=== PATIENT | male | born 1940 | race Caucasian/White ===

== ENCOUNTER → 2017-11-22 07:56 | Outpatient (CLI) | payer MEDICARE, SELFPAY ==
[2017-11-22 10:04] LABS: AST(SGOT) 35 U/L (15-37); Alanine Aminotransfer ALT/SGPT 48 U/L (16-61); Albumin, Serum 3.8 g/dL (3.2-5.0); Alkaline Phosphatase 54 U/L (45-117); Bilirubin, Direct 0.17 mg/dL (0.00-0.30); Cholesterol 169 mg/dL (200); Globulin 3.4 g/dL (2.2-4.2); High Density Lipoprotein 26 mg/dL; PSA,Total - Annual Screen 7.23 ng/mL (0.00-4.00); Protein, Total 7.2 g/dL (6.4-8.2); T4 Free Direct 1.13 ng/dL (0.76-1.46); Thyroid Stim Hormone (TSH) 2.95 uIU/mL (0.358-3.74); Triglycerides 249 mg/dL; Very Low Density Lipoprotein 50 mg/dL (5-40)
== END ==
PROVIDERS: Visit Provider Internal Medicine Cardiovascular Disease
DX: Z00.00 Encounter for general adult medical examination without abnormal findings (principal); E78.1 Pure hyperglyceridemia; E78.5 Hyperlipidemia, unspecified; E03.9 Hypothyroidism, unspecified; Z12.5 Encounter for screening for malignant neoplasm of prostate
CPT/HCPCS: 36415; 80061; 80076; 84153; 84439; 84443; G0103

== ENCOUNTER → 2018-02-24 15:33 | Outpatient (CLI) | payer MEDICARE, SELFPAY ==
[2018-02-24 16:42] LABS: PSA,Total- Diagnostic 7.98 ng/mL (0.0-4.0)
== END ==
PROVIDERS: Referring Provider Nurse Practitioner Adult Health; Visit Provider Nurse Practitioner Adult Health
DX: R97.20 Elevated prostate specific antigen [PSA] (principal)
CPT/HCPCS: 36415; 84153

== ENCOUNTER → 2019-12-19 12:34 | Outpatient (CLI) | payer OTHER, SELFPAY ==
[2019-12-10 08:30] VITALS: BMI 29.9
--- NOTE | 2019-12-19 12:45 | CR.HP_ITS ---
CR - History & Physical - General Arrival date:: 12/19/19 Arrival time:: 12:46 Date of Referral:: 12/10/19 Date of CR Evaluation:: 12/19/19 Referring Physician: Dr. Dennis Keller Primary Diagnosis: Z95.1 CABG - History of Present Cardiac Event Onset Date: Enter Onset Date of cardiac illnesses in Comment field below Coronary Artery Bypass Graft:: Yes - 10/31/19 - Medications Home Medications: Ambulatory Orders Medication Instructions Recorded Aspirin [Aspirin, Baby] 81 mg PO DAILY@0800 09/20/16 Cholecalciferol (Vitamin D3) 2,000 unit PO DAILY 09/20/16 [Vitamin D3] Fenofibrate [Tricor] 145 mg PO DAILYCM #30 tab 09/24/16 Nitroglycerin (INPATIENT USE) 0.4 mg SUBLINGUAL Q5M PRN #1 bottle 09/24/16 [Nitrostat] amiodarone 200 mg tablet 200 mg PO DAILY 12/10/19 apixaban 5 mg tablet 5 mg PO BID 12/10/19 carvedilol 3.125 mg tablet 3.125 mg PO BID 12/10/19 ezetimibe 10 mg tablet 5 mg PO DAILY tab 12/10/19 levothyroxine 25 mcg tablet 50 mcg PO DAILY tab 12/10/19 losartan 25 mg tablet 12.5 mg PO DAILY tab 12/10/19 - Allergies Allergies/Adverse Reactions: Allergies Penicillins Allergy (Verified 12/10/19 08:30) Rash - Sleep Disorder Evaluation Hx of Sleep Apnea: Yes Do you snore loudly (louder than talking or can be heard through closed doors)?: No Do you often feel tired/ fatigued/ sleepy during daytime?: Yes Has anyone observed you stop breathing during sleep?: No History of Hypertension (for STOP score): Yes - pt declines STOP Results: Positive Advanced Directives - Advanced Directives Power of Health And Wellness Coordinator: Yes Living Will: Yes Advance Directives Information Provided: Yes Advance Directives on File: Yes DNR Order?:: No Past Medical History - Covid-19 Screening Has a serious heart condition:: Yes - Past Medical Illness Medical History: Past Medical History (Last Reviewed 09/28/18 @ 13:51 by Gabby Barroso) Ventricular ectopy (Acute) I49.3 Tachy-drew syndrome (Acute) I49.5 Presence of stent in coronary artery (Chronic) Onset Date: ~09/23/16 Z95.5 FFR/SABRA to mid LAD 09/23/16 Atherosclerotic heart disease of [place] coronary artery without angina pectoris (Chronic) I25.10 Essential hypertension (Chronic) I10 Near syncope (Acute) Bradycardia (Acute) R00.1 Hypothyroidism (Chronic) E03.9 Hypertriglyceridemia (Chronic) E78.1 Enlarged prostate (Chronic) N40.0 HERMAN (obstructive sleep apnea) (Chronic) G47.33 non-compliant Tachycardia (Chronic) R00.0 CAD (coronary artery disease) (Inactive) I25.10 cath in 2008...does not really know the results but, he got put on a beta becca; PTCA/SABRA to LAD in September 2016; - Past Surgical History Surgical History: Past Surgical History (Last Updated 12/10/19 @ 08:37 by Brenna Santillan) 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, 2019 IN [place] Presence of coronary angioplasty implant and graft Onset Date: ~09/23/16 Z95.5 FFR/SABRA to mid LAD 09/23/16 History of ankle surgery Z98.890 History of appendectomy Z90.49 History of rotator cuff surgery Z98.890 Hx of appendectomy (Inactive) Z90.49 Post PTCA (Inactive) Z98.61 left leg surgery (Inactive) Surgical History: appendectomy, - Social History - Smoking History Smoking Status: Former smoker Years Smokin Packs Smoked per Day: 3 Hx Tobacco Use: Yes - quit 1970 - Alcohol Use Alcohol Usage: No - Occupation Occupation (List type of work in comments):: Retired - Hobbies, Recreation, Social Activities Hobbies: Other - fishing and arshad Recreational Activities: I am able to engage in all my recreational activities Social Environment - Status Marital Status: - Current Living Arrangements Living Environment:: Spouse - Children How many children do you have?: 4 Do any of your children live nearby?: No - Safety Do you feel safe in your surroundings?: Yes - Assistance Do you need any assistance at home?: none Review of Systems - Review of Systems Hints: Right click = Denies ([place]). Left click = Reports ([place]) Review of Present Symptoms: Reports: Shortness of Breath with Exertion, Fatigue, Appetite - Normal, Appetite - Special Diet, Sleep - Normal. Denies: Shortness of Breath at Rest, PVD, Operative Discomfort, Angina, Wound Healing, Dizziness/Lightheadedness, Heart Arrhythmia/Irregularities, Sexual Changes - Pain Is Patient Pain Free?: Yes Risk Factor Assessment - Chief Complaint Chief Complaint: CABG - Vital Signs Pulse Ox: 97 Blood Pressure: 126/80 - Pulse Pulse Rate: 81 Pulse Rhythm: Regular - Obesity Height: 5 ft 9 in Weight:: 92.079 kg Weight in Pounds: 203.0 lbs Body Mass Index (BMI): 29.9 Nutritional Referral for Obesity: No - Physical Inactivity Physical Inactivity: Reg Exercise 30 min/day, None - Risk Stratification Risk Guidelines: Lowest Risk: Risk Factor for Smoking, Moderate Risk: Risk Factor for Dyslipidemia, Risk Factor for Diabetes, Risk Factor for Obesity, Risk Factor for Hypertension, Risk Factor for Sedentary Lifestyle, Risk Factor for Depression - For Smoking Smoking Risk Guidelines: Smoking Low Risk: None or quit greater than 6 months ago. Smoking Moderate Risk: Smoker or quit 6 months or less ago. Smoking High Risk: Smoker - For Dyslipidemia Dyslipidemia Risk Guidelines: Low Risk: Moderate Risk: High Risk: 15-25% fat 25.1-29% fat >/= 30% fat. <7% sat fat 7-9% sat fat >9% sat fat. <150 mg chol 150-299 mg chol >/= 300 mg chol. LDL <100 LDL 100-129 LDL >/= 130. Chol/HDL ratio <5.0 Chol/HDL ratio 5.0-6.0 Chol/HDL ratio >6.0. Triglycerides <100 Triglycerides 100- 149 Triglycerides >/= 150 - For Diabetes Mellitus Diabetes Risk Guidelines: Diabetes Low Risk: HgA1c <6.5% and/or FBG <120. Diabetes Moderate Risk: HgA1c 6.6-7.9% and/or FBG 120-180. Diabetes High Risk: HgA1c >/= 8% and/or FBG >180 - For Obesity/Overweight Obesity/Overweight Risk Guidelines: Obesity Low Risk: BMI <25.0. Obesity Moderate Risk: BMI 25-29.9. Obesity High Risk: BMI >/= 30.0 - For Hypertension Hypertension Risk Guidelines: Hypertension Low Risk: Systolic <120 and Diastolic <80. Hypertension Moderate Risk: Systolic 120-139 and Diastolic 80-89. Hypertension High Risk: Systolic >/= 140 and Diastolic >/= 90 - For Sedentary Lifestyle Sedentary Lifestyle Risk Guidelines: Sedentary Lifestyle Low Risk: >/= 1,500 kcal/week. Sedentary Lifestyle Moderate Risk: 700-1,499 kcal/week. Sedentary Lifestyle High Risk: < 700 kcal/week - For Depression Depression Risk Guidelines: Depression Low Risk: Not clinically depressed. Depression Moderate Risk: Mildly depressed. Depression High Risk: Clinically depressed Motivation - Motivation to Participate On a scale of 1 to 10, how prepared are you to commit to attending program?: 10 What do you see as barriers to successfully being able to complete the program?: none What do you see as the benefits of succesfully completing the program? In other words, what do you hope to get out of participating in the program?: improved health Are there issues you are dealing with that will interfere with completing the pr ogram?: none Do you have a spouse or signficant other, family or friends who will help support you to complete the program?: spouse
--- NOTE | 2019-12-19 12:46 | CR.ITP_ITS ---
Diagnosis - General Information Admitting Diagnosis: Z95.5 PCI with stent Personal Learning Style:: Audio/Visual Barriers to Learning: Vision Impairment Stage of change r/t lifestyle modifications:: Contemplation Gave educational material for:: Treating Heart Disease, Emotions & Heart Disease, Stress Management & Relaxation, Sleep Disorders & Heart Disease, How The Heart Works, What it means to have Heart Disease, How Coronary Artery Disease is Diagnosed, Heart Procedures, What Heart Medications Do, Risk Factors & Modifications, Living an Active Life, Nutrition - Education/Goals Cardiac Rehabilitation Goals: 1. Maintain the individual as the primary focus of care. 2. To improve the patient's quality of life. 3. Identification of cardiac risk factors and provide cardiac risk factor management. 4. Enhance the psychosocial status of the patient. 5. Reconditioning enough to allow the patient to resume customary activities. 6. Control symptoms of cardiac disease Personal Goals: Initial Assessment: Improve energy level, Participate in home exercise program, Get back to work, or to resume activities faster, Improve knowledge of cardiac disease, Improve muscle strength and endurance, Improve diet and eating habits (eat healthier), Control risk factors (learn risk factor modification) Scale for measuring improvement of personal goals: Enter appropriate number in Comments. 2 = Unchanged. 3 = Slightly Better. 4 = Moderate Improvement. 5 = Met my Goal - Diagnosis & Disease Process Outcomes/Goals: Pt IDs own risk factors & lifestyle modifications by Session 10, Verbalizes symptoms of angina & response by session 3., Pt independently manages, Other Additional Outcomes/Goals: Plan/Interventions: Assist Pt to ID & engage in lifestyle modification to reduce CVD risk, Instruct on individual risk factors, Review symptoms of angina & emergency actions, Review secondary diagnosis & identify educational needs., Other see comment 30 day Reassessments:: Not Met 30 day Reassessments:: Not Met 30 day Reassessments:: Not Met 30 day Reassessments:: Not Met Final Reassessments:: Not Met - Safety Referral to Physical Therapy: No Referral to [facility] Case Management: No Fall Risk Assessed:: Yes Assistive Devices:: None Exercise - Initial Assessment - Visit Date of Eval: 12/19/19 - initial eval Mets: Pre-: >5 METS for 30 minutes by discharge - Physician Prescribed Exercise Modalities: Treadmill, Biodyne, Rower, Airdyne, NuStep, SciFit Frequency: 3x/week for 12 weeks [36 sessions] Intensity: 60-80% of age predicted maximum heart rate reserve Current METSs:: 3.5 Target Heart Rate:: 93-125 EKG Type: NSR - Outcomes & Goals Goals:: Verbalizes understanding of THR, RPE & goal METS by session 6, Documents in home exercise log/reports 30 min aerobic 5 day/wk by DC, Demonstrates accurate pulse taking by DC, Other additional outcome/goals: see below - Intervention & Plan Exercise Program Goals: Instruct on personal THR & RPE, Instruct on MET level & personal MET goal, Show patient to take own pulse /validate performance until accurate, Instruct on home exercise, Other additional plan/int - Physical Activity Home Exercise Physical Activity - Home Exercise: Safe Exercise, Warm-up, Self-monitoring, Cool-Down, Home Exercise > 30 min Daily, Sitting Time <3 hours/daily - Outcomes & Goals Outcomes/Goals: Demonstrates correct Warm-up/exercise Cool-Down (S3) if = 2.5 METs, Verbalizes symptoms of exercise intolerance by Session 3 (S3), Demonstrate safe equipment use (S3) & follows exercise prescrition (6), Other: See below - Intervention & Plan Plan/Intervention: Instruct warm-up & cool-down if exercising at > 2 METs, Instruct on symptoms of exercise intolerance & actions to take, Instruct & monitor on saf, Assess intial functional capacity & safety risk, Other See below Nutrition - Initial Assessment - Program Goals Nutrition Program Goals: LDL <100 optimal. 100 - 129 Near optimal. 130 - 159 Borderline High. 160 - 189 High. Total Cholesterol <200 desirable. 200 - 239 Borderline High. >/= 240 High. HDL < 40 Low >/=60 High. Triglycerides <150 desirable. <199 optimal. VlDL 5 - 40. HgbA1C <7%. BMI <25 Patient has diagnosis of Hyperlipidemia (ICD E78)?: Yes - Visit Date of Assessment:: 12/19/19 - initial eval - Cholesterol/Lipids Determine presence & major risk factors that modify LDL goal: Hypertension or hypertensive medication, Low HDL cholesterol <40 mg/dL*, Family history of premature CHD in Male < 55 years: female <65 yearsFa, Age men > 45 years; women >/= 55 years Outcomes/Goals: Pt IDs own risk factors & lifestyle modifications by Session 10, Verbalizes symptoms of angina & response by session 3., Pt independently manages, Other Additional Outcomes/Goals: Intervention/Plan: Advocate for lipid panel cholesterol medication if applicable, Instruct on personal lipid levels & lipid goals/NCEP guidelines, Instruct on cholesterol, Other additional plan/int Referral to dietitian:: No - pt declines - Diabetes (Other Core Measures) Diabetes Type: Not Applicable Referral to Diabetic Clinic:: No - Weight Mgt (Other Care) Height: 5 ft 9 in Weight:: 92.079 kg BMI: 29.9 Diagnosis Overweight/Obesity BMI> 30% ICD-10 E66: No Diagnosis High BMI/Morbid Obesity BMI> 35% ICD-10 Z68: No - Healthy Eating Habits Will attend diet classes:: Yes Outcomes/Goals:: Consume diet rich in vegs,fruits,whole grain/high fiber,fish,lean meat, Limit sat/trans fats,cholesterol & added salts & sugars, Other additional outcome/goals: Intervention/Plan:: Assess current eating habits, Other Additional plan/interventions - Education Gave educational materials for:: Signs & symptoms of hypoglycemia, Signs & symptoms of hyperglycemia, Relate diabetes to coronary artery disease, Healthy eating Medical - Initial Assessment - Visit Date of Eval: 12/19/19 - initial eval - Medication Compliance Preventative Medication(s):: Aspirin, Statin/lipid, Beta becca H/O mental health issues: depression, anxiety, or addiction?: No Doesn?t believe in the benefits of treatment?: No Believes medications are unnecessary or harmful?: No Has a concern about medication side effects?: No Expresses concern over the cost of medications?: No Outcomes/Goals: Verbalizes medications,desired effect & common side effects @ DC, Pt self-reports following medication regimen, Keeps card in wallet w/medications listed by DC, Other additional outcome/goals: - Tobacco Use Tobacco Use: Non-smoker How long ago did you quit using tobacco products?: Greater than or equal to 6 months ago - 50 years ago - Hypertension Hypertension Diagnosis:: Hypertension ICD-10 I10 Resting Blood Pressure:: 126/80 [place] [employer] Hypertension Guidelines: [place] [employer] Hypertension Guidelines. Normal BP Less than 120/80. Elevated BP 120/80. Hypertension Stage 1: BP 130-139/80-89. Hypertesnion Stage 2: BP 140 or higher/90 or higher. Hypertension Crisis: BP higher than 180/120 Outcomes/Goals: Able to verbalize/achieve optimal blood pressure <130/80, Incorporates diet changes & exercise for blood pressure control by DC, Other additional outcomes/goals Interventions/plan: Instruct on optimal blood pressure, hypertension & medications, Instruct on effects of sodium, alcohol, stress, exercise &hypertension, Other additional plan/interventions - Tobacco Cessation Referral Smoking Cessation Referral:: No Individual Education/Counseling:: No Education Schedule Given:: Yes Psychosocial - Initial Assess - VIsit Date of Eval: 12/19/19 - initial eval History of previous Mental disease:: No - Target Goals Target Goals: Assess presence or absence of depression. Using a valid screening tool, maximizes coping skills. Positive support system - Psychosocial Test Tool Used:: Clean Mobile QOL Cardiac, PHQ-9 Questionnaire phq-9 Severity: Severity. 1-4 Minimal Depression. 5-9 Mild Depression. 10-14 Moderate Depression. 15-19 Moderately Sever Depression. 20-27 Severe Depression. Rule: Total Score:: 3 - Referral to Behavioral Health PS - Interventions: Yes Referral to Behavioral Health if PHQ-9 score >9:, Yes Referral to Physician if PHQ-9 if score is 5-9:, Yes Attend Stress Management Classes, No Referral to [facility] - Outcomes/Goals: See list Psychosocial Outcomes/Goals:: ID's personal stressors & 2 strategies to manage stress by discharge, Other Additional outcome/goals: - Intervention/Plan: See List Interventions/Plan:: Assess stressors,coping strategies & signs of derpression on admission, Instruct/assist pt to develop coping & personal stress Mgt strategies, Refer to Behavioral Health if appropriate, Refer to Physician if appropriate, Instruct patient to recognize signs & symptoms of depression, Instruct patient to recog, Other additional plan/intervention Patient Health Questionnaire Initial Assessment 1. Little interest or pleasure in doing things: Not at all 2. Feeling down, depressed, or hopeless: Not at all 3. Trouble falling or staying asleep, or sleeping too much: Not at all 4. Feeling tired or having little energy: Nearly every day 5. Poor appetite or overeating: Not at all 6. Feeling bad about yourself -- or that you are a failure or have let yourself or your family down: Not at all 7. Trouble concentrating on things, such as reading the newspaper or watching television: Not at all 8. Moving or speaking so slowly that other people could have noticed. Or the opposite - being so fidgety or restless that you have been moving around a lot more than usual: Not at all 9. Thoughts that you would be better off , or of hurting yourself in some way: Not at all How difficult have these problems made it for you to do your work, take care of things at home, or get along with other people?: Not difficult at all Total Score: 3 ILEANA-Q SV Test - Statements CAD is a disease of the arteries in the heart: False Examples of risk factors for heart disease: True Angina is chest pain or discomfort: True The benefits of resistance training include: True Eating more meat and dairy products: False Anti-platelet medications such as aspirin are important: True The only effective way to manage stress: False An exercise warm-up slowly increases heart rate: True Prepared, processed foods usually have high sodium: True Depression is common after a heart attack: True The statin medications lower cholesterol: True To control blood pressure, lower the amount of sodium: True If someone gets chest discomfort during walking: False Transfats are partially hydrogenated vegetable oils: True Sleep apnea that is not treated increases the risk: False To control cholesterol, one should become a vegetarian: False Someone knows if he/she is exercising at the right level: True Diabetes cannot be prevented with exercise & health eating: False Stress is a large risk for heart attack: True A diet that can help lower blood pressure is rich in: True - Total Score Total Correct Responses: 20 Self-Efficacy Initial Assessment We would like to know how confident you are in doing certain activities. Please select your confidence level for:: Select your confidence level for the following using the scale 1-10 where 1 is not at all confident and 10 is totally confident. Your score is the average of all 6 responses. Fatigue: How confident are you that you can keep the fatigue caused by your disease from interfering with the things you want to do? Select Number: 7 Physical Discomfort or Pain: How confident are you that you can keep the physical discomfort or pain of your disease from interfering with the things you want to do? Select Number: 7 Emotional Distress: How confident are you that you can keep the emotional distress caused by your disease from interfering with the things you want to do? Select Number: 10 Other Symptoms or Health Problems: How confident are you that you can keep other symptoms or health problems from interfering with the things you want to do? Select Number: 10 Different Tasks and Activities: How confident are you that you can do the different tasks and activities needed to manage your health condition so as to reduce your need to see a doctor? Select Number: 10 Medication: How confident are you that you can do things other than just taking medication to reduce how much your illness affects your everyday life? Select Number: 10 Total Score:: 9 Nutrition Survey - Nutrition Survey Instructions Scoring Instructions: Scoring is as follows: Yes = 1 points. No = 0 point. Patient score that is >/=12 is considered to be at potential nutritional risk and could benefit from a referral to a registered dietitian. - Nutrition Survey Initial Have you lost >10 lbs over the past 2 months without trying?: Yes Are you following a special diet at home for diabetes, low fat, or low salt?: Yes Are you interested in meeting with a dietitian for help understanding your diet?: No Do you eat less than 3 meals a day?: Yes Do you eat fatty meats (hsu, sausage, ribs, etc), fried foods, desserts, large amounts of salad dressings, margarine, butter, or cheese most days?: No Do you have food allergies? [Enter types in comment field]: Yes Do you eat in restaurants more than 3 times a week?: No Do you season food with salt, seasoning salt, or garlic salt?: No Do you used canned, boxed, frozen meals, or soups, seasoning packets?: No Total Score:: 4
[2019-12-19 13:59] VITALS: BP 126/80; PULSE 81; O2SAT 97; BMI 29.9
[2019-12-19 14:00] VITALS: BP 126/80; BMI 29.9
== END ==
PROVIDERS: Referring Provider Internal Medicine Cardiovascular Disease; Visit Provider Internal Medicine Cardiovascular Disease
DX: Z95.5 Presence of coronary angioplasty implant and graft (principal)

== ENCOUNTER 2019-12-21 11:20 | Outpatient (RCR) | payer OTHER, SELFPAY ==
[2019-12-19 13:21] VITALS: BMI 29.9
== END 2019-12-21 23:59 ==
LOC: CR 11:20
PROVIDERS: Referring Provider Internal Medicine Cardiovascular Disease; Visit Provider Internal Medicine Cardiovascular Disease
DX: I25.10 Atherosclerotic heart disease of native coronary artery without angina pectoris (principal); Z95.1 Presence of aortocoronary bypass graft; I48.92 Unspecified atrial flutter; I49.3 Ventricular premature depolarization; I49.5 Sick sinus syndrome; E78.1 Pure hyperglyceridemia; I10 Essential (primary) hypertension
CPT/HCPCS: 93798

== ENCOUNTER 2020-01-21 11:30 | Outpatient (RCR) | payer OTHER, MEDICARE, SELFPAY ==
[2019-12-19 13:59] VITALS: BMI 29.9
[2019-12-19 14:00] VITALS: BMI 29.9
--- NOTE | 2020-01-17 11:30 | PCM.CR.ITP ---
Exercise - 30-day Assessment - Visit Date of Eval: 01/17/20 Session #:: 10 - Physician Prescribed Exercise Modalities: Treadmill, Airdyne, NuStep Frequency: 3x/week for 12 weeks [36 sessions] Intensity: 60-80% of age predicted maximum heart rate reserve Current METSs:: 4.5 INCREASE FROM 3.5 Target Heart Rate:: 93-125 Current RPE:: 12-14 Maximum Excercise HR:: 127 Resting Blood Pressure: 128/70 Maximum Exercise Blood Pressure: 142/78 EKG Type: NSR TO SINUS TACH WITH 1ST DEGREE AVB, PVCS, COUPLETS TRIPLETS - Outcomes & Goals Goals:: Verbalizes understanding of THR, RPE & goal METS by session 6, Documents in home exercise log/reports 30 min aerobic 5 day/wk by DC, Demonstrates accurate pulse taking by DC - Intervention & Plan Exercise Program Goals: Instruct on personal THR & RPE, Instruct on MET level & personal MET goal, Show patient to take own pulse /validate performance until accurate, Instruct on home exercise - 30-day Reassessments 30 day Reassessments:: Progressing Reassessment Notes & Comments:: EKG CHANGES REPORTED TO DR. KY VASQUEZ. - Physical Activity Home Exercise Physical Activity - Home Exercise: Safe Exercise, Warm-up, Self-monitoring, Cool-Down, Home Exercise > 30 min Daily, Sitting Time <3 hours/daily - Outcomes & Goals Outcomes/Goals: Demonstrates correct Warm-up/exercise Cool-Down (S3) if = 2.5 METs, Verbalizes symptoms of exercise intolerance by Session 3 (S3), Demonstrate safe equipment use (S3) & follows exercise prescrition (6) - Intervention & Plan Plan/Intervention: Instruct warm-up & cool-down if exercising at > 2 METs, Instruct on symptoms of exercise intolerance & actions to take, Instruct & monitor on saf, Assess intial functional capacity & safety risk - 30-day Reassessments 30 day Reassessments:: Progressing Nutrition - 30-Day Assessment - Program Goals Nutrition Program Goals: LDL <100 optimal. 100 - 129 Near optimal. 130 - 159 Borderline High. 160 - 189 High. Total Cholesterol <200 desirable. 200 - 239 Borderline High. >/= 240 High. HDL < 40 Low >/=60 High. Triglycerides <150 desirable. <199 optimal. VlDL 5 - 40. HgbA1C <7%. BMI <25 Patient has diagnosis of Hyperlipidemia (ICD E78)?: Yes - Visit Date of Assessment:: 01/17/20 Session #:: 10 - Cholesterol/Lipids Triglycerides (mg/dL): 249 - 11/22/2017 Total Cholesterol (mg/dL): 169 LDL Cholesterol (mg/dL): 93 HDL Cholesterol (mg/dL): 26 Determine presence & major risk factors that modify LDL goal: Hypertension or hypertensive medication, Low HDL cholesterol <40 mg/dL*, Family history of premature CHD in Male < 55 years: female <65 yearsFa, Age men > 45 years; women >/= 55 years Outcomes/Goals: Pt IDs own risk factors & lifestyle modifications by Session 10, Verbalizes symptoms of angina & response by session 3., Pt independently manages Intervention/Plan: Instruct on personal lipid levels & lipid goals/NCEP guidelines, Instruct on cholesterol Referral to dietitian:: Yes 30-day Reassessments:: Progressing - Diabetes (Other Core Measures) Diabetes Type: Not Applicable - Weight Mgt (Other Care) Not Applicable: No Height: 5 ft 9 in Weight:: 207 lb 8 oz BMI: 30.6 Diagnosis Overweight/Obesity BMI> 30% ICD-10 E66: Yes Diagnosis High BMI/Morbid Obesity BMI> 35% ICD-10 Z68: No Outcomes/Goals: Pt sets, maintains & shows weight loss goal & trend during rehab Intervention/Plan: Instruct on ideal BMI & set weight loss goal w/patient, Assist pt to ID & incorporate diet changes for weight loss by S9, Refer to Structured Weight Loss program as appropriate, Encourage goal of using 250-300dcal per session for weight loss 30 day Reassessments:: Progressing - Healthy Eating Habits Will attend diet classes:: Yes Outcomes/Goals:: Consume diet rich in vegs,fruits,whole grain/high fiber,fish,lean meat, Limit sat/trans fats,cholesterol & added salts & sugars Intervention/Plan:: Assess current eating habits 30-day Reassessments:: Progressing - Education Gave educational materials for:: Healthy eating Medical- 30-Day Assessment - Visit Date of Eval: 01/17/20 Session #:: 10 - Medication Compliance Preventative Medication(s):: Aspirin, Statin/lipid, Beta becca H/O mental health issues: depression, anxiety, or addiction?: No Doesn?t believe in the benefits of treatment?: No Believes medications are unnecessary or harmful?: No Has a concern about medication side effects?: No Expresses concern over the cost of medications?: No Outcomes/Goals: Verbalizes medications,desired effect & common side effects @ DC, Pt self-reports following medication regimen, Keeps card in wallet w/medications listed by DC Interventions/plans: Instruct on medication effects & side effects, Review medication list w/patient every two weeks, Instruct importance of taking meds as ordered & assist problem solving 30-day Reassessments:: Progressing - Tobacco Use Tobacco Use: Non-smoker - Hypertension Hypertension Diagnosis:: Hypertension ICD-10 I10 Resting Blood Pressure:: 128/70 [place] [employer] Hypertension Guidelines: [place] [employer] Hypertension Guidelines. Normal BP Less than 120/80. Elevated BP 120/80. Hypertension Stage 1: BP 130-139/80-89. Hypertesnion Stage 2: BP 140 or higher/90 or higher. Hypertension Crisis: BP higher than 180/120 Peak Exercise Blood Pressure:: 142/78 Outcomes/Goals: Able to verbalize/achieve optimal blood pressure <130/80, Incorporates diet changes & exercise for blood pressure control by DC Interventions/plan: Instruct on optimal blood pressure, hypertension & medications, Instruct on effects of sodium, alcohol, stress, exercise &hypertension 30 day Reassessments:: Progressing - Tobacco Cessation Referral Smoking Cessation Referral:: No Individual Education/Counseling:: No Education Schedule Given:: Yes Psychosocial - 30-Day Assess - VIsit Date of Eval: 01/17/20 Session #:: 11 Not Applicable: Yes History of previous Mental disease:: No - Target Goals Target Goals: Assess presence or absence of depression. Using a valid screening tool, maximizes coping skills. Positive support system - Psychosocial Test Tool Used:: PHQ-9 Questionnaire phq-9 Severity: Severity. 1-4 Minimal Depression. 5-9 Mild Depression. 10-14 Moderate Depression. 15-19 Moderately Sever Depression. 20-27 Severe Depression. Rule: - Referral to Behavioral Health PS - Interventions: Yes Attend Stress Management Classes, No Referral to Behavioral Health if PHQ-9 score >9:, No Referral to [facility], No Referral to Physician if PHQ-9 if score is 5-9: - Outcomes/Goals: See list Psychosocial Outcomes/Goals:: ID's personal stressors & 2 strategies to manage stress by discharge - Intervention/Plan: See List Interventions/Plan:: Assess stressors,coping strategies & signs of derpression on admission, Instruct/assist pt to develop coping & personal stress Mgt strategies, Instruct patient to recognize signs & symptoms of depression, Instruct patient to recog - 30-day Reassessments: 30 day Reassessments:: Progressing Patient Health Questionnaire 30-Day Re-eval Assessment 1. Little interest or pleasure in doing things: Not at all 2. Feeling down, depressed, or hopeless: Not at all 3. Trouble falling or staying asleep, or sleeping too much: Not at all 4. Feeling tired or having little energy: Several days 5. Poor appetite or overeating: Not at all 6. Feeling bad about yourself -- or that you are a failure or have let yourself or your family down: Not at all 7. Trouble concentrating on things, such as reading the newspaper or watching television: Not at all 8. Moving or speaking so slowly that other people could have noticed. Or the opposite - being so fidgety or restless that you have been moving around a lot more than usual: Not at all 9. Thoughts that you would be better off , or of hurting yourself in some way: Not at all How difficult have these problems made it for you to do your work, take care of things at home, or get along with other people?: Not difficult at all Total Score: 1 Self-Efficacy 30-Day Re-eval Assessment We would like to know how confident you are in doing certain activities. Please select your confidence level for:: Select your confidence level for the following using the scale 1-10 where 1 is not at all confident and 10 is totally confident. Your score is the average of all 6 responses. Fatigue: How confident are you that you can keep the fatigue caused by your disease from interfering with the things you want to do? Select Number: 8 Physical Discomfort or Pain: How confident are you that you can keep the physical discomfort or pain of your disease from interfering with the things you want to do? Select Number: 9 Emotional Distress: How confident are you that you can keep the emotional distress caused by your disease from interfering with the things you want to do? Select Number: 10 Other Symptoms or Health Problems: How confident are you that you can keep other symptoms or health problems from interfering with the things you want to do? Select Number: 10 Different Tasks and Activities: How confident are you that you can do the different tasks and activities needed to manage your health condition so as to reduce your need to see a doctor? Select Number: 10 Medication: How confident are you that you can do things other than just taking medication to reduce how much your illness affects your everyday life? Select Number: 10 Total Score:: 9
[2020-01-17 11:39] VITALS: BP 128/70; BP 142/78; BMI 30.6
== END 2020-01-21 23:59 ==
LOC: CR 11:30
PROVIDERS: Referring Provider Internal Medicine Cardiovascular Disease; Visit Provider Internal Medicine Cardiovascular Disease
DX: I25.10 Atherosclerotic heart disease of native coronary artery without angina pectoris (principal); I48.92 Unspecified atrial flutter; I49.3 Ventricular premature depolarization; I49.5 Sick sinus syndrome; I10 Essential (primary) hypertension; E78.1 Pure hyperglyceridemia; Z95.1 Presence of aortocoronary bypass graft; Z95.5 Presence of coronary angioplasty implant and graft
CPT/HCPCS: 93798

== ENCOUNTER 2020-02-18 11:30 | Outpatient (RCR) | payer OTHER, SELFPAY ==
[2020-01-04 12:52] VITALS: BMI 29.9
[2020-01-17 11:39] VITALS: BMI 30.6
[2020-01-22 00:44] VITALS: BP 128/70; BP 142/78
--- NOTE | 2020-02-18 07:22 | CR.ITP_ITS ---
Exercise - 60-day Assessment - Visit Date of Eval: 02/18/20 Session #:: 21 - patient has missed 4 sessions - Physician Prescribed Exercise Modalities: Treadmill, Airdyne, NuStep Frequency: 3x/week for 12 weeks [36 sessions] Intensity: 60-80% of age predicted maximum heart rate reserve Current METSs:: 4.5 unchanged Target Heart Rate:: 93-125 Current RPE:: 12 Maximum Excercise HR:: 112 Resting Blood Pressure: 102/62 - controlled on medication Maximum Exercise Blood Pressure: 160/78 EKG Type: SR first degree block, occas. PVCs, rare PAC. - Outcomes & Goals Goals:: Verbalizes understanding of THR, RPE & goal METS by session 6, Documents in home exercise log/reports 30 min aerobic 5 day/wk by DC, Demonstrates accurate pulse taking by DC - Intervention & Plan Exercise Program Goals: Instruct on personal THR & RPE, Instruct on MET level & personal MET goal, Show patient to take own pulse /validate performance until accurate, Instruct on home exercise - 30-day Reassessments 30 day Reassessments:: Progressing - Physical Activity Home Exercise Physical Activity - Home Exercise: Safe Exercise, Warm-up, Self-monitoring, Cool-Down, Home Exercise > 30 min Daily, Sitting Time <3 hours/daily - Outcomes & Goals Outcomes/Goals: Demonstrates correct Warm-up/exercise Cool-Down (S3) if = 2.5 METs, Verbalizes symptoms of exercise intolerance by Session 3 (S3), Demonstrate safe equipment use (S3) & follows exercise prescrition (6) - Intervention & Plan Plan/Intervention: Instruct warm-up & cool-down if exercising at > 2 METs, Instruct on symptoms of exercise intolerance & actions to take, Instruct & monitor on saf, Assess intial functional capacity & safety risk - 30-day Reassessments 30 day Reassessments:: Progressing Nutrition - 60-Day Assessment - Program Goals Nutrition Program Goals: LDL <100 optimal. 100 - 129 Near optimal. 130 - 159 Borderline High. 160 - 189 High. Total Cholesterol <200 desirable. 200 - 239 Borderline High. >/= 240 High. HDL < 40 Low >/=60 High. Triglycerides <150 desirable. <199 optimal. VlDL 5 - 40. HgbA1C <7%. BMI <25 Patient has diagnosis of Hyperlipidemia (ICD E78)?: Yes - Visit Date of Assessment:: 02/18/20 Session #:: 21 - Cholesterol/Lipids Determine presence & major risk factors that modify LDL goal: Hypertension or hypertensive medication, Family history of premature CHD in Male < 55 years: female <65 yearsFa, Age men > 45 years; women >/= 55 years Outcomes/Goals: Pt IDs own risk factors & lifestyle modifications by Session 10, Verbalizes symptoms of angina & response by session 3., Pt independently manages Intervention/Plan: Instruct on personal lipid levels & lipid goals/NCEP guidelines, Instruct on cholesterol Referral to dietitian:: No 30-day Reassessments:: Progressing - Diabetes (Other Core Measures) Diabetes Type: Not Applicable - Weight Mgt (Other Care) Not Applicable: No Height: 5 ft 9 in Weight:: 210 lb BMI: 31.0 Diagnosis Overweight/Obesity BMI> 30% ICD-10 E66: Yes Diagnosis High BMI/Morbid Obesity BMI> 35% ICD-10 Z68: No Outcomes/Goals: Pt sets, maintains & shows weight loss goal & trend during rehab Intervention/Plan: Instruct on ideal BMI & set weight loss goal w/patient, Assist pt to ID & incorporate diet changes for weight loss by S9, Encourage goal of using 250-300dcal per session for weight loss 30 day Reassessments:: Progressing - Healthy Eating Habits Will attend diet classes:: Yes Outcomes/Goals:: Consume diet rich in vegs,fruits,whole grain/high fiber,fish,lean meat, Limit sat/trans fats,cholesterol & added salts & sugars Intervention/Plan:: Assess current eating habits 30-day Reassessments:: Progressing - Education Gave educational materials for:: Healthy eating Medical- 60-Day Assessment - Visit Date of Eval: 02/18/20 Session #:: 21 - Medication Compliance Preventative Medication(s):: Aspirin, Statin/lipid, Beta becca H/O mental health issues: depression, anxiety, or addiction?: No Doesn?t believe in the benefits of treatment?: No Believes medications are unnecessary or harmful?: No Has a concern about medication side effects?: No Expresses concern over the cost of medications?: No Outcomes/Goals: Verbalizes medications,desired effect & common side effects @ DC, Pt self-reports following medication regimen, Keeps card in wallet w/medications listed by DC Interventions/plans: Instruct on medication effects & side effects, Review medication list w/patient every two weeks, Instruct importance of taking meds as ordered & assist problem solving 30-day Reassessments:: Progressing - Tobacco Use Tobacco Use: Non-smoker - Hypertension Resting Blood Pressure:: 102/62 [place] [employer] Hypertension Guidelines: [place] [employer] Hypertension Guidelines. Normal BP Less than 120/80. Elevated BP 120/80. Hypertension Stage 1: BP 130-139/80-89. Hypertesnion Stage 2: BP 140 or higher/90 or higher. Hypertension Crisis: BP higher than 180/120 Peak Exercise Blood Pressure:: 160/78 Outcomes/Goals: Able to verbalize/achieve optimal blood pressure <130/80, Incorporates diet changes & exercise for blood pressure control by DC Interventions/plan: Instruct on optimal blood pressure, hypertension & medications, Instruct on effects of sodium, alcohol, stress, exercise &hypertension 30 day Reassessments:: Progressing - Tobacco Cessation Referral Smoking Cessation Referral:: No Individual Education/Counseling:: No Education Schedule Given:: Yes Psychosocial - 60-Day Assess - VIsit Date of Eval: 02/18/20 Session #:: 21 Not Applicable: Yes History of previous Mental disease:: No - Target Goals Target Goals: Assess presence or absence of depression. Using a valid screening tool, maximizes coping skills. Positive support system - Psychosocial Test Tool Used:: PHQ-9 Questionnaire phq-9 Severity: Severity. 1-4 Minimal Depression. 5-9 Mild Depression. 10-14 Moderate Depression. 15-19 Moderately Sever Depression. 20-27 Severe Depression. Rule: - Referral to Behavioral Health PS - Interventions: Yes Attend Stress Management Classes, No Referral to Behavioral Health if PHQ-9 score >9:, No Referral to [facility], No Referral to Physician if PHQ-9 if score is 5-9: - Outcomes/Goals: See list Psychosocial Outcomes/Goals:: ID's personal stressors & 2 strategies to manage stress by discharge - Intervention/Plan: See List Interventions/Plan:: Assess stressors,coping strategies & signs of derpression on admission, Instruct/assist pt to develop coping & personal stress Mgt strateg ies, Instruct patient to recognize signs & symptoms of depression, Instruct patient to recog - 30-day Reassessments: 30 day Reassessments:: Progressing Patient Health Questionnaire 60-Day Re-eval Assessment 1. Little interest or pleasure in doing things: Not at all 2. Feeling down, depressed, or hopeless: Not at all 3. Trouble falling or staying asleep, or sleeping too much: Not at all 4. Feeling tired or having little energy: Not at all 5. Poor appetite or overeating: Not at all 6. Feeling bad about yourself -- or that you are a failure or have let yourself or your family down: Not at all 7. Trouble concentrating on things, such as reading the newspaper or watching television: Not at all 8. Moving or speaking so slowly that other people could have noticed. Or the opposite - being so fidgety or restless that you have been moving around a lot more than usual: Not at all 9. Thoughts that you would be better off , or of hurting yourself in some way: Not at all Total Score: 0 Self-Efficacy 60-Day Re-eval Assessment We would like to know how confident you are in doing certain activities. Please select your confidence level for:: Select your confidence level for the following using the scale 1-10 where 1 is not at all confident and 10 is totally confident. Your score is the average of all 6 responses. Fatigue: How confident are you that you can keep the fatigue caused by your disease from interfering with the things you want to do? Select Number: 9 Physical Discomfort or Pain: How confident are you that you can keep the ph ysical discomfort or pain of your disease from interfering with the things you want to do? Select Number: 10 Emotional Distress: How confident are you that you can keep the emotional distress caused by your disease from interfering with the things you want to do? Select Number: 10 Other Symptoms or Health Problems: How confident are you that you can keep other symptoms or health problems from interfering with the things you want to do? Select Number: 10 Different Tasks and Activities: How confident are you that you can do the different tasks and activities needed to manage your health condition so as to reduce your need to see a doctor? Select Number: 10 Medication: How confident are you that you can do things other than just taking medication to reduce how much your illness affects your everyday life? Select Number: 10 Total Score:: 9
[2020-02-18 07:27] VITALS: BP 102/62; BP 160/78; BMI 31.0
== END 2020-02-20 23:59 ==
LOC: CR 11:30
PROVIDERS: Referring Provider Internal Medicine Cardiovascular Disease; Visit Provider Internal Medicine Cardiovascular Disease
DX: I25.10 Atherosclerotic heart disease of native coronary artery without angina pectoris (principal); Z95.1 Presence of aortocoronary bypass graft; Z95.5 Presence of coronary angioplasty implant and graft; I48.92 Unspecified atrial flutter; I49.3 Ventricular premature depolarization; I49.5 Sick sinus syndrome; I10 Essential (primary) hypertension; E78.1 Pure hyperglyceridemia
CPT/HCPCS: 93798

== ENCOUNTER 2020-12-04 11:26 | Inpatient (IN) | payer OTHER, MEDICARE, SELFPAY ==
[2020-10-07 09:52] VITALS: BMI 30.1
[2020-12-04] VITALS (13 sets, daily range): BP systolic 100–138; BP diastolic 67–106; PULSE 51–102; RESP 14–19; TEMP 35.7–37.1; O2SAT 93–99; BMI 28.8; BMI 28.6
--- NOTE | 2020-12-04 11:32 | RAD_ITS ---
STUDY: X-RAY CHEST REASON FOR EXAM: Male, 80 years old. SOB TECHNIQUE: PA and lateral views of the chest. COMPARISON: Comparison is made with prior study dated 09/20/2016. FINDINGS: There is evidence of vascular congestion and mild degree of CHF. There is no demonstrated pleural abnormality. Sternal cerclage wires are present from a prior sternotomy. Borderline cardiomegaly. The patient is status post midline sternotomy and mitral valve replacement. A metal clip is seen in the region of the left atrium. Normal mediastinum and preet. Normal visualized pulmonary arteries. There is atherosclerotic calcification of the aortic arch with tortuosity. There are diffuse degenerative changes of the visualized thoracic spine. Normal visualized ribs, clavicles, and shoulders. There is no demonstrated abnormality of the visualized soft tissue structures of the upper abdomen. RAD/Chest PA and Lateral IMPRESSION: Status post mitral valve replacement. Borderline cardiomegaly and mild CHF. Electronically Signed: Caleb Earl MD at 12:07 EDT , Service support ,
--- NOTE | 2020-12-04 11:33 | EKG12_ITS ---
Test Reason : PVC Blood Pressure : / mmHG Vent. Rate : 089 BPM Atrial Rate : 089 BPM P-R Int : 288 ms QRS Dur : 114 ms QT Int : 386 ms P-R-T Axes : 061 078 011 degrees QTc Int : 469 ms Sinus rhythm with 1st degree A-V block with frequent and consecutive Premature ventricular complexes Abnormal ECG Confirmed by DANTE OLIVO, PRITI ([id number]), book editor GAYATHRI LOPEZ ([id number]) on 12/08/2020 9:32:01 AM Referred By: Confirmed By:ABDIRAHMAN HOWELL MD
--- NOTE | 2020-12-04 11:33 | EKG12_ITS ---
Test Reason : SOB Blood Pressure : / mmHG Vent. Rate : 093 BPM Atrial Rate : 093 BPM P-R Int : 290 ms QRS Dur : 116 ms QT Int : 376 ms P-R-T Axes : 050 049 016 degrees QTc Int : 467 ms Sinus rhythm with 1st degree A-V block with frequent and consecutive Premature ventricular complexes Abnormal ECG Confirmed by DANTE OLIVO, PRITI ([id number]), visual effects editor GAYATHRI LOPEZ ([id number]) on 12/08/2020 9:41:18 AM Referred By: AMBER Confirmed By:ABDIRAHMAN HOWELL MD
[2020-12-04 12:10] LABS: Absolute Lymphocyte Count 1.31 X10^3/uL (0.83-4.51); Absolute Neutrophil Count 4.5 X10^3/uL (2.0-7.7); Basophil# 0.05 X10^3/uL; Basophil% 0.8 % (0-1); Eosinophil# 0.16 X10^3/uL; Eosinophils% 2.4 % (0-5); Hematocrit 46.3 % (40-54); Hemoglobin 15.6 g/dL (13.0-16.5); Lymphocyte # 1.31 X10^3/ul (0.83-4.51); Mean Corp Hgb Conc 33.7 g/dL (32-36); Mean Corpuscular Hgb 31.1 pg (27.0-32.0); Mean Corpuscular Volume 92.2 fL (80-94); Monocyte# 0.52 X10^3/uL; NRBC Flagged by Analyzer 0 % (0-5); Neutrophil # 4.48 X10^3/uL (2.7-7.7); Neutrophil % 68.5 % (47-70); Platelet Count 164 K/mm3 (150-450); RBC Distribution Width CV 13.7 % (11.6-14.6); RBC Distribution Width SD 46.4 fl (35.1-43.9); Red Blood Count 5.02 M/mm3 (4.6-6.2); White Blood Count 6.5 K/mm3 (4.4-11.0)
[2020-12-04 12:23] LABS: ALB/GLOB Ratio 1.2 RATIO (0.9-2.4); AST(SGOT) 13 U/L (15-37); Alanine Aminotransfer ALT/SGPT 24 U/L (16-61); Albumin, Serum 3.7 g/dL (3.2-5.0); Alkaline Phosphatase 79 U/L (45-117); Anion Gap 10 (5-15); BUN 19 mg/dL (7-18); BUN/Creat Ratio 18.8 RATIO (10-20); Calcium,Total 8.9 mg/dL (8.5-10.1); Chloride 105 mmol/L (98-107); Creatinine, Serum 1.01 mg/dL (0.70-1.30); EST Glomerular Filtration Rate 76 mL/min (>60); Est Glom Filt Rate - Afr Amer 92 mL/min (>60); Estimated Creatinine Clearance 59.31 ml/min; Globulin 3.1 g/dL (2.2-4.2); Glucose 138 mg/dL (74-106); Potassium 4.3 mmol/L (3.5-5.1); Protein, Total 6.8 g/dL (6.4-8.2); Sodium Level 141 mmol/L (136-145)
[2020-12-04 13:28] LABS: Troponin-I HS 21.4 pg/mL (3.0-78.5)
[2020-12-04 13:30] LABS: BNP,B-Type NATRIURETIC PEPTIDE 413.7 pg/mL (0-100)
[2020-12-04 13:41] LABS: D-Dimer Quantitative (DVT/PE) 0.28 FEU/ug/m (0.27-0.49)
[2020-12-04] MEDS: Ondansetron 4 MG/2 ML Vial IV (14:05)
[2020-12-04 15:09] LABS: Troponin-I HS 22.2 pg/mL (3.0-78.5)
--- NOTE | 2020-12-04 16:10 | ED.VIS.DYS ---
HPI History of Present Illness Chief Complaint: Shortness of Breath Informant: patient Onset/Context/Timing Onset: Today Context: sudden Timing: Continuous Quality: Positive for Wheezing Worsened by: Nothing Relieved by: Nothing Associated Symptoms Negative for cough, rhinorrhea, fever, sore throat or chills Chest Pain: Positive for None Narrative Narrative: Patient presents with shortness of breath that became worse today. Patient states his breathing was worse when he woke up this morning. Patient states he got better with activity. Patient states he felt like he was wheezing when he was laying down. Patient denies any chest pain. Patient denies any cough. Patient denies any sore throat or rhinorrhea. Patient denies any fevers or chills. states that Dr. Keller was considering placing a pacemaker. PE Risk Factors: Negative for Cancer, OCP + Smoking + > 35, Prior DVT or PE, Recent immobilization and Recent surgery [facility] Medical History Atherosclerotic heart disease of [place] coronary artery without angina pectoris Bradycardia CAD (coronary artery disease) Enlarged prostate Essential hypertension Hypertriglyceridemia Hypothyroidism Near syncope HERMAN (obstructive sleep apnea) Presence of stent in coronary artery (~09/23/16) Tachy-drew syndrome Tachycardia Ventricular ectopy Home Medications aspirin 81 mg PO DAILY@0800 09/20/16 [History Last Taken 12/03/20] cholecalciferol (vitamin D3) 4,000 unit PO DAILY 09/20/16 [History Last Taken 12/03/20] nitroglycerin 0.4 mg SUBLINGUAL Q5M PRN #1 bottle 09/24/16 [Rx Last Taken Unknown] apixaban 5 mg tablet 5 mg PO BID 12/10/19 [History Last Taken 12/04/20] carvedilol 3.125 mg tablet 3.125 mg PO BID 12/10/19 [History Last Taken 12/04/20] ezetimibe 10 mg tablet 5 mg PO DAILY tab 12/10/19 [History Last Taken 12/04/20] levothyroxine 25 mcg tablet 25 mcg PO DAILY tab 12/10/19 [History Last Taken 12/04/20] losartan 25 mg tablet 12.5 mg PO BID tab 12/10/19 [History Last Taken 12/04/20] Bacillus coagulans [Digestive Advantage Prob Gummy] 2 cell PO DAILY 12/04/20 [History Last Taken 12/03/20] ascorbic acid (vitamin C) [Vitamin C] 1 g PO DAILY 12/04/20 [History Last Taken 12/03/20] cranberry conc-ascorbic acid [Cranberry Plus Vitamin C] 2 cap PO DAILY 12/04/20 [History Last Taken 12/04/20] Allergy/AdvReac Type Severity Reaction Status Date / Time Penicillins Allergy Rash Verified 10/07/20 09:50 ALL NARCOTICS AdvReac Other Uncoded 12/04/20 14:08 Surgical History History of ankle surgery History of appendectomy History of rotator cuff surgery Hx of appendectomy left leg surgery Post PTCA Presence of coronary angioplasty implant and graft (~09/23/16) S/P CABG x 4 Social History Smoking Status: Former smoker alcohol intake: never substance use type: does not use caffeine: No what type of physical activity do you participate in: none and walking ROS ROS ED Constitutional Constitutional ED: Denies chills or fever(s) Eyes Eyes: Denies blurry vision or change in vision ENT ENT ED: Denies rhinorrhea or sore throat Cardiovascular Cardiovascular: Denies chest pain or palpitations Respiratory/Chest Respiratory/Chest: Reports dyspnea; Denies cough Gastrointestinal Gastrointestinal: Denies nausea or vomiting Genitourinary Genitourinary ED: Denies dysuria or hematuria Musculoskeletal Musculoskeletal: Denies back pain or neck pain Integumentary Denies abscess or rash Neurologic Neurologic: Denies headache(s) or weakness Allergic/Immunologic Allergic/Immunologic ED: Denies mouth swelling or urticaria EXAM Physical Exam Const Vital Signs: 12/04/20 11:27 12/04/20 12:19 12/04/20 12:20 Temperature 97.1 F L Temperature Source Temporal Pulse Rate 95 84 Respiratory Rate 18 14 Respiratory Effort Normal Non-Labored Respiratory Depth Normal Respiratory Pattern Normal Blood Pressure 123/67 H 129/87 H Blood Pressure Mean 85 101 Pulse Ox 95 96 Oxygen Delivery Method Room Air Room Air 12/04/20 14:01 12/04/20 14:10 12/04/20 14:39 Temperature Temperature Source Pulse Rate 86 89 71 Respiratory Rate 19 H 15 19 H Respiratory Effort Respiratory Depth Respiratory Pattern Blood Pressure 100/89 H 123/106 H 138/95 H Blood Pressure Mean 92 111 109 Pulse Ox 98 97 96 Oxygen Delivery Method Room Air Room Air Room Air Positive well nourished and well developed General Appearance ED: well developed HEENT Reports moist mucous membranes Neck supple and no JVD Resp normal respiratory effort and clear to auscultation bilaterally Cardio regular rate, regular rhythm and no murmurs GI normal to inspection, nondistended, normoactive bowel sounds and non-tender Palpation: soft Extremity normal to inspection General Extremety ED: Negative for edema or tenderness General Extremity: Negative for edema Neuro oriented x3, CN's II-XII intact bilaterally and no sensory deficits noted Sensorium / Orientation: alert Motor Exam: strength 5/5 throughout Psych mental status grossly normal Skin no rashes or lesions noted MDM MDM MDM Narrative Medical decision making narrative: EKG was obtained. On my interpretation, it showed a sinus rhythm with a first-degree AV block and frequent PVCs with a rate of 93. QRS interval, and QTc intervals were normal. [place]ument was normal. There are no acute ST or T wave changes. CBC and comprehensive metabolic profile were obtained and were essentially within normal limits. B type natruretic peptide was elevated at 413. D-dimer was normal. High-sensitivity troponin was 21.4 initially. Repeat high-sensitivity troponin was 22.2. Portable 1 view chest x-ray was obtained. On my interpretation, lung pang show mild congestive heart failure. There is borderline cardiomegaly. Bony thorax is normal. There is no acute process noted. Radiologist also interpreted the x-ray and agrees. Patient was given a dose of Lasix here. Case was discussed with Dr. Keller. He agrees with admitting the patient for observation for congestive heart failure. Case was discussed with the hospitalist. She will admit the patient to her service. Patient understood and was agreeable with the plan. All questions were answered. Lab Data Attestation: I reviewed the patient's lab results. Labs: Laboratory Results - last 24 hr 12/04/20 12/04/20 12/04/20 12:00 12:00 12:00 WBC 6.5 RBC 5.02 Hgb 15.6 Hct 46.3 MCV 92.2 MCH 31.1 MCHC 33.7 RDW Std Deviation 46.4 H RDW Coeff of Garett 13.7 Plt Count 164 MPV 10.0 Immature Gran % (Auto) 0.300 Neut % (Auto) 68.5 Lymph % (Auto) 20.0 Tucker % (Auto) 8.0 Eos % (Auto) 2.4 Baso % (Auto) 0.8 Absolute Neuts (auto) 4.5 Absolute Lymphs (auto) 1.31 Nucleated RBC % 0 D-Dimer Quant (PE/DVT) Sodium 141 Potassium 4.3 Chloride 105 Carbon Dioxide 26.0 Anion Gap 10 BUN 19 H Creatinine 1.01 Estim Creat Clear Calc 59.31 Est GFR (MDRD) Af Amer 92 Est GFR (MDRD) Non-Af 76 BUN/Creatinine Ratio 18.8 Glucose 138 H Calcium 8.9 Total Bilirubin 1.10 H AST 13 L ALT 24 Alkaline Phosphatase 79 Troponin I High Sens B-Natriuretic Peptide 413.7 H Total Protein 6.8 Albumin 3.7 Globulin 3.1 Albumin/Globulin Ratio 1.2 12/04/20 12/04/20 12/04/20 12:00 13:15 14:45 WBC RBC Hgb Hct MCV MCH MCHC RDW Std Deviation RDW Coeff of Garett Plt Count MPV Immature Gran % (Auto) Neut % (Auto) Lymph % (Auto) Tucker % (Auto) Eos % (Auto) Baso % (Auto) Absolute Neuts (auto) Absolute Lymphs (auto) Nucleated RBC % D-Dimer Quant (PE/DVT) 0.28 Sodium Potassium Chloride Carbon Dioxide Anion Gap BUN Creatinine Estim Creat Clear Calc Est GFR (MDRD) Af Amer Est GFR (MDRD) Non-Af BUN/Creatinine Ratio Glucose Calcium Total Bilirubin AST ALT Alkaline Phosphatase Troponin I High Sens 21.4 22.2 B-Natriuretic Peptide Total Protein Albumin Globulin Albumin/Globulin Ratio Radiography Diagnostic Testing: Radiology Impression Chest X-Ray 12/04/20 11:32 IMPRESSION: Status post mitral valve replacement. Borderline cardiomegaly and mild CHF. Electronically Signed: Caleb Earl MD at 12:07 EDT , Service support , EKG Initial EKG: Attestation: I personally reviewed and interpreted this EKG as follows: Interpretation: Sinus Rhythm (93) and No Acute Injury Pattern Comments: There is first-degree AV block and frequent PVCs. Prior EKG tracings: available for review Prior: Unchanged (09/05/2020) Follow-up EKG: Attestation: I personally reviewed and interpreted this EKG as follows: Interpretation: Sinus Rhythm (89) and No Acute Injury Pattern Comments: First-degree AV block and frequent PVCs Prior: Unchanged Treatment and Re-Evaluation Vital Sign Attestation:: Vital signs were reviewed prior to admission. They are stable. Discharge Plan Triage Chief Complaint: Shortness of Breath ED Provider: Esequiel Nixon Dx/Rx/DC Orders Prescriptions: No Action apixaban 5 mg tablet 5 mg PO BID RF: 0 ezetimibe [Zetia] 10 mg tablet 5 mg PO DAILY RF: 0 carvedilol 3.125 mg tablet 3.125 mg PO BID RF: 0 losartan 25 mg tablet 12.5 mg PO BID RF: 0 aspirin 81 MG tablet,chewable 81 mg PO DAILY@0800 RF: 0 cholecalciferol (vitamin D3) 2,000 UNIT capsule 4,000 unit PO DAILY RF: 0 nitroglycerin 0.4 MG tablet 0.4 mg SUBLINGUAL Q5M PRN (Reason: Cardiac/Chest Pain) Qty: 1 RF: 0 Cranberry Plus Vitamin C 140-100 mg Capsule 2 cap PO DAILY RF: 0 Vitamin C 1,000 mg Tablet,Chewable 1 g PO DAILY RF: 0 Digestive Advantage Prob Gummy 250 million cell Tablet,Chewable 2 cell PO DAILY RF: 0 levothyroxine 25 mcg tablet 25 mcg PO DAILY RF: 0 Primary Care Provider: Care Physician,No Primary
--- NOTE | 2020-12-04 16:19 | HP.PCM.HOS_ITS ---
HPI - General General Date of Admission: 12/04/20 Date of Service: 12/04/20 Chief Complaint: Dyspnea. HPI Narrative The patient is a 80 y/o M w/ PMHx: Cardiac dysrhythmia with bradycardia/tachycardia, ? PAF, HTN, HLD, HERMAN non-tolerant of CPAP, Hypothyroidism CAD: Patient s/p PTCA/SABRA to LAD 09/2016, CABG w/ DAILY to the LAD, SVG to OM1, SVG to OM 2, SVG to PDA, mitral valve repair with a 30 mm Physio-II annuloplasty ring along with an occlusion of the left atrial appendage with a 40 mm atriclip on 10/31/19 [facility] Medical History Atherosclerotic heart disease of [place] coronary artery without angina pectoris Bradycardia CAD (coronary artery disease) Enlarged prostate Essential hypertension Hypertriglyceridemia Hypothyroidism Near syncope HERMAN (obstructive sleep apnea) Presence of stent in coronary artery (~09/23/16) Tachy-drew syndrome Tachycardia Ventricular ectopy Home Medications aspirin 81 mg PO DAILY@0800 09/20/16 [History Last Taken Unknown] cholecalciferol (vitamin D3) 2,000 unit PO DAILY 09/20/16 [History Last Taken Unknown] nitroglycerin 0.4 mg SUBLINGUAL Q5M PRN #1 bottle 09/24/16 [Rx Last Taken Unknown] apixaban 5 mg tablet 5 mg PO BID 12/10/19 [History Last Taken Unknown] carvedilol 3.125 mg tablet 3.125 mg PO BID 12/10/19 [History Last Taken Unknown] ezetimibe 10 mg tablet 5 mg PO DAILY tab 12/10/19 [History Last Taken Unknown] levothyroxine 25 mcg tablet 50 mcg PO DAILY tab 12/10/19 [History Last Taken Unknown] losartan 25 mg tablet 12.5 mg PO DAILY tab 12/10/19 [History Last Taken Unknown] Bacillus coagulans [Digestive Advantage Prob Gummy] 2 cell PO DAILY 12/04/20 [History Last Taken 12/03/20] ascorbic acid (vitamin C) [Vitamin C] 1 g PO DAILY 12/04/20 [History Last Taken 12/03/20] cranberry conc-ascorbic acid [Cranberry Plus Vitamin C] 2 cap PO DAILY 12/04/20 [History Last Taken 12/04/20] Allergy/AdvReac Type Severity Reaction Status Date / Time Penicillins Allergy Rash Verified 10/07/20 09:50 ALL NARCOTICS AdvReac Other Uncoded 12/04/20 14:08 Surgical History History of ankle surgery History of appendectomy History of rotator cuff surgery Hx of appendectomy left leg surgery Post PTCA Presence of coronary angioplasty implant and graft (~09/23/16) S/P CABG x 4 Social History Smoking Status: Former smoker alcohol intake: never substance use type: does not use caffeine: No what type of physical activity do you participate in: none and walking Vital Signs Vital Signs Vital Signs: 12/04/20 11:27 12/04/20 12:19 12/04/20 12:20 Temperature 97.1 F L Temperature Source Temporal Pulse Rate 95 84 Respiratory Rate 18 14 Respiratory Effort Normal Non-Labored Respiratory Depth Normal Respiratory Pattern Normal Blood Pressure 123/67 H 129/87 H Blood Pressure Mean 85 101 Pulse Ox 95 96 Oxygen Delivery Method Room Air Room Air 12/04/20 14:01 12/04/20 14:10 12/04/20 14:39 Temperature Temperature Source Pulse Rate 86 89 71 Respiratory Rate 19 H 15 19 H Respiratory Effort Respiratory Depth Respiratory Pattern Blood Pressure 100/89 H 123/106 H 138/95 H Blood Pressure Mean 92 111 109 Pulse Ox 98 97 96 Oxygen Delivery Method Room Air Room Air Room Air 12/04/20 16:11 Temperature Temperature Source Pulse Rate Respiratory Rate Respiratory Effort Respiratory Depth Respiratory Pattern Blood Pressure 133/90 H Blood Pressure Mean 104 Pulse Ox Oxygen Delivery Method Weight Weight: 195 lb Body Mass Index (BMI) 28.8 Results Lab / Micro Data Result Diagrams: 12/04/20 12:00 12/04/20 12:00 Labs: Laboratory Results - last 24 hr 12/04/20 12:00: WBC 6.5, RBC 5.02, Hgb 15.6, Hct 46.3, MCV 92.2, MCH 31.1, MCHC 33.7, RDW Std Deviation 46.4 H, RDW Coeff of Garett 13.7, Plt Count 164, MPV 10.0, Immature Gran % (Auto) 0.300, Neut % (Auto) 68.5, Lymph % (Auto) 20.0, [place] % (Auto) 8.0, Eos % (Auto) 2.4, Baso % (Auto) 0.8, Absolute Neuts (auto) 4.5, Absolute Lymphs (auto) 1.31, Nucleated RBC % 0 12/04/20 12:00: Sodium 141, Potassium 4.3, Chloride 105, Carbon Dioxide 26.0, Anion Gap 10, BUN 19 H, Creatinine 1.01, Estim Creat Clear Calc 59.31, Est GFR (MDRD) Af Amer 92, Est GFR (MDRD) Non-Af 76, BUN/Creatinine Ratio 18.8, Glucose 138 H, Calcium 8.9, Total Bilirubin 1.10 H, AST 13 L, ALT 24, Alkaline Phosphatase 79, Total Protein 6.8, Albumin 3.7, Globulin 3.1, Albumin/Globulin Ratio 1.2 12/04/20 12:00: B-Natriuretic Peptide 413.7 H 12/04/20 12:00: Troponin I High Sens 21.4 12/04/20 13:15: D-Dimer Quant (PE/DVT) 0.28 12/04/20 14:45: Troponin I High Sens 22.2 Radiology Impression Chest X-Ray 12/04/20 11:32 IMPRESSION: Status post mitral valve replacement. Borderline cardiomegaly and mild CHF. Electronically Signed: Caleb Earl MD at 12:07 EDT , Service support ,
[2020-12-04] MEDS: Furosemide 40 MG/4 ML Vial IV ×2 (16:28→22:23)
--- NOTE | 2020-12-04 16:53 | PCM.HP.STD ---
Documented by User: LAWRENCE Richardson 12/04/20 17:21 HPI - General General Date of Admission: 12/04/20 Date of Service: 12/04/20 Chief Complaint: Shortness of breath HPI Narrative YOGI DIAZ, is a 80 M who presents with complaints of orthopnea and wheezing. Patient states that over the past 3 nights he has noticed that he has become increasingly short of breath when lying flat. Patient states that this improves once he is sitting up and because of such has been sleeping in his chair the past 2 nights. Patient currently does not feel short of breath. Patient reports that he has had a cough since returning from [place] in September however he does not feel like this is worsened. Patient denies fever, chills, chest pain, nausea, vomiting. [facility] Medical History Atherosclerotic heart disease of [place] coronary artery without angina pectoris Atrial fibrillation Bradycardia CAD (coronary artery disease) Enlarged prostate Essential hypertension FH: mitral valve repair Former smoker Hypertension Hypertriglyceridemia Hypothyroidism Irregular heart beat Near syncope HERMAN (obstructive sleep apnea) Presence of stent in coronary artery (~09/23/16) Sleep apnea Tachy-drew syndrome Tachycardia Ventricular ectopy Home Medications aspirin 81 mg PO DAILY@0800 09/20/16 [History Last Taken 12/03/20] cholecalciferol (vitamin D3) 4,000 unit PO DAILY 09/20/16 [History Last Taken 12/03/20] nitroglycerin 0.4 mg SUBLINGUAL Q5M PRN #1 bottle 09/24/16 [Rx Last Taken Unknown] apixaban 5 mg tablet 5 mg PO BID 12/10/19 [History Last Taken 12/04/20] carvedilol 3.125 mg tablet 3.125 mg PO BID 12/10/19 [History Last Taken 12/04/20] ezetimibe 10 mg tablet 5 mg PO DAILY tab 12/10/19 [History Last Taken 12/04/20] levothyroxine 25 mcg tablet 25 mcg PO DAILY tab 12/10/19 [History Last Taken 12/04/20] losartan 25 mg tablet 12.5 mg PO BID tab 12/10/19 [History Last Taken 12/04/20] Bacillus coagulans [Digestive Advantage Prob Gummy] 2 cell PO DAILY 12/04/20 [History Last Taken 12/03/20] ascorbic acid (vitamin C) [Vitamin C] 1 g PO DAILY 12/04/20 [History Last Taken 12/03/20] cranberry conc-ascorbic acid [Cranberry Plus Vitamin C] 2 cap PO DAILY 12/04/20 [History Last Taken 12/04/20] Allergy/AdvReac Type Severity Reaction Status Date / Time Penicillins Allergy Rash Verified 10/07/20 09:50 ALL NARCOTICS AdvReac Other Uncoded 12/04/20 14:08 Family History Mother Dyslipidemia Father No problems noted. Surgical History (Updated 12/04/20 @ 17:24 by Bisi Moore) History of ankle surgery History of appendectomy History of coronary artery stent placement History of rotator cuff surgery Hx of appendectomy left leg surgery Post PTCA Presence of coronary angioplasty implant and graft (~09/23/16) S/P CABG x 4 Social History Smoking Status: Former smoker alcohol intake: never substance use type: does not use caffeine: No what type of physical activity do you participate in: none and walking ROS Constitutional Constitutional: Denies body ache(s), change in weight, chills, fatigue or weakness Cardiovascular Cardiovascular: Reports orthopnea; Denies chest pain, dizziness, edema, palpitations, tachypnea or weight gain Respiratory/Chest Respiratory/Chest: Reports chest congestion, cough and wheezing; Denies change in mental status, chest tightness, portable oxygen @ home or tachypnea Gastrointestinal Gastrointestinal: Denies constipation, diarrhea, nausea or vomiting Genitourinary Genitourinary: Denies dysuria Musculoskeletal Musculoskeletal: Denies arthralgias, back pain, joint pain, joint stiffness or stiffness Integumentary Integumentary: Denies dry skin, rash or wounds Neurologic Neurologic: Denies abnormal gait, abnormal speech or confusion Psychiatric Psychiatric: Denies anxiety or depression Endocrine Endocrinology: Reports none Hematologic/Lymphatic Hematologic/Lymphatic: Reports none Allergic/Immunologic Allergic/Immunologic: Reports seasonal rhinorrhea and wheezing Vital Signs Vital Signs Vital Signs: 12/04/20 11:27 12/04/20 12:19 12/04/20 12:20 Temperature 97.1 F L Temperature Source Temporal Pulse Rate 95 84 Respiratory Rate 18 14 Respiratory Effort Normal Non-Labored Respiratory Depth Normal Respiratory Pattern Normal Blood Pressure 123/67 H 129/87 H Blood Pressure Mean 85 101 Pulse Ox 95 96 Oxygen Delivery Method Room Air Room Air 12/04/20 14:01 12/04/20 14:10 12/04/20 14:39 Temperature Temperature Source Pulse Rate 86 89 71 Respiratory Rate 19 H 15 19 H Respiratory Effort Respiratory Depth Respiratory Pattern Blood Pressure 100/89 H 123/106 H 138/95 H Blood Pressure Mean 92 111 109 Pulse Ox 98 97 96 Oxygen Delivery Method Room Air Room Air Room Air 12/04/20 16:11 Temperature Temperature Source Pulse Rate Respiratory Rate Respiratory Effort Respiratory Depth Respiratory Pattern Blood Pressure 133/90 H Blood Pressure Mean 104 Pulse Ox Oxygen Delivery Method Weight Weight: 195 lb Body Mass Index (BMI) 28.8 Physical Exam Const alert, oriented x3, no apparent distress and healthy appearing General Appearance: cooperative HEENT normocephalic and head/scalp atraumatic Eyes conjunctivae normal and no scleral icterus Neck full ROM and supple General: normal visual inspection and trachea midline Chest inspection of chest normal Resp normal respiratory effort, normal air movement and clear to auscultation bilaterally Auscultation: crackles bilateral lower and diffuse Cardio regular rate, regular rhythm, S1 normal heart sound, S2 normal heart sound and peripheral pulses 2+ throughout Rhythm: other Other Details: Frequent PVCs GI normal to inspection, nondistended, normoactive bowel sounds, soft to palpation and non-tender Extremity normal to inspection, full ROM, normal capillary refill and no clubbing, cyanosis or edema Peripheral Pulses: Yes pulses 2+ throughout Skin no rashes or lesions noted and skin turgor normal Neuro oriented x3, moves all extremities, no focal motor deficits, no sensory deficits noted and gait normal Psych mental status grossly normal, thought process normal, cooperative, affect normal and speech normal Results Lab / Micro Data Result Diagrams: 12/04/20 12:00 12/04/20 12:00 Labs: Laboratory Results - last 24 hr 12/04/20 12:00: WBC 6.5, RBC 5.02, Hgb 15.6, Hct 46.3, MCV 92.2, MCH 31.1, MCHC 33.7, RDW Std Deviation 46.4 H, RDW Coeff of [place] 13.7, Plt Count 164, MPV 10.0, Immature Gran % (Auto) 0.300, Neut % (Auto) 68.5, Lymph % (Auto) 20.0, [place] % (Auto) 8.0, Eos % (Auto) 2.4, Baso % (Auto) 0.8, Absolute Neuts (auto) 4.5, Absolute Lymphs (auto) 1.31, Nucleated RBC % 0 12/04/20 12:00: Sodium 141, Potassium 4.3, Chloride 105, Carbon Dioxide 26.0, Anion Gap 10, BUN 19 H, Creatinine 1.01, Estim Creat Clear Calc 59.31, Est GFR (MDRD) Af Amer 92, Est GFR (MDRD) Non-Af 76, BUN/Creatinine Ratio 18.8, Glucose 138 H, Calcium 8.9, Total Bilirubin 1.10 H, AST 13 L, ALT 24, Alkaline Phosphatase 79, Total Protein 6.8, Albumin 3.7, Globulin 3.1, Albumin/Globulin Ratio 1.2 12/04/20 12:00: B-Natriuretic Peptide 413.7 H 12/04/20 12:00: Troponin I High Sens 21.4 12/04/20 13:15: D-Dimer Quant (PE/DVT) 0.28 12/04/20 14:45: Troponin I High Sens 22.2 Radiology Impression Chest X-Ray 12/04/20 11:32 IMPRESSION: Status post mitral valve replacement. Borderline cardiomegaly and mild CHF. Electronically Signed: Caleb Earl MD at 12:07 EDT , Service support , Assessment & Plan Assessment/Plan (1) Acute exacerbation of CHF (congestive heart failure): QUALIFIERS: Heart failure type: unspecified Qualified Code(s): I50.9 - Heart failure, unspecified PLAN: 1. Acute exacerbation of CHF -Admit to PCU for cardiac monitoring -Recent ECHO complete on 09/15/2020 shows EF 30 to 35% -Patient reports that Dr. Keller and to his EP in [place] have both told him in the past that he would need a pacemaker at some point, case discussed with Dr. Keller by ER physician will consult -IV Lasix 40 mg every 8 hour ordered, first dose given in ER -Daily weights with strict intake and output -Will cycle cardiac enzymes -Oxygen per protocol -Cardiac diet ordered, will make patient n.p.o. at midnight pending evaluation by Dr. Keller for possible pacemaker placement -Elevate bilateral lower extremities while in bed or chair -CBC, BMP, lipid panel in a.m. -Magnesium, phosphorus, TSH ordered stat 2. Hypertension -Vital signs per protocol, trend BP -Currently well controlled, will continue carvedilol, losartan 3. Hypothyroidism -We will check TSH due to increased PVCs upon EKG -Continue levothyroxine 4. Hyperlipidemia -Continue Zetia -will obtain lipid panel in a.m. 5. History of CABG x4 -Completed 10/31/2019 -Continue Eliquis DVT prophylaxis-SCDs This patient was seen by LAWRENCE Richardson under the supervision of Dr. Simon. Documented by User: Dr. Yeny Simon MD 12/04/20 19:18 HPI - General General Date of Admission: 12/04/20 [facility] Medical History Atherosclerotic heart disease of [place] coronary artery without angina pectoris Atrial fibrillation Bradycardia CAD (coronary artery disease) Enlarged prostate Essential hypertension FH: mitral valve repair Former smoker Hypertension Hypertriglyceridemia Hypothyroidism Irregular heart beat Near syncope HERMAN (obstructive sleep apnea) Presence of stent in coronary artery (~09/23/16) Sleep apnea Tachy-drew syndrome Tachycardia Ventricular ectopy Home Medications aspirin 81 mg PO DAILY@0800 09/20/16 [History Last Taken 12/03/20] cholecalciferol (vitamin D3) 4,000 unit PO DAILY 09/20/16 [History Last Taken 12/03/20] nitroglycerin 0.4 mg SUBLINGUAL Q5M PRN #1 bottle 09/24/16 [Rx Last Taken Unknown] apixaban 5 mg tablet 5 mg PO BID 12/10/19 [History Last Taken 12/04/20] carvedilol 3.125 mg tablet 3.125 mg PO BID 12/10/19 [History Last Taken 12/04/20] ezetimibe 10 mg tablet 5 mg PO DAILY tab 12/10/19 [History Last Taken 12/04/20] levothyroxine 25 mcg tablet 25 mcg PO DAILY tab 12/10/19 [History Last Taken 12/04/20] losartan 25 mg tablet 12.5 mg PO BID tab 12/10/19 [History Last Taken 12/04/20] Bacillus coagulans [Digestive Advantage Prob Gummy] 2 cell PO DAILY 12/04/20 [History Last Taken 12/03/20] ascorbic acid (vitamin C) [Vitamin C] 1 g PO DAILY 12/04/20 [History Last Taken 12/03/20] cranberry conc-ascorbic acid [Cranberry Plus Vitamin C] 2 cap PO DAILY 12/04/20 [History Last Taken 12/04/20] Allergy/AdvReac Type Severity Reaction Status Date / Time Penicillins Allergy Rash Verified 10/07/20 09:50 ALL NARCOTICS AdvReac Other Uncoded 12/04/20 14:08 Family History Mother Dyslipidemia Father No problems noted. Surgical History (Updated 12/04/20 @ 17:24 by Bisi Moore) History of ankle surgery History of appendectomy History of coronary artery stent placement History of rotator cuff surgery Hx of appendectomy left leg surgery Post PTCA Presence of coronary angioplasty implant and graft (~09/23/16) S/P CABG x 4 Social History Smoking Status: Former smoker alcohol intake: never substance use type: does not use caffeine: No what type of physical activity do you participate in: none and walking Results Lab / Micro Data Result Diagrams: 12/04/20 12:00 12/04/20 12:00
[2020-12-04 17:45] LABS: Magnesium 1.8 mg/dL (1.6-2.6); Phosphorus 3.2 mg/dL (2.5-4.9); Thyroid Stim Hormone (TSH) 2.34 uIU/mL (0.358-3.74)
--- NOTE | 2020-12-04 18:16 | PCM.CONS.C ---
Assessment & Plan Assessment/Plan (1) Acute exacerbation of CHF (congestive heart failure): QUALIFIERS: Heart failure type: unspecified Qualified Code(s): I50.9 - Heart failure, unspecified PLAN: The patient appears to have a clinical course compatible with acute systolic mediated CHF based upon chronic systolic dysfunction. The patient has [facility] of having diminished LV systolic function/LVEF compatible with his ischemic mediated cardiomyopathy. At the present time the patient will continue to be monitored. He will continue medical therapy. This should include agents such as nitrates as needed, beta-blockers, diuretics, and afterload reducing agents. The patient will have a follow-up transthoracic echocardiogram to reassess his left ventricular wall motion and systolic function based upon his current clinical findings. (2) Atherosclerotic heart disease of [place] coronary artery without angina pectoris: QUALIFIERS: [place] vs. transplanted heart: [place] heart Qualified Code(s): I25.10 - Atherosclerotic heart disease of [place] coronary artery without angina pectoris PLAN: The patient has a history of underlying CAD. He has undergone revascularization as noted. At the moment he does not complain of symptoms of acute coronary syndrome. His cardiac enzymes are negative thus far. He should continue medical management with agents such as aspirin, nitrates as needed, beta-blockers, lipid-lowering agents, etc. Depending upon his clinical course he may or may not need repeat noninvasive or invasive evaluation of his cardiovascular status. (3) Presence of stent in coronary artery: PLAN: The patient does have a history of coronary artery revascularization with PCI. His previous studies are as noted. (4) Hx of CABG: PLAN: The patient has undergone open heart surgery CABG. His CABG report is as noted. (5) History of mitral valve repair: PLAN: The patient has also had mitral valve repair. This will be reassessed with an echocardiogram to monitor for any significant changes will be contributing to his current course. (6) Ischemic cardiomyopathy: PLAN: The patient is described as having findings compatible with an ischemic mediated cardiomyopathy with heart failure with reduced ejection fraction. At the present time he will continue to be monitored. He will continue medical management as noted above. He will be reassessed with a transthoracic echocardiogram. If the patient's LV systolic function remains low despite his medical management, etc., then he should be considered for ICD placement once he is stable from his acute CHF event. (7) Paroxysmal atrial flutter: PLAN: The patient also has a history of underlying atrial flutter. He has been on and off rate control therapy/antiarrhythmic therapy. He is currently on anticoagulant therapy. His rate and rhythm will be monitored and his medications adjusted accordingly. 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 He will continue his medical therapy which at the present time includes his beta-blockers. (9) Tachy-drew syndrome: PLAN: The patient has a history of bradycardia tacky syndrome. Thus far he has been treated with low-dose beta-blockers. There is been discussions in the past as to whether or not he will need permanent pacemaker placement versus, depending upon his left ventricular systolic function/LVEF, ICD placement. (10) Hypertriglyceridemia: PLAN: The patient will continue lipid-lowering therapy as tolerated. (11) Essential hypertension: PLAN: The patient's blood pressure will need to be monitored with adjustment of his medicines. Addt'l Comments The patient's case was discussed and reviewed with the patient, spouse, and the [facility] emergency department staff. This note was generated using a voice recognition system and there may be incorrect words, spelling or punctuation that were not noted when reviewing the office note prior to saving. HPI Consult Data Date of Consult: 12/04/20 HPI Narrative HPI Narrative: YOGI DIAZ, is a 80 year old white male who presents for consultation based upon concerns of shortness of breath/dyspnea/orthopnea (upon a history of underlying CAD status post LAD PTCA/SABRA (September 2016), CABG with DAILY to the LAD and SVG to OM1 and SVG to OM 2 and SVG to PDA, mitral valve repair with a 30 mm Physio II annuloplasty ring, occlusion of the left atrial appendage with a 40 mm atriaclip (October 2019), bradycardia tacky dysrhythmia, ventricular ectopy, near syncope, and hyperlipidemia. He has been followed locally as well as through the [facility] both in [place] and near his winter residence in [place], [place]. In the past he has been followed noninvasively. He had a Holter monitor performed in 2017. He had sinus rhythm/sinus bradycardia with first-degree block with nonsustained VT up to 4 beats. According to his physicians in [place] he was to avoid negative chronotropic medications and did not require permanent pacemaker support at that time. He also has a history of postoperative paroxysmal atrial fibrillation and/or flutter associated with an event of expressive aphasia. His spouse stated that time they were not convinced he had a CVA. There was concern that his symptoms were related to overmedication especially with narcotic use at that time. However he had been released home on medical therapy with antiarrhythmic therapy with amiodarone and anticoagulant therapy. His amiodarone therapy was eventually discontinued based upon concerns of a rash and not feeling well. He noted the [facility] elected to reattempted. He notes well still in [place] before returning to [place] he follows with the [place]. He had an echocardiogram performed. He noted his ejection fraction was low at approximately 30 to 35%. According to the medical records he had mild left atrial enlargement with mild to moderate aortic valve thickening/sclerosis with mild to moderate aortic valve regurgitation. There was mild MR/TR. He had a mildly dilated aortic root/mildly dilated ascending aorta. He states the physicians in [place] commented that he may eventually need a device placed such as a permanent pacemaker/ICD. After returning to [place] he underwent evaluation with a 30-day ambulatory event monitor. He has just completed that. He is waiting to hear the results from the [facility]. He notes there has been no, since his open heart surgery procedure, any repeat stress testing or diagnostic cardiac catheterization. He notes the main concern has been recently over the last 1 to 2 days/nights he has felt more short of breath/dyspneic and has been having audible wheezing. This is occurred mainly when he has been supine. He states his breathing is better once he is up and awake in the morning and in an upright position. He has had no obvious chest discomfort. He has had no obvious sensation of palpitations or rapid heart rates. There is been no near syncope or syncope. He was evaluated in the emergency department. He had negative troponin I level x2. His BNP level was elevated. His ECG demonstrated sinus rhythm with first-degree AV block with PVCs with poor R wave progression. His chest x-ray is as noted below. He was placed in the PCU for further evaluation and care. In the interim he was started on medical therapy with IV diuretics. [facility] Medical History Atherosclerotic heart disease of [place] coronary artery without angina pectoris Atrial fibrillation Bradycardia CAD (coronary artery disease) Enlarged prostate Essential hypertension FH: mitral valve repair Former smoker Hypertension Hypertriglyceridemia Hypothyroidism Irregular heart beat Near syncope HERMAN (obstructive sleep apnea) Presence of stent in coronary artery (~09/23/16) Sleep apnea Tachy-drew syndrome Tachycardia Ventricular ectopy Home Medications aspirin 81 mg PO DAILY@0800 09/20/16 [History Last Taken 12/03/20] cholecalciferol (vitamin D3) 4,000 unit PO DAILY 09/20/16 [History Last Taken 12/03/20] nitroglycerin 0.4 mg SUBLINGUAL Q5M PRN #1 bottle 09/24/16 [Rx Last Taken Unknown] apixaban 5 mg tablet 5 mg PO BID 12/10/19 [History Last Taken 12/04/20] carvedilol 3.125 mg tablet 3.125 mg PO BID 12/10/19 [History Last Taken 12/04/20] ezetimibe 10 mg tablet 5 mg PO DAILY tab 12/10/19 [History Last Taken 12/04/20] levothyroxine 25 mcg tablet 25 mcg PO DAILY tab 12/10/19 [History Last Taken 12/04/20] losartan 25 mg tablet 12.5 mg PO BID tab 12/10/19 [History Last Taken 12/04/20] Bacillus coagulans [Digestive Advantage Prob Gummy] 2 cell PO DAILY 12/04/20 [History Last Taken 12/03/20] ascorbic acid (vitamin C) [Vitamin C] 1 g PO DAILY 12/04/20 [History Last Taken 12/03/20] cranberry conc-ascorbic acid [Cranberry Plus Vitamin C] 2 cap PO DAILY 12/04/20 [History Last Taken 12/04/20] Allergy/AdvReac Type Severity Reaction Status Date / Time Penicillins Allergy Rash Verified 10/07/20 09:50 ALL NARCOTICS AdvReac Other Uncoded 12/04/20 14:08 Family History Mother Dyslipidemia Father No problems noted. Surgical History (Updated 12/04/20 @ 17:24 by Bisi Moore) History of ankle surgery History of appendectomy History of coronary artery stent placement History of rotator cuff surgery Hx of appendectomy left leg surgery Post PTCA Presence of coronary angioplasty implant and graft (~09/23/16) S/P CABG x 4 Social History Smoking Status: Former smoker alcohol intake: never substance use type: does not use caffeine: No what type of physical activity do you participate in: none and walking ROS Constitutional Constitutional: Reports as per HPI Eyes Eyes: Reports as per HPI ENT HEENT: Reports as per HPI Cardiovascular Cardiovascular: Reports dyspnea, dyspnea at rest and orthopnea Respiratory/Chest Respiratory/Chest: Reports dyspnea Gastrointestinal Gastrointestinal: Reports as per HPI Genitourinary Genitourinary: Reports as per HPI Musculoskeletal Musculoskeletal: Reports as per HPI Integumentary Integumentary: Reports as per HPI Neurologic Neurologic: Reports as per HPI Physical Exam Narrative The patient appears to be awake and alert and in no acute distress at this time. Const alert, oriented x3 and no apparent distress Orientation / Consciousness: awake HEENT normocephalic, head/scalp atraumatic and hearing grossly normal bilaterally Eyes PERRL and EOMs intact bilaterally Neck full ROM, supple and no JVD Chest Chest: midline sternotomy incision Resp Auscultation: diminished lung sounds bilateral lower Cardio regular rate, regular rhythm, S1 normal heart sound and S2 normal heart sound Cardio Narrative: Ectopic complexes GI normal to inspection, nondistended, normoactive bowel sounds Extremity no pedal edema Skin no rashes or lesions noted Neuro oriented x3, CN's II-XII intact bilaterally and moves all extremities Psych mental status grossly normal Procedure Criteria Type of Procedure Procedure Type: Elective Elective Risks - COVID COVID Risk Discussion: The surgeon/proceduralist and patient have discussed in detail the risk of exposure to and/or potential harm posed by the COVID-19 virus with having a surgery/procedure at this time versus the risk of delaying the surgery/procedure. It is not possible to know either the risk of delaying the surgery or procedure or chance of getting an infection with perfect accuracy, but a joint decision was made between the patient and the surgeon/proceduralist to proceed at this time with the scheduled surgery/procedure as indicated on the consent form. Objective Data Vital Signs: Vital Signs Temp Pulse Resp BP Pulse Ox 98.7 F 102 H 16 115/92 H 99 12/04/20 17:28 12/04/20 17:55 12/04/20 17:28 12/04/20 17:28 12/04/20 17:28 Oxygen Delivery Method Room Air Weight: 193 lb 14.4 oz Body Mass Index (BMI) 28.6 Lab / Micro Data Result Diagrams: 12/04/20 12:00 12/04/20 12:00 Labs: Laboratory Results - last 24 hr 12/04/20 12:00: WBC 6.5, RBC 5.02, Hgb 15.6, Hct 46.3, MCV 92.2, MCH 31.1, MCHC 33.7, RDW Std Deviation 46.4 H, RDW Coeff of Gare[place] 13.7, Plt Count 164, MPV 10.0, Immature Gran % (Auto) 0.300, Neut % (Auto) 68.5, Lymph % (Auto) 20.0, [place] % (Auto) 8.0, Eos % (Auto) 2.4, Baso % (Auto) 0.8, Absolute Neuts (auto) 4.5, Absolute Lymphs (auto) 1.31, Nucleated RBC % 0 12/04/20 12:00: Sodium 141, Potassium 4.3, Chloride 105, Carbon Dioxide 26.0, Anion Gap 10, BUN 19 H, Creatinine 1.01, Estim Creat Clear Calc 59.31, Est GFR (MDRD) Af Amer 92, Est GFR (MDRD) Non-Af 76, BUN/Creatinine Ratio 18.8, Glucose 138 H, Calcium 8.9, Total Bilirubin 1.10 H, AST 13 L, ALT 24, Alkaline Phosphatase 79, Total Protein 6.8, Albumin 3.7, Globulin 3.1, Albumin/Globulin Ratio 1.2 12/04/20 12:00: B-Natriuretic Peptide 413.7 H 12/04/20 12:00: Troponin I High Sens 21.4 12/04/20 13:15: D-Dimer Quant (PE/DVT) 0.28 12/04/20 14:45: Troponin I High Sens 22.2 12/04/20 14:45: Phosphorus 3.2, Magnesium 1.8, TSH 2.34 Cardiology Labs/Tests 12/04/20 12:00: WBC 6.5, RBC 5.02, Hgb 15.6, Hct 46.3, MCV 92.2, MCH 31.1, MCHC 33.7, Plt Count 164, MPV 10.0, Immature Gran % (Auto) 0.300, Neut % (Auto) 68.5, Lymph % (Auto) 20.0, [place] % (Auto) 8.0, Eos % (Auto) 2.4, Baso % (Auto) 0.8, Absolute Neuts (auto) 4.5, Nucleated RBC % 0 12/04/20 12:00: Sodium 141, Potassium 4.3, Chloride 105, Carbon Dioxide 26.0, Anion Gap 10, BUN 19 H, Creatinine 1.01, Est GFR (MDRD) Af Amer 92, Est GFR (MDRD) Non-Af 76, BUN/Creatinine Ratio 18.8, Glucose 138 H, Calcium 8.9, Total Bilirubin 1.10 H 12/04/20 12:00: B-Natriuretic Peptide 413.7 H 12/04/20 13:15: D-Dimer Quant (PE/DVT) 0.28 12/04/20 14:45: Phosphorus 3.2, Magnesium 1.8 Rhythm: EKG: Transthoracic echocardiogram: 09-22-16 Interpretation Summary The study was technically difficult. Contrast injection was performed. Mild segmental systolic dysfunction (see wall motion). The estimated ejection fraction is 50 %. Trivial mitral valve insufficiency. Trivial tricuspid valve insufficiency. Aortic sclerosis / mild aortic valve stenosis. Trivial aortic valve insufficiency. Right ventricular systolic pressure estimated to be 25 mmHg;. Echocardiogram from 06/21/2019 in [place], [place]: Conclusions 1. This was a technically difficult study with suboptimal views 2. The left ventricle is mildly dilated. 3. Overall left ventricular systolic function is mildly impaired with, and EF 45% ?5%. 4. Impaired relaxation, grade 1 diastolic dysfunction. 5. The inferolateral wall appears hypokinetic. 6. The right ventricle is normal in size and function. 7. The left atrium is normal size by volume. 8. There is mild aortic valve sclerosis without stenosis. 9. Mild mitral regurgitation is present 10. Mild cuspid regurgitation present. 11. Right ventricular systolic pressure is normal at less than 35 mmHg. 12. Normal inferior vena cava with normal inspiratory collapse. Echocardiogram from 09/15/2020 by at [facility] in [place], [place]: Conclusions The left ventricular ejection fraction is 30-35%. Left ventricular systolic function is moderately reduced. The transmitral spectral Doppler flow pattern is suggestive of impaired LV relaxation. The left atrium is mildly dilated. There is mild to moderate aortic valve thickening/sclerosis. Mild to moderate aortic regurgitation. An angioplasty ring is noted/suggested in the mitral position. There is mild mitral regurgitation. There is mild tricuspid regurgitation. Mild pulmonic valvular regurgitation. Mild aortic root dilation. Mildly dilated ascending aorta. Stress test: 09-22-16 A 76-year-old man with a history of coronary artery disease, presents with chest pain. MEDICATIONS: Aspirin, vitamin D, Lovenox. Resting EKG demonstrates normal sinus rhythm with a rate of 81 beats per minute. Normal intervals are noted. Resting blood pressure was 150/84. STRESS TEST: The patient exercised according to a regular Robert protocol for a total duration of 6 minutes and 40 seconds. The maximum heart rate attained was 171 beats per minute, which was 117% of maximum predicted heart rate. The maximum workload attained was 8 METS. The patient maintained sinus rhythm throughout the recording with a first-degree AV block. At rest, nonspecific ST-T-wave changes were noted. At peak exercise, there were nonspecific ST changes noted in lead 3 and aVF. The patient was noted to have occasional premature ventricular complexes noted and a long decline in heart rate response to below 100s. The resting blood pressure was 150/84 with a peak blood pressure 170/80. No obvious clinical angina was noted. MYOCARDIAL PERFUSION PROTOCOL: 14.2 mCi of sestamibi was injected at rest. The patient exercised according to a regular Robert protocol for 6 minutes and 40 seconds attaining 117% of maximum predicted heart rate. At peak exercise, 44.5 mCi of sestamibi was injected. Stress images were obtained. Stress and rest images were reconstructed and compared in the short axis, vertical long and horizontal long axes. Gated images obtained. PERFUSION SPECT ANALYSIS: Review of the images demonstrated a normal cardiac silhouette size. There is normal uptake noted in the septum, anterior wall, and lateral wall. In the mid inferior wall, there is a small area of reduced perfusion, which appears to improve minimally suggesting previous area of infarct with mild reversible ischemia noted. Left ventricular size was noted to be normal with a mild reduction in function. Gated SPECT was also obtained. GATED SPECT ANALYSIS: The gated ejection fraction was noted to be approximately 39%. CONCLUSION: 1. Mildly abnormal exercise stress test with a mild inferior ischemia in a previously infarcted zone. 2. Mild cardiomyopathy. 3. Mild exercise impairment noted. 4. Poor heart rate response noted. Cardiac catheterization: 09-23-16 DOMINANCE: Right Dominant LEFT HEART ASSESSMENT Left Ventricular Ejection Fraction: by LV Gram 50 % Anterior Hypokinesis - Mild. Apical Hypokinesis - Mild Depressed Left Ventricular systolic function Normal Left Ventricular End Diastolic Pressure LEFT MAIN: Angiographically normal LEFT ANTERIOR DECENDING ARTERY: Mild luminal irregularities MID LAD: eccentric hazy 85 % Stenosis DIAGONAL 1: Proximal - small caliber: 25 % Stenosis CIRCUMFLEX ARTERY: PROX CIRC: eccentric 25 % Stenosis RIGHT CORONARY ARTERY: PROX RCA: 100 % Stenosis COLLATERAL FLOW: Collateral flow from Left to Right VALVE FINDINGS: Normal Aortic Valve function Normal Mitral Valve function AORTIC ROOT: Angiographically normal FFR/PCI: 09-23-16 FFR of the mid LAD reported at 0.62 with successful SABRA to the mid LAD with a resolute integrity 3.0 x 18 mm stent Open heart surgery: 10-31-2019: [place], [place] DAILY to the LAD SVG to OM1 SVG to OM 2 SVG to PDA Mitral valve repair with a 30 mm Physio-II annuloplasty ring Occlusion of the left atrial appendage with a 40 mm atriclip Radiography Diagnostic Testing: Radiology Impression Chest X-Ray 12/04/20 11:32 IMPRESSION: Status post mitral valve replacement. Borderline cardiomegaly and mild CHF. Electronically Signed: Caleb Earl MD at 12:07 EDT , Service support ,
[2020-12-04 18:44] LABS: Troponin-I HS 24.5 pg/mL (3.0-78.5)
--- NOTE | 2020-12-04 18:46 | ECHOD_ITS ---
Reason For Study: CHF Procedure This was a 2D Doppler, Color Flow transthoracic echocardiogram. The study was technically difficult. Exam performed portable in patient room. Left Ventricle Severely dilated left ventricle. Moderate segmental systolic dysfunction (see wall motion). The estimated ejection fraction is 30 %. Anterio-Basal: Hypokinetic. Lateral-Basal: Hypokinetic. Mid- Anterior : Akinetic. Mid-Lateral : Akinetic. Mid-Posterior: Hypokinetic. Mid-Inferior: Hypokinetic. Mid-inferoseptal : Hypokinetic. Mid-anteroseptal : Hypokinetic. Anterior [place] : Not visualized. Inferior [place] : Not visualized. Lateral [place] : Hypokinetic. Septal [place] : Akinetic. Right Ventricle Normal RV size. Normal systolic function. Atria The left atrium is mildly enlarged. The right atrium is mildly enlarged. No doppler evidence for ASD. Mitral Valve Anterior leaflet diffuse mitral valve thickening. An annuloplasty ring is noted in the mitral position. Trivial transvalvular insufficiency of the mitral valve. Tricuspid Valve Normal tricuspid valve. Mild tricuspid valve insufficiency. Right ventricular systolic pressure estimated to be 30 mmHg. Aortic Valve Trisinus/trileaflet aortic valve. Moderate focal aortic valve calcification. Trivial aortic valve insufficiency. Pulmonic Valve The pulmonic valve is not well visualized. Mild (1+) pulmonic valve insufficiency. Great Vessels Normal sized aortic root. Pericardium/Pleural No pericardial effusion. MMode/2D Measurements & Calculations LVIDd: 6.6 cm IVSd: 1.1 cm Ao root diam: 3.4 cm LVIDs: 5.5 cm LVPWd: 1.1 cm RVDd: 4.3 cm FS: 16.1 % LAV(MOD-bp): 84.3 ml LA A4 area: 26.3 cm2 LA dimension(2D): 4.7 cm LAV(MOD-bp) Indexed: 41.4 ml/m2 LAV(MOD-sp2): 70.6 ml LAV(MOD-sp4): 92.1 ml RA A4 area: 21.2 cm2 Time Measurements MV dec time: 0.28 sec Doppler Measurements & Calculations MV E max thierno: 126.2 cm/sec Lat Peak E' Thierno: 8.5 cm/sec Med Peak E' Thierno: 4.8 cm/sec MV A max thierno: 101.6 cm/sec E/E' lat: 14.9 E/E' med: 26.2 MV E/A: 1.2 MV V2 max: 143.7 cm/sec Ao V2 max: 147.0 cm/sec AI max thierno: 381.1 cm/sec MV max P.3 mmHg Ao max P.7 mmHg AI max P.1 mmHg MV V2 mean: 84.1 cm/sec AI dec slope: 212.6 cm/sec2 MV mean P.2 mmHg AI P1/2t: 525.1 msec MV V2 VTI: 35.5 cm PA V2 max: 83.6 cm/sec PI dec slope: 113.2 cm/sec2 TR max thierno: 262.0 cm/sec TR max P.4 mmHg ECHO/Echo Complete Interpretation Summary The study was technically difficult. Severely dilated left ventricle. Moderate segmental systolic dysfunction (see wall motion). The estimated ejection fraction is 30 %. The left atrium is mildly enlarged. The right atrium is mildly enlarged. An annuloplasty ring is noted in the mitral position. Anterior leaflet diffuse mitral valve thickening. Trivial transvalvular insufficiency of the mitral valve. Mild tricuspid valve insufficiency. Moderate focal aortic valve calcification. Trivial aortic valve insufficiency. Mild (1+) pulmonic valve insufficiency. Right ventricular systolic pressure estimated to be 30 mmHg. Transmitral diastolic flow velocities suggest diastolic dysfunction (pseudonorm al pattern). Ordering Physician: Dennis Keller Referring Physician: NO PCP Performed By: Rosa Jensen, RDJERO, RVT
[2020-12-04] MEDS: Losartan Potassium 25 MG Tablet 12.5 MG PO (22:24)
[2020-12-04] MEDS: APIXABAN 5 MG TABLET PO (22:24)
[2020-12-04] MEDS: Isosorbide DN 10 MG Tablet 5 MG PO (22:24)
[2020-12-04] MEDS: Carvedilol 3.125 MG TABLET PO (22:25)
[2020-12-04 22:57] LABS: Troponin-I HS 24.1 pg/mL (3.0-78.5)
[2020-12-05] VITALS (12 sets, daily range): BP systolic 97–116; BP diastolic 62–76; PULSE 67–85; RESP 14–18; TEMP 36.4–36.7; O2SAT 96–99
--- NOTE | 2020-12-05 05:55 | EKG12_ITS ---
Test Reason : AM EKG Blood Pressure : / mmHG Vent. Rate : 066 BPM Atrial Rate : 066 BPM P-R Int : 280 ms QRS Dur : 118 ms QT Int : 432 ms P-R-T Axes : 058 074 066 degrees QTc Int : 452 ms Sinus rhythm with 1st degree A-V block with occasional Premature ventricular complexes Otherwise normal ECG When compared with ECG of 04-DEC-2020 14:04, MANUAL COMPARISON REQUIRED, DATA IS UNCONFIRMED Confirmed by DANTE OLIVO, PRITI ([id number]), legal editor GAYATHRI LOPEZ ([id number]) on 12/08/2020 9:58:21 AM Referred By: DR KIRAN Confirmed By:ABDIRAHMAN HOWELL MD
--- NOTE | 2020-12-05 06:25 | PCM.PN.HOSP ---
Subjective Subjective Patient overnight with no acute events per self and per nursing report. He notes that he was actually able to sleep well and laid completely flat without any issue. He denies any further significant dyspnea or any chest discomfort. Patient today with regimen alteration per cardiology including initiation of amiodarone with lengthy discussion with patient and his spouse as some concern for prior reaction including rash to the hands and possible low blood pressure but both are amenable to retrial. Patient also transition to low-dose Lasix 20 mg twice daily. Patient denies fevers, chills, nausea, emesis, abdominal pain, chest pain. Objective Data Objective Data Vital Signs: Vital Signs Temp Pulse Resp BP Pulse Ox 97.5 F L 71 18 101/62 99 12/05/20 04:35 12/05/20 04:35 12/05/20 04:35 12/05/20 04:35 12/05/20 04:35 Oxygen Delivery Method Room Air Weight: 190 lb 0.615 oz Body Mass Index (BMI) 28.6 Intake & Output: Intake and Output for Last 24 Hours 12/03/20 12/04/20 12/05/20 23:59 23:59 23:59 Output Total 500 / 500 Balance -500 / -500 Lab / Micro Data Result Diagrams: 12/05/20 05:10 12/05/20 05:10 Labs: Laboratory Results - last 24 hr 12/04/20 12:00: WBC 6.5, RBC 5.02, Hgb 15.6, Hct 46.3, MCV 92.2, MCH 31.1, MCHC 33.7, RDW Std Deviation 46.4 H, RDW Coeff of Garett 13.7, Plt Count 164, MPV 10.0, Immature Gran % (Auto) 0.300, Neut % (Auto) 68.5, Lymph % (Auto) 20.0, [place] % (Auto) 8.0, Eos % (Auto) 2.4, Baso % (Auto) 0.8, Absolute Neuts (auto) 4.5, Absolute Lymphs (auto) 1.31, Nucleated RBC % 0 12/04/20 12:00: Sodium 141, Potassium 4.3, Chloride 105, Carbon Dioxide 26.0, Anion Gap 10, BUN 19 H, Creatinine 1.01, Estim Creat Clear Calc 59.31, Est GFR (MDRD) Af Amer 92, Est GFR (MDRD) Non-Af 76, BUN/Creatinine Ratio 18.8, Glucose 138 H, Calcium 8.9, Total Bilirubin 1.10 H, AST 13 L, ALT 24, Alkaline Phosphatase 79, Total Protein 6.8, Albumin 3.7, Globulin 3.1, Albumin/Globulin Ratio 1.2 12/04/20 12:00: B-Natriuretic Peptide 413.7 H 12/04/20 12:00: Troponin I High Sens 21.4 12/04/20 13:15: D-Dimer Quant (PE/DVT) 0.28 12/04/20 14:45: Troponin I High Sens 22.2 12/04/20 14:45: Phosphorus 3.2, Magnesium 1.8, TSH 2.34 12/04/20 18:07: Troponin I High Sens 24.5 12/04/20 22:00: Troponin I High Sens 24.1 Radiography Diagnostic Testing: Radiology Impression Chest X-Ray 12/04/20 11:32 IMPRESSION: Status post mitral valve replacement. Borderline cardiomegaly and mild CHF. Electronically Signed: Caleb Earl MD at 12:07 EDT , Service support , Physical Exam Narrative Physical Examination: General: awake, alert, oriented x 3 and cooperative, laying in the PCU bed, improved appearance, notes dyspnea has completely resolved. Skin: normal color, normal turgor, no icterus, no cyanosis except mild venous stasis disease bilateral lower extremities. HEENT: AT/NC, EOMI, PERRLA, MMM. Lungs: Diminished breath sounds at bases, improved air movement, improved effort, no rales, rhonchi or wheezing. Heart: Remains irregular with ectopy, periods of regular rate and rhythm however sometimes tachycardic, no gallop, rub audible. Abdomen: soft, NTTP, ND, distant normal BS. Extremities: no cyanosis, clubbing, or edema. Neurological: patient awake, alert, oriented as noted; cognitive function intact; pupils equally reactive to light and accomodation; cranial nerves II-XII grossly normal, moving all 4 extremities, no focal deficits, strength improved, mildly globally decreased. Psychiatric: affect appears normal, no acute evidence of depressive or anxiety feelings. Assessment & Plan Assessment/Plan (1) Acute exacerbation of CHF (congestive heart failure): QUALIFIERS: Heart failure type: unspecified Qualified Code(s): I50.9 - Heart failure, unspecified PLAN: The patient is a 80 y/o M w/ PMHx: Valvular Heart Disease, Cardiac dysrhythmia with bradycardia/tachycardia, ? PAF, HTN, HLD, HERMAN non-tolerant of CPAP, Hypothyroidism who presents to the [facility] ED on 12/04/20 with history of shortness of breath ongoing for the last several days although more severe on day of ED presentation, worsened upon waking noting that he has had issues over the last several days attempting to lay flat and claims that he has been wheezing with no associated cough or any chest discomfort but does report some mild lightheadedness. 1. Acute Decompensated Systolic CHF, Ischemic Cardiomyopathy: Patient administered IV lasix in the ED, admitted to the PCU, maintained on cardiac telemetry, unremarkable cardiac enzyme series, IV lasix initially now transitioned per Cardiology to lasix 20 mg BID, will continue to monitor I/Os, continue medical therapy. TSH and magnesium normal. Most recent ECHO noted 09/15/2020 with noted LVEF 30 to 35%, moderately reduced LV systolic function, mildly dilated LA, mild to moderate aortic regurgitation, annuloplasty ring noted in the mitral position, mild MR, mild TR, mild pulmonic valvular regurgitation, mildly dilated aortic root, mildly dilated ascending aorta. Cardiology consulted, following with repeat echocardiogram obtained with noted severely dilated LV, moderate segmental systolic dysfunction, EF 30%, mildly enlarged LA, mild enlarged RA, annuloplasty ring in mitral position, transvalvular trivial insufficiency of the mitral valve, mild TVI, moderate focal AV calcification, trivial TERESA, mild PI, RVSP 30 mmHg, transmitral diastolic flow velocities suggestive of diastolic dysfunction. Given patient function, per discussion with cardiology if therapy tolerated then will plan discharge to home possibly in a.m. with follow-up with cardiology with ICD placement in December with Dr. Landry given significant cardiac dysrhythmia. 2. Cardiac dysrhythmia bradycardia/tachycardia: Patient with ongoing issues, following with cardiology, some difficulty secondary to [facility] with difficulties to have intervention however given noted above, repeat echo as noted per cardiology would plan ICD placement in December with Dr. Frantz given significant cardiac dysrhythmia. Patient is also been started on amiodarone however spouse and patient do believe that he potentially had reaction prior including rash to his hands and possible hypotension, will continue to closely monitor as patient and are amenable to trialing and cardiology was made aware. 3. Valvular heart disease: Patient status post MVR w/ Physio-II annuloplasty ring, recent ECHO as noted above. 4. CAD: Patient s/p PTCA/SABRA to LAD 09/2016, CABG w/ DAILY to the LAD, SVG to OM1, SVG to OM 2, SVG to PDA, mitral valve repair with a 30 mm Physio-II annuloplasty ring along with an occlusion of the left atrial appendage with a 40 mm atriclip on 10/31/19, continued on aspirin, Eliquis, losartan, Coreg. Not on statin with allergy noted, maintained on Zetia. 5. Hypertension: Continue home regimen including Coreg, isosorbide, losartan, Lasix w/ now oral transition as noted, PRN hydralazine. 6. Hyperlipidemia: We will continue Zetia, noted statin allergy. 7. Hypothyroidism: Continue home synthroid regimen, TSH normal. 8. Questionable PAF: Patient continued on Coreg, Eliquis, had from records been on amiodarone with questionable PAF following surgical intervention the year prior. As noted amiodarone ordered. 9. DVT prophylaxis: SCDs, continue Eliquis. Charges/Coding Visit Charges Inpatient E&M: 47520 Subs Hosp L2
[2020-12-05] MEDS: Levothyroxine 25 MCG TABLET PO (06:27)
[2020-12-05 06:44] LABS: Absolute Neutrophil Count 4.1 X10^3/uL (2.0-7.7); Basophil# 0.05 X10^3/uL; Basophil% 0.7 % (0-1); Eosinophil# 0.16 X10^3/uL; Eosinophils% 2.2 % (0-5); Hematocrit 45.4 % (40-54); Hemoglobin 15.3 g/dL (13.0-16.5); Mean Corp Hgb Conc 33.7 g/dL (32-36); Mean Corpuscular Hgb 31.1 pg (27.0-32.0); Mean Corpuscular Volume 92.3 fL (80-94); Mean Platelet Vol. 10.4 fl (6.2-12.0); Monocyte# 0.81 X10^3/uL; Monocyte% 11.1 % (0-10); NRBC Flagged by Analyzer 0 % (0-5); Neutrophil # 4.09 X10^3/uL (2.7-7.7); Neutrophil % 55.7 % (47-70); Platelet Count 171 K/mm3 (150-450); RBC Distribution Width CV 13.6 % (11.6-14.6); RBC Distribution Width SD 45.8 fl (35.1-43.9); Red Blood Count 4.92 M/mm3 (4.6-6.2); White Blood Count 7.3 K/mm3 (4.4-11.0)
[2020-12-05 07:18] LABS: Anion Gap 6 (5-15); BUN 22 mg/dL (7-18); BUN/Creat Ratio 17.6 RATIO (10-20); Calcium,Total 8.7 mg/dL (8.5-10.1); Chloride 102 mmol/L (98-107); Cholesterol 139 mg/dL (200); Creatinine, Serum 1.25 mg/dL (0.70-1.30); EST Glomerular Filtration Rate 59 mL/min (>60); Est Glom Filt Rate - Afr Amer 72 mL/min (>60); Estimated Creatinine Clearance 47.92 ml/min; Glucose 94 mg/dL (74-106); High Density Lipoprotein 28 mg/dL; Potassium 4.1 mmol/L (3.5-5.1); Sodium Level 138 mmol/L (136-145); Triglycerides 184 mg/dL; Very Low Density Lipoprotein 37 mg/dL (5-40)
--- NOTE | 2020-12-05 07:33 | NURSING ---
blood pressure was 97/66 isordil held per parameters, sent message to physician regarding the lasix awaiting response.
--- NOTE | 2020-12-05 08:28 | PN.CARD_ITS ---
Subjective Subjective The patient is awake and alert. He states he is breathing better. He did not complain of nocturnal orthopnea or wheezing last night. He has had no new chest discomfort. He denies any obvious sensation of palpitations. He denies any dizziness/lightheadedness or near syncopal type events. Objective Data Vital Signs: Vital Signs Temp Pulse Resp BP Pulse Ox 97.5 F L 73 18 97/66 97 12/05/20 04:35 12/05/20 06:59 12/05/20 04:35 12/05/20 06:36 12/05/20 07:39 Oxygen Delivery Method Room Air Weight: 190 lb 0.615 oz Body Mass Index (BMI) 28.6 Intake & Output: Intake and Output for Last 24 Hours 12/03/20 12/04/20 12/05/20 23:59 23:59 23:59 Intake Total 300 / 300 Output Total 1000 / 1000 Balance -700 / -700 Lab / Micro Data Result Diagrams: 12/05/20 05:10 12/05/20 05:10 Labs: Laboratory Results - last 24 hr 12/04/20 12:00: WBC 6.5, RBC 5.02, Hgb 15.6, Hct 46.3, MCV 92.2, MCH 31.1, MCHC 33.7, RDW Std Deviation 46.4 H, RDW Coeff of Garett 13.7, Plt Count 164, MPV 10.0, Immature Gran % (Auto) 0.300, Neut % (Auto) 68.5, Lymph % (Auto) 20.0, [place] % (Auto) 8.0, Eos % (Auto) 2.4, Baso % (Auto) 0.8, Absolute Neuts (auto) 4.5, Absolute Lymphs (auto) 1.31, Nucleated RBC % 0 12/04/20 12:00: Sodium 141, Potassium 4.3, Chloride 105, Carbon Dioxide 26.0, Anion Gap 10, BUN 19 H, Creatinine 1.01, Estim Creat Clear Calc 59.31, Est GFR (MDRD) Af Amer 92, Est GFR (MDRD) Non-Af 76, BUN/Creatinine Ratio 18.8, Glucose 138 H, Calcium 8.9, Total Bilirubin 1.10 H, AST 13 L, ALT 24, Alkaline Phosphatase 79, Total Protein 6.8, Albumin 3.7, Globulin 3.1, Albumin/Globulin Ratio 1.2 12/04/20 12:00: B-Natriuretic Peptide 413.7 H 12/04/20 12:00: Troponin I High Sens 21.4 12/04/20 13:15: D-Dimer Quant (PE/DVT) 0.28 12/04/20 14:45: Troponin I High Sens 22.2 12/04/20 14:45: Phosphorus 3.2, Magnesium 1.8, TSH 2.34 12/04/20 18:07: Troponin I High Sens 24.5 12/04/20 22:00: Troponin I High Sens 24.1 12/05/20 05:10: WBC 7.3, RBC 4.92, Hgb 15.3, Hct 45.4, MCV 92.3, MCH 31.1, MCHC 33.7, RDW Std Deviation 45.8 H, RDW Coeff of Garett 13.6, Plt Count 171, MPV 10.4, Immature Gran % (Auto) 0.300, Neut % (Auto) 55.7, Lymph % (Auto) 30.0, [place] % (Auto) 11.1 H, Eos % (Auto) 2.2, Baso % (Auto) 0.7, Absolute Neuts (auto) 4.1, Absolute Lymphs (auto) 2.20, Nucleated RBC % 0 12/05/20 05:10: Sodium 138, Potassium 4.1, Chloride 102, Carbon Dioxide 30.0, Anion Gap 6, BUN 22 H, Creatinine 1.25, Estim Creat Clear Calc 47.92, Est GFR (MDRD) Af Amer 72, Est GFR (MDRD) Non-Af 59 L, BUN/Creatinine Ratio 17.6, Glucose 94, Calcium 8.7, Triglycerides 184, Cholesterol 139, LDL Cholesterol 74, VLDL Cholesterol 37, HDL Cholesterol 28 L Cardiology Labs/Tests 12/04/20 12:00: WBC 6.5, RBC 5.02, Hgb 15.6, Hct 46.3, MCV 92.2, MCH 31.1, MCHC 33.7, Plt Count 164, MPV 10.0, Immature Gran % (Auto) 0.300, Neut % (Auto) 68.5, Lymph % (Auto) 20.0, [place] % (Auto) 8.0, Eos % (Auto) 2.4, Baso % (Auto) 0.8, Absolute Neuts (auto) 4.5, Nucleated RBC % 0 12/04/20 12:00: Sodium 141, Potassium 4.3, Chloride 105, Carbon Dioxide 26.0, Anion Gap 10, BUN 19 H, Creatinine 1.01, Est GFR (MDRD) Af Amer 92, Est GFR (MDRD) Non-Af 76, BUN/Creatinine Ratio 18.8, Glucose 138 H, Calcium 8.9, Total Bilirubin 1.10 H 12/04/20 12:00: B-Natriuretic Peptide 413.7 H 12/04/20 13:15: D-Dimer Quant (PE/DVT) 0.28 12/04/20 14:45: Phosphorus 3.2, Magnesium 1.8 12/05/20 05:10: WBC 7.3, RBC 4.92, Hgb 15.3, Hct 45.4, MCV 92.3, MCH 31.1, MCHC 33.7, Plt Count 171, MPV 10.4, Immature Gran % (Auto) 0.300, Neut % (Auto) 55.7, Lymph % (Auto) 30.0, [place] % (Auto) 11.1 H, Eos % (Auto) 2.2, Baso % (Auto) 0.7, Absolute Neuts (auto) 4.1, Nucleated RBC % 0 12/05/20 05:10: Sodium 138, Potassium 4.1, Chloride 102, Carbon Dioxide 30.0, Anion Gap 6, BUN 22 H, Creatinine 1.25, Est GFR (MDRD) Af Amer 72, Est GFR (MDRD) Non-Af 59 L, BUN/Creatinine Ratio 17.6, Glucose 94, Calcium 8.7, Triglycerides 184, Cholesterol 139, LDL Cholesterol 74, VLDL Cholesterol 37, HDL Cholesterol 28 L Rhythm: Sinus rhythm; PVCs; one episode of a brief nonsustained wide-complex tachycardia compatible with nonsustained VT EKG: Sinus rhythm; first-degree AV block; PVCs Radiography Diagnostic Testing: Radiology Impression Chest X-Ray 12/04/20 11:32 IMPRESSION: Status post mitral valve replacement. Borderline cardiomegaly and mild CHF. Electronically Signed: Caleb Earl MD at 12:07 EDT , Service support , Physical Exam Narrative The patient appears to be awake and alert and in no acute distress at this time. Const alert, oriented x3 and no apparent distress Orientation / Consciousness: awake HEENT normocephalic, head/scalp atraumatic and hearing grossly normal bilaterally Eyes PERRL and EOMs intact bilaterally Neck full ROM, supple and no JVD Chest Chest: midline sternotomy incision Resp clear to auscultation bilaterally Cardio regular rate, regular rhythm, S1 normal heart sound and S2 normal heart sound Cardio Narrative: Ectopic complexes GI normal to inspection, nondistended, normoactive bowel sounds Extremity no pedal edema Skin no rashes or lesions noted Neuro oriented x3, CN's II-XII intact bilaterally and moves all extremities Psych mental status grossly normal Assessment & Plan Assessment/Plan (1) Acute exacerbation of CHF (congestive heart failure): QUALIFIERS: Heart failure type: unspecified Qualified Code(s): I50.9 - Heart failure, unspecified PLAN: The patient appears to have a clinical course compatible with acute systolic mediated CHF based upon chronic systolic dysfunction. The patient has been diagnosed [facility] of having diminished LV systolic function/LVEF compatible with his ischemic mediated cardiomyopathy. At the present time the patient will continue to be monitored. He will continue medical therapy. This should include agents such as nitrates as needed/tolerated, beta-blockers, diuretics, and afterload reducing agents. The patient will have a follow-up transthoracic echocardiogram to reassess his left ventricular wall motion and systolic function based upon his current clinical findings. (2) Atherosclerotic heart disease of [place] coronary artery without angina pectoris: QUALIFIERS: [place] vs. transplanted heart: [place] heart Qualified Code(s): I25.10 - Atherosclerotic heart disease of [place] coronary artery without angina pectoris PLAN: The patient has a history of underlying CAD. He has undergone revascularization as noted. At the moment he does not complain of symptoms of acute coronary syndrome. His cardiac enzymes are negative thus far. He should continue medical management with agents such as aspirin, nitrates as needed/tolerated, beta-blockers, lipid-lowering agents, etc. Depending upon his clinical course he may or may not need repeat noninvasive or invasive evaluation of his cardiovascular status. (3) Presence of stent in coronary artery: PLAN: The patient does have a history of coronary artery revascularization with PCI. His previous studies are as noted. (4) Hx of CABG: PLAN: The patient has undergone open heart surgery CABG. His CABG report is as noted. (5) History of mitral valve repair: PLAN: The patient has also had mitral valve repair. This will be reassessed with an echocardiogram to monitor for any significant changes will be contributing to his current course. (6) Ischemic cardiomyopathy: PLAN: The patient is described as having findings compatible with an ischemic mediated cardiomyopathy with heart failure with reduced ejection fract ion. At the present time he will continue to be monitored. He will continue medical management as noted above. He will be reassessed with a transthoracic echocardiogram. If the patient's LV systolic function remains low despite his medical management, etc., then he should be considered for ICD placement once he is stable from his acute CHF event. (7) Paroxysmal atrial flutter: PLAN: The patient also has a history of underlying atrial flutter. He has been on and off rate control therapy/antiarrhythmic therapy. He is currently on anticoagulant therapy. His rate and rhythm will be monitored and his medications adjusted accordingly. (8) Ventricular ectopy: PLAN: The patient demonstrates his history of underlying ventricular ectopy and nonsustained VT. He will continue his medical therapy which at the present time includes his beta-blockers. He has been on antiarrhythmic therapy in the past with amiodarone. It may not be unreasonable to reinitiate this at a low dose monitoring his rate and rhythm response pending further evaluation and care. (9) Tachy-drew syndrome: PLAN: The patient has a history of bradycardia tacky syndrome. Thus far he has been treated with low-dose beta-blockers. There is been discussions in the past as to whether or not he will need permanent pacemaker placement versus, depending upon his left ventricular systolic function/LVEF, ICD placement. (10) Hypertriglyceridemia: PLAN: The patient will continue lipid-lowering therapy as tolerated. (11) Essential hypertension: PLAN: The patient's blood pressure will need to be monitored with adjustment of his medicines. Addt'l Comments The above was discussed with Dr. Simon. This note was generated using a voice recognition system and there may be incorrect words, spelling or punctuation that were not noted when reviewing the office note prior to saving.
[2020-12-05] MEDS: Cholecalciferol (VIT D3) 25 MCG TABLET (1,000 UNITS) 100 MCG PO (10:16)
[2020-12-05] MEDS: Ezetimibe 10 MG Tablet 5 MG PO (10:16)
[2020-12-05] MEDS: APIXABAN 5 MG TABLET PO ×2 (10:18→21:45)
[2020-12-05] MEDS: Ascorbic Acid 500 MG Tablet 1000 MG PO (10:18)
[2020-12-05] MEDS: Aspirin 81 MG TAB.CHEW PO (10:18)
[2020-12-05] MEDS: Furosemide 20 MG Tablet PO ×2 (10:30→17:20)
[2020-12-05] MEDS: Amiodarone 200 MG Tablet PO (10:31)
--- NOTE | 2020-12-05 11:27 | CASEMGMT ---
CAILIN CASANOVA assessment: Face to Face with patient for initial transition planning/care coordination assessment. CAILIN CASANOVA introduced self and role at [facility], pt voices understanding and consents to assessment. is at bedside during assessment. Pt is lying in bed in no distress on room air. Pt is A/Ox4 and answers all questions appropriately. Care providers, pharmacy, and demographics verified. Presentation: SOB started today, pt w/ hx of open heart one year ago Admitting dx: CHF PCP: Pt's PCP at [facility] Specialists: Pt sees specialists at the [facility] Preferred Pharmacy: [facility] Insurance: [facility] [place]cription Benefit: [place], [facility] Living Will/HPOA: Pt has LW/HPOA and they are on file at [facility]. Pt's , Denise Jasso, is HPOA. LNOK: Denise Jasso, /HPOA Living Arrangements: Pt lives with in a condo in [place] for 6 months of the year and then in a [place] here during the summer. Pt is independent with ADL's. Transportation: Pt drives self and states no transportation concerns. DME/HHC: Pt has a cpap but does not use and states no need for any further DME. Pt states has had HHC in the past but has not been to SNF. Pt states no concerns with going home at time of discharge. Pt is retired. Pt does not smoke cigarettes or drink ETOH. Pt states no further concerns/needs. CM to follow for any further discharge planning/needs. Advised pt to ask for CM if any further questions/concerns/needs arise, voices understanding. Pt Goal: Home Plan[place] CAILIN CASANOVA
[2020-12-05] MEDS: Carvedilol 3.125 MG TABLET PO ×2 (13:31→21:45)
[2020-12-05] MEDS: Losartan Potassium 25 MG Tablet 12.5 MG PO (13:31)
[2020-12-06 03:00] VITALS: PULSE 89
[2020-12-06 03:48] VITALS: BP 100/69; PULSE 78; RESP 16; TEMP 36.1; O2SAT 96
[2020-12-06] MEDS: Levothyroxine 25 MCG TABLET PO (06:14)
[2020-12-06 07:00] VITALS: PULSE 64
[2020-12-06 09:05] VITALS: BP 113/66; PULSE 73; RESP 18; TEMP 36.4; O2SAT 99
[2020-12-06] MEDS: Furosemide 20 MG Tablet PO (09:13)
[2020-12-06] MEDS: Amiodarone 200 MG Tablet PO (09:13)
[2020-12-06] MEDS: APIXABAN 5 MG TABLET PO (09:13)
[2020-12-06] MEDS: Cholecalciferol (VIT D3) 25 MCG TABLET (1,000 UNITS) 100 MCG PO (09:14)
[2020-12-06] MEDS: Ezetimibe 10 MG Tablet 5 MG PO (09:14)
[2020-12-06] MEDS: Ascorbic Acid 500 MG Tablet 1000 MG PO (09:14)
[2020-12-06] MEDS: Aspirin 81 MG TAB.CHEW PO (09:14)
--- NOTE | 2020-12-06 09:33 | DCINST_ITS ---
Discharge Instructions Diet Discharge Diet: Low fat / Low cholesterol Activity Discharge Activity: - (Hold on moderate or > activity until cleared per Cardiology.) May resume sexual activity in: No Restrictions Weight Bearing Status: Weight bearing as tolerated Dressing / Incision Call your doctor if you observe: Fever of 101 or Higher, Inability to urinate, Inability to have a bowel movement, Shortness of breath, Dizziness, Swelling in the ankles, Chest pain, Increased palpitations (irregular heartbeat) and - (Weight gain > 5 lbs contact your primary care or Cardiology.) Follow Up Care Test Results: Test results from this visit will be discussed in further detail at your follow-up appointment, if applicable. Discharge Plan Admission Admit Date/Time: 12/04/20 16:53 Primary Reason for Your Visit: Acute CHF Exacerbation, Cardiac Dysrhythmia Attending Provider: Yeny Simon Primary Care Provider: Care Physician,No Primary Consulting Providers: Dennis Keller Instructions Patient Instructions: Implantable Cardioverter ..., Heart Failure Meds, Heart Failure Signs of Flare-Up Additional Instructions / Restrictions: DISCHARGE PLAN ADDITIONAL: Current plan per discussion with Dr. Keller is follow-up for ICD placement on . Carfdiology office will contact you with details regarding your procedure and evaluation. NEW MEDICATIONS: You were recently initiated on oral amiodarone as well as Lasix low-dose 20 mg twice daily. Given your recent additions with prior history of medication reactions including low blood pressure, we recommend at this time to stagger your blood pressure medications and monitor your blood pressure. If you do have continued low blood pressure please contact cardiology and these medications may need to be readjusted or timing may need to be altered. Discharge Orders/Prescriptions Prescriptions: New amiodarone 200 mg Tablet 200 mg PO DAILYCM 30 Days Qty: 30 RF: 0 furosemide 20 mg Tablet 20 mg PO BIDLX 30 Days Qty: 60 RF: 0 Continued apixaban 5 mg tablet 5 mg PO BID RF: 0 ezetimibe [Zetia] 10 mg tablet 5 mg PO DAILY RF: 0 carvedilol 3.125 mg tablet 3.125 mg PO BID RF: 0 losartan 25 mg tablet 12.5 mg PO DAILY RF: 0 aspirin 81 MG tablet,chewable 81 mg PO DAILY@0800 RF: 0 cholecalciferol (vitamin D3) 2,000 UNIT capsule 4,000 unit PO DAILY RF: 0 nitroglycerin 0.4 MG tablet 0.4 mg SUBLINGUAL Q5M PRN (Reason: Cardiac/Chest Pain) Qty: 1 RF: 0 Cranberry Plus Vitamin C 140-100 mg Capsule 2 cap PO DAILY RF: 0 ascorbic acid (vitamin C) 1,000 mg Tablet,Chewable 1 g PO DAILY RF: 0 Digestive Advantage Prob Gummy 250 million cell Tablet,Chewable 2 cell PO DAILY RF: 0 levothyroxine 25 mcg tablet 25 mcg PO DAILY RF: 0 [facility]Other[facility] (Please follow[facility] with your [facility] as previously arranged or within 2-4 weeks especially given planned upcoming ICD.) Dennis Keller MD [STAFF PHYSICIAN] - (Cardiology will contact you regarding upcoming ICD placement. Please follow-up also with Dr. Keller per his discretion.) Disposition Disposition (needs filled in before D/C Order can be placed): Home, Self Care
--- NOTE | 2020-12-06 09:35 | PCM.DC.SUM ---
Providers Date of Admission: 12/04/20 Primary Care Physician: No Primary Care Phys Consultations 12/04/20 17:31 Consult: Cardiology Routine Consulting Provider: Dennis Keller Reason for Consult: CHF exacerbation EMERGENT Consult: No MD Notified: Yes Date Notified: 12/04/20 Time Notified: 16:30 Method of Notification: Provider Initiated Comments:: Case discussed with Dr. Keller by ER physician Reason For Visit: CONGESTIVE HEART FAILURE Diagnosis Discharge Diagnosis (1) Acute exacerbation of CHF (congestive heart failure): Status: Chronic Code(s): I50.9 - Heart failure, unspecified Qualifiers: Heart failure type: unspecified Qualified Code(s): I50.9 - Heart failure, unspecified Medications at Discharge Home Medications aspirin 81 mg PO DAILY@0800 09/20/16 cholecalciferol (vitamin D3) 4,000 unit PO DAILY 09/20/16 nitroglycerin 0.4 mg SUBLINGUAL Q5M PRN #1 bottle 09/24/16 apixaban 5 mg tablet 5 mg PO BID 12/10/19 carvedilol 3.125 mg tablet 3.125 mg PO BID 12/10/19 ezetimibe 10 mg tablet 5 mg PO DAILY tab 12/10/19 levothyroxine 25 mcg tablet 25 mcg PO DAILY tab 12/10/19 losartan 25 mg tablet 12.5 mg PO DAILY tab 12/10/19 Cranberry Plus Vitamin C 2 cap PO DAILY 12/04/20 Digestive Advantage Prob Gummy 2 cell PO DAILY 12/04/20 ascorbic acid (vitamin C) 1 g PO DAILY 12/04/20 amiodarone 200 mg PO DAILYCM 30 Days #30 tab 12/06/20 furosemide 20 mg PO BIDLX 30 Days #60 tab 12/06/20 Hospital Course Operations None Procedures 2-D Echocardiogram and EKG Summary of Care Provided Minutes Spent on Discharge: 35 Hospital Course: Discharge Diagnoses: 1. Acute Decompensated Systolic CHF, Ischemic Cardiomyopathy: 2. Cardiac dysrhythmia bradycardia/tachycardia w/ pending planned ICD placement 3. Valvular heart disease 4. CAD s/p PTCA/SABRA to LAD 09/2016, CABG w/ DAILY to the LAD, SVG to OM1, SVG to OM 2, SVG to PDA 5. Valvular heart disease s/p mitral valve repair with a 30 mm Physio-II annuloplasty ring. 6. Hypertension 7. Hyperlipidemia 8. Hypothyroidism 9. Questionable PAF history Discharge Summary: The patient is a 80 y/o M w/ PMHx: Valvular Heart Disease, Cardiac dysrhythmia with bradycardia/tachycardia, ? PAF, HTN, HLD, HERMAN non-tolerant of CPAP, Hypothyroidism who presented to the [facility] ED on 12/04/20 with history of shortness of breath ongoing for the last several days although more severe on day of ED presentation, worsened upon waking noting that he has had issues over the last several days attempting to lay flat and claims that he has been wheezing with no associated cough or any chest discomfort but does report some mild lightheadedness. Patient administered IV lasix in the ED, admitted to the PCU, maintained on cardiac telemetry, unremarkable cardiac enzyme series, IV lasix initially transitioned per Cardiology to lasix 20 mg BID. TSH and magnesium normal. Most recent ECHO noted 09/15/2020 with noted LVEF 30 to 35%, moderately reduced LV systolic function, mildly dilated LA, mild to moderate aortic regurgitation, annuloplasty ring noted in the mitral position, mild MR, mild TR, mild pulmonic valvular regurgitation, mildly dilated aortic root, mildly dilated ascending aorta. Cardiology consulted, following with repeat echocardiogram obtained with noted severely dilated LV, moderate segmental systolic dysfunction, EF 30%, mildly enlarged LA, mild enlarged RA, annuloplasty ring in mitral position, transvalvular trivial insufficiency of the mitral valve, mild TVI, moderate focal AV calcification, trivial TERESA, mild PI, RVSP 30 mmHg, transmitral diastolic flow velocities suggestive of diastolic dysfunction. Patient with ongoing cardiac dysrhythmia bradycardia/tachycardia issues for which she has been following with cardiology and noted difficulties with intervention secondary to [facility] system. Patient placed and tolerated oral low dose daily amiodarone as had been concerned about prior possible reactions including hypotension and BL dorsal hand rashes. As noted repeat echocardiogram obtained and upon discharge planned ICD placement per Dr. Landry 12/11/20 to be arranged per Cardiology with anticoagulation hold/directions per their discretion. Given clinical improvement patient discharged to home in stable improved condition with new regimen of Lasix as well as amiodarone with recommended follow-up with PCP as well as cardiology per their discretion with arrangement for upcoming ICD placement later in the week. Discharge Time: > 35 Minutes DAY OF DISCHARGE PROGRESS NOTE: Subjective: Patient without acute event overnight per self and nursing report. Patient denied any recurrent dyspnea or lightheadedness. Patient denies fever, chills, nausea, emesis, abdominal pain, chest pain. Patient agreeable to discharge to home given clinical improvement, tolerating medications without issues or reactions thus far. Patient will be discharged with follow-up with primary care physician within 3-5 days in addition to follow-up with cardiology with planned upcoming ICD placement. Objective: T 97.3, heart rate 73, BP 129/63, respiratory rate 18, 98% on room air. Physical Examination: General: awake, alert, oriented x 3 and cooperative, laying in the PCU bed, NAD, notes he selpt well, breathing well. Skin: normal color, normal turgor, no icterus, no cyanosis except mild venous stasis disease bilateral lower extremities. HEENT: AT/NC, EOMI, PERRLA, MMM. Lungs: Diminished breath sounds at bases, improved air movement, improved effort, no rales, rhonchi or wheezing. Heart: Improved, regular rate and rhythm, no gallop, rub audible. Abdomen: soft, NTTP, ND, distant normal BS. Extremities: no cyanosis, clubbing, or edema. Neurological: patient awake, alert, oriented as noted; cognitive function intact; pupils equally reactive to light and accomodation; cranial nerves II-XII grossly normal, moving all 4 extremities, no focal deficits, strength improved, preserved. Psychiatric: affect appears normal, no acute evidence of depressive or anxiety feelings. Assessment and Plan: Please see hospital summary above. Weight / BMI Weight Weight: 189 lb 13.088 oz Body Mass Index (BMI) 28.6 ABG / Lab / Microbiology Data Result Diagrams: 12/05/20 05:10 12/05/20 05:10 Radiography Diagnostic Testing: Radiology Impression Echocardiogram 12/04/20 18:46 Interpretation Summary The study was technically difficult. Severely dilated left ventricle. Moderate segmental systolic dysfunction (see wall motion). The estimated ejection fraction is 30 %. The left atrium is mildly enlarged. The right atrium is mildly enlarged. An annuloplasty ring is noted in the mitral position. Anterior leaflet diffuse mitral valve thickening. Trivial transvalvular insufficiency of the mitral valve. Mild tricuspid valve insufficiency. Moderate focal aortic valve calcification. Trivial aortic valve insufficiency. Mild (1+) pulmonic valve insufficiency. Right ventricular systolic pressure estimated to be 30 mmHg. Transmitral diastolic flow velocities suggest diastolic dysfunction (pseudonormal pattern). Ordering Physician: Dennis Keller Referring Physician: NO PCP Performed By: Rosa Jensen, MARCO ANTONIO, RVT D/C Instructions Discharge Diet: Low fat / Low cholesterol May resume sexual activity in: No Restrictions Weight Bearing Status: Weight bearing as tolerated Call your doctor if you observe: Fever of 101 or Higher, Inability to urinate, Inability to have a bowel movement, Shortness of breath, Dizziness, Swelling in the ankles, Chest pain, Increased palpitations (irregular heartbeat) and - (Weight gain > 5 lbs contact your primary care or Cardiology.) Meaningful Use Info Meaningful Use Diagnoses (Choose all that apply): CHF CHF AISHA/ARB ordered at discharge?: Yes Documented LVEF (%): 30 Discharge Plan Admission Admit Date/Time: 12/04/20 16:53 Primary Reason for Your Visit: Acute CHF Exacerbation, Cardiac Dysrhythmia Attending Provider: Yeny Simon Primary Care Provider: Care Physician,No Primary Consulting Providers: Dennis Keller Instructions Patient Instructions: Implantable Cardioverter ..., Heart Failure Meds, Heart Failure Signs of Flare-Up Additional Instructions / Restrictions: DISCHARGE PLAN ADDITIONAL: Current plan per discussion with Dr. Keller is follow-up for ICD placement on . Carfdiology office will contact you with details regarding your procedure and evaluation. NEW MEDICATIONS: You were recently initiated on oral amiodarone as well as Lasix low-dose 20 mg twice daily. Given your recent additions with prior history of medication reactions including low blood pressure, we recommend at this time to stagger your blood pressure medications and monitor your blood pressure. If you do have continued low blood pressure please contact cardiology and these medications may need to be readjusted or timing may need to be altered. Discharge Orders/Prescriptions Prescriptions: New amiodarone 200 mg Tablet 200 mg PO DAILYCM 30 Days Qty: 30 RF: 0 furosemide 20 mg Tablet 20 mg PO BIDLX 30 Days Qty: 60 RF: 0 Continued apixaban 5 mg tablet 5 mg PO BID RF: 0 ezetimibe [Zetia] 10 mg tablet 5 mg PO DAILY RF: 0 carvedilol 3.125 mg tablet 3.125 mg PO BID RF: 0 losartan 25 mg tablet 12.5 mg PO DAILY RF: 0 aspirin 81 MG tablet,chewable 81 mg PO DAILY@0800 RF: 0 cholecalciferol (vitamin D3) 2,000 UNIT capsule 4,000 unit PO DAILY RF: 0 nitroglycerin 0.4 MG tablet 0.4 mg SUBLINGUAL Q5M PRN (Reason: Cardiac/Chest Pain) Qty: 1 RF: 0 Cranberry Plus Vitamin C 140-100 mg Capsule 2 cap PO DAILY RF: 0 ascorbic acid (vitamin C) 1,000 mg Tablet,Chewable 1 g PO DAILY RF: 0 Digestive Advantage Prob Gummy 250 million cell Tablet,Chewable 2 cell PO DAILY RF: 0 levothyroxine 25 mcg tablet 25 mcg PO DAILY RF: 0 [facility] (Please [facility] with [facility] as previously arranged or within 2-4 weeks especially given planned upcoming ICD.) Dennis Keller MD [STAFF PHYSICIAN] - (Cardiology will contact you regarding upcoming ICD placement. Please follow-up also with Dr. Keller per his discretion.) Disposition Disposition (needs filled in before D/C Order can be placed): Home, Self Care Charges/Coding Visit Charges Inpatient E&M: 96228 Disch Hosp
[2020-12-06 10:04] VITALS: BP 113/66; PULSE 73; RESP 18; TEMP 36.4; O2SAT 99
[2020-12-06 10:10] VITALS: BP 129/63; PULSE 73; RESP 18; TEMP 36.3; O2SAT 98
[2020-12-06] MEDS: Carvedilol 3.125 MG TABLET PO (10:14)
[2020-12-06] MEDS: Losartan Potassium 25 MG Tablet 12.5 MG PO (10:14)
--- NOTE | 2020-12-06 13:00 | NURSING ---
called Patient Per Dr. Simon to hold anticoagulants starting on tuesday am for procedure
--- NOTE | 2020-12-08 13:48 | CASEMGMT ---
CAILIN CASANOVA Discharge Follow-up Phone Call: KIMMIE: Obinna Strata: 3 Call Date: 12/08/20 Discharge Date: 12/06/20 Time of Call: 1345 Duration: 3 min Admitting Diagnosis: CHF RN JOCELYNE completed follow-up phone call after recent hospitalization. Patient states he is doing well. Patient had no questions or concerns regarding discharge instructions. Patient was able to fill prescriptions without any issues. Patient has follow-up appts scheduled. Patient had no further questions or concerns at this time.
== END 2020-12-06 10:45 | disposition home or self-care (01) | DRG 292 ==
LOC: ED 12:45 → PCU 17:02
PROVIDERS: Nurse Practitioner Family; Admitting Provider Family Medicine; Emergency Provider Emergency Medicine; Visit Provider Family Medicine
DX: I11.0 Hypertensive heart disease with heart failure (principal); I48.92 Unspecified atrial flutter; I50.23 Acute on chronic systolic (congestive) heart failure; I25.10 Atherosclerotic heart disease of native coronary artery without angina pectoris; E78.5 Hyperlipidemia, unspecified; E03.9 Hypothyroidism, unspecified; I49.5 Sick sinus syndrome; I48.0 Paroxysmal atrial fibrillation; G47.33 Obstructive sleep apnea (adult) (pediatric); I44.0 Atrioventricular block, first degree; N40.0 Benign prostatic hyperplasia without lower urinary tract symptoms; Z79.899 Other long term (current) drug therapy; Z95.1 Presence of aortocoronary bypass graft; Z95.5 Presence of coronary angioplasty implant and graft; Z79.82 Long term (current) use of aspirin; Z79.01 Long term (current) use of anticoagulants; Z87.891 Personal history of nicotine dependence; Z95.2 Presence of prosthetic heart valve; I25.5 Ischemic cardiomyopathy; I08.3 Combined rheumatic disorders of mitral, aortic and tricuspid valves
CPT/HCPCS: 36415; 71046; 80048; 80053; 80061; 83735; 83880; 84100; 84443; 84484; 85025; 85379; 93005; 93306; 99251; 99284; A4216; G0463; J1940; J2405

== ENCOUNTER 2021-01-08 08:34 | Day surgery (SDC) | payer MEDICARE, OTHER, SELFPAY ==
[2020-12-04 17:19] VITALS: BMI 28.6
[2021-01-05 07:14] LABS: Mucous, Urine 0 SEEN /hpf (<or=2+); Red Blood Cells-Urine 0 SEEN /hpf (0-5); White Blood Cells 0 SEEN /hpf (0-5)
[2021-01-05 07:45] LABS: Hematocrit 48.6 % (40-54); Hemoglobin 16.4 g/dL (13.0-16.5); Mean Corp Hgb Conc 33.7 g/dL (32-36); Mean Corpuscular Hgb 31.1 pg (27.0-32.0); Mean Corpuscular Volume 92.2 fL (80-94); Mean Platelet Vol. 9.3 fl (6.2-12.0); Platelet Count 191 K/mm3 (150-450); RBC Distribution Width SD 43.8 fl (35.1-43.9); Red Blood Count 5.27 M/mm3 (4.6-6.2); White Blood Count 6.4 K/mm3 (4.4-11.0)
[2021-01-05 07:53] LABS: Color, Urine Yellow (Yellow); Glucose, Dipstick Normal (Normal); Ketone-Dipstick Negative (Negative); Leukocyte Esterase-Dipstick Negative /ul (Negative); Nitrite-Dipstick Negative (Negative); Occult Blood-Urine Negative /ul (Negative); Protein-Dipstick Negative (Negative); Specific Gravity, Urine 1.015 (1.002-1.030); Urine Bilirubin Dipstick Negative (Negative); Urine Clarity Clear (Clear); Urine Urobilinogen Normal (Normal)
[2021-01-05 07:56] LABS: International Normalized Ratio 1.2; Prothrombin Time (Protime)PT. 14.6 SECONDS (11.7-14.9)
[2021-01-05 08:00] LABS: Bacteria 1+ /hpf (None Seen); Squamous Epithelial Cells - UA 0-5 SEEN /hpf (0-5)
[2021-01-05 08:21] LABS: Anion Gap 4 (5-15); BUN 28 mg/dL (7-18); BUN/Creat Ratio 22.6 RATIO (10-20); Calcium,Total 9.3 mg/dL (8.5-10.1); Chloride 103 mmol/L (98-107); Creatinine, Serum 1.24 mg/dL (0.70-1.30); EST Glomerular Filtration Rate 60 mL/min (>60); Est Glom Filt Rate - Afr Amer 72 mL/min (>60); Glucose 116 mg/dL (74-106); Potassium 4.5 mmol/L (3.5-5.1); Sodium Level 137 mmol/L (136-145)
[2021-01-07 08:23] VITALS: BMI 28.0
[2021-01-08] VITALS (8 sets, daily range): BP systolic 101–126; BP diastolic 61–81; PULSE 60–64; RESP 12–18; TEMP 36.4–36.8; O2SAT 97–100
--- NOTE | 2021-01-08 08:31 | PCM.HP.BLA ---
History and Physical YOGI DIAZ, is a 80 year old white male who presents here today for a hospital follow-up and to discuss prophylactic ICD placement. He has a history of coronary artery disease status post PTCA/SABRA to LAD in September 2016, CABG with a DAILY to the LAD, and SVG to OM1, and SVG to OM 2, and an SVG to the PDA, as well as, a mitral valve repair with a 30 mm Physio-II annuloplasty ring along with an occlusion of the left atrial appendage with a 40 mm atriclip on 10-31-2019 while residing in [place], cardiac dysrhythmia with bradycardia/tachycardia dysrhythmia as well as ventricular ectopy, near syncope, and hyperlipidemia. In March 2018 he underwent follow-up evaluation with a 24-hour Holter monitor. Based upon the report he had normal sinus rhythm with sinus bradycardia with first-degree AV block with nonsustained VT up to 4 beats. According to his [place], [place] outpatient cardiovascular note it was recommended to avoid negative chronotropic medications without permanent pacemaker support and to have a future outpatient cardiovascular follow-up with them with a future outpatient Holter monitor. While in [place] there was concerns over paroxysmal atrial fibrillation/flutter and possible CVA. He was discharged home on amiodarone as well as Eliquis for concerns of his atrial dysrhythmias. His amiodarone was discontinued for concerns over a rash on his hands and generalized not feeling very well. Patient was admitted to [facility] on December 04, 2020 for acute on chronic congestive heart failure. He was treated with IV Lasix. Cardiology was consulted. We did repeat an echocardiogram which noted a severely dilated left ventricle, moderate segmental systolic dysfunction with a known ejection fraction of 30%, mildly enlarged left atrium, mildly enlarged right atrium, annuloplasty ring in the mitral position, trivial mitral insufficiency, moderate focal aortic valve calcification, RVSP 30 mmHg. Diastolic dysfunction noted. With his underlying nonsustained ventricular tachycardia he was placed on amiodarone and felt that he should be referred for an ICD. Pt has had some dizziness but no syncope. He does not have any chest discomfort/heaviness/tightness. His exercise tolerance is stable for his age. He does not have any worsening symptoms of shortness of breath. He denies any PND. He does not have any orthopnea. He does not have any symptoms of congestive heart failure. He does not have any palpitations that he is aware of. He does not have any lower extremity edema. He does not have any symptoms of claudication. Allergies Penicillins Allergy (Verified 12/09/20 09:47) Rash ALL NARCOTICS Adverse Reaction (Uncoded 12/04/20 14:08) Other Medications aspirin 81 mg PO DAILY@0800 09/20/16 [History Confirmed 12/09/20] cholecalciferol (vitamin D3) 4,000 unit PO DAILY 09/20/16 [History Confirmed 12/09/20] nitroglycerin 0.4 mg SUBLINGUAL Q5M PRN #1 bottle 09/24/16 [Rx Confirmed 12/09/20] apixaban 5 mg tablet 5 mg PO BID 12/10/19 [History Confirmed 12/09/20] carvedilol 3.125 mg tablet 3.125 mg PO BID 12/10/19 [History Confirmed 12/09/20] ezetimibe 10 mg tablet 5 mg PO DAILY tab 12/10/19 [History Confirmed 12/09/20] levothyroxine 25 mcg tablet 25 mcg PO DAILY tab 12/10/19 [History Confirmed 12/09/20] losartan 25 mg tablet 12.5 mg PO DAILY tab 12/10/19 [History Confirmed 12/09/20] Cranberry Plus Vitamin C 2 cap PO DAILY 12/04/20 [History Confirmed 12/09/20] Digestive Advantage Prob Gummy 2 cell PO DAILY 12/04/20 [History Confirmed 12/09/20] ascorbic acid (vitamin C) 1 g PO DAILY 12/04/20 [History Confirmed 12/09/20] amiodarone 200 mg PO DAILYCM 30 Days #30 tab 12/06/20 [Rx Confirmed 12/09/20] furosemide 20 mg PO BIDLX 30 Days #60 tab 12/06/20 [Rx Confirmed 12/09/20] [facility] Medical History Atherosclerotic heart disease of campo coronary artery without angina pectoris Atrial fibrillation Bradycardia CAD (coronary artery disease) Enlarged prostate Essential hypertension FH: mitral valve repair Former smoker Hypertension Hypertriglyceridemia Hypothyroidism Irregular heart beat Near syncope HERMAN (obstructive sleep apnea) Presence of stent in coronary artery (~09/23/16) Sleep apnea Tachy-drew syndrome Tachycardia Ventricular ectopy Surgical History (Updated 12/04/20 @ 17:24 by Bisi Moore) History of ankle surgery History of appendectomy History of coronary artery stent placement History of rotator cuff surgery Hx of appendectomy left leg surgery Post PTCA Presence of coronary angioplasty implant and graft (~09/23/16) S/P CABG x 4 Family History Mother Dyslipidemia Father No problems noted. Social History Smoking Status: Former smoker alcohol intake: never substance use type: does not use caffeine: No what type of physical activity do you participate in: none and walking Physical Exam Narrative The patient appears to be awake and alert and in no acute distress at this time. Const alert, oriented x3 and no apparent distress Orientation / Consciousness: awake HEENT normocephalic, head/scalp atraumatic and hearing grossly normal bilaterally Eyes PERRL and EOMs intact bilaterally Neck full ROM, supple and no JVD Chest Chest: midline sternotomy incision Resp Auscultation: diminished lung sounds bilateral lower Cardio regular rate, regular rhythm, S1 normal heart sound and S2 normal heart sound Cardio Narrative: Ectopic complexes GI normal to inspection, nondistended, normoactive bowel sounds Extremity no pedal edema Skin no rashes or lesions noted Neuro oriented x3, CN's II-XII intact bilaterally and moves all extremities Psych mental status grossly normal Assessment & Plan Assessment/Plan (1) Ischemic cardiomyopathy: PLAN: Patient will undergo ICD is functioning appropriately. We will continue to monitor with routine scheduled ICD interrogations. Patient has not had any discharges from their device. Placement today for prophylactic purposes. He does not have any symptoms of congestive heart failure. He will continue to be followed in the office. (2) Atherosclerotic heart disease of campo coronary artery without angina pectoris: QUALIFIERS: Campo vs. transplanted heart: campo heart Qualified Code(s): I25.10 - Atherosclerotic heart disease of campo coronary artery without angina pectoris PLAN: Patient currently does not have any symptoms of angina. He will continue to be followed in the office. (3) Essential hypertension: (4) Atrial fibrillation: PLAN: Patient will continue with current medical management. Patient will continue with his low-dose beta-becca. He is also anticoagulated with a factor Xa inhibitor.
--- NOTE | 2021-01-08 11:22 | RAD_ITS ---
STUDY: X-RAY CHEST REASON FOR EXAM: Male, 80 years old. Do within 2-4 hours of procedure; rule out pneumo TECHNIQUE: Single AP portable view of the chest. COMPARISON: Comparison is made with prior study dated 12/04/2020. FINDINGS: Hyperinflation. The lungs are clear. There is no demonstrated pleural abnormality. Sternal cerclage wires are present from a prior sternotomy. Prior mitral valve replacement. Left-sided ICD device is seen. The left atrial clip is Normal mediastinum and preet. Normal visualized pulmonary arteries. Normal visualized aortic arch and descending thoracic aorta. Normal visualized thoracic spine. There is degenerative osteoarthritis of the bilateral shoulders. Prior left rotator cuff surgery. There is no demonstrated abnormality of the visualized soft tissue structures of the upper abdomen. RAD/Chest 1 View (Portable) IMPRESSION: Status post left ICD placement. There is no evidence of pneumothorax. Electronically Signed: Caleb Earl MD at 14:39 EDT , Service support ,
--- NOTE | 2021-01-08 11:25 | OP.PCM_ITS ---
Operative Report Date of Procedure: 01/08/21 Diagnosis: ISchemic Cardiomyopathy with NYHA Class iii; Left ventricular ejection fraction 30 despite optimal medical therapy. ICD for primary prevention Preoperative diagnosis implantation of dual chamber ICD Postoperative diagnosis same as above After informed consent and IV antibiotics the patient was brought to the [place] catheterization laboratory. The left side of the chest was prepped and draped in the usual sterile manner. The patient was sedated with intermittent boluses of IV Versed as well as subcutaneous 1% lidocaine. An incision was made inferior to the clavicle to accommodate the size of the hardware device. The pocket was created using blunt and Bovie dissection. Hemostasis was obtained. Using the Seldinger technique the axillary vein was cannulated twice and a guidewire was advanced under fluoroscopic guidance. Over each guidewire a sheath was advanced. Through this sheath, the electrode was positioned under fluoroscopic guidance into the right ventricle and was actively fixated. Through the second sheath., the RA lead was positioned in marjorie RA appendage and actively fixated. Once actively fixated, the lead was tested to check for proper sensing, capture threshold, impedance and to exclude diaphragmatic stimulation. Once the leads were implanted and all electrical parameters were confirmed to be functioning normally with appropriate values, the leads were then sutured to the pectoralis muscle with 2-0 silk on the Silastic collar ?2. The sponge and needle count were correct. Hemostasis was obtained. Antibiotic solution was used to flush the pocket. The new device was brought to the field. The leads were placed in the appropriate position of the header of the device and were secured by the setscrews and confirmed by the tug test. The device and the leads were then placed in the pocket. Pocket was closed with a deep layer of running 2-0 Vicryl, superficial layer of running 4-0 Vicryl and skin with Steri- Strips that were covered with a rolled 4 x 4's and Tegaderm. The patient left the lab with the device programmed to chronic parameters. There were no complications. Implanted system is a dual chamber [employer] ICD Lead and device serial and model numbers are available in the chart documents provided by the device company telecommunications sales representative procedure summary.
[2021-01-08] MEDS: Acetaminophen 325 MG Tablet PO ×2 (16:21→22:23)
[2021-01-08] MEDS: Furosemide 20 MG Tablet PO (17:53)
[2021-01-08] MEDS: Carvedilol 3.125 MG TABLET PO (22:07)
[2021-01-09 03:00] VITALS: PULSE 60
[2021-01-09 04:05] VITALS: BP 116/76; PULSE 60; RESP 16; TEMP 36.3; O2SAT 96
[2021-01-09] MEDS: Levothyroxine 25 MCG TABLET PO (05:31)
--- NOTE | 2021-01-09 05:40 | RAD_ITS ---
We are attempting to reach an attending provider to discuss findings. An addendum with communication details will be sent when the communication is complete. STUDY: X-RAY CHEST REASON FOR EXAM: Male, 80 years old. EXPIRATION VIEW TECHNIQUE: Portable, upright, AP chest radiograph in expiration COMPARISON: None. FINDINGS: Left chest dual-lead cardiac device remains. The lungs are clear and expanded. There is no demonstrated pleural abnormality. Normal size heart. Normal mediastinum and preet. Normal visualized pulmonary arteries. Normal visualized aortic arch and descending thoracic aorta. Normal visualized thoracic spine. Normal visualized ribs, clavicles, and shoulders. There is no demonstrated abnormality of the visualized soft tissue structures of the upper abdomen. RAD/Chest 1 View IMPRESSION: No finding of pneumothorax. No acute abnormal cardiopulmonary. Electronically Signed: Dennis Ash MD at 6:57 EDT Tel , Service support ,
--- NOTE | 2021-01-09 05:40 | RAD_ITS ---
STUDY: X-RAY CHEST REASON FOR EXAM: Male, 80 years old. Post permanent ICD/Pacemaker -- inspiration/expiration. Arms Down. Wet read to MD TECHNIQUE: Portable, upright, inspiratory AP and lateral chest radiographs COMPARISON: 01/08/2021 FINDINGS: Dual lead cardiac device redemonstrated. The lungs are clear and expanded. There is no demonstrated pleural abnormality. Normal size heart. Normal mediastinum and preet. Normal visualized pulmonary arteries. Normal visualized aortic arch and descending thoracic aorta. Normal visualized thoracic spine. Normal visualized ribs, clavicles, and shoulders. There is no demonstrated abnormality of the visualized soft tissue structures of the upper abdomen. RAD/Chest PA and Lateral IMPRESSION: No finding of pneumothorax. No acute abnormal finding. Electronically Signed: Dennis Ash MD at 6:51 EDT Tel , Service support ,
[2021-01-09 06:07] LABS: Anion Gap 7 (5-15); BUN 22 mg/dL (7-18); BUN/Creat Ratio 16.5 RATIO (10-20); Calcium,Total 8.8 mg/dL (8.5-10.1); Chloride 104 mmol/L (98-107); Creatinine, Serum 1.33 mg/dL (0.70-1.30); EST Glomerular Filtration Rate 55 mL/min (>60); Est Glom Filt Rate - Afr Amer 67 mL/min (>60); Estimated Creatinine Clearance 45.04 ml/min; Glucose 104 mg/dL (74-106); Potassium 4.2 mmol/L (3.5-5.1); Sodium Level 137 mmol/L (136-145)
[2021-01-09 07:00] VITALS: PULSE 60
--- NOTE | 2021-01-09 08:08 | PCM.PN.CARD ---
Subjective Subjective Patient seen and eval noted. Appears to be doing well. Objective Data Vital Signs: Vital Signs Temp Pulse Resp BP Pulse Ox 97.3 F L 60 16 116/76 96 01/09/21 04:05 01/09/21 07:00 01/09/21 04:05 01/09/21 04:05 01/09/21 04:05 Oxygen Flow Rate (L/min) 2 Oxygen Delivery Method Room Air Weight: 190 lb Body Mass Index (BMI) 28.0 Intake & Output: Intake and Output for Last 24 Hours 01/07/21 01/08/21 01/09/21 23:59 23:59 23:59 Intake Total 540 / 540 Output Total 875 / 875 Balance -335 / -335 Lab / Micro Data Result Diagrams: 01/05/21 07:12 01/09/21 05:00 Labs: Laboratory Results - last 24 hr 01/09/21 05:00: Sodium 137, Potassium 4.2, Chloride 104, Carbon Dioxide 26.0, Anion Gap 7, BUN 22 H, Creatinine 1.33 H, Estim Creat Clear Calc 45.04, Est GFR (MDRD) Af Amer 67, Est GFR (MDRD) Non-Af 55 L, BUN/Creatinine Ratio 16.5, Glucose 104, Calcium 8.8 Cardiology Labs/Tests 01/09/21 05:00: Sodium 137, Potassium 4.2, Chloride 104, Carbon Dioxide 26.0, Anion Gap 7, BUN 22 H, Creatinine 1.33 H, Est GFR (MDRD) Af Amer 67, Est GFR (MDRD) Non-Af 55 L, BUN/Creatinine Ratio 16.5, Glucose 104, Calcium 8.8 Rhythm: EKG: ECHO: Stress Test: Cardiac Cath: PCI: CT Surgery: Holter monitor: EPS: PPM: CXR: Chest CT Scan: Radiography Diagnostic Testing: Radiology Impression Chest X-Ray 01/08/21 11:22 IMPRESSION: Status post left ICD placement. There is no evidence of pneumothorax. Electronically Signed: Caleb Earl MD at 14:39 EDT , Service support , Chest X-Ray 01/09/21 05:40 IMPRESSION: No finding of pneumothorax. No acute abnormal finding. Electronically Signed: Dennis Ash MD at 6:51 EDT Tel , Service support , Chest X-Ray 01/09/21 05:40 IMPRESSION: No finding of pneumothorax. No acute abnormal cardiopulmonary. Electronically Signed: Dennis Ash MD at 6:57 EDT Tel , Service support , ADDENDUM: 01/09/21 0713 IMPRESSION: No finding of pneumothorax. No acute abnormal cardiopulmonary. N.B. : The above Results were Read Back by Dennis Ash MD to Yoon Durham RN, and understanding confirmed on 01/09/2021 07:06:51 (ET). Electronically Signed: Dennis Ash MD at 6:57 EDT Tel , Service support , Assessment & Plan Assessment/Plan (1) ICD (implantable cardioverter-defibrillator) in place: PLAN: Status post ICD implantation. Chest x-ray without any abnormalities and defibrillator check without any abnormalities. Patient will be discharged for outpatient follow-up.
--- NOTE | 2021-01-09 08:11 | PCM.DC ---
Discharge Instructions Diet Discharge Diet: No restrictions (as you feel able. No excessive stretching. No lifting your arm over your head (keep elbow below shoulder level) until seen for your pacemaker check. Do not lift your elbow away from your side until you are seen for your first visit. Keep the arm sling on if it helps remind you not to lift your arm.) Activity Additional Activity Instructions:: May shower or bathe on [Day 3]. Do not scrub the incision or soak in the tub. Just wash with soap and let the water run over the incision. Gently pat dry with towel. Medications: Take your pain medication as directed. Refer to your discharge instruction sheet for a list of medications you are to take. Dressing / Incision Call your doctor if your incision/area has: Continuous Slow Oozing, Sudden Increased Bleeding, Increased Pain/ Swelling, Increased Redness, Foul Smelling Discharge and Swelling at the incision site Call your doctor if you observe: Fever of 101 or Higher, Shortness of breath, Dizziness, Fainting spells, Swelling in the ankles, Chest pain, Prolonged hiccupping and Increased palpitations (irregular heartbeat) Additional Dressing/Incision Instructions:: When dressing is removed, wash and dry incision. Keep covered with a light bandage if it is rubbing against your clothing. Do not cover the incision with an airtight bandage. Change the bandage daily. Do not remove steri strips. The strips will fall off on their own. Follow Up Care Please Follow Up With: Monroe Eid MD When: Appointments with [facility] on January 15 at 9 AM. Test Results: Test results from this visit will be discussed in further detail at your follow-up appointment, if applicable. Discharge Plan Admission Attending Provider: Clint Landry Primary Care Provider: Care Physician,No Primary Consulting Providers: Dennis Keller Discharge Orders/Prescriptions Prescriptions: Continued ezetimibe [Zetia] 10 mg tablet 5 mg PO DAILY RF: 0 carvedilol 3.125 mg tablet 3.125 mg PO BID RF: 0 losartan 25 mg tablet 12.5 mg PO DAILY RF: 0 aspirin 81 MG tablet,chewable 81 mg PO DAILY@0800 RF: 0 cholecalciferol (vitamin D3) 2,000 UNIT capsule 4,000 unit PO DAILY RF: 0 nitroglycerin 0.4 MG tablet 0.4 mg SUBLINGUAL Q5M PRN (Reason: Cardiac/Chest Pain) Qty: 1 RF: 0 Cranberry Plus Vitamin C 140-100 mg Capsule 2 cap PO DAILY RF: 0 ascorbic acid (vitamin C) 1,000 mg Tablet,Chewable 1 g PO DAILY RF: 0 Digestive Advantage Prob Gummy 250 million cell Tablet,Chewable 2 cell PO DAILY RF: 0 furosemide 20 mg Tablet 20 mg PO BIDLX 30 Days Qty: 60 RF: 0 levothyroxine 25 mcg tablet 25 mcg PO DAILY RF: 0 amiodarone 200 mg tablet 200 mg PO DAILY Qty: 30 RF: 10 ondansetron HCl [Zofran] 4 mg tablet 4 mg PO Q8H PRN (Reason: nausea and vomiting) Qty: 21 RF: 0 sulfamethoxazole-trimethoprim [Bactrim DS] 800-160 mg tablet 1 tab PO BID Qty: 6 RF: 0 Held apixaban 5 mg tablet 5 mg PO BID RF: 0 Hold Instructions: Hold till after office appt Referrals / Follow Up: Care Physician,No Primary [Primary Care Provider] - Disposition Disposition (needs filled in before D/C Order can be placed): Home, Self Care
[2021-01-09 08:27] VITALS: BP 116/76; PULSE 60; RESP 16; TEMP 36.3; O2SAT 96
== END 2021-01-09 09:25 | disposition home or self-care (01) ==
LOC: CLSP 08:35 → PCU 01-09 08:12
PROVIDERS: Internal Medicine Cardiovascular Disease; Referring Provider Internal Medicine Cardiovascular Disease; Visit Provider Internal Medicine Cardiovascular Disease
DX: Z95.810 Presence of automatic (implantable) cardiac defibrillator (principal); I25.5 Ischemic cardiomyopathy; I25.10 Atherosclerotic heart disease of native coronary artery without angina pectoris; I10 Essential (primary) hypertension; I48.91 Unspecified atrial fibrillation; E03.9 Hypothyroidism, unspecified; G47.33 Obstructive sleep apnea (adult) (pediatric); Z79.899 Other long term (current) drug therapy; Z79.82 Long term (current) use of aspirin; Z79.01 Long term (current) use of anticoagulants; Z87.891 Personal history of nicotine dependence
CPT/HCPCS: 33249; 36415; 71045; 71046; 80048; 81001; 85027; 85610; 93005; 93641; 99152; 99153; J7040; J7050; C1894; J2405

== ENCOUNTER → 2022-01-11 | Outpatient (CLI) | payer MEDICARE, SELFPAY ==
--- NOTE | 2022-01-11 07:51 | ECHOCS_ITS ---
Reason For Study: ARRYTHMIA Procedure This was a 2D Doppler, Color Flow transthoracic echocardiogram. The study was technically difficult. Contrast injection was performed. Exam performed in department. Left Ventricle Mildly dilated left ventricle. Severe global left ventricular systolic dysfunction. The estimated ejection fraction is 20 %. Right Ventricle Normal RV size. ICD or pacer leads identified within the right ventricle. Normal systolic function. Atria The left atrium is mildly enlarged. Normal right atrium. ICD or pacer leads identified within the right atrium. No doppler evidence for ASD. Mitral Valve Stable appearing bioprosthetic mitral valve apparatus. MIld (1+) transvalvular insufficiency of the mitral valve. Tricuspid Valve Normal tricuspid valve. Mild tricuspid valve insufficiency. Right ventricular systolic pressure estimated to be 31 mmHg. Aortic Valve Trisinus/trileaflet aortic valve. Mild diffuse aortic valve thickening. Moderate focal aortic valve calcification. Mild (1+) aortic valve insufficiency. Pulmonic Valve The pulmonic valve is not well visualized. Trivial pulmonic valve insufficiency. Great Vessels Normal sized aortic root. Pericardium/Pleural No pericardial effusion. Medication 22 gauge I.V. with prn adaptor inserted into right arm. Diluted definity 2ml given slow IV push to enhance endocardial definition. MMode/2D Measurements & Calculations LVIDd: 5.8 cm IVSd: 0.84 cm Ao root diam: 3.4 cm LVIDs: 5.4 cm LVPWd: 1.0 cm RVDd: 4.5 cm FS: 6.2 % LAV(MOD-bp): 61.2 ml LVAd ap4: 50.9 cm2 SV(MOD-sp4): 29.0 ml LAV(MOD-bp) Indexed: 29.6 ml/m2 LVLd ap4: 9.7 cm LAV(MOD-sp2): 74.3 ml EDV(MOD-sp4): 219.7 ml LAV(MOD-sp4): 48.0 ml EDV(sp4-el): 227.4 ml LVAs ap4: 46.0 cm2 LVLs ap4: 9.3 cm ESV(MOD-sp4): 190.7 ml ESV(sp4-el): 193.5 ml EF(MOD-sp4): 13.2 % EF(sp4-el): 14.9 % SV(sp4-el): 33.9 ml LA A4 area: 17.5 cm2 LA dimension(2D): 4.7 cm RA A4 area: 17.8 cm2 Time Measurements MV dec time: 0.19 sec Doppler Measurements & Calculations MV E max thierno: 105.5 cm/sec Med Peak E' Thierno: 8.5 cm/sec MV V2 max: 101.3 cm/sec MV A max thierno: 86.6 cm/sec E/E' med: 12.5 MV max P.1 mmHg MV E/A: 1.2 MV V2 mean: 64.3 cm/sec MV mean P.0 mmHg MV V2 VTI: 28.3 cm MV dec slope: 552.5 cm/sec2 Ao V2 max: 132.3 cm/sec MR max thierno: 438.7 cm/sec Ao max P.0 mmHg MR max P.0 mmHg Ao V2 mean: 95.3 cm/sec Ao mean P.1 mmHg Ao V2 VTI: 25.9 cm PA V2 max: 103.3 cm/sec TR max thierno: 263.9 cm/sec PA V2 mean: 64.3 cm/sec TR max P.9 mmHg ECHO/Echo Complete W/ Contrast Interpretation Summary The study was technically difficult. Contrast injection was performed. Mildly dilated left ventricle. Severe global left ventricular systolic dysfunction. The estimated ejection fraction is 20 %. The left atrium is mildly enlarged. Stable appearing bioprosthetic mitral valve apparatus. MIld (1+) transvalvular insufficiency of the mitral valve. Mild tricuspid valve insufficiency. Mild diffuse aortic valve thickening. Moderate focal aortic valve calcification. Mild (1+) aortic valve insufficiency. Trivial pulmonic valve insufficiency. Right ventricular systolic pressure estimated to be 31 mmHg. Transmitral diastolic flow velocities suggest diastolic dysfunction (pseudonorm al pattern). Ordering Physician: Dennis Keller Referring Physician: Dennis Keller Performed By: Polina France RCS
== END | disposition home or self-care (01) ==
PROVIDERS: Referring Provider Internal Medicine Cardiovascular Disease; Visit Provider Internal Medicine Cardiovascular Disease
DX: I25.5 Ischemic cardiomyopathy (principal)
CPT/HCPCS: 93306; Q9957; A4216; C8929

== ENCOUNTER → 2022-02-15 | Outpatient (CLI) | payer MEDICARE, SELFPAY ==
--- NOTE | 2022-02-15 07:47 | ECHOLC_ITS ---
Reason For Study: CHF Procedure This was a limited 2D transthoracic echocardiogram. The study was technically difficult. Contrast injection was performed. Limited views were obtained. Exam performed in department. Left Ventricle Mildly dilated left ventricle. Severe global left ventricular systolic dysfunction. The estimated ejection fraction is 20 %. Unable to assess diastolic dysfunction. Right Ventricle Normal RV size. ICD or pacer leads identified within the right ventricle. Normal systolic function. Atria The left atrium is mildly enlarged. Normal right atrium. ICD or pacer leads identified within the right atrium. Mitral Valve Stable appearing bioprosthetic mitral valve apparatus. Tricuspid Valve Normal tricuspid valve. Aortic Valve The aortic valve is not well visualized. Pulmonic Valve The pulmonic valve is not well visualized. Great Vessels Normal sized aortic root. Pericardium/Pleural No pericardial effusion. Medication 22 gauge I.V. with prn adaptor inserted into right arm. Diluted definity 1ml given slow IV push to enhance endocardial definition. MMode/2D Measurements & Calculations LVIDd: 5.8 cm IVSd: 1.2 cm Ao root diam: 3.5 cm LVIDs: 4.6 cm LVPWd: 1.5 cm FS: 21.8 % LAV(MOD-bp): 67.3 ml LVAd ap4: 51.1 cm2 SV(MOD-sp4): 50.9 ml LAV(MOD-bp) Indexed: 32.6 ml/m2 LVLd ap4: 9.7 cm LAV(MOD-sp2): 54.7 ml EDV(MOD-sp4): 222.8 ml LAV(MOD-sp4): 73.4 ml EDV(sp4-el): 229.7 ml LVAs ap4: 43.2 cm2 LVLs ap4: 8.8 cm ESV(MOD-sp4): 171.9 ml ESV(sp4-el): 180.7 ml EF(MOD-sp4): 22.9 % EF(sp4-el): 21.3 % SV(sp4-el): 49.0 ml LA A4 area: 21.7 cm2 LA dimension(2D): 4.4 cm RA A4 area: 15.3 cm2 ECHO/Echo Limited w/Contrast Interpretation Summary The study was technically difficult. Contrast injection was performed. Limited views were obtained. Mildly dilated left ventricle. Severe global left ventricular systolic dysfunction. The estimated ejection fraction is 20 %. The left atrium is mildly enlarged. Stable appearing bioprosthetic mitral valve apparatus. Unable to assess diastolic dysfunction. Ordering Physician: Dennis Keller Referring Physician: Dennis Keller Performed By: Polina France RCS
== END | disposition home or self-care (01) ==
PROVIDERS: Referring Provider Internal Medicine Cardiovascular Disease; Visit Provider Internal Medicine Cardiovascular Disease
DX: I25.5 Ischemic cardiomyopathy (principal); I50.9 Heart failure, unspecified
CPT/HCPCS: 93308; Q9957; A4216; C8924

== ENCOUNTER → 2022-02-24 | Outpatient (CLI) | payer MEDICARE, SELFPAY ==
[2022-02-24 17:47] LABS: Anion Gap 7 (5-15); BUN 26 mg/dL (7-18); BUN/Creat Ratio 21.5 RATIO (10-20); Calcium,Total 9.1 mg/dL (8.5-10.1); Chloride 105 mmol/L (98-107); Creatinine, Serum 1.21 mg/dL (0.70-1.30); EST Glomerular Filtration Rate 61 mL/min (>60); Est Glom Filt Rate - Afr Amer 74 mL/min (>60); Glucose 94 mg/dL (74-106); Potassium 4.5 mmol/L (3.5-5.1); Sodium Level 141 mmol/L (136-145)
== END | disposition home or self-care (01) ==
LOC: LAB 16:26
PROVIDERS: Referring Provider Nurse Practitioner Family; Visit Provider Nurse Practitioner Family
DX: I25.5 Ischemic cardiomyopathy (principal); I25.10 Atherosclerotic heart disease of native coronary artery without angina pectoris
CPT/HCPCS: 36415; 80048

== ENCOUNTER 2022-04-07 08:56 | Emergency (ER) | payer OTHER, SELFPAY ==
[2022-04-07 08:59] VITALS: BP 122/64; PULSE 72; RESP 14; TEMP 36.7; O2SAT 99
--- NOTE | 2022-04-07 10:09 | CT_ITS ---
STUDY: CT BRAIN WITHOUT CONTRAST REASON FOR EXAM: Male, 82 years old. Headache RADIATION DOSAGE (If Supplied By Facility): CTDIvol = ( 44.99 ) mGy, DLP = ( 796.11 ) mGycm TECHNIQUE: Transaxial CT imaging of the brain was performed without administration of intravenous contrast material. Individualized dose optimization techniques were used for this CT. COMPARISON: No relevant priors. FINDINGS: Normal soft tissue structures. There is hyperostosis frontalis internus. There is mild cerebral atrophy with widening of the extra-axial spaces and ventricular dilatation. Normal white matter tracts of the cerebral hemispheres. Normal basal ganglia and thalami. Normal brainstem. There is mild cerebellar atrophy. There is no intracranial hemorrhage. There are no findings of an acute ischemic infarction. Atherosclerotic calcification of the vertebral arteries and cavernous portions of the internal carotid arteries bilaterally. Normal visualized paranasal sinuses. CT/Brain/Head without Contrast IMPRESSION: Chronic involutional changes of the brain. Electronically Signed: Caleb Earl MD at 11:26 EST ,
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
[2022-04-07 10:43] LABS: Absolute Lymphocyte Count 2.07 X10^3/uL (0.83-4.51); Absolute Neutrophil Count 3.4 X10^3/uL (2.0-7.7); Basophil# 0.06 X10^3/uL; Eosinophil# 0.16 X10^3/uL; Eosinophils% 2.5 % (0-5); Hematocrit 49.4 % (40-54); Hemoglobin 17.1 g/dL (13.0-16.5); Lymphocyte # 2.07 X10^3/ul (0.83-4.51); Lymphocyte % 32.8 % (19-41); Mean Corp Hgb Conc 34.6 g/dL (32-36); Mean Corpuscular Hgb 31.1 pg (27.0-32.0); Mean Corpuscular Volume 89.8 fL (80-94); Mean Platelet Vol. 9.4 fl (6.2-12.0); Monocyte% 9.5 % (0-10); NRBC Flagged by Analyzer 0 % (0-5); Neutrophil # 3.39 X10^3/uL (2.7-7.7); Neutrophil % 53.7 % (47-70); Platelet Count 181 K/mm3 (150-450); RBC Distribution Width CV 13.3 % (11.6-14.6); RBC Distribution Width SD 44.3 fl (35.1-43.9); White Blood Count 6.3 K/mm3 (4.4-11.0)
[2022-04-07 10:49] LABS: Anion Gap 8 (5-15); BUN 25 mg/dL (7-18); BUN/Creat Ratio 24.8 RATIO (10-20); Calcium,Total 9.5 mg/dL (8.5-10.1); Chloride 107 mmol/L (98-107); Creatinine, Serum 1.01 mg/dL (0.70-1.30); EST Glomerular Filtration Rate 75 mL/min (>60); Est Glom Filt Rate - Afr Amer 91 mL/min (>60); Estimated Creatinine Clearance 57.36 ml/min; Glucose 122 mg/dL (74-106); Potassium 4.5 mmol/L (3.5-5.1); Sodium Level 141 mmol/L (136-145)
[2022-04-07 11:00] LABS: Bacteria 0 SEEN /hpf (None Seen); Mucous, Urine 0 SEEN /hpf (<or=2+); Red Blood Cells-Urine 0 SEEN /hpf (0-5); White Blood Cells 0 SEEN /hpf (0-5)
[2022-04-07 11:10] LABS: Color, Urine Yellow (Yellow); Glucose, Dipstick Normal (Normal); Ketone-Dipstick Negative (Negative); Leukocyte Esterase-Dipstick Negative /ul (Negative); Nitrite-Dipstick Negative (Negative); Occult Blood-Urine Negative /ul (Negative); Protein-Dipstick Negative (Negative); Urine Bilirubin Dipstick Negative (Negative); Urine Clarity Clear (Clear); Urine Urobilinogen Normal (Normal)
[2022-04-07 11:21] LABS: Squamous Epithelial Cells - UA 0-5 SEEN /hpf (0-5)
== END 2022-04-07 13:07 | disposition home or self-care (01) ==
PROVIDERS: Emergency Provider Student in an Organized Health Care Education/Training Program; Visit Provider Student in an Organized Health Care Education/Training Program
DX: R51.9 Headache, unspecified (principal); R11.0 Nausea; M54.2 Cervicalgia; I25.10 Atherosclerotic heart disease of native coronary artery without angina pectoris; G47.33 Obstructive sleep apnea (adult) (pediatric); Z95.5 Presence of coronary angioplasty implant and graft; Z95.1 Presence of aortocoronary bypass graft; Z87.891 Personal history of nicotine dependence
CPT/HCPCS: 70450; 80048; 81001; 85025; 99283; A4216

== ENCOUNTER 2022-04-17 21:07 | Emergency (ER) | payer OTHER, SELFPAY ==
[2022-04-17 21:08] VITALS: BP 131/99; PULSE 94; RESP 18; TEMP 35.7; O2SAT 98; BMI 30.4
--- NOTE | 2022-04-17 21:24 | EKG12_ITS ---
Test Reason : CP Blood Pressure : / mmHG Vent. Rate : 093 BPM Atrial Rate : 093 BPM P-R Int : 292 ms QRS Dur : 120 ms QT Int : 358 ms P-R-T Axes : 057 034 026 degrees QTc Int : 445 ms Sinus rhythm with 1st degree A-V block with frequent and consecutive Premature ventricular complexes Possible Inferior infarct , age undetermined Abnormal ECG Confirmed by SHARONA GARCIA MD ([id number]), editor index GAYATHRI LOPEZ ([id number]) on 04/19/2022 12:00:57 PM Referred By: SHANAE Confirmed By:SHARONA GARCIA MD
--- NOTE | 2022-04-17 21:40 | RAD_ITS ---
STUDY: X-RAY CHEST REASON FOR EXAM: Male, 82 years old. chest pain TECHNIQUE: Single frontal view of the chest. COMPARISON: January 09, 2021 FINDINGS: Bipolar pacer on the left unchanged. Sternotomy wires noted. Atrial appendage clip. Prosthetic heart valve. The lungs are clear and expanded. There is no demonstrated pleural abnormality. Normal size heart. Normal mediastinum and preet. Normal visualized pulmonary arteries. Normal visualized aortic arch and descending thoracic aorta. Normal visualized thoracic spine. Normal visualized ribs, clavicles, and shoulders. There is no demonstrated abnormality of the visualized soft tissue structures of the upper abdomen. RAD/Chest 1 View (Portable) IMPRESSION: No acute disease Electronically Signed: Zeke Boyd MD at 22:33 EST ,
[2022-04-17 21:45] VITALS: BP 119/74; PULSE 77; RESP 16; O2SAT 96
[2022-04-17 22:06] LABS: Absolute Lymphocyte Count 2.76 X10^3/uL (0.83-4.51); Absolute Neutrophil Count 4.5 X10^3/uL (2.0-7.7); Basophil# 0.05 X10^3/uL; Basophil% 0.6 % (0-1); Eosinophil# 0.21 X10^3/uL; Eosinophils% 2.5 % (0-5); Hematocrit 48.4 % (40-54); Hemoglobin 16.7 g/dL (13.0-16.5); Lymphocyte # 2.76 X10^3/ul (0.83-4.51); Lymphocyte % 32.9 % (19-41); Mean Corp Hgb Conc 34.5 g/dL (32-36); Mean Corpuscular Hgb 31.6 pg (27.0-32.0); Mean Corpuscular Volume 91.7 fL (80-94); Mean Platelet Vol. 9.6 fl (6.2-12.0); Monocyte# 0.81 X10^3/uL; Monocyte% 9.7 % (0-10); NRBC Flagged by Analyzer 0 % (0-5); Neutrophil # 4.53 X10^3/uL (2.7-7.7); Neutrophil % 53.9 % (47-70); Platelet Count 185 K/mm3 (150-450); RBC Distribution Width CV 13.2 % (11.6-14.6); Red Blood Count 5.28 M/mm3 (4.6-6.2); White Blood Count 8.4 K/mm3 (4.4-11.0)
[2022-04-17 22:21] LABS: Anion Gap 6 (5-15); BUN 24 mg/dL (7-18); BUN/Creat Ratio 16.3 RATIO (10-20); Calcium,Total 8.9 mg/dL (8.5-10.1); Chloride 103 mmol/L (98-107); Creatinine, Serum 1.47 mg/dL (0.70-1.30); EST Glomerular Filtration Rate 49 mL/min (>60); Est Glom Filt Rate - Afr Amer 59 mL/min (>60); Estimated Creatinine Clearance 39.41 ml/min; Glucose 113 mg/dL (74-106); Potassium 4.1 mmol/L (3.5-5.1); Sodium Level 139 mmol/L (136-145); Troponin-I HS 15 pg/mL (3.0-78.0)
--- NOTE | 2022-04-17 22:45 | EDS_ITS ---
HPI History of Present Illness Chief Complaint: Chest Pain Informant: patient Onset/Context/Timing Onset: Today and Hours Activity at onset: gradual Timing: Continuous Quality: Positive for Aching Location: Left Chest Current Severity: Gone Maximum Severity: Mild Worsened By: Nothing Relieved By: Nothing Associated Symptoms: Positive for Nausea and Dyspnea; Negative for Vomiting, Diaphoresis, Cough, Fever, Acid Reflux or Palpitations Narrative Narrative: 82-year-old male history of pacemaker defibrillator, CAD with a stent, four-way bypass, cardiomyopathy, mitral valve repair on aspirin only. States that he and his are at a concert tonight and he had chest discomfort left-sided. No radiation was pain. Lasted 1 to 1/2 hours and is now resolved. He does get anxious in crowds. He has had no recent exertional chest pain. Prior Similar Symptoms: Yes Recent Illness/Hospitalization: No CVD Risk Factors: Positive for Hypertension; Negative for Diabetes or Smoking PE Risk Factors: Negative for Recent Travel/Surgery, Recent Immobilization, Prior DVT or PE, Cancer or OCP + Smoking + >/=35 TAD Risk Factors: Negative for Marfan's Syndrome [facility] Medical History Atherosclerotic heart disease of [place] coronary artery without angina pectoris Atrial fibrillation Bradycardia CAD (coronary artery disease) Enlarged prostate Essential hypertension FH: mitral valve repair Former smoker Hypertriglyceridemia Hypothyroidism Irregular heart beat Ischemic cardiomyopathy Near syncope HERMAN (obstructive sleep apnea) Paroxysmal atrial flutter Presence of stent in coronary artery (~09/23/16) Sleep apnea Systolic congestive heart failure Tachy-drew syndrome Tachycardia Ventricular ectopy Home Medications aspirin 81 mg chewable tablet 81 mg PO DAILY@0800 heart health 09/20/16 [History Last Taken 12/03/20] cholecalciferol (vitamin D3) 50 mcg (2,000 unit) capsule 4,000 unit PO DAILY sup plement 09/20/16 [History Last Taken 12/03/20] nitroglycerin 0.4 mg sublingual tablet 0.4 mg sublingual Q5M PRN Cardiac/Chest Pain #1 BOTTLE 09/24/16 [Rx Last Taken Unknown] ezetimibe 10 mg tablet (Zetia) 5 mg PO DAILY cholesterol 12/10/19 [History Last Taken 12/04/20] furosemide 20 mg tablet 40 mg PO BIDLX 30 days #120 tabs 07/15/21 [Rx Last Taken Unknown] omega-3 acid ethyl esters 1 gram capsule 2 cap PO BID 12/23/21 [History Last Taken Unknown] carvedilol 3.125 mg tablet 3.125 mg PO BID 02/17/22 [History Last Taken Unknown] sacubitril 24 mg-valsartan 26 mg tablet (Entresto) 1 tab PO BID #60 tabs 02/17/22 [Rx Last Taken Unknown] Bacillus coagulans 250 million cell chewable tablet (Digestive Advantage Probiotic Gummy) 2 cell PO DAILY immune health 02/24/22 [History Last Taken Unknown] ascorbic acid (vitamin C) 1,000 mg chewable tablet 1 g PO DAILY supplement 02/24/22 [History Last Taken Unknown] levothyroxine 50 mcg capsule 50 mcg PO DAILY 02/24/22 [History Last Taken Unknown] Allergy/AdvReac Type Severity Reaction Status Date / Time amiodarone Allergy Severe Other Verified 04/07/22 08:59 Penicillins Allergy Rash Verified 04/07/22 08:59 [id number]-[id number]-FnU Reductase AdvReac Intermediate Pain in Verified 04/07/22 08:59 Inhibitor joints ALL NARCOTICS AdvReac Other Uncoded 04/07/22 08:59 Family History Mother Dyslipidemia Father No problems noted. Surgical History History of ankle surgery History of appendectomy History of coronary artery stent placement History of mitral valve repair History of rotator cuff surgery Hx of appendectomy Hx of CABG left leg surgery Post PTCA Presence of coronary angioplasty implant and graft (~09/23/16) S/P CABG x 4 Social History Smoking Status: Former smoker alcohol intake: never substance use type: does not use caffeine: No what type of physical activity do you participate in: none and walking ROS ROS ED ROS Narrative Denies recent illness. Review of Systems ROS Unobtainable: Denies due to encephalopathy Constitutional Constitutional ED: Denies chills or fever(s) Eyes Eyes: Reports none ENT ENT ED: Denies ear pain Cardiovascular Cardiovascular: Reports as per HPI and chest pain; Denies palpitations or racing heartbeat Respiratory/Chest Respiratory/Chest: Denies cough Gastrointestinal Gastrointestinal: Denies abdominal pain Genitourinary Genitourinary ED: Denies dysuria Musculoskeletal Musculoskeletal: Denies arthralgias Integumentary Denies abscess Neurologic Neurologic: Denies headache(s) Psychiatric Psychiatric: Denies anxiety Endocrine Endocrinology: Denies cold intolerance Hematologic/Lymphatic Hematologic/Lymphatic: Denies easy bleeding Allergic/Immunologic Allergic/Immunologic ED: Denies mouth swelling or tongue swelling EXAM Physical Exam Narrative Exam Narrative: 82-year-old male no acute distress. Vital signs stable afebrile. Blood pressure 131/99. Pulse ox 90% on room air no signs hypoxia. Currently is pain- free symptom-free. H EENT exam unremarkable. Lungs clear to auscultation. Heart regular rhythm rate about 90 no murmur. Chest wall nontender. Abdomen soft nontender. Moving all 4 extremities. Calves are nontender without edema or cords. Equal symmetrical radial pulses. Neurologically is awake alert with no focal motor deficits. present in room. Const Vital Signs: 04/17/22 21:08 04/17/22 21:08 04/17/22 21:41 Temperature 96.3 F L 96.3 F L Temperature Source Temporal Temporal Pulse Rate 94 94 Respiratory Rate 18 18 Respiratory Effort Blood Pressure 131/99 H 131/99 H Blood Pressure Mean 109 109 Pulse Ox 98 98 Oxygen Delivery Method Room Air Room Air Room Air 04/17/22 21:43 04/17/22 21:45 04/17/22 23:35 Temperature Temperature Source Pulse Rate 77 77 Respiratory Rate 16 14 Respiratory Effort Short of Breath Blood Pressure 119/74 112/68 Blood Pressure Mean 89 82 Pulse Ox 96 98 Oxygen Delivery Method Room Air Room Air 04/18/22 00:16 Temperature Temperature Source Pulse Rate 70 Respiratory Rate 16 Respiratory Effort Blood Pressure 116/78 Blood Pressure Mean 90 Pulse Ox 98 Oxygen Delivery Method Room Air Positive well nourished and well developed; Negative for obese, cachectic, contractures or unkempt General Appearance ED: well developed; Negative for unkempt, cachectic, contractures or pallor Nutritional Appearance: Negative for cachectic or obese HEENT Reports moist mucous membranes normocephalic and atraumatic; Negative for trauma or tenderness Eyes PERRL and EOMs intact bilaterally General Eye ED: Negative for pale conjunctiva or scleral icterus Neck no lymphadenopathy, supple and no JVD General: Negative for tenderness Chest Wall inspection of chest normal and palpation of chest normal Chest: Negative for tenderness Resp normal respiratory effort and clear to auscultation bilaterally Effort and Inspection: Negative for respiratory distress Auscultation: Negative for rales, rhonchi, wheezes or diminished lung sounds Cardio regular rate, regular rhythm, S1 normal heart sound, S2 normal heart sound and no murmurs Rate: Negative for bradycardia or tachycardic Rhythm: Negative for abnormal rhythm Peripheral Pulses: pulses 2+ throughout GI normal to inspection, nondistended, normoactive bowel sounds, soft to palpation, non-tender, non-distended and no masses Auscultation: Negative for hyperactive bowel sounds Back/Spine no CVA tenderness and no thoracic nor lumbar tenderness General Back: Negative for CVA tenderness Cervical Spine: Negative for cervical spine tenderness Extremity normal to inspection General Extremety ED: Negative for edema, pulses abnormal or tenderness General Extremity: Negative for edema or pulses abnormal Neuro oriented x3 and CN's II-XII intact bilaterally Sensorium / Orientation: awake, alert, oriented to person, oriented to place and oriented to time; Negative for confused, lethargic or stuporous Motor Exam: strength 5/5 throughout Psych mental status grossly normal Appearance: Negative for unkempt Attitude: No agitated Mood & Affect: Negative for depressed, anxious or tearful Skin no rashes or lesions noted and no wounds General Skin Exam: Negative for jaundice or pallor Rashes: No rashes noted Trauma: Negative for abrasion or laceration Heart Score History: Slightly/Non-Suspicious ECG: Normal Age: >/= 65 years Risk Factors: >/= 3 Risk Factors or History of CAD Troponin: </= Normal Limit Score: 4 MDM MDM MDM Narrative Medical decision making narrative: 82-year-old male with nonexertional chest pain that has since resolved. Extensive history of cardiac disease with prior four-way CABG with a pacer defibrillator. Undergo cardiac work-up with 2 troponins. Currently symptom- free pain-free. His exam is benign. Repeat exam unchanged at 12:37 AM. 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 Lab Data Attestation: I reviewed the patient's lab results. Lab results narrative: CBC White count 8.4. H&H is 16.7 and 48. Electrolytes unremarkable gap is 6. BUN 24 creatinine 1.47. Troponin is 15. Chest x-ray is negative. Second troponin 2 hours after the first was unchanged at 15. Labs: Laboratory Results - last 24 hr 04/17/22 04/17/22 04/17/22 21:20 21:20 23:50 WBC 8.4 RBC 5.28 Hgb 16.7 H Hct 48.4 MCV 91.7 MCH 31.6 MCHC 34.5 RDW Std Deviation 45.0 H RDW Coeff of Garett 13.2 Plt Count 185 MPV 9.6 Immature Gran % (Auto) 0.400 Neut % (Auto) 53.9 Lymph % (Auto) 32.9 [place] % (Auto) 9.7 Eos % (Auto) 2.5 Baso % (Auto) 0.6 Absolute Neuts (auto) 4.5 Absolute Lymphs (auto) 2.76 Nucleated RBC % 0 Sodium 139 Potassium 4.1 Chloride 103 Carbon Dioxide 30.0 Anion Gap 6 BUN 24 H Creatinine 1.47 H Estim Creat Clear Calc 39.41 Est GFR (MDRD) Af Amer 59 L Est GFR (MDRD) Non-Af 49 L BUN/Creatinine Ratio 16.3 Glucose 113 H Calcium 8.9 Troponin I High Sens 15 15 Radiography Chest X-Ray - ED: 1 View, Read by ED Physician, Heart, Lungs, Mediastinum, Bony Structures, No Acute Disease and Chronic Changes Diagnostic Testing: Clinical Impression(s) from Imaging Studies Chest X-Ray 04/17/22 21:40 IMPRESSION: No acute disease Electronically Signed: Zeke Boyd MD at 22:33 EST Reading Location ID and State: [address] [place] [address] , Service support , Dust x-ray, portable, single view interpreted by myself and radiologist shows no acute abnormality. Normal cardiac silhouette. Prior CABG. Sternotomy. Left- sided pacer defibrillator. Rhythm Strip Rhythm Strip: Sinus Rhythm Rate: 93 Ectopy: PVC(s) EKG Initial EKG: Attestation: I personally reviewed and interpreted this EKG as follows: Interpretation: Sinus Rhythm and No Acute Injury Pattern Comments: Normal sinus rhythm rate of 93 no acute signs of [place] or ischemia. PVCs. Discharge Plan Triage Chief Complaint: Chest Pain ED Provider: Ralph Frances Dx/Rx/DC Orders Clinical Impression: Chest pain, Hx of CABG, History of cardiomyopathy Instructions: ED Chest Pain, Uncertain Cause Prescriptions: No Action ezetimibe [Zetia] 10 mg tablet 5 mg PO DAILY omega-3 acid ethyl esters 1 gram capsule 2 cap PO BID levothyroxine 50 mcg capsule 50 mcg PO DAILY aspirin 81 MG tablet,chewable 81 mg PO DAILY@0800 cholecalciferol (vitamin D3) 2,000 UNIT capsule 4,000 unit PO DAILY nitroglycerin 0.4 MG tablet 0.4 mg SUBLINGUAL Q5M PRN (Reason: Cardiac/Chest Pain) Qty: 1 0RF ascorbic acid (vitamin C) 1,000 mg tablet,chewable 1 g PO DAILY Digestive Advantage Prob Gummy 250 million cell tablet,chewable 2 cell PO DAILY furosemide 20 mg tablet 40 mg PO BIDLX 30 Days Qty: 120 3RF carvedilol 3.125 mg tablet 3.125 mg PO BID Rx Instructions: must administer with a meal/food Entresto 24-26 mg tablet 1 tab PO BID Qty: 60 12RF Primary Care Provider: Care Physician,No Primary Referrals: Dennis Keller MD [Med Staff - Active Staff] - As soon as possible Care Physician,No Primary [Primary Care Provider] - Activity Restrictions/Additional Instructions: Follow-up with your grinder set up operator [employer]. Return if feeling worse or recurrent or worsening chest pain. No significant exertion until you follow-up with your grinder set up operator [employer]. Disposition Disposition: Home, Self Care
[2022-04-17 23:35] VITALS: BP 112/68; PULSE 77; RESP 14; O2SAT 98
[2022-04-18 00:16] VITALS: BP 116/78; PULSE 70; RESP 16; O2SAT 98
[2022-04-18 00:24] LABS: Troponin-I HS 15 pg/mL (3.0-78.0)
[2022-04-18 01:01] VITALS: BP 117/76; PULSE 62; RESP 16; O2SAT 98
== END 2022-04-18 01:06 | disposition home or self-care (01) ==
PROVIDERS: Emergency Provider Emergency Medicine; Visit Provider Emergency Medicine
DX: R07.9 Chest pain, unspecified (principal); I25.10 Atherosclerotic heart disease of native coronary artery without angina pectoris; G47.33 Obstructive sleep apnea (adult) (pediatric); Z95.5 Presence of coronary angioplasty implant and graft; Z95.0 Presence of cardiac pacemaker; Z79.82 Long term (current) use of aspirin; Z87.891 Personal history of nicotine dependence
CPT/HCPCS: 71045; 80048; 84484; 85025; 93005; 99284; A4216

== ENCOUNTER 2022-04-20 22:01 | Observation (INO) | payer OTHER, SELFPAY ==
[2022-04-20 22:03] VITALS: TEMP 36.1; BMI 31.1
[2022-04-20 22:06] VITALS: BP 158/101; PULSE 84; RESP 12; O2SAT 98
[2022-04-20 22:33] VITALS: O2SAT 97
--- NOTE | 2022-04-20 22:34 | ED.VIS.CHEST ---
HPI History of Present Illness Chief Complaint: Chest Pain Informant: patient Onset/Context/Timing Onset: Hours (2-3) Activity at onset: gradual, onset and rest (sitting watching TV) Timing: Continuous Quality: Positive for Pressure Location: Substernal (w/ radiation into jaw) Current Severity: Mild Maximum Severity: Moderate Worsened By: Nothing; Not Worsened By Breathing Relieved By: - (tylenol) Associated Symptoms: Positive for Lightheadedness (no near-syncope); Negative for Nausea, Vomiting, Diaphoresis, Dyspnea, Cough, Fever or Palpitations Narrative Narrative: Patient presenting with chest discomfort started at rest tonight radiating to the jaw. He has had 2 recent ED visits for discomfort in his upper back, and has resolved he had a chemical stress test today that was abnormal and he is scheduled for a heart catheterization within the next 2 weeks. He has history of 1 stent and a four-way CABG. He has a history of congestive heart failure, he has a pacemaker defibrillator device. Denies any palpitations tonight or other symptoms. No recent illness. No recent leg swelling. Because of the recent ED visits and other discomfort, he was advised to discontinue his Entresto, today was the first day that he did not take it. He has been compliant with his other medications. At home his blood pressure was 175/90 approximately tonight, while he was having symptoms. [facility] Medical History Atherosclerotic heart disease of [place] coronary artery without angina pectoris Atrial fibrillation Bradycardia CAD (coronary artery disease) Enlarged prostate Essential hypertension FH: mitral valve repair Former smoker Hypertriglyceridemia Hypothyroidism Irregular heart beat Ischemic cardiomyopathy Near syncope HERMAN (obstructive sleep apnea) Paroxysmal atrial flutter Presence of stent in coronary artery (~09/23/16) Sleep apnea Systolic congestive heart failure Tachy-drew syndrome Tachycardia Ventricular ectopy Home Medications cholecalciferol (vitamin D3) 50 mcg (2,000 unit) capsule 4,000 unit PO DAILY supplement 09/20/16 [History Last Taken 12/03/20] nitroglycerin 0.4 mg sublingual tablet 0.4 mg sublingual Q5M PRN Cardiac/Chest Pain #1 BOTTLE 09/24/16 [Rx Last Taken Unknown] ezetimibe 10 mg tablet (Zetia) 5 mg PO DAILY cholesterol 12/10/19 [History Last Taken 12/04/20] omega-3 acid ethyl esters 1 gram capsule 2 cap PO BID 12/23/21 [History Last Taken Unknown] carvedilol 3.125 mg tablet 3.125 mg PO BID 02/17/22 [History Last Taken Unknown] Bacillus coagulans 250 million cell chewable tablet (Digestive Advantage Probiotic Gummy) 2 cell PO DAILY immune health 02/24/22 [History Last Taken Unknown] ascorbic acid (vitamin C) 1,000 mg chewable tablet 1 g PO DAILY supplement 02/24/22 [History Last Taken Unknown] levothyroxine 50 mcg capsule 50 mcg PO DAILY 02/24/22 [History Last Taken Unknown] aspirin 81 mg chewable tablet 81 mg PO BID heart health 04/20/22 [History Last Taken Unknown] furosemide 20 mg tablet 20 mg PO BID 04/20/22 [History Last Taken Unknown] Allergy/AdvReac Type Severity Reaction Status Date / Time amiodarone Allergy Severe Other Verified 04/20/22 13:14 Penicillins Allergy Rash Verified 04/20/22 13:14 [id number] Reductase AdvReac Intermediate Pain in Verified 04/20/22 13:14 Inhibitor joints ALL NARCOTICS AdvReac Other Uncoded 04/20/22 13:14 Family History Mother Dyslipidemia Father No problems noted. Surgical History History of ankle surgery History of appendectomy History of coronary artery stent placement History of mitral valve repair History of rotator cuff surgery Hx of appendectomy Hx of CABG left leg surgery Post PTCA Presence of coronary angioplasty implant and graft (~09/23/16) S/P CABG x 4 Social History Smoking Status: Former smoker alcohol intake: never substance use type: does not use caffeine: No what type of physical activity do you participate in: none and walking ROS ROS ED Constitutional Constitutional ED: Denies chills or fever(s) Eyes Eyes: Denies change in vision or diplopia ENT ENT ED: Denies rhinorrhea or sore throat Cardiovascular Cardiovascular: Reports chest pain; Denies lightheadedness or palpitations Respiratory/Chest Respiratory/Chest: Denies cough or dyspnea Gastrointestinal Gastrointestinal: Denies abdominal pain, diarrhea, nausea or vomiting Genitourinary Genitourinary ED: Denies dysuria or hematuria Musculoskeletal Musculoskeletal: Denies back pain or neck pain Integumentary Denies abscess or rash Neurologic Neurologic: Denies headache(s), paresthesias or weakness Psychiatric Psychiatric: Denies anxiety or suicidal thoughts EXAM Physical Exam Const Vital Signs: 04/20/22 22:03 04/20/22 22:06 04/20/22 22:48 Temperature 96.9 F L Temperature Source Temporal Pulse Rate 84 71 Respiratory Rate 12 Blood Pressure 158/101 H 129/72 H Blood Pressure Mean 120 Pulse Ox 98 Oxygen Delivery Method 04/20/22 22:33 04/20/22 23:00 04/21/22 00:28 Temperature Temperature Source Pulse Rate 89 74 Respiratory Rate 15 Blood Pressure 107/81 H 101/61 Blood Pressure Mean 89 Pulse Ox 97 95 Oxygen Delivery Method Room Air Room Air 04/21/22 00:00 Temperature Temperature Source Pulse Rate 69 Respiratory Rate 15 Blood Pressure 106/64 Blood Pressure Mean 78 Pulse Ox 96 Oxygen Delivery Method Room Air Positive well nourished and well developed General Appearance ED: well developed and NAD HEENT Reports moist mucous membranes normocephalic and atraumatic Eyes PERRL and EOMs intact bilaterally Neck full ROM, supple and no JVD Resp normal respiratory effort and clear to auscultation bilaterally Cardio regular rate, regular rhythm and no murmurs GI non-tender and non-distended Auscultation: normoactive bowel sounds Palpation: soft Back/Spine no CVA tenderness General Back: other FROM Extremity normal to inspection General Extremety ED: Negative for edema, pulses abnormal or tenderness General Extremity: Negative for edema or pulses abnormal Neuro oriented x3, CN's II-XII intact bilaterally and no sensory deficits noted Sensorium / Orientation: awake and alert Motor Exam: strength 5/5 throughout Psych mental status grossly normal Skin no rashes or lesions noted and no wounds Heart Score History: Moderately Suspicious ECG: Normal Age: >/= 65 years Risk Factors: >/= 3 Risk Factors or History of CAD Troponin: </= Normal Limit Score: 5 MDM MDM MDM Narrative Medical decision making narrative: After 1 nitroglycerin patient has had resolution of his chest pressure and jaw discomfort. At this time his work-up is negative, we have a second troponin ordered. Discussed with Dr. Keller who agrees with admitting the patient for further evaluation and possible catheterization. Clinically and hemodynamically stable at this time with a blood pressure in the high 90s systolic after the nitroglycerin. We will add nitroglycerin paste to his chest to keep him out of discomfort and will keep an eye on his blood pressure. Patient was on Eliquis for his history of atrial fibrillation. His note from cardiology mentions him being on it, however the patient states he has been off of it since the summer because of side effects that were not related to bleeding. Since he is not anticoagulated and currently on baby aspirin daily, we are giving him additional aspirin in addition to a dose of Lovenox per cardiology. Lab Data Attestation: I reviewed the patient's lab results. Labs: Laboratory Results - last 24 hr 04/20/22 04/20/22 22:10 22:10 WBC 7.5 RBC 5.12 Hgb 16.6 H Hct 46.5 MCV 90.8 MCH 32.4 H MCHC 35.7 RDW Std Deviation 44.4 H RDW Coeff of Garett 13.2 Plt Count 205 MPV 9.8 Immature Gran % (Auto) 0.400 Neut % (Auto) 43.0 L Lymph % (Auto) 41.2 H [place] % (Auto) 11.2 H Eos % (Auto) 3.3 Baso % (Auto) 0.9 Absolute Neuts (auto) 3.2 Absolute Lymphs (auto) 3.08 Nucleated RBC % 0 Sodium 137 Potassium 4.4 Chloride 102 Carbon Dioxide 25.0 Anion Gap 10 BUN 29 H Creatinine 1.21 Estim Creat Clear Calc 47.88 Est GFR (MDRD) Af Amer 74 Est GFR (MDRD) Non-Af 61 BUN/Creatinine Ratio 24.0 H Glucose 135 H Calcium 8.7 Troponin I High Sens 16 Radiography Chest X-Ray - ED: 1 View, Read by ED Physician and No Acute Disease Diagnostic Testing: Clinical Impression(s) from Imaging Studies Chest X-Ray 04/20/22 22:45 IMPRESSION: 1. No radiographic evidence of acute cardiopulmonary disease. Electronically Signed: Salas Rivera DO at 23:20 EST , Rhythm Strip Rhythm Strip: Sinus Rhythm Rate: 85 Ectopy: PVC(s) EKG Initial EKG: Attestation: I personally reviewed and interpreted this EKG as follows: Interpretation: Sinus Rhythm, No Acute Injury Pattern and AV Block (1st deg) Prior EKG tracings: available for review Prior: Unchanged Discharge Plan Dx/Rx/DC Orders Clinical Impression: Unstable angina, Hx of coronary artery disease Disposition Disposition: Acute Care Hospital [facility]
[2022-04-20 22:45] LABS: Absolute Lymphocyte Count 3.08 X10^3/uL (0.83-4.51); Absolute Neutrophil Count 3.2 X10^3/uL (2.0-7.7); Basophil# 0.07 X10^3/uL; Basophil% 0.9 % (0-1); Eosinophil# 0.25 X10^3/uL; Eosinophils% 3.3 % (0-5); Hematocrit 46.5 % (40-54); Hemoglobin 16.6 g/dL (13.0-16.5); Lymphocyte # 3.08 X10^3/ul (0.83-4.51); Lymphocyte % 41.2 % (19-41); Mean Corp Hgb Conc 35.7 g/dL (32-36); Mean Corpuscular Hgb 32.4 pg (27.0-32.0); Mean Corpuscular Volume 90.8 fL (80-94); Mean Platelet Vol. 9.8 fl (6.2-12.0); Monocyte# 0.84 X10^3/uL; Monocyte% 11.2 % (0-10); NRBC Flagged by Analyzer 0 % (0-5); Neutrophil # 3.21 X10^3/uL (2.7-7.7); Platelet Count 205 K/mm3 (150-450); RBC Distribution Width CV 13.2 % (11.6-14.6); RBC Distribution Width SD 44.4 fl (35.1-43.9); Red Blood Count 5.12 M/mm3 (4.6-6.2); White Blood Count 7.5 K/mm3 (4.4-11.0)
--- NOTE | 2022-04-20 22:45 | RAD_ITS ---
INDICATION: chest pain EXAMINATION/TECHNIQUE: X-RAY - XR Chest 1 View COMPARISON: 04/17/2022 chest x-ray FINDINGS: LINES/DEVICES: Sternotomy wires from prior thoracotomy. Left chest dual-lead AICD with wires over the right ventricle and right atrium. There is a left atrial appendage closure device. Valvular prosthesis is present. LUNGS: Symmetric normal lung volumes. No airspace opacity or abnormal interstitial pattern. No nodule or mass. No pleural effusion or pneumothorax. MEDIASTINUM AND CARDIOVASCULAR STRUCTURES: Normal size and contour of the cardiomediastinal silhouette. No evidence of pulmonary vascular congestion. BONES AND SOFT TISSUES: No fracture or focal osseous lesion. RAD/Chest 1 View (Portable) IMPRESSION: 1. No radiographic evidence of acute cardiopulmonary disease. Electronically Signed: Salas Rivera DO at 23:20 EST ,
[2022-04-20 22:48] VITALS: BP 129/72; PULSE 71
[2022-04-20] MEDS: Nitroglycerin SL (ED/IMG/CATH) 0.4 MG TABLET SL (22:48)
[2022-04-20 23:00] VITALS: BP 107/81; PULSE 89; RESP 15; O2SAT 95
[2022-04-20 23:30] LABS: Anion Gap 10 (5-15); BUN 29 mg/dL (7-18); Calcium,Total 8.7 mg/dL (8.5-10.1); Chloride 102 mmol/L (98-107); Creatinine, Serum 1.21 mg/dL (0.70-1.30); EST Glomerular Filtration Rate 61 mL/min (>60); Est Glom Filt Rate - Afr Amer 74 mL/min (>60); Estimated Creatinine Clearance 47.88 ml/min; Glucose 135 mg/dL (74-106); Potassium 4.4 mmol/L (3.5-5.1); Sodium Level 137 mmol/L (136-145); Troponin-I HS (w/2H Reflex) 16 pg/mL (3.0-78.0)
[2022-04-21] VITALS (20 sets, daily range): BP systolic 93–134; BP diastolic 61–83; PULSE 59–79; RESP 12–18; TEMP 36.1–37.2; O2SAT 94–99; BMI 30.2
[2022-04-21] MEDS: Aspirin 81 MG TAB.CHEW 162 MG PO (00:28)
[2022-04-21] MEDS: Nitroglycerin Oint 1 INCH PACKET 0.5 INCH TD ×2 (00:28→06:33)
[2022-04-21] MEDS: Enoxaparin 100 MG/ML Syringe 95 MG SC (00:28)
--- NOTE | 2022-04-21 00:39 | HP.PCM.HOS_ITS ---
HPI - General General Date of Admission: 04/21/22 Date of Service: 04/21/22 Chief Complaint: chest pain HPI Narrative YOGI DIAZ, is a 82 M with a significant history of CAD status post stent and four-vessel CABG as well as my mitral valve repair; atrial fibrillation; heart failure with reduced ejection fraction; permanent pacemaker and defibrillator who presents to the emergency department with epigastric pain that radiated to the left side of his jaw and the left side of his neck. He described epigastric pain as pressure. The pain started about 2 to 3 hours before presentation. The pain started while he was sitting and watching TV. Of note because patient has been having back pain he had stress test on the same day of presentation. The stress test was abnormal and the plan was for him to have cardiac catheterization in about 2 weeks time. With dyspnea onset of chest pain imaging department doctor discussed the case w [facility] cardiology who recommended subcutaneous Lovenox as patient has not been taking his previously prescribed Eliquis. Per discussion between emergency department doctor and cardiology cardiac catheterization will be considered while inpatient. Of note patient has intolerance to many medications. He has had intolerance to amiodarone so he is no longer on beta-becca. Also reportedly he had side effects to statins so is not on any statin. He is on Zetia. Also his Entresto was stopped on the same day of presentation because of side effects of dizziness and nausea. [facility] Medical History Atherosclerotic heart disease of [place] coronary artery without angina pectoris Atrial fibrillation Bradycardia CAD (coronary artery disease) Enlarged prostate Essential hypertension FH: mitral valve repair Former smoker Hypertriglyceridemia Hypothyroidism Irregular heart beat Ischemic cardiomyopathy Near syncope HERMAN (obstructive sleep apnea) Paroxysmal atrial flutter Presence of stent in coronary artery (~09/23/16) Sleep apnea Systolic congestive heart failure Tachy-drew syndrome Tachycardia Ventricular ectopy Home Medications cholecalciferol (vitamin D3) 50 mcg (2,000 unit) capsule 4,000 unit PO DAILY supplement 09/20/16 [History Last Taken 12/03/20] nitroglycerin 0.4 mg sublingual tablet 0.4 mg sublingual Q5M PRN Cardiac/Chest P ain #1 BOTTLE 09/24/16 [Rx Last Taken Unknown] ezetimibe 10 mg tablet (Zetia) 5 mg PO DAILY cholesterol 12/10/19 [History Last Taken 12/04/20] omega-3 acid ethyl esters 1 gram capsule 2 cap PO BID 12/23/21 [History Last Taken Unknown] carvedilol 3.125 mg tablet 3.125 mg PO BID 02/17/22 [History Last Taken Unknown] Bacillus coagulans 250 million cell chewable tablet (Digestive Advantage Probiotic Gummy) 2 cell PO DAILY immune health 02/24/22 [History Last Taken Unknown] ascorbic acid (vitamin C) 1,000 mg chewable tablet 1 g PO DAILY supplement 02/24/22 [History Last Taken Unknown] levothyroxine 50 mcg capsule 50 mcg PO DAILY 02/24/22 [History Last Taken Unknown] aspirin 81 mg chewable tablet 81 mg PO BID heart health 04/20/22 [History Last Taken Unknown] furosemide 20 mg tablet 20 mg PO BID 04/20/22 [History Last Taken Unknown] Allergy/AdvReac Type Severity Reaction Status Date / Time amiodarone Allergy Severe Other Verified 04/20/22 13:14 Penicillins Allergy Rash Verified 04/20/22 13:14 [id number] Reductase AdvReac Intermediate Pain in Verified 04/20/22 13:14 Inhibitor joints ALL NARCOTICS AdvReac Other Uncoded 04/20/22 13:14 Family History Mother Dyslipidemia Father No problems noted. Surgical History History of ankle surgery History of appendectomy History of coronary artery stent placement History of mitral valve repair History of rotator cuff surgery Hx of appendectomy Hx of CABG left leg surgery Post PTCA Presence of coronary angioplasty implant and graft (~09/23/16) S/P CABG x 4 Social History Smoking Status: Former smoker alcohol intake: never substance use type: does not use caffeine: No what type of physical activity do you participate in: none and walking ROS ROS Narrative Pertinent positives and pertinent negatives as noted in HPI. All other systems were reviewed and are negative Vital Signs Vital Signs Vital Signs: 04/20/22 22:03 04/20/22 22:06 04/20/22 22:48 Temperature 96.9 F L Temperature Source Temporal Pulse Rate 84 71 Respiratory Rate 12 Blood Pressure 158/101 H 129/72 H Blood Pressure Mean 120 Pulse Ox 98 Oxygen Delivery Method 04/20/22 22:33 04/20/22 23:00 04/21/22 00:28 Temperature Temperature Source Pulse Rate 89 74 Respiratory Rate 15 Blood Pressure 107/81 H 101/61 Blood Pressure Mean 89 Pulse Ox 97 95 Oxygen Delivery Method Room Air Room Air 04/21/22 00:00 Temperature Temperature Source Pulse Rate 69 Respiratory Rate 15 Blood Pressure 106/64 Blood Pressure Mean 78 Pulse Ox 96 Oxygen Delivery Method Room Air Weight Weight: 95.7 kg Body Mass Index (BMI) 31.1 Physical Exam Narrative Physical exam: General: Well-nourished, well-developed. Head: Normocephalic, atraumatic, no tenderness Eyes: Vision is grossly intact. EOMI ENT, no trauma, moist mucous membranes, no rhinorrhea Neck: Nontender, full range of motion, no spinal tenderness, deformities, step- off CVS: Regular rate and rhythm. S1-S2 present. No murmur, gallop or rub. Respiratory : clear to auscultation bilaterally, chest wall nontender, no wheezing Abdomen: Soft, nontender, nondistended, normal bowel sounds, no masses : Deferred Back: Nontender, no CVA tenderness, no midline spinal tenderness, deformities, step-offs Extremities: Nontender full range of motion, no trauma Skin: Normal color, no trauma, abrasions Neuro: Alert, oriented, cranial nerves II through XII grossly intact. Psychiatry: Normal mood. Normal affect. Not depressed. Not anxious. Results Lab / Micro Data Result Diagrams: 04/20/22 22:10 04/20/22 22:10 Labs: Laboratory Results - last 24 hr 04/20/22 22:10: WBC 7.5, RBC 5.12, Hgb 16.6 H, Hct 46.5, MCV 90.8, MCH 32.4 H, MCHC 35.7, RDW Std Deviation 44.4 H, RDW Coeff of Garett 13.2, Plt Count 205, MPV 9.8, Immature Gran % (Auto) 0.400, Neut % (Auto) 43.0 L, Lymph % (Auto) 41.2 H, [place] % (Auto) 11.2 H, Eos % (Auto) 3.3, Baso % (Auto) 0.9, Absolute Neuts (auto) 3.2, Absolute Lymphs (auto) 3.08, Nucleated RBC % 0 04/20/22 22:10: Sodium 137, Potassium 4.4, Chloride 102, Carbon Dioxide 25.0, Anion Gap 10, BUN 29 H, Creatinine 1.21, Estim Creat Clear Calc 47.88, Est GFR (MDRD) Af Amer 74, Est GFR (MDRD) Non-Af 61, BUN/Creatinine Ratio 24.0 H, Glucose 135 H, Calcium 8.7, Troponin I High Sens 16 Rhythm Strip Rhythm Strip: Sinus Rhythm Rate: 85 Ectopy: PVC(s) Radiology Impression Chest X-Ray 04/20/22 22:45 IMPRESSION: 1. No radiographic evidence of acute cardiopulmonary disease. Electronically Signed: Salas Rivera, at 23:20 EST , Assessment & Plan Assessment/Plan (1) Chest pain: PLAN: Plan Unstable angina Place on a monitored bed at PCU Actual CXR image was independently visualized and interpreted. No acute cardiopulmonary process was noted. I agree with radiologist interpretation Actual EKG tracing was independently visualized. EKG tracing did not show STEMI Home aspirin continued. With one nitroglycerin sublingual tablets in the emergency department patient felt better so patient was placed on nitroglycerin paste. Nitroglycerin paste continued. Will check lipid panel. Statin: Reports allergic to statin and Zetia. Zetia continued. Anticoagulation: Received therapeutic dose of Lovenox at the emergency department. Initial high sensitive troponin was negative. Trend. Serial cardiac enzymes ordered Stat EKG as needed for chest pain As stress test on 04/20/2022 showed area of stress-induced myocardial ischemia in portions of distal inferior segments. It also showed some previous area of myocardial injury/infarction. Ejection fraction was estimated at 26%. Cardiology consult Heart failure with reduced ejection fraction Echocardiogram on 02/15/2022 showed EF of 20%. Also echocardiogram on 01/11/22 showed an ejection fraction of 20%. Ejection fraction by stress test on 04/20/2022 showed EF of 26%. Not worsening per recent stress test. Coreg continued Adverse effect to Entresto. DVT Prophylaxis: Received therapeutic dose of Lovenox at the ED Charges/Coding Visit Charges OBSV E&M: 36234 Initial observation care L3
[2022-04-21 00:54] LABS: Reflex Troponin-HS? (from REC) Y
--- NOTE | 2022-04-21 01:00 | NURSING ---
[facility] SAID TO ADMIT HERE FAXING CLINICALS AND VITALS
[2022-04-21 01:32] LABS: Troponin-I HS 21 pg/mL (3.0-78.0)
--- NOTE | 2022-04-21 01:42 | EKG12_ITS ---
Test Reason : admission EKG Blood Pressure : / mmHG Vent. Rate : 074 BPM Atrial Rate : 074 BPM P-R Int : 326 ms QRS Dur : 118 ms QT Int : 412 ms P-R-T Axes : 061 031 067 degrees QTc Int : 457 ms Sinus rhythm with 1st degree A-V block Possible Inferior infarct , age undetermined Abnormal ECG Confirmed by CHRISTINA OLIVO, [place] ([id number]), sports editor GAYATHRI LOPEZ ([id number]) on 04/22/2022 10:07:10 AM Referred By: Confirmed By:KY VASQUEZ MD
[2022-04-21 06:19] LABS: Absolute Neutrophil Count 2.4 X10^3/uL (2.0-7.7); Basophil# 0.06 X10^3/uL; Basophil% 1.1 % (0-1); Eosinophil# 0.19 X10^3/uL; Eosinophils% 3.5 % (0-5); Hematocrit 43.3 % (40-54); Mean Corp Hgb Conc 34.6 g/dL (32-36); Mean Corpuscular Hgb 31.4 pg (27.0-32.0); Mean Corpuscular Volume 90.8 fL (80-94); Mean Platelet Vol. 9.4 fl (6.2-12.0); Monocyte# 0.56 X10^3/uL; Monocyte% 10.2 % (0-10); NRBC Flagged by Analyzer 0 % (0-5); Neutrophil # 2.35 X10^3/uL (2.7-7.7); Neutrophil % 42.8 % (47-70); Platelet Count 170 K/mm3 (150-450); RBC Distribution Width CV 13.2 % (11.6-14.6); RBC Distribution Width SD 43.3 fl (35.1-43.9); Red Blood Count 4.77 M/mm3 (4.6-6.2); White Blood Count 5.5 K/mm3 (4.4-11.0)
[2022-04-21] MEDS: Carvedilol 3.125 MG TABLET PO (06:32)
[2022-04-21] MEDS: Aspirin 81 MG TAB.CHEW PO (06:32)
[2022-04-21] MEDS: Levothyroxine 50 MCG Tablet PO (06:32)
[2022-04-21] MEDS: Ondansetron 4 MG/2 ML Vial IV (06:40)
[2022-04-21 06:46] LABS: Cholesterol 120 mg/dL (200); High Density Lipoprotein 24 mg/dL; Triglycerides 322 mg/dL; Troponin-I HS 23 pg/mL (3.0-78.0); Very Low Density Lipoprotein 64 mg/dL (5-40)
[2022-04-21 07:22] LABS: Anion Gap 8 (5-15); BUN 27 mg/dL (7-18); Calcium,Total 8.9 mg/dL (8.5-10.1); Chloride 108 mmol/L (98-107); EST Glomerular Filtration Rate 76 mL/min (>60); Est Glom Filt Rate - Afr Amer 92 mL/min (>60); Estimated Creatinine Clearance 57.93 ml/min; Glucose 116 mg/dL (74-106); Potassium 4.2 mmol/L (3.5-5.1); Sodium Level 138 mmol/L (136-145)
--- NOTE | 2022-04-21 08:21 | CON.PCM.CA_ITS ---
Assessment & Plan Assessment/Plan (1) Unstable angina: PLAN: The patient presents with symptoms concerning for unstable angina pectoris. He does have a history of underlying atherosclerotic coronary disease as described above. He is undergone a recent pharmacologic stress nuclear imaging study which was considered abnormal. At the moment his cardiac enzymes remain negative and his ECG demonstrates no acute changes. He will continue medical therapy as deemed appropriate. He has been recommended for further evaluation with diagnostic cardiac catheterization. The procedure and risk were discussed with him. He was agreeable to this approach. (2) CAD (coronary artery disease): PLAN: The patient has a history of CAD. He is undergone both percutaneous and surgical based revascularization in the past. He will continue medical therapy. He will continue his evaluation as noted above. (3) S/P PTCA (percutaneous transluminal coronary angioplasty): PLAN: The patient's previous PCI history was reviewed. His most recent cardiac catheterization at [facility] [place] was reviewed. At the moment based upon his history and objective findings he will proceed with medical management and further evaluation with repeat diagnostic cardiac catheterization. (4) Hx of CABG: PLAN: The patient has not had to undergo repeat cardiac catheterization since his CABG. Its unclear at the moment whether he has had progression of graft vessel disease which would lead to his symptoms and his nuclear imaging changes. Thus he will continue medical management and undergo further evaluation as noted. (5) H/O mitral valve repair: PLAN: The patient has had a history of mitral valve repair. His most recent transthoracic echocardiogram is noted. He will continue AHA antibiotic prophylaxis. He will continue to be followed. (6) S/P left atrial appendage ligation: PLAN: The patient has had a history of a left atrial appendage occlusion at the time of his open heart surgery procedure. Hopefully this does diminish his risks of potential thromboembolic disease if he returns to an atrial dysrhythmia. (7) Ischemic cardiomyopathy: PLAN: The patient does have an ischemic mediated cardiomyopathy with diminished LVEF. He has been on medical management. He does have an ICD in place. (8) Systolic congestive heart failure: PLAN: The patient has had symptoms of chronic systolic CHF. He does not appear to have any acute on chronic systolic CHF at this time. He will need to continue medical management with adjustment as deemed appropriate. (9) Atrial fibrillation and flutter: PLAN: The patient has had a history of paroxysmal atrial dysrhythmias in the past. At the present time he is remained in sinus rhythm and/or an underlying paced rhythm. He has been on antiplatelet therapy. He has had his left atrial appendage occlusion performed. He is not on chronic oral systemic anticoagulant therapy at this time. (10) ICD (implantable cardioverter-defibrillator) in place: PLAN: The patient does have an ICD in place. It was interrogated earlier this month on 04-05-2022. His battery longevity is approximately 13 years. (11) HLD (hyperlipidemia): PLAN: The patient will continue risk factor evaluation care as deemed appropriate. (12) HTN (hypertension): PLAN: The patient's blood pressure will need to be monitored. If there is concern that the patient may be experiencing post medication dosage hypotension that could lead to his symptoms then consideration have to be given to adjustment of the timing of his medications, dose of his medications, etc., to assist with these concerns. Addt'l Comments The above was discussed and reviewed with the patient, his spouse, and previously with Dr. Etienne of the [facility] emergency department staff. This note was generated using a voice recognition system and there may be incorrect words, spelling or punctuation that were not noted when reviewing the office note prior to saving. HPI Consult Data Date of Consult: 04/21/22 HPI Narrative HPI Narrative: YOGI DIAZ, is a 82 year old white male who presents concerning for unstable angina pectoris superimposed upon a recent abnormal pharmacologic stress nuclear imaging study superimposed upon a history of underlying CAD, PCI, CABG, status post mitral valve repair, status post occlusion of the left atrial appendage with a 40 mm atriaclip, ischemic mediated cardiomyopathy, chronic systolic CHF, cardiac dysrhythmia with a history of paroxysmal atrial flutter, ventricular ectopy status post ICD placement, hyperlipidemia, and hypertension. The patient has a history of underlying CAD status post LAD PTCA/SABRA in September 2016. He subsequently underwent CABG with a DAILY to the LAD, and SVG to OM1, and SVG to OM 2, and SVG to the PDA as well as a mitral valve repair with a 30 mm Physio II annuloplasty ring and occlusion of the left atrial appendage with a 40 mm atriaclip in October 2019. He has continued outpatient cardiovascular care. He states he receives this locally while in [place], in [place], and through the [facility] system. He notes that he has had episodes, which he did again yesterday evening, of discomfort in his left jaw, left neck, as well as feeling nauseated. He also notes that he gets short of breath and dyspneic with exertion such as walking across the parking lot. He has denied orthopnea or PND or peripheral pitting edema. He states that following his morning medications, in the afternoon, he feels dizzy and somewhat nauseated. Morning he has denied any near-syncope or syncope. He states his ICD has not discharged. Yesterday based upon his history and his symptoms he underwent a pharmacologic stress nuclear imaging study. The results are noted below. He was asked to have future outpatient evaluation with a diagnostic cardiac catheterization. In the interim, he had recurrent discomfort last night as described above. Thus he presented to the [facility] emergency department for further evaluation and care. His cardiac enzymes have been negative. His ECG demonstrated findings of underlying sinus rhythm with a first-degree AV block with findings, depending upon which ECG is evaluated, either a septal SD of indeterminate age cannot be excluded and/or an inferior SD of indeterminate age cannot be excluded. On cardiac telemetry he has had sinus rhythm with PVCs and intermittent electronic atrial paced beats. He was placed in the PCU for further evaluation and care. He has been recommended for further evaluation with diagnostic cardiac catheterization. [facility] Medical History Atherosclerotic heart disease of [place] coronary artery without angina pectoris Atrial fibrillation Bradycardia CAD (coronary artery disease) Enlarged prostate Essential hypertension FH: mitral valve repair Former smoker Hypertriglyceridemia Hypothyroidism Irregular heart beat Ischemic cardiomyopathy Near syncope HERMAN (obstructive sleep apnea) Paroxysmal atrial flutter Presence of stent in coronary artery (~09/23/16) Sleep apnea Systolic congestive heart failure Tachy-drew syndrome Tachycardia Ventricular ectopy Home Medications cholecalciferol (vitamin D3) 50 mcg (2,000 unit) capsule 4,000 unit PO DAILY supplement 09/20/16 [History Last Taken 12/03/20] nitroglycerin 0.4 mg sublingual tablet 0.4 mg sublingual Q5M PRN Cardiac/Chest Pain #1 BOTTLE 09/24/16 [Rx Last Taken Unknown] ezetimibe 10 mg tablet (Zetia) 5 mg PO DAILY cholesterol 12/10/19 [History Last Taken 12/04/20] omega-3 acid ethyl esters 1 gram capsule 2 cap PO BID 12/23/21 [History Last Taken Unknown] carvedilol 3.125 mg tablet 3.125 mg PO BID 02/17/22 [History Last Taken Unknown] Bacillus coagulans 250 million cell chewable tablet (Digestive Advantage Probiotic Gummy) 2 cell PO DAILY immune health 02/24/22 [History Last Taken Unknown] ascorbic acid (vitamin C) 1,000 mg chewable tablet 1 g PO DAILY supplement 02/24/22 [History Last Taken Unknown] levothyroxine 50 mcg capsule 50 mcg PO DAILY 02/24/22 [History Last Taken Unknown] aspirin 81 mg chewable tablet 81 mg PO BID heart health 04/20/22 [History Last Taken Unknown] furosemide 20 mg tablet 20 mg PO BID 04/20/22 [History Last Taken Unknown] Allergy/AdvReac Type Severity Reaction Status Date / Time amiodarone Allergy Severe Other Verified 04/20/22 13:14 Penicillins Allergy Rash Verified 04/20/22 13:14 Bauuflu-[id number]-UdQ Reductase AdvReac Intermediate Pain in Verified 04/20/22 13:14 Inhibitor joints ALL NARCOTICS AdvReac Other Uncoded 04/20/22 13:14 Family History Mother Dyslipidemia Father No problems noted. Surgical History History of ankle surgery History of appendectomy History of coronary artery stent placement History of mitral valve repair History of rotator cuff surgery Hx of appendectomy Hx of CABG left leg surgery Post PTCA Presence of coronary angioplasty implant and graft (~09/23/16) S/P CABG x 4 Social History Smoking Status: Former smoker alcohol intake: never substance use type: does not use caffeine: No what type of physical activity do you participate in: none and walking ROS Constitutional Constitutional: Reports as per HPI Eyes Eyes: Reports as per HPI ENT HEENT: Reports as per HPI Cardiovascular Cardiovascular: Reports chest pain, dyspnea and nausea Respiratory/Chest Respiratory/Chest: Reports dyspnea Gastrointestinal Gastrointestinal: Reports nausea Genitourinary Genitourinary: Reports as per HPI Musculoskeletal Musculoskeletal: Reports as per HPI Integumentary Integumentary: Reports as per HPI Neurologic Neurologic: Reports dizziness Psychiatric Psychiatric: Reports as per HPI Physical Exam Const alert, oriented x3 and no apparent distress Orientation / Consciousness: awake HEENT normocephalic, head/scalp atraumatic and hearing grossly normal bilaterally Eyes PERRL, EOMs intact bilaterally, conjunctivae normal and no scleral icterus Neck full ROM, supple and no JVD Carotids: normal carotid upstroke Chest Chest: midline sternotomy incision and left pectoral incision Resp normal respiratory effort and clear to auscultation bilaterally Cardio regular rate, regular rhythm, S1 normal heart sound and S2 normal heart sound GI normal to inspection, nondistended, normoactive bowel sounds Extremity no pedal edema Skin no rashes or lesions noted Psych mental status grossly normal Risk Stratification Risk Stratification Applicable: Yes Age >/= 65: Yes >/= 3 CAD Risk Factors (HTN, HLD, DM, family hx of CAD, or current smoker): Yes Aspirin Use in the Past 7 Days: Yes Severe Angina (>/= episodes in 24 hours): Yes EKG ST Changes >/= 0.5mm: No Positive Cardiac Marker: No AMAURY Risk Stratification Score: 4 AMAURY % Risk: 20% Risk Procedure Criteria Type of Procedure Procedure Type: Elective Elective Risks - COVID COVID Risk Discussion: The surgeon/proceduralist and patient have discussed in detail the risk of exposure to and/or potential harm posed by the COVID-19 virus with having a surgery/procedure at this time versus the risk of delaying the surgery/procedure. It is not possible to know either the risk of delaying the surgery or procedure or chance of getting an infection with perfect accuracy, but a joint decision was made between the patient and the surgeon/proceduralist to proceed at this time with the scheduled surgery/procedure as indicated on the consent form. Objective Data Vital Signs: Vital Signs Temp Pulse Resp BP Pulse Ox O2 Del Method 98.0 F 72 12 99/69 97 Room Air 04/21/22 07:43 04/21/22 07:43 04/21/22 07:43 04/21/22 07:43 04/21/22 07:43 04/21/22 07:45 Oxygen Delivery Method Room Air Weight: 205 lb 0.478 oz Body Mass Index (BMI) 30.2 Lab / Micro Data Result Diagrams: 04/21/22 06:00 04/21/22 06:00 Labs: Laboratory Results - last 24 hr 04/20/22 22:10: WBC 7.5, RBC 5.12, Hgb 16.6 H, Hct 46.5, MCV 90.8, MCH 32.4 H, MCHC 35.7, RDW Std Deviation 44.4 H, RDW Coeff of Garett 13.2, Plt Count 205, MPV 9.8, Immature Gran % (Auto) 0.400, Neut % (Auto) 43.0 L, Lymph % (Auto) 41.2 H, Beaver % (Auto) 11.2 H, Eos % (Auto) 3.3, Baso % (Auto) 0.9, Absolute Neuts (auto) 3.2, Absolute Lymphs (auto) 3.08, Nucleated RBC % 0 04/20/22 22:10: Sodium 137, Potassium 4.4, Chloride 102, Carbon Dioxide 25.0, Anion Gap 10, BUN 29 H, Creatinine 1.21, Estim Creat Clear Calc 47.88, Est GFR (MDRD) Af Amer 74, Est GFR (MDRD) Non-Af 61, BUN/Creatinine Ratio 24.0 H, Glucose 135 H, Calcium 8.7, Troponin I High Sens 16 04/21/22 01:05: Troponin I High Sens 21 04/21/22 06:00: Troponin I High Sens 23, Triglycerides 322 H, Cholesterol 120, LDL Cholesterol 32, VLDL Cholesterol 64 H, HDL Cholesterol 24 L 04/21/22 06:00: WBC 5.5, RBC 4.77, Hgb 15.0, Hct 43.3, MCV 90.8, MCH 31.4, MCHC 34.6, RDW Std Deviation 43.3, RDW Coeff of Garett 13.2, Plt Count 170, MPV 9.4, Immature Gran % (Auto) 0.400, Neut % (Auto) 42.8 L, Lymph % (Auto) 42.0 H, Beaver % (Auto) 10.2 H, Eos % (Auto) 3.5, Baso % (Auto) 1.1 H, Absolute Neuts (auto) 2.4, Absolute Lymphs (auto) 2.30, Nucleated RBC % 0 04/21/22 06:00: Sodium 138, Potassium 4.2, Chloride 108 H, Carbon Dioxide 22.0, Anion Gap 8, BUN 27 H, Creatinine 1.00, Estim Creat Clear Calc 57.93, Est GFR (MDRD) Af Amer 92, Est GFR (MDRD) Non-Af 76, BUN/Creatinine Ratio 27.0 H, Glu cose 116 H, Calcium 8.9 Rhythm Strip Rhythm Strip: Sinus Rhythm Rate: 85 Ectopy: PVC(s) Cardiology Labs/Tests 04/20/22 22:10: WBC 7.5, RBC 5.12, Hgb 16.6 H, Hct 46.5, MCV 90.8, MCH 32.4 H, MCHC 35.7, Plt Count 205, MPV 9.8, Immature Gran % (Auto) 0.400, Neut % (Auto) 43.0 L, Lymph % (Auto) 41.2 H, Beaver % (Auto) 11.2 H, Eos % (Auto) 3.3, Baso % (Auto) 0.9, Absolute Neuts (auto) 3.2, Nucleated RBC % 0 04/20/22 22:10: Sodium 137, Potassium 4.4, Chloride 102, Carbon Dioxide 25.0, Anion Gap 10, BUN 29 H, Creatinine 1.21, Est GFR (MDRD) Af Amer 74, Est GFR (MDRD) Non-Af 61, BUN/Creatinine Ratio 24.0 H, Glucose 135 H, Calcium 8.7 04/21/22 06:00: Triglycerides 322 H, Cholesterol 120, LDL Cholesterol 32, VLDL Cholesterol 64 H, HDL Cholesterol 24 L 04/21/22 06:00: WBC 5.5, RBC 4.77, Hgb 15.0, Hct 43.3, MCV 90.8, MCH 31.4, MCHC 34.6, Plt Count 170, MPV 9.4, Immature Gran % (Auto) 0.400, Neut % (Auto) 42.8 L , Lymph % (Auto) 42.0 H, Beaver % (Auto) 10.2 H, Eos % (Auto) 3.5, Baso % (Auto) 1.1 H, Absolute Neuts (auto) 2.4, Nucleated RBC % 0 04/21/22 06:00: Sodium 138, Potassium 4.2, Chloride 108 H, Carbon Dioxide 22.0, Anion Gap 8, BUN 27 H, Creatinine 1.00, Est GFR (MDRD) Af Amer 92, Est GFR (MDRD) Non-Af 76, BUN/Creatinine Ratio 27.0 H, Glucose 116 H, Calcium 8.9 Rhythm: As noted above EKG: As noted above ECHO: Transthoracic echocardiogram: 09-22-16 Interpretation Summary The study was technically difficult. Contrast injection was performed. Mild segmental systolic dysfunction (see wall motion). The estimated ejection fraction is 50 %. Trivial mitral valve insufficiency. Trivial tricuspid valve insufficiency. Aortic sclerosis / mild aortic valve stenosis. Trivial aortic valve insufficiency. Right ventricular systolic pressure estimated to be 25 mmHg Echocardiogram from 06/21/2019 in [place], [place]: Conclusions 1.? This was a technically difficult study with suboptimal views 2.? The left ventricle is mildly dilated. 3.? Overall left ventricular systolic function is mildly impaired with, and EF 45% ?5%. 4.? Impaired relaxation, grade 1 diastolic dysfunction. 5.? The inferolateral wall appears hypokinetic. 6.? The right ventricle is normal in size and function. 7.? The left atrium is normal size by volume. 8.? There is mild aortic valve sclerosis without stenosis. 9.? Mild mitral regurgitation is present 10.? Mild cuspid regurgitation present. 11.? Right ventricular systolic pressure is normal at less than 35 mmHg. 12.? Normal inferior vena cava with normal inspiratory collapse. Echocardiogram from 09/15/2020 by at [facility] in [place], [place]: Conclusions The left ventricular ejection fraction is 30-35%. Left ventricular systolic function is moderately reduced. The transmitral spectral Doppler flow pattern is suggestive of impaired LV relax ation. The left atrium is mildly dilated. There is mild to moderate aortic valve thickening/sclerosis. Mild to moderate aortic regurgitation. An angioplasty ring is noted/suggested in the mitral position. There is mild mitral regurgitation. There is mild tricuspid regurgitation. Mild pulmonic valvular regurgitation. Mild aortic root dilation. Mildly dilated ascending aorta. Echocardiogram: 12-04-2020 Interpretation Summary The study was technically difficult. ? Severely dilated left ventricle. Moderate segmental systolic dysfunction (see wall motion). The estimated ejection fraction is 30 %. The left atrium is mildly enlarged. The right atrium is mildly enlarged. An annuloplasty ring is noted in the mitral position. Anterior leaflet diffuse mitral valve thickening. Trivial transvalvular insufficiency of the mitral valve. Mild tricuspid valve insufficiency. Moderate focal aortic valve calcification. Trivial aortic valve insufficiency. Mild (1+) pulmonic valve insufficiency. Right ventricular systolic pressure estimated to be 30 mmHg. Transmitral diastolic flow velocities suggest diastolic dysfunction (pseudonormal pattern). Echocardiogram: 02-15-2022 Interpretation Summary The study was technically difficult. Contrast injection was performed. Limited views were obtained. ? Mildly dilated left ventricle. Severe global left ventricular systolic dysfunction. The estimated ejection fraction is 20 %. The left atrium is mildly enlarged. Stable appearing bioprosthetic mitral valve apparatus. Unable to assess diastolic dysfunction. Stress test: 09-22-16 A 76-year-old man with a history of coronary artery disease, presents with chest pain. MEDICATIONS: Aspirin, vitamin D, Lovenox. Resting EKG demonstrates normal sinus rhythm with a rate of 81 beats per minute.? Normal intervals are noted.? Resting blood pressure was 150/84. STRESS TEST: The patient exercised according to a regular Robert protocol for a total duration of 6 minutes and 40 seconds.? The maximum heart rate attained was 171 beats per minute, which was 117% of maximum predicted heart rate.? The maximum workload attained was 8 METS.? The patient maintained sinus rhythm throughout the recording with a first-degree AV block.? At rest, nonspecific ST-T-wave changes were noted.? At peak exercise, there were nonspecific ST changes noted in lead 3 and aVF.? The patient was noted to have occasional premature ventricular complexes noted and a long decline in heart rate response to below 100s.? The resting blood pressure was 150/84 with a peak blood pressure 170/80.? No obvious clinical angina was noted. MYOCARDIAL PERFUSION PROTOCOL: 14.2 mCi of sestamibi was injected at rest.? The patient exercised according to a regular Robert protocol for 6 minutes and 40 seconds attaining 117% of maximum predicted heart rate.? At peak exercise, 44.5 mCi of sestamibi was injected.? Stress images were obtained. ?Stress and rest images were reconstructed and compared in the short axis, vertical long and horizontal long axes.? Gated images? obtained. PERFUSION SPECT ANALYSIS: Review of the images demonstrated a normal cardiac silhouette size.? There is normal uptake noted in the septum, anterior wall, and lateral wall.? In the mid inferior wall, there is a small area of reduced perfusion, which appears to improve minimally suggesting previous area of infarct with mild reversible ischemia noted.? Left ventricular size was noted to be normal with a mild reduction in function.? Gated SPECT was also obtained. GATED SPECT ANALYSIS: The gated ejection fraction was noted to be approximately 39%. CONCLUSION: 1.? Mildly abnormal exercise stress test with a mild inferior ischemia in a previously infarcted zone. 2.? Mild cardiomyopathy. 3.? Mild exercise impairment noted. 4.? Poor heart rate response noted. ADDENDUM by Dr. Dennis Keller MD on 04/20/22 at 0915 Addendum: Myocardial perfusion imaging study: Technique: Should read as follows: Technique: The patient was injected with 11.3 millicuries of technetium 99m Cardiolite and subsequently rest SPECT Cardiolite nuclear imaging was obtained in the horizontal long, vertical long, and short axis views. The patient underwent pharmacologic (Regadenoson) evaluation with a peak heart rate of 98 beats per minute (70% percent predicted maximal heart rate) and a resting blood pressure of 118/78 mmHg and a peak blood pressure of 118/78 mmHg. The patient was injected with 33.7 millicuries of technetium 99m Cardiolite and subsequently stress SPECT Cardiolite nuclear imaging was obtained in the horizontal long, ve rtical long, and short axis views.? A gated Cardiolite study at peak stress was obtained. This note was generated using a voice recognition system and there may be incorrect words, spelling or punctuation that were not noted when reviewing the office note prior to saving. Date Dennis Keller MD cc: ? LAWRENCE Bautista; No Primary? Care Physician ~* Signed Stress Test Report Date: 04-20-2022 Procedure: Pharmacologic stress nuclear imaging study? Indications: CAD; PCI; CABG; status post mitral valve repair; status post left atrial appendage occlusion; cardiac dysrhythmia; status post ICD Consent: Per the patient Procedure: The patient underwent pharmacologic (Regadenoson 0.4mg ) evaluation with a peak heart rate of 98 beats per minute (70%predicted maximal heart rate) and a resting blood pressure of 118/78 mmHg and a peak blood pressure of 118/78 mmHg. The baseline ECG demonstrated sinus rhythm; first-degree AV block; poor R wave progression; anterior SD of indeterminate age cannot be excluded.? The peak pharmacologic ECG demonstrated no obvious ECG changes. There were occasional PVCs during infusion and recovery, isolated ventricular couplet during recovery, electronic ventricular paced beat during recovery. There was no complaint of chest discomfort during pharmacologic infusion or recovery. The examination was discontinued secondary to completion of protocol. Impression: 1.? Pharmacologic (Regadenoson) evaluation 2.? Peak pharmacologic ECG with no obvious ECG changes. 3.? There were occasional PVCs during infusion recovery, isolated ventricular couplet during recovery, electronic ventricular paced beat during recovery. 4.? Nuclear images pending Myocardial perfusion imaging study: Technique: The patient was injected with millicuries of technetium 99m Cardiolite and subsequently rest SPECT Cardiolite nuclear imaging was obtained in the horizontal long, vertical long, and short axis views. The patient underwent pharmacologic (Regadenoson) evaluation with a peak heart rate of 98 beats per minute (70% percent predicted maximal heart rate) and a resting blood pressure of 118/78 mmHg and a peak blood pressure of 118/78 mmHg. The patient was injected with millicuries of technetium 99m Cardiolite and subsequently stress SPECT Cardiolite nuclear imaging was obtained in the horizontal long, vertical long, and short axis views.? A gated Cardiolite study at peak stress was obtained. Interpretation: Rest and stress SPECT Cardiolite nuclear imaging status post realignment, normalization, and attenuation correction demonstrate diminished myocardial perfusion/tracer uptake in portions of the distal anterior/anteroapical segments without significant change between rest and status post stress there is notation of diminished myocardial perfusion/tracer uptake in portions of the distal inferior segments.? There is diminished end-systolic thickening and brightening.? The gated Cardiolite study demonstrates diminished myocardial thickening and inward wall motion.? The reported LVEF is 26%. Impression: 1.? Rest and stress SPECT current nuclear imaging demonstrate myocardial perfusion changes appearing compatible with an area of previous myocardial injury/infarction involving portions of the distal anterior/anteroapical segments as well as post stress myocardial perfusion changes concerning for an area of stress-induced myocardial ischemia in portions of the distal inferior segments. 2.? The gated Cardiolite study reports an LVEF of 26%. Cardiac catheterization: 09-23-16 DOMINANCE: Right Dominant LEFT HEART ASSESSMENT Left Ventricular Ejection Fraction: by LV Gram 50 % Anterior Hypokinesis - Mild. Apical Hypokinesis - Mild Depressed Left Ventricular systolic function Normal Left Ventricular End Diastolic Pressure LEFT MAIN: Angiographically normal LEFT ANTERIOR DECENDING ARTERY: Mild luminal irregularities MID LAD: eccentric hazy 85 % Stenosis DIAGONAL 1: Proximal - small caliber: 25 % Stenosis CIRCUMFLEX ARTERY: PROX CIRC: eccentric 25 % Stenosis RIGHT CORONARY ARTERY: PROX RCA: 100 % Stenosis COLLATERAL FLOW: Collateral flow from Left to Right VALVE FINDINGS: Normal Aortic Valve function Normal Mitral Valve function AORTIC ROOT: Angiographically normal FFR/PCI: 09-23-16 FFR of the mid LAD reported at 0.62 with successful SABRA to the mid LAD with a resolute integrity 3.0 x 18 mm stent Open heart surgery: 10-31-2019: [place], [place] DAILY to the LAD SVG to OM1 SVG to OM 2 SVG to PDA Mitral valve repair with a 30 mm Physio-II annuloplasty ring Occlusion of the left atrial appendage with a 40 mm atriclip Radiography Diagnostic Testing: Radiology Impression Chest X-Ray 04/20/22 22:45 IMPRESSION: 1. No radiographic evidence of acute cardiopulmonary disease. Electronically Signed: Salas Rivera DO at 23:20 EST ,
--- NOTE | 2022-04-21 08:32 | NURSING ---
This RN called and gave report to CAILIN Finn at entry level lab technician.
--- NOTE | 2022-04-21 08:56 | CASEMGMT ---
Addendum entered by Sarah Carl 04/21/22 09:11: Pt also has [employer] benefits. Nayana SIMEON CM Original Note: According to the [facility] website, the following are in-network tertiary facilities: [facility], [place], [facility], [place], [facility], [facility], [place], [facility], and . Nayana SIMEON CM
[2022-04-21] MEDS: 0.9% Normal Saline 1,000 ML 50 ML IV (10:36)
[2022-04-21] MEDS: Ezetimibe 10 MG Tablet 5 MG PO (11:33)
[2022-04-21] MEDS: Furosemide 20 MG Tablet PO (11:33)
[2022-04-21] MEDS: Omega-3 Acid Ethyl Esters 1 GM Capsule 2 GM PO (11:33)
[2022-04-21] MEDS: Cholecalciferol (VIT D3) 25 MCG TABLET (1,000 UNITS) 100 MCG PO (11:34)
[2022-04-21] MEDS: Ascorbic Acid 500 MG Tablet 1000 MG PO (11:34)
--- NOTE | 2022-04-21 14:21 | NURSING ---
Pt up and ambulating in room. No signs of complications to cath site/bleeding/or hematoma.
--- NOTE | 2022-04-21 15:07 | DCINST_ITS ---
Discharge Instructions Diet Discharge Diet: Low fat / Low cholesterol Activity Discharge Activity: Return to Normal Activity Weight Bearing Status: Weight bearing as tolerated Dressing / Incision Call your doctor if you observe: Fever of 101 or Higher, Shortness of breath, Dizziness, Swelling in the ankles, Chest pain and Increased palpitations (irregular heartbeat) Follow Up Care Test Results: Test results from this visit will be discussed in further detail at your follow- up appointment, if applicable. Discharge Plan Admission Admit Date/Time: 04/21/22 00:41 Primary Reason for Your Visit: atypical angina Attending Provider: Laverne Ayoub Primary Care Provider: Care Physician,No Primary Consulting Providers: Dennis Keller ; Jeff Servin Instructions Patient Instructions: ED Heart Disease Risk Factors Discharge Orders/Prescriptions Prescriptions: New clopidogrel 75 mg Tablet 75 mg PO DAILY Qty: 30 2RF Continued ezetimibe [Zetia] 10 mg tablet 5 mg PO DAILY omega-3 acid ethyl esters 1 gram capsule 2 cap PO BID levothyroxine 50 mcg capsule 50 mcg PO DAILY furosemide 20 mg tablet 20 mg PO BID cholecalciferol (vitamin D3) 2,000 UNIT capsule 4,000 unit PO DAILY nitroglycerin 0.4 MG tablet 0.4 mg SUBLINGUAL Q5M PRN (Reason: Cardiac/Chest Pain) Qty: 1 0RF aspirin 81 mg tablet,chewable 81 mg PO BID ascorbic acid (vitamin C) 1,000 mg tablet,chewable 1 g PO DAILY Digestive Advantage Prob Gummy 250 million cell tablet,chewable 2 cell PO DAILY carvedilol 3.125 mg tablet 3.125 mg PO BID Rx Instructions: must administer with a meal/food Referrals / Follow Up: Dennis Keller MD [Med Staff - Active Staff] - Within 2 Weeks Care Physician,No Primary [Primary Care Provider] - Disposition Disposition (needs filled in before D/C Order can be placed): Home, Self Care
--- NOTE | 2022-04-21 15:12 | DS.PCM_ITS ---
Providers Date of Admission: 04/21/22 Date of Discharge: 04/21/22 Primary Care Physician: No Primary Care Phys Consultations 04/21/22 01:42 Consult: Cardiology Routine Consulting Provider: Dennis Keller Reason for Consult: Chest Pain EMERGENT Consult: No MD Notified: Yes Date Notified: 04/21/22 Time Notified: 00:50 Method of Notification: ED Physician Initiated Reason For Visit: UNSTABLE ANGINA Diagnosis Discharge Diagnosis (1) Unstable angina: Status: Acute Code(s): I20.0 - Unstable angina (2) CAD (coronary artery disease): Status: Acute Code(s): I25.10 - Atherosclerotic heart disease of [place] coronary artery without angina pectoris (3) S/P PTCA (percutaneous transluminal coronary angioplasty): Status: Acute Code(s): Z98.61 - Coronary angioplasty status (4) Hx of CABG: Status: Acute Code(s): Z95.1 - Presence of aortocoronary bypass graft (5) H/O mitral valve repair: Status: Acute Code(s): Z98.890 - Other specified postprocedural states (6) S/P left atrial appendage ligation: Status: Acute Code(s): Z98.890 - Other specified postprocedural states (7) Ischemic cardiomyopathy: Status: Acute Code(s): I25.5 - Ischemic cardiomyopathy (8) Systolic congestive heart failure: Status: Acute Code(s): I50.20 - Unspecified systolic (congestive) heart failure (9) Atrial fibrillation and flutter: Status: Acute Code(s): I48.91 - Unspecified atrial fibrillation; I48.92 - Unspecified atrial flutter (10) ICD (implantable cardioverter-defibrillator) in place: Status: Acute Code(s): Z95.810 - Presence of automatic (implantable) cardiac defibrillator (11) HLD (hyperlipidemia): Status: Chronic Code(s): E78.5 - Hyperlipidemia, unspecified (12) HTN (hypertension): Status: Chronic Code(s): I10 - Essential (primary) hypertension Medications at Discharge Home Medications cholecalciferol (vitamin D3) 50 mcg (2,000 unit) capsule 4,000 unit PO DAILY supplement 09/20/16 nitroglycerin 0.4 mg sublingual tablet 0.4 mg sublingual Q5M PRN Cardiac/Chest Pain #1 BOTTLE 09/24/16 ezetimibe 10 mg tablet (Zetia) 5 mg PO DAILY cholesterol 12/10/19 omega-3 acid ethyl esters 1 gram capsule 2 cap PO BID 12/23/21 carvedilol 3.125 mg tablet 3.125 mg PO BID 02/17/22 Bacillus coagulans 250 million cell chewable tablet (Digestive Advantage Probiotic Gummy) 2 cell PO DAILY immune health 02/24/22 ascorbic acid (vitamin C) 1,000 mg chewable tablet 1 g PO DAILY supplement 02/24/22 levothyroxine 50 mcg capsule 50 mcg PO DAILY 02/24/22 aspirin 81 mg chewable tablet 81 mg PO BID heart health 04/20/22 furosemide 20 mg tablet 20 mg PO BID 04/20/22 clopidogrel 75 mg tablet 75 mg PO DAILY #30 tabs 04/21/22 Hospital Course Summary of Care Provided Minutes Spent on Discharge: 45 Hospital Course: Patient is an 82-year-old male with a past medical history as outlined was admitted through the ED on 04/21/2022 with complaint of epigastric pain which radiated to the left side of his jaw as well as left side of neck. Pain started about 2 to 3 hours prior to admission and started while she was watching TV. He had recently had a stress test on the day of admission on account of back pain and the stress test was abnormal and he was planned to have cardiac cath in about 2 weeks after the stress test. He came into the ED on account of persistent chest pain and he was admitted for unstable angina to have cardiac cath. Troponins were not elevated. EKG showed no acute ST changes. He had car diac cath on 04/21/2022 which showed no need for PCI. PEr cardiology, Plavix was added on. Patient remained stable after cardiac cath and was discharged on 04/21/2022. He is to follow-up with his primary care doctor and cardiology within 2 weeks. Patient seen and examined prior to discharge. He had no active complaints and denied any chest pain, palpitations, dizziness, nausea or vomiting. Review of systems otherwise negative. Labs and vitals reviewed. Home medication reviewed and reconciled. Physical Exam Const alert, oriented x3 and no apparent distress General Appearance: cooperative Orientation / Consciousness: awake, oriented to person, oriented to place and oriented to time Exam Limitations: no limitations HEENT normocephalic, head/scalp atraumatic, hearing grossly normal bilaterally and moist oral mucous membranes Mouth: oral and palatal mucosa normal Eyes PERRL, EOMs intact bilaterally and conjunctivae normal Neck no lymphadenopathy and supple Resp normal respiratory effort, no retractions and no use of accessory muscles Cardio regular rate, regular rhythm, S1 normal heart sound, S2 normal heart sound and no murmurs GI normal to inspection, nondistended, normoactive bowel sounds, soft to palpation, non-tender and non-distended Extremity normal to inspection, full ROM and no clubbing, cyanosis or edema Skin no rashes or lesions noted, no wounds and skin turgor normal Skin Narrative: right groin at site of cath showed no evidence of swelling or bleeding Neuro oriented x3, CN's II-XII intact bilaterally, moves all extremities and no focal motor deficits Sensorium / Orientation: awake and alert Motor Exam: strength 5/5 throughout Psych affect normal Weight / BMI Weight Weight: 205 lb 0.478 oz Body Mass Index (BMI) 30.2 ABG / Lab / Microbiology Data Result Diagrams: 04/21/22 06:00 04/21/22 06:00 Laboratory: Laboratory Results - last 24 hr 04/20/22 22:10: WBC 7.5, RBC 5.12, Hgb 16.6 H, Hct 46.5, MCV 90.8, MCH 32.4 H, MCHC 35.7, RDW Std Deviation 44.4 H, RDW Coeff of Garett 13.2, Plt Count 205, MPV 9.8, Immature Gran % (Auto) 0.400, Neut % (Auto) 43.0 L, Lymph % (Auto) 41.2 H, Monona % (Auto) 11.2 H, Eos % (Auto) 3.3, Baso % (Auto) 0.9, Absolute Neuts (auto) 3.2, Absolute Lymphs (auto) 3.08, Nucleated RBC % 0 04/20/22 22:10: Sodium 137, Potassium 4.4, Chloride 102, Carbon Dioxide 25.0, Anion Gap 10, BUN 29 H, Creatinine 1.21, Estim Creat Clear Calc 47.88, Est GFR (MDRD) Af Amer 74, Est GFR (MDRD) Non-Af 61, BUN/Creatinine Ratio 24.0 H, Glucose 135 H, Calcium 8.7, Troponin I High Sens 16 04/21/22 01:05: Troponin I High Sens 21 04/21/22 06:00: Troponin I High Sens 23, Triglycerides 322 H, Cholesterol 120, LDL Cholesterol 32, VLDL Cholesterol 64 H, HDL Cholesterol 24 L 04/21/22 06:00: WBC 5.5, RBC 4.77, Hgb 15.0, Hct 43.3, MCV 90.8, MCH 31.4, MCHC 34.6, RDW Std Deviation 43.3, RDW Coeff of Garett 13.2, Plt Count 170, MPV 9.4, Immature Gran % (Auto) 0.400, Neut % (Auto) 42.8 L, Lymph % (Auto) 42.0 H, [place] % (Auto) 10.2 H, Eos % (Auto) 3.5, Baso % (Auto) 1.1 H, Absolute Neuts (auto) 2.4, Absolute Lymphs (auto) 2.30, Nucleated RBC % 0 04/21/22 06:00: Sodium 138, Potassium 4.2, Chloride 108 H, Carbon Dioxide 22.0, Anion Gap 8, BUN 27 H, Creatinine 1.00, Estim Creat Clear Calc 57.93, Est GFR (MDRD) Af Amer 92, Est GFR (MDRD) Non-Af 76, BUN/Creatinine Ratio 27.0 H, Glucose 116 H, Calcium 8.9 Radiography Diagnostic Testing: Radiology Impression Chest X-Ray 04/20/22 22:45 IMPRESSION: 1. No radiographic evidence of acute cardiopulmonary disease. Electronically Signed: Salas Rivera DO at 23:20 EST , D/C Instructions Discharge Diet: Low fat / Low cholesterol Weight Bearing Status: Weight bearing as tolerated Call your doctor if you observe: Fever of 101 or Higher, Shortness of breath, Dizziness, Swelling in the ankles, Chest pain and Increased palpitations (irregular heartbeat) Meaningful Use Info Meaningful Use Diagnoses (Choose all that apply): AMI AMI/Post PCI/Angioplasty Aspirin given w/in 24hrs of arrival?: Yes ASA at discharge?: Yes Antiplatelet Therapy at Discharge:: Yes Statins at discharge?: Yes Izaiah/ARB at discharge?: No Reason Izaiah/ARB not ordered:: Not indicated Beta Pearl at discharge?: Yes Done w/ Acute SC measure.: Yes Documented LVEF (%): 20 Discharge Plan Admission Admit Date/Time: 04/21/22 00:41 Primary Reason for Your Visit: atypical angina Attending Provider: Laverne Ayoub Primary Care Provider: Care Physician,No Primary Consulting Providers: Dennis Keller ; Jeff Servin Discharge Orders/Prescriptions Prescriptions: New clopidogrel 75 mg Tablet 75 mg PO DAILY Qty: 30 2RF Continued ezetimibe [Zetia] 10 mg tablet 5 mg PO DAILY omega-3 acid ethyl esters 1 gram capsule 2 cap PO BID levothyroxine 50 mcg capsule 50 mcg PO DAILY furosemide 20 mg tablet 20 mg PO BID cholecalciferol (vitamin D3) 2,000 UNIT capsule 4,000 unit PO DAILY nitroglycerin 0.4 MG tablet 0.4 mg SUBLINGUAL Q5M PRN (Reason: Cardiac/Chest Pain) Qty: 1 0RF aspirin 81 mg tablet,chewable 81 mg PO BID ascorbic acid (vitamin C) 1,000 mg tablet,chewable 1 g PO DAILY Digestive Advantage Prob Gummy 250 million cell tablet,chewable 2 cell PO DAILY carvedilol 3.125 mg tablet 3.125 mg PO BID Rx Instructions: must administer with a meal/food Referrals / Follow Up: Dennis Keller MD [Med Staff - Active Staff] - Within 2 Weeks Care Physician,No Primary [Primary Care Provider] - Disposition Disposition (needs filled in before D/C Order can be placed): Home, Self Care Charges/Coding Visit Charges OBSV E&M: 89809 Observ/hosp same date L2
--- NOTE | 2022-04-21 17:37 | CL.D_ITS ---
Patient Name: YOGI DIAZ Study Date: 04/21/2022 Performing: Dennis Keller MD Ht: 69 inches 175.26 cm : 1940 Wt: 205.3 lbs 93 kg Age: 82 Gender: male BSA: 2.09 PROCEDURE(S) PERFORMED [id number])LHC/COR/CABG CLINICAL PROFILE AND INDICATIONS Indications: Worsening Angina, Suspected CAD, LV Dysfunction Heart Failure: NYHA Class: 3, Newly Diagnosed: No, Heart Failure Type: Systolic Stress/Imaging Date: 04/20/2022tress Test with SPECT MPI: Positive Intermediate Risk Angina Classification Anginal Classification w/in 2 Weeks: CCS III CAD Presentations: Other: worsening angina CONCLUSIONS [place] Multivessel CAD DIALY to LAD: patent SVG sequential graft to OM1, OM2, and RPDA: patent Left to Right collateral flow MV annuloplasy ring: present Left Atrial Occlusion Device: present Dual chamber ICD: present RECOMMENDATIONS Risk factor modification Medical therapy DESCRIPTION OF PROCEDURE The patient arrived to the procedure lab. The risks and benefits of the procedure as well as a full description of our services here and current unavailability of surgical backup were fully explained to the patient and/or their significant other prior to the catheterization. The Timeout was completed, verifying the correct patient and procedure. The patient's procedural site was prepped and draped in the usual fashion. Local anesthetic was given subcutaneously to right groin region with Lidocaine 2%. Using a modified Seldinger technique, arterial access was obtained via the right femoral artery, a 4Fr sheath was inserted Left Coronary Artery selective angiography was performed in multiple views using a 4 Fr. JL5 catheter. Right Coronary Artery selective angiography was then performed in multiple views using a 4 Fr. JR4 catheter. Sequential graft- Saphenous Vein graft to the OM 1 and OM 2 and PDA selective angiography was performed in multiple views using a 4 Fr. JR4 catheter. Left internal mammary artery graft to the LAD selective angiography was performed in multiple views using a 4 Fr. IM catheter.The arterial sheath was pulled and manual compression applied until hemostasis is achieved. CORONARY ANGIOGRAPHY DOMINANCE: Right Dominant LEFT HEART ASSESSMENT Left Ventricular Ejection Fraction: Not assessed Left Atrial Occlusion Device: present Dual chamber ICD: present LEFT MAIN: Angiographically normal LEFT ANTERIOR DESCENDING ARTERY: PROX LAD: Mild luminal irregularities MID LAD: pre stent: 85 % Stenosis, Previously placed stent is patent, mid to distal LAD: fills by antegrade flow but predominantly by DAILY graft flow with no angiographically significant appearing disease distal to the graft attachment DISTAL LAD: fills by antegrade flow but predominantly by DAILY graft flow with no angiographically significant appearing disease distal to the graft attachment DIAGONAL 1: Proximal - bifurcating vessel: diffuse mild luminal irregularities and smaller caliber medial branch with diffuse 25 % Stenosis SEPTAL: 2nd SP: ostial: 95 % Stenosis CIRCUMFLEX ARTERY: PROX CIRC: eccentric: 25 % Stenosis OM 1: Proximal - fills from the SVG graft OM 2: Proximal - fills in sequential fashion from the SVG graft to OM1 RIGHT CORONARY ARTERY: PROX RCA: is occluded RT PDA: Proximal - fills sequentially from the SVG graft to OM1 and OM2 with no angiographically significant appearing disease distal to the graft attachment RIGHT AV SEGMENT: Mild luminal irregularities less than 30% GRAFTS: 2nd Obtuse Marginal: Proximal - fills in sequential fashion from the SVG graft to OM1 Right Posterior Descending Artery: Proximal - fills sequentially from the SVG graft to OM1 and OM2 with no angiographically significant appearing disease distal to the graft attachment DAILY graft to the Mid LAD is patent Saphenous Vein graft to the 1st OM is patent with sequential portion to 2nd OM being patent and sequential portion to the RPDA being patent COLLATERAL FLOW: Collateral flow from Left to Right VALVE FINDINGS: MV annuloplasty ring: present COMPLICATIONS No Complications PROCEDURE MEDICATIONS Versed 1 mg IV Oxygen: 2 L/min via nasal cannula Brilinta 180 mg PO @ 04/21/2022 08:50:27 SUMMARY OF HEMODYNAMIC DATA Time AIR REST ECG 08:42:42 AO 100/48 (67) SA 09:11:55 Signed By Dennis Keller MD On 04/21/2022 17:36:17 Dennis Keller MD
== END 2022-04-21 15:07 | disposition home or self-care (01) ==
LOC: ED 23:54 → PCU 04-21 00:56
PROVIDERS: Admitting Provider Hospitalist; Emergency Provider Emergency Medicine; Visit Provider Student in an Organized Health Care Education/Training Program
DX: I25.110 Atherosclerotic heart disease of native coronary artery with unstable angina pectoris (principal); I11.0 Hypertensive heart disease with heart failure; I50.22 Chronic systolic (congestive) heart failure; I48.0 Paroxysmal atrial fibrillation; I48.92 Unspecified atrial flutter; Z95.810 Presence of automatic (implantable) cardiac defibrillator; I49.3 Ventricular premature depolarization; Z87.891 Personal history of nicotine dependence; E78.5 Hyperlipidemia, unspecified; R94.39 Abnormal result of other cardiovascular function study; I44.0 Atrioventricular block, first degree; I25.5 Ischemic cardiomyopathy; Z95.1 Presence of aortocoronary bypass graft; G47.33 Obstructive sleep apnea (adult) (pediatric); Z79.899 Other long term (current) drug therapy; Z79.82 Long term (current) use of aspirin
CPT/HCPCS: 36415; 71045; 80048; 80061; 84484; 85025; 93005; 93454; 93455; 96372; 96374; 99152; 99153; 99218; 99285; 99406; J7030; A4216; C1769; C1894; G0378; J2405; Q9967

== ENCOUNTER → 2022-04-20 | Outpatient (CLI) | payer MEDICARE, OTHER, SELFPAY ==
--- NOTE | 2022-04-20 08:09 | STRESSREP ---
Stress Test Report Date: 04-20-2022 Procedure: Pharmacologic stress nuclear imaging study Indications: CAD; PCI; CABG; status post mitral valve repair; status post left atrial appendage occlusion; cardiac dysrhythmia; status post ICD Consent: Per the patient Procedure: The patient underwent pharmacologic (Regadenoson 0.4mg ) evaluation with a peak heart rate of 98 beats per minute (70%predicted maximal heart rate) and a resting blood pressure of 118/78 mmHg and a peak blood pressure of 118/78 mmHg. The baseline ECG demonstrated sinus rhythm; first-degree AV block; poor R wave progression; anterior MT of indeterminate age cannot be excluded. The peak pharmacologic ECG demonstrated no obvious ECG changes. There were occasional PVCs during infusion and recovery, isolated ventricular couplet during recovery, electronic ventricular paced beat during recovery. There was no complaint of chest discomfort during pharmacologic infusion or recovery. The examination was discontinued secondary to completion of protocol. Impression: 1. Pharmacologic (Regadenoson) evaluation 2. Peak pharmacologic ECG with no obvious ECG changes. 3. There were occasional PVCs during infusion recovery, isolated ventricular couplet during recovery, electronic ventricular paced beat during recovery. 4. Nuclear images pending Myocardial perfusion imaging study: Technique: The patient was injected with millicuries of technetium 99m Cardiolite and subsequently rest SPECT Cardiolite nuclear imaging was obtained in the horizontal long, vertical long, and short axis views. The patient underwent pharmacologic (Regadenoson) evaluation with a peak heart rate of 98 beats per minute (70% percent predicted maximal heart rate) and a resting blood pressure of 118/78 mmHg and a peak blood pressure of 118/78 mmHg. The patient was injected with millicuries of technetium 99m Cardiolite and subsequently stress SPECT Cardiolite nuclear imaging was obtained in the horizontal long, vertical long, and short axis views. A gated Cardiolite study at peak stress was obtained. Interpretation: Rest and stress SPECT Cardiolite nuclear imaging status post realignment, normalization, and attenuation correction demonstrate diminished myocardial perfusion/tracer uptake in portions of the distal anterior/anteroapical segments without significant change between rest and status post stress there is notation of diminished myocardial perfusion/tracer uptake in portions of the distal inferior segments. There is diminished end-systolic thickening and brightening. The gated Cardiolite study demonstrates diminished myocardial thickening and inward wall motion. The reported LVEF is 26%. Impression: 1. Rest and stress SPECT current nuclear imaging demonstrate myocardial perfusion changes appearing compatible with an area of previous myocardial injury/infarction involving portions of the distal anterior/anteroapical segments as well as post stress myocardial perfusion changes concerning for an area of stress-induced myocardial ischemia in portions of the distal inferior segments. 2. The gated Cardiolite study reports an LVEF of 26%. This note was generated with [employer] software. It may contain incorrect words, spelling, and punctuation that were not noted in checking the note before signing.
== END | disposition home or self-care (01) ==
PROVIDERS: Referring Provider Nurse Practitioner Family; Visit Provider Nurse Practitioner Family
DX: I47.20 Ventricular tachycardia, unspecified (principal); I50.20 Unspecified systolic (congestive) heart failure; I25.10 Atherosclerotic heart disease of native coronary artery without angina pectoris; I25.5 Ischemic cardiomyopathy; Z95.810 Presence of automatic (implantable) cardiac defibrillator
CPT/HCPCS: 78452; 93017; A9500; A4216; J2785

== ENCOUNTER 2022-12-17 11:32 | Observation (INO) | payer OTHER, SELFPAY ==
[2022-12-16 08:49] VITALS: BMI 31.0
[2022-12-17 11:32] VITALS: BP 154/103; PULSE 85; RESP 16; TEMP 35.8; O2SAT 97
--- NOTE | 2022-12-17 11:37 | EDS_ITS ---
HPI History of Present Illness Chief Complaint: Chest Pain [facility] Medical History Arthritis Atherosclerotic heart disease of [place] coronary artery without angina pectoris Atrial fibrillation Atrial fibrillation and flutter Bradycardia CAD (coronary artery disease) CAD (coronary artery disease) Enlarged prostate Essential hypertension Essential hypertension FH: mitral valve repair Former smoker Hearing problem Heart disease Heart failure High triglycerides History of left heart catheterization (LHC) (~04/21/22) HLD (hyperlipidemia) HTN (hypertension) Hx of coronary artery disease Hypertriglyceridemia Hypothyroidism ICD (implantable cardioverter-defibrillator) in place Irregular heart beat Ischemic cardiomyopathy
--- NOTE | 2022-12-17 11:37 | ED.VIS.CHEST ---
HPI History of Present Illness Chief Complaint: Chest Pain [facility] Medical History Arthritis Atherosclerotic heart disease of [place] coronary artery without angina pectoris Atrial fibrillation Atrial fibrillation and flutter Bradycardia CAD (coronary artery disease) CAD (coronary artery disease) Enlarged prostate Essential hypertension Essential hypertension FH: mitral valve repair Former smoker Hearing problem Heart disease Heart failure High triglycerides History of left heart catheterization (LHC) (~04/21/22) HLD (hyperlipidemia) HTN (hypertension) Hx of coronary artery disease Hypertriglyceridemia Hypothyroidism ICD (implantable cardioverter-defibrillator) in place Irregular heart beat Ischemic cardiomyopathy Migraines Near syncope HERMAN (obstructive sleep apnea) Paroxysmal atrial flutter Presence of stent in coronary artery (~09/23/16) Sleep apnea Systolic congestive heart failure Tachy-drew syndrome Tachycardia Thyroid disease Unstable angina UTI (urinary tract infection) Ventricular ectopy Home Medications cholecalciferol (vitamin D3) 50 mcg (2,000 unit) capsule 4,000 unit PO DAILY supplement 09/20/16 [History Last Taken 12/03/20] nitroglycerin 0.4 mg sublingual tablet 0.4 mg sublingual Q5M PRN Cardiac/Chest Pain #1 BOTTLE 09/24/16 [Rx Last Taken Unknown] omega-3 acid ethyl esters 1 gram capsule 2 cap PO BID 12/23/21 [History Last Taken Unknown] Bacillus coagulans 250 million cell chewable tablet (Digestive Advantage Probiotic Gummy) 2 cell PO DAILY immune health 02/24/22 [History Last Taken Unknown] ascorbic acid (vitamin C) 1,000 mg chewable tablet 1 g PO DAILY supplement 02/24/22 [History Last Taken Unknown] levothyroxine 50 mcg capsule 50 mcg PO DAILY 02/24/22 [History Last Taken Unknown] clopidogrel 75 mg tablet 75 mg PO DAILY #90 tabs 05/31/22 [Rx Last Taken Unknown] sacubitril 49 mg-valsartan 51 mg tablet (Entresto) 0.5 tab PO BID 10/21/22 [History Last Taken Unknown] aspirin 81 mg chewable tablet 81 mg PO DAILY heart health 11/17/22 [History Last Taken Unknown] citalopram 10 mg tablet 10 mg PO DAILY 12/17/22 [History Last Taken Unknown] vitamin B complex (B Complex-Vitamin B12 tablet) 2 tab PO Q24H 12/17/22 [History Last Taken Unknown] Allergy/AdvReac Type Severity Reaction Status Date / Time amiodarone Allergy Severe Other Verified 12/17/22 11:37 Opioids - Morphine Analogues Allergy Other Verified 12/17/22 11:37 Penicillins Allergy Rash Verified 12/17/22 11:37 Ndobhqq-JIC-PfS Reductase AdvReac Intermediate Pain in Verified 12/17/22 11:37 Inhibitor joints empagliflozin AdvReac Unknown UTI Verified 12/17/22 11:37 [From Jardiance] carvedilol AdvReac Foggy Verified 12/17/22 11:37 Head, Dizziness Family History Mother Dyslipidemia Father No problems noted. Surgical History H/O mitral valve repair History of ankle surgery History of appendectomy History of coronary artery stent placement History of mitral valve repair History of rotator cuff surgery Hx of appendectomy Hx of CABG Hx of CABG left leg surgery Pacemaker Post PTCA Presence of coronary angioplasty implant and graft (~09/23/16) S/P CABG x 4 S/P left atrial appendage ligation S/P PTCA (percutaneous transluminal coronary angioplasty) Social History Smoking Status: Former smoker alcohol intake: never substance use type: does not use caffeine: No what type of physical activity do you participate in: none and walking EXAM Physical Exam Const Vital Signs: 12/17/22 11:32 12/17/22 11:34 12/17/22 14:09 Temperature 96.5 F L Temperature Source Temporal Pulse Rate 85 Respiratory Rate 16 Respiratory Effort Normal Non-Labored Blood Pressure 154/103 H Blood Pressure Mean 120 Pulse Ox 97 98 Oxygen Delivery Method Room Air Room Air 12/17/22 14:09 Temperature Temperature Source Pulse Rate 73 Respiratory Rate 16 Respiratory Effort Blood Pressure 113/75 Blood Pressure Mean 87 Pulse Ox 97 Oxygen Delivery Method Room Air Heart Score History: Moderately Suspicious ECG: Normal Age: >/= 65 years Risk Factors: >/= 3 Risk Factors or History of CAD Troponin: </= Normal Limit Score: 5 MDM MDM MDM Narrative Medical decision making narrative: HISTORY OF PRESENT ILLNESS: 82-year-old male here with concern for chest pain. Notes pain began 1-1/2 hours ago. Is not exertional it is pressure-like. Is not pleuritic. He denies any recent fever, sore throat runny nose. Denies any sick contacts. Denies any lower extremity edema. The patient denies recent surgery in the last 4 weeks or immobilization in the last 3 days, denies previous diagnosis of DVT or PE, hemoptysis, unilateral leg swelling or malignancy with treatment the last 6 months. No estrogen use noted. Patient denies sudden onset of pain, no tearing sensation, no migratory symptoms, no new numbness, weakness or loss of sensation. Patient denies family history or personal history of Marfan syndrome or Kriss-Danlos he denies any bleeding diathesis. Denies any vomiting or diarrhea. Does note some mild nausea REVIEW OF SYSTEMS: Pertinent positives: Chest pain Pertinent negatives: Syncope, focal weakness PHYSICAL EXAM: Nursing triage notes reviewed, Vital signs reviewed Constitutional: please see mdm HENT: MMM Eyes: Pupils equal round and reactive to light, Extraocular muscles intact Neck: No stridor, no JVD, full neck ROM Lungs: Clear to auscultation, No wheezing or rales. No increased work of breathing, no conversational dyspnea, no accessory muscle use, no nasal flaring. No respiratory distress noted Heart: Regular rate and rhythm, No murmurs, No rubs and No gallops, 2+ distal pulses (radial, femoral, posterior tibial) in all extremities Abdomen: Soft, there is no tenderness, rigidity, rebound or guarding, no obvious peritoneal signs, no palpable pulsatile abdominal masses, no auscultated abdominal bruit : No CVAT Extremities: No edema Neuro: No focal neurological deficits, cranial nerves II through XII intact, 5/5 strength in all extremities. Intact sensation to light touch in all extremities, 2+ reflexes bilateral patella tendons. Normal gait. No ataxia. Skin: No rash or lesions noted MEDICAL DECISION MAKING: Chief Complaint: Chest pain after coughing External records reviewed: Cardiac catheterization 2021 shows [place] multivessel CAD, but patent vessels, recommendations and risk factor modification medical therapy Factors affecting care: CAD, ischemic cardiomyopathy, status post left heart cath, hypertension, status post ICD, A-fib, hypothyroidism Social determinants of health: Former smoker History obtained from others: none Consults: Internal medicine ALL IMAGES (IF OBTAINED) HAVE BEEN PERSONALLY REVIEWED AND INTERPRETED BY MYSELF. EKG with normal sinus rhythm, normal axis, no intervals, no STEMI MDM Narrative: The patient was hemodynamically stable, afebrile, nontoxic-appearing. Exam I considered the following differential diagnosis: ACS, anemia, pneumonia, CHF, electrolyte abnormality, PE, dissection I obtained a broad lab and imaging work-up to further elucidate the etiology of the patient's complaints. Initial EKG, troponins and blood work were unremarkable however the patient heart score is elevated at 5. He has a high risk patient. He was offered admission. He agreed to stay in the hospital for serial biomarkers and confirmatory testing. The patient and/or family, caregivers express understanding. The patient and/or family, caregivers agrees with the plan. Shared decision making: I will have a discussion with the patient and or visitors regarding risk/benefits of further testing or admission. They will be made aware of of the risk/benefits inherent in this decision they will be given the opportunity to voice understanding. Total critical care time today provided was at least 0 [] minutes. This excludes separately billable procedures. Critical care time (if documented) is secondary to the patient having high probability of clinically significant/life threatening deterioration in the patient's condition which required my urgent intervention. Lab Data Attestation: I reviewed the patient's lab results. Lab results narrative: CBC without leukocytosis, severe anemia, no thrombocytopenia. BMP without evidence of significant electrolyte abnormalities, no anion gap, no acute kidney injury. Troponin is negative, no evidence of myocardial ischemia x2 BNP without evidence of increased myocardial stretch Labs: Laboratory Results - last 24 hr 12/17/22 12/17/22 11:35 13:50 WBC 8.4 RBC 5.53 Hgb 17.4 H Hct 51.2 MCV 92.6 MCH 31.5 MCHC 34.0 RDW Std Deviation 46.5 H RDW Coeff of Garett 13.6 Plt Count 199 MPV 9.4 Immature Gran % (Auto) 0.700 Neut % (Auto) 55.8 Lymph % (Auto) 31.7 [place] % (Auto) 9.4 Eos % (Auto) 1.4 Baso % (Auto) 1.0 Absolute Neuts (auto) 4.7 Absolute Lymphs (auto) 2.65 Nucleated RBC % 0 Sodium 134 L Potassium 4.6 Chloride 104 Carbon Dioxide 22.0 Anion Gap 8 BUN 24 H Creatinine 1.09 Est GFR (MDRD) Af Amer 83 Est GFR (MDRD) Non-Af 69 BUN/Creatinine Ratio 22.0 H Glucose 98 Calcium 9.2 Troponin I High Sens 25 25 B-Natriuretic Peptide 98.6 Radiography Chest X-Ray - ED: Read by ED Physician Diagnostic Testing: Clinical Impression(s) from Imaging Studies Chest X-Ray 12/17/22 12:48 IMPRESSION: Stable examination. No acute abnormality is seen. Electronically Signed: Caleb Earl MD at 13:16 EDT , I have personally reviewed the patient's chest x-ray. Chest x-ray is unremarkable for pulmonary edema, pneumothorax, pneumonia or focal cardiopulmonary abnormality. Discharge Plan Triage Chief Complaint: Chest Pain ED Provider: Giancarlo Harp Dx/Rx/DC Orders Primary Care Provider: Crystal Wise
--- NOTE | 2022-12-17 12:09 | EKG12_ITS ---
Test Reason : cp Blood Pressure : / mmHG Vent. Rate : 087 BPM Atrial Rate : 087 BPM P-R Int : 290 ms QRS Dur : 118 ms QT Int : 362 ms P-R-T Axes : 045 036 002 degrees QTc Int : 435 ms Sinus rhythm with 1st degree A-V block Non-specific intra-ventricular conduction delay Borderline ECG Confirmed by JOSE OLIVO, SHARONA ([id number]), assistant editor GAYATHRI LOPEZ ([id number]) on 12/18/2022 10:03:01 AM Referred By: Fermin Confirmed By:SHARONA GARCIA MD
[2022-12-17] MEDS: Aspirin 81 MG TAB.CHEW 324 MG PO (12:21)
[2022-12-17 12:22] LABS: Absolute Lymphocyte Count 2.65 X10^3/uL (0.83-4.51); Absolute Neutrophil Count 4.7 X10^3/uL (2.0-7.7); Basophil# 0.08 X10^3/uL; Eosinophil# 0.12 X10^3/uL; Eosinophils% 1.4 % (0-5); Hematocrit 51.2 % (40-54); Hemoglobin 17.4 g/dL (13.0-16.5); Lymphocyte # 2.65 X10^3/ul (0.83-4.51); Lymphocyte % 31.7 % (19-41); Mean Corpuscular Hgb 31.5 pg (27.0-32.0); Mean Corpuscular Volume 92.6 fL (80-94); Mean Platelet Vol. 9.4 fl (6.2-12.0); Monocyte# 0.79 X10^3/uL; Monocyte% 9.4 % (0-10); NRBC Flagged by Analyzer 0 % (0-5); Neutrophil # 4.66 X10^3/uL (2.7-7.7); Neutrophil % 55.8 % (47-70); Platelet Count 199 K/mm3 (150-450); RBC Distribution Width CV 13.6 % (11.6-14.6); RBC Distribution Width SD 46.5 fl (35.1-43.9); Red Blood Count 5.53 M/mm3 (4.6-6.2); White Blood Count 8.4 K/mm3 (4.4-11.0)
[2022-12-17 12:40] LABS: Anion Gap 8 (5-15); BUN 24 mg/dL (7-18); Calcium,Total 9.2 mg/dL (8.5-10.1); Chloride 104 mmol/L (98-107); Creatinine, Serum 1.09 mg/dL (0.70-1.30); EST Glomerular Filtration Rate 69 mL/min (>60); Est Glom Filt Rate - Afr Amer 83 mL/min (>60); Glucose 98 mg/dL (74-106); Potassium 4.6 mmol/L (3.5-5.1); Sodium Level 134 mmol/L (136-145); Troponin-I HS (w/2H Reflex) 25 pg/mL (3.0-78.0)
--- NOTE | 2022-12-17 12:48 | RAD_ITS ---
STUDY: X-RAY CHEST REASON FOR EXAM: Male, 82 years old. Chest pain TECHNIQUE: Single AP portable view of the chest. COMPARISON: Comparison is made with prior study May 17, 2022. FINDINGS: EKG electrodes are seen. Hyperinflation. There is no demonstrated pleural abnormality. Sternal cerclage wires are present from a prior sternotomy. The patient is status post mitral valve replacement and clipping of the left atrial appendage. A left-sided dual-chamber pacemaker is seen. Normal mediastinum and preet. Normal visualized pulmonary arteries. There is atherosclerotic calcification of the aortic arch with tortuosity. There are diffuse degenerative changes of the visualized thoracic spine. Prior rotator cuff repair of the left shoulder with degenerative changes bilaterally. There is no demonstrated abnormality of the visualized soft tissue structures of the upper abdomen. RAD/Chest 1 View (Portable) IMPRESSION: Stable examination. No acute abnormality is seen. Electronically Signed: Caleb Earl MD at 13:16 EDT ,
[2022-12-17 12:54] LABS: BNP,B-Type NATRIURETIC PEPTIDE 98.6 pg/mL (0-100)
[2022-12-17 14:09] VITALS: BP 113/75; PULSE 73; RESP 16; O2SAT 97; O2SAT 98
[2022-12-17 14:17] LABS: Reflex Troponin-HS? (from REC) Y
[2022-12-17 14:38] LABS: Troponin-I HS 25 pg/mL (3.0-78.0)
--- NOTE | 2022-12-17 15:17 | HP.PCM_ITS ---
HPI - General General Date of Admission: 12/17/22 Date of Service: 12/17/22 HPI Narrative YOIG DIAZ, is a 82 M with a PMH as outlined who presents via the ED On 12/17/2022 with a complaint of chest pain which started about a half hour prior to presentation. Pain was pressure like, nonpleuritic and not worsened by exacerbation. He denied any shortness of breath, palpitations, dizziness, nausea, vomiting or diarrhea. Review of systems was otherwise negative. He hasnt had any recent long distance travel or any recent surgeries, or any history of DVT or PE. Review of systems was otherwise negative. Vitals in the ED were BP of 113/75, DE of 73, R of 16 and oxygen sats of 97% on room air. CBC was unremarkable and BMP was also largely unremarkable. CXR showed no acute cardiopulmonary process. Initial troponin was negative. EKG showed no acute ST changes. He is being admitted to be managed for chest pain to rule out ACS. [facility] Medical History (Updated 12/17/22 @ 17:16 by Savanna Cedeno) Arthritis Atherosclerotic heart disease of [place] coronary artery without angina pectoris Atrial fibrillation Atrial fibrillation and flutter Bradycardia CAD (coronary artery disease) CAD (coronary artery disease) Enlarged prostate Essential hypertension Essential hypertension FH: mitral valve repair Former smoker Hearing problem Heart disease Heart failure High triglycerides History of left heart catheterization (LHC) (~04/21/22) HLD (hyperlipidemia) HTN (hypertension) Hx of coronary artery disease Hypertriglyceridemia Hypothyroidism ICD (implantable cardioverter-defibrillator) in place Irregular heart beat Ischemic cardiomyopathy Migraines Near syncope HERMAN (obstructive sleep apnea) Osteomyelitis Paroxysmal atrial flutter Presence of stent in coronary artery (~09/23/16) Sleep apnea Systolic congestive heart failure Tachy-drew syndrome Tachycardia Thyroid disease Unstable angina UTI (urinary tract infection) Ventricular ectopy Home Medications cholecalciferol (vitamin D3) 50 mcg (2,000 unit) capsule 4,000 unit PO DAILY supplement 09/20/16 [History Last Taken 12/03/20] nitroglycerin 0.4 mg sublingual tablet 0.4 mg sublingual Q5M PRN Cardiac/Chest Pain #1 BOTTLE 09/24/16 [Rx Last Taken Unknown] omega-3 acid ethyl esters 1 gram capsule 2 cap PO BID 12/23/21 [History Last Taken Unknown] Bacillus coagulans 250 million cell chewable tablet (Digestive Advantage Probiotic Gummy) 2 cell PO DAILY immune health 02/24/22 [History Last Taken Unknown] ascorbic acid (vitamin C) 1,000 mg chewable tablet 1 g PO DAILY supplement 02/24/22 [History Last Taken Unknown] levothyroxine 50 mcg capsule 50 mcg PO DAILY 02/24/22 [History Last Taken Unknown] clopidogrel 75 mg tablet 75 mg PO DAILY #90 tabs 05/31/22 [Rx Last Taken Unknown] sacubitril 49 mg-valsartan 51 mg tablet (Entresto) 0.5 tab PO BID 10/21/22 [History Last Taken Unknown] aspirin 81 mg chewable tablet 81 mg PO DAILY heart health 11/17/22 [History Last Taken Unknown] citalopram 10 mg tablet 10 mg PO DAILY 12/17/22 [History Last Taken Unknown] vitamin B complex (B Complex-Vitamin B12 tablet) 2 tab PO Q24H 12/17/22 [History Last Taken Unknown] Allergy/AdvReac Type Severity Reaction Status Date / Time amiodarone Allergy Severe Other Verified 12/17/22 11:37 Opioids - Morphine Analogues Allergy Other Verified 12/17/22 11:37 Penicillins Allergy Rash Verified 12/17/22 11:37 Tyxjlep-HTO-XeR Reductase AdvReac Intermediate Pain in Verified 12/17/22 11:37 Inhibitor joints empagliflozin AdvReac Unknown UTI Verified 12/17/22 11:37 [From Jardiance] carvedilol AdvReac Foggy Verified 12/17/22 11:37 Head, Dizziness Family History (Updated 12/17/22 @ 17:17 by Savanna Cedeno) Mother Dyslipidemia Hypertension Father Myelofibrosis Surgical History H/O mitral valve repair History of ankle surgery History of appendectomy History of coronary artery stent placement History of mitral valve repair History of rotator cuff surgery Hx of appendectomy Hx of CABG Hx of CABG left leg surgery Pacemaker Post PTCA Presence of coronary angioplasty implant and graft (~09/23/16) S/P CABG x 4 S/P left atrial appendage ligation S/P PTCA (percutaneous transluminal coronary angioplasty) Social History Smoking Status: Former smoker alcohol intake: never substance use type: does not use caffeine: No what type of physical activity do you participate in: none and walking ROS Constitutional Constitutional: Denies fatigue, fever(s), malaise or weakness Eyes Eyes: Denies change in vision ENT HEENT: Denies dysphagia or headache(s) Cardiovascular Cardiovascular: Reports chest pain; Denies edema, orthopnea, palpitations, paroxysmal nocturnal dyspnea or syncope Respiratory/Chest Respiratory/Chest: Denies cough, shortness of breath at rest or shortness of breath with exertion Gastrointestinal Gastrointestinal: Denies abdominal pain, nausea or vomiting Genitourinary Genitourinary: Denies dysuria Musculoskeletal Musculoskeletal: Denies back pain Neurologic Neurologic: Denies confusion, dizziness or headache(s) Psychiatric Psychiatric: Denies anxiety or depression Endocrine Endocrinology: Denies change in body appearance Vital Signs Vital Signs Vital Signs: 12/17/22 11:32 12/17/22 11:34 12/17/22 14:09 Temperature 96.5 F L Temperature Source Temporal Pulse Rate 85 Respiratory Rate 16 Respiratory Effort Normal Non-Labored Blood Pressure 154/103 H Blood Pressure Mean 120 Pulse Ox 97 98 Oxygen Delivery Method Room Air Room Air 12/17/22 14:09 Temperature Temperature Source Pulse Rate 73 Respiratory Rate 16 Respiratory Effort Blood Pressure 113/75 Blood Pressure Mean 87 Pulse Ox 97 Oxygen Delivery Method Room Air Physical Exam Const alert, oriented x3 and no apparent distress General Appearance: cooperative HEENT normocephalic, moist oral mucous membranes and oropharynx normal Eyes PERRL and EOMs intact bilaterally Neck no lymphadenopathy and supple Lymph Lymphatic: no lymphadenopathy noted and no lymphedema noted Resp normal respiratory effort, normal air movement and clear to auscultation bila terally Cardio regular rate, regular rhythm, S1 normal heart sound, S2 normal heart sound and no murmurs GI normal to inspection, nondistended, normoactive bowel sounds, soft to palpation, non-tender and non-distended Extremity normal capillary refill, no clubbing, cyanosis or edema and no calf tenderness Skin General Skin Exam: no breakdown Neuro CN's II-XII intact bilaterally, no focal motor deficits, no sensory deficits noted and deep tendon reflexes 2+ bilaterally Motor Exam: strength 5/5 throughout Psych thought process normal, cooperative and affect normal Appearance: appropriate Results Lab / Micro Data 12/17/22 11:35 12/17/22 11:35 Labs: Laboratory Results - last 24 hr 12/17/22 11:35: WBC 8.4, RBC 5.53, Hgb 17.4 H, Hct 51.2, MCV 92.6, MCH 31.5, MCHC 34.0, RDW Std Deviation 46.5 H, RDW Coeff of [place]are[place] 13.6, Plt Count 199, MPV 9.4, Immature Gran % (Auto) 0.700, Neut % (Auto) 55.8, Lymph % (Auto) 31.7, [place] % (Auto) 9.4, Eos % (Auto) 1.4, Baso % (Auto) 1.0, Absolute Neuts (auto) 4.7, Absolute Lymphs (auto) 2.65, Nucleated RBC % 0, Sodium 134 L, Potassium 4.6, Chloride 104, Carbon Dioxide 22.0, Anion Gap 8, BUN 24 H, Creatinine 1.09, Est GFR (MDRD) Af Amer 83, Est GFR (MDRD) Non-Af 69, BUN/Creatinine Ratio 22.0 H, Glucose 98, Calcium 9.2, Troponin I High Sens 25, B-Natriuretic Peptide 98.6 12/17/22 13:50: Troponin I High Sens 25 Radiology Impression Chest X-Ray 12/17/22 12:48 IMPRESSION: Stable examination. No acute abnormality is seen. Electronically Signed: Caleb Earl MD at 13:16 EDT Reading Location ID and State: [address] [place] [address] , Service support , Assessment & Plan Assessment/Plan (1) Chest pain: PLAN: Plan #CHest pain to r/ ACS * admit to PCU * initial troponin is negative * will cycle troponin * PO aspirin and SL nitroglycerin * for stress test tomorrow if troponins remain negative. * #CAD with ischemic cardiomyopathy * has known EF of 20% * had heart cath in March [address]22. Has [address] in [address] * on asirin, plavix and high intensity statin * * #HFrEF * has known EF of 20%. On entresto. * has ICD in place * #Atrial fibrillation:not on beta becca or anticoagulation, per med rec. DVT prophylaxis: lovenox Code status: full code * Patient and counseled extensively about different types of CODE STATUS including full code, DNR CCA and DNR CCA. Patient elects to be full code. * Total [id number]-[id number] time 17 minutes. Charges/Coding Visit Charges Inpatient E&M: 46848 Init Hosp L2 Procedures Hospitalists Procedures: 28264 Advncd Care Plan 30 Min
[2022-12-17 15:52] VITALS: BP 101/82; PULSE 80; RESP 14; TEMP 36.4; O2SAT 98
[2022-12-17 17:05] VITALS: BMI 26.8
[2022-12-17 17:06] VITALS: BP 126/90; PULSE 75; RESP 16; TEMP 36.4; O2SAT 100
[2022-12-17 17:32] VITALS: O2SAT 96
[2022-12-17 18:43] LABS: Troponin-I HS 27 pg/mL (3.0-78.0)
[2022-12-17] MEDS: Ondansetron 4 MG/2 ML Vial IV (19:36)
[2022-12-17] MEDS: 0.9% Saline Lock 10 ML Syringe IV (19:36)
[2022-12-17 20:49] VITALS: BP 115/83; PULSE 92; RESP 16; TEMP 37.1; O2SAT 95
[2022-12-17] MEDS: SACUBITRIL/VALSARTAN 49-51 MG TABLET 0.5 EACH PO (20:54)
[2022-12-17] MEDS: Omega-3 Acid Ethyl Esters 1 GM Capsule 2 GM PO (20:54)
[2022-12-18 03:10] VITALS: BP 113/84; PULSE 77; RESP 16; TEMP 36.4; O2SAT 98
--- NOTE | 2022-12-18 05:55 | EKG12_ITS ---
Test Reason : AM EKG Blood Pressure : / mmHG Vent. Rate : 064 BPM Atrial Rate : 064 BPM P-R Int : 296 ms QRS Dur : 118 ms QT Int : 426 ms P-R-T Axes : 058 051 062 degrees QTc Int : 439 ms Sinus rhythm with 1st degree A-V block Non-specific intra-ventricular conduction delay Borderline ECG When compared with ECG of 17-DEC-2022 11:29, MANUAL COMPARISON REQUIRED, DATA IS UNCONFIRMED Confirmed by JOSE OLIVO, SHARONA ([id number]), assignment desk editor GAYATHRI LOPEZ ([id number]) on 12/18/2022 10:10:46 AM Referred By: LUIGI Confirmed By:SHARONA GARCIA MD
[2022-12-18 06:30] VITALS: BP 113/79; PULSE 67; RESP 16; TEMP 36.4; O2SAT 96
[2022-12-18] MEDS: Levothyroxine 50 MCG Tablet PO (06:31)
[2022-12-18] MEDS: Clopidogrel Bisulfate 75 MG Tablet PO (06:31)
[2022-12-18] MEDS: Aspirin 81 MG TAB.CHEW PO (06:31)
[2022-12-18] MEDS: SACUBITRIL/VALSARTAN 49-51 MG TABLET 0.5 EACH PO (06:31)
[2022-12-18 07:54] LABS: Absolute Lymphocyte Count 2.14 X10^3/uL (0.83-4.51); Absolute Neutrophil Count 4.4 X10^3/uL (2.0-7.7); Basophil# 0.06 X10^3/uL; Basophil% 0.8 % (0-1); Eosinophil# 0.13 X10^3/uL; Eosinophils% 1.8 % (0-5); Hematocrit 48.1 % (40-54); Hemoglobin 16.7 g/dL (13.0-16.5); Lymphocyte # 2.14 X10^3/ul (0.83-4.51); Lymphocyte % 28.9 % (19-41); Mean Corp Hgb Conc 34.7 g/dL (32-36); Mean Corpuscular Hgb 32.1 pg (27.0-32.0); Mean Corpuscular Volume 92.5 fL (80-94); Mean Platelet Vol. 9.2 fl (6.2-12.0); Monocyte# 0.64 X10^3/uL; Monocyte% 8.6 % (0-10); NRBC Flagged by Analyzer 0 % (0-5); Neutrophil # 4.41 X10^3/uL (2.7-7.7); Neutrophil % 59.5 % (47-70); Platelet Count 174 K/mm3 (150-450); RBC Distribution Width CV 13.9 % (11.6-14.6); RBC Distribution Width SD 46.9 fl (35.1-43.9); White Blood Count 7.4 K/mm3 (4.4-11.0)
[2022-12-18 08:31] LABS: Anion Gap 3 (5-15); BUN 26 mg/dL (7-18); Chloride 104 mmol/L (98-107); Creatinine, Serum 1.24 mg/dL (0.70-1.30); EST Glomerular Filtration Rate 59 mL/min (>60); Est Glom Filt Rate - Afr Amer 72 mL/min (>60); Estimated Creatinine Clearance 48.24 ml/min; Glucose 113 mg/dL (74-106); Potassium 4.9 mmol/L (3.5-5.1); Sodium Level 135 mmol/L (136-145)
--- NOTE | 2022-12-18 09:39 | ECHOCS_ITS ---
Reason For Study: CHEST PAIN Procedure This was a 2D Doppler, Color Flow transthoracic echocardiogram. The study was technically difficult. Exam performed portable in patient room. Left Ventricle Mildly dilated left ventricle. The estimated ejection fraction is 20 %. Stage 1 diastolic dysfunction. There is severe global hypokinesis of the left ventricle. Right Ventricle Normal RV size. ICD or pacer leads identified within the right ventricle. Normal systolic function. Mitral Valve Normal mitral valve. Tricuspid Valve Normal tricuspid valve. Mild (1+) tricuspid valve insufficiency. Pulmonary artery systolic pressure is 30 mmHg. Aortic Valve Trisinus/trileaflet aortic valve. Mild focal aortic valve calcification. Mild (1+) aortic valve insufficiency. Pulmonic Valve The pulmonic valve is not well visualized. Great Vessels Normal aortic root. The pulmonary artery is normal size. Pericardium/Pleural No pericardial effusion. Medication Diluted definity 4.0ml given slow IV push to enhance endocardial definition. MMode/2D Measurements & Calculations LVIDd: 5.8 cm IVSd: 1.1 cm Ao root diam: 3.9 cm LVIDs: 4.8 cm LVPWd: 1.2 cm RVDd: 3.7 cm FS: 18.1 % LAV(MOD-bp): 52.4 ml LVAd ap4: 44.5 cm2 SV(MOD-sp4): 42.2 ml LAV(MOD-bp) Indexed: 25.8 ml/m2 LVLd ap4: 9.4 cm LAV(MOD-sp2): 56.8 ml EDV(MOD-sp4): 174.3 ml LAV(MOD-sp4): 46.2 ml EDV(sp4-el): 177.8 ml LVAs ap4: 37.3 cm2 LVLs ap4: 8.8 cm ESV(MOD-sp4): 132.1 ml ESV(sp4-el): 133.8 ml EF(MOD-sp4): 24.2 % EF(sp4-el): 24.7 % SV(sp4-el): 44.0 ml LA A4 area: 16.9 cm2 LA dimension(2D): 4.3 cm RA A4 area: 15.9 cm2 Time Measurements MV dec time: 0.30 sec Doppler Measurements & Calculations MV E max beto: 55.9 cm/sec MV dec slope: 189.0 cm/sec2 Ao V2 max: 120.1 cm/sec MV A max beto: 65.3 cm/sec Ao max P.8 mmHg MV E/A: 0.86 Ao V2 mean: 86.6 cm/sec Ao mean P.4 mmHg Ao V2 VTI: 21.7 cm AV (velocity ratio): 0.65 AI max beto: 395.9 cm/sec LV V1 max: 61.0 cm/sec TR max beto: 264.1 cm/sec AI max P.8 mmHg LV V1 max P.5 mmHg TR max P.9 mmHg LV V1 mean P.75 mmHg AI dec slope: 156.4 cm/sec2 LV V1 mean: 39.3 cm/sec AI P1/2t: 741.5 msec LV V1 VTI: 14.0 cm ECHO/Echo Complete W/ Contrast Interpretation Summary Mildly dilated left ventricle. The estimated ejection fraction is 20 %. Stage 1 diastolic dysfunction. Contrast injection was performed. Compared to previous study, the left ventricu lar systolic function is the same.. Ordering Physician: Laverne Ayoub Referring Physician: Crystal Wise Performed By: Rosa Jensen, MARCO ANTONIO, RVT
[2022-12-18] MEDS: Ascorbic Acid 500 MG Tablet 1000 MG PO (09:40)
[2022-12-18] MEDS: Cholecalciferol (VIT D3) 25 MCG TABLET (1,000 UNITS) 100 MCG PO (09:40)
[2022-12-18] MEDS: Citalopram 10 MG Tablet PO (09:41)
[2022-12-18] MEDS: Enoxaparin 40 MG/0.4 ML Syringe SC (09:41)
[2022-12-18] MEDS: Vitamin B Comp W-C Capsule 2 CAP PO (09:41)
[2022-12-18] MEDS: Omega-3 Acid Ethyl Esters 1 GM Capsule 2 GM PO (09:41)
[2022-12-18 10:20] VITALS: BP 117/66; PULSE 63; RESP 20; TEMP 36.6; O2SAT 98
--- NOTE | 2022-12-18 11:20 | STRESSREP_ITS ---
Stress Test Report Pharmacologic myocardial perfusion stress test. 82-year-old man with a history of chest pain Resting EKG demonstrates sinus bradycardia with a rate of 60 bpm with a first- degree AV block and occasional paced rhythm. Resting blood pressure is 118/80 mmHg. 0.4 mg of regadenoson was infused per usual protocol followed by rapid intravenous saline flush injection. Continuous EKG monitoring was performed. The maximum heart rate was 90 bpm which was 64% of max impacted heart rate the maximum workload was 1 metabolic equivalent. At rest there were no ST or T wave changes noted to suggest ischemia and at peak infusion nonspecific ST changes were noted which did not meet the criteria for ischemia. No clinical angina is noted. The final blood pressure was 116/70 mmHg. Myocardial perfusion protocol. 11.7 mCi of technetium 99m sestamibi was injected at rest. 0.4 mg of regadenoson was infused per usual protocol. At peak infusion 36.0 mCi of technetium 99m sestamibi was injected stress images were obtained stress and rest images were reconstructed and compared in the short axis vertical long and horizontal long axis. Gated images were also obtained. Perfusion SPECT analysis: Review of the stress images demonstrate normal uptake of tracer noted in all areas of the myocardium. The resting images similar demonstrated normal uptake of tracer noted in all areas of the myocardium. No areas of reversibility are noted to suggest ischemia and no previous infarct is noted. Gated SPECT analysis: The gated ejection fraction is 22%. Dilated cardiac silhouette size Conclusion: Normal pharmacologic myocardial perfusion stress test. Reduced ejection fraction.
--- NOTE | 2022-12-18 12:11 | PCM.DC.SUM ---
Providers Date of Admission: 12/17/22 Date of Discharge: 12/18/22 Primary Care Physician: Dr. Crystal Wise MD Reason For Visit: CHEST PAIN Diagnosis Discharge Diagnosis (1) Chest pain: Status: Inactive Code(s): R07.9 - Chest pain, unspecified Plan #CHest pain to r/ ACS admit to PCU initial troponin is negative will cycle troponin PO aspirin and SL nitroglycerin for stress test tomorrow if troponins remain negative. #CAD with ischemic cardiomyopathy has known EF of 20% had heart cath in March 2022. Has stents in place on asirin, plavix and high intensity statin #HFrEF has known EF of 20%. On entresto. has ICD in place #Atrial fibrillation:not on beta becca or anticoagulation, per med rec. DVT prophylaxis: lovenox Code status: full code Patient and counseled extensively about different types of CODE STATUS including full code, DNR CCA and DNR CCA. Patient elects to be full code. Total [id number]-[id number] time 17 minutes. Medications at Discharge Home Medications cholecalciferol (vitamin D3) 50 mcg (2,000 unit) capsule 4,000 unit PO DAILY supplement 09/20/16 nitroglycerin 0.4 mg sublingual tablet 0.4 mg sublingual Q5M PRN Cardiac/Chest Pain #1 BOTTLE 09/24/16 omega-3 acid ethyl esters 1 gram capsule 2 cap PO BID 12/23/21 Bacillus coagulans 250 million cell chewable tablet (Digestive Advantage Probiotic Gummy) 2 cell PO DAILY immune health 02/24/22 ascorbic acid (vitamin C) 1,000 mg chewable tablet 1 g PO DAILY supplement 02/24/22 levothyroxine 50 mcg capsule 50 mcg PO DAILY 02/24/22 clopidogrel 75 mg tablet 75 mg PO DAILY #90 tabs 05/31/22 sacubitril 49 mg-valsartan 51 mg tablet (Entresto) 0.5 tab PO BID 10/21/22 aspirin 81 mg chewable tablet 81 mg PO DAILY heart health 11/17/22 citalopram 10 mg tablet 10 mg PO DAILY 12/17/22 vitamin B complex (B Complex-Vitamin B12 tablet) 2 tab PO Q24H 12/17/22 Hospital Course Operations None Procedures 2-D Echocardiogram and Stress test Summary of Care Provided Minutes Spent on Discharge: 45 Hospital Course: YOGI DIAZ, is a 82 M with a PMH as outlined who presents via the ED On 12/17/2022 with a complaint of chest pain which started about a half hour prior to presentation. Pain was pressure like, nonpleuritic and not worsened by exacerbation. He denied any shortness of breath, palpitations, dizziness, nausea, vomiting or diarrhea. Review of systems was otherwise negative. He hasn't had any recent long distance travel or any recent surgeries, or any history of DVT or PE. Review of systems was otherwise negative. Vitals in the ED were BP of 113/75, MO of 73, R of 16 and oxygen sats of 97% on room air. CBC was unremarkable and BMP was also largely unremarkable. CXR showed no acute cardiopulmonary process. Initial troponin was negative. EKG showed no acute ST changes. He was admitted to be managed for chest pain to rule out ACS. Troponins x 3 were not elevated. He had a stress test which showed no evidence of ischemia. requested a 2D echo to evaluate his EF since he had been started on entresto in September 2022 and she wanted to see how much his EF had improved. 2D echo showed EF of 20% which was similar to previous echoes. He remained stable and was discharged home on 12/18/2022. He is to follow up with his PCP and his director music within 1-2 weeks. Patient seen and examined prior to discharge. He had no complaints and felt well. He had an uneventful night. was by his bedside. Review of systems otherwise negative. Labs and vitals reviewed. Home medication reviewed and reconciled. Physical Exam Const alert, oriented x3 and no apparent distress General Appearance: cooperative and comfortable HEENT normocephalic, head/scalp atraumatic, hearing grossly normal bilaterally, moist oral mucous membranes and oropharynx normal Mouth: oral and palatal mucosa normal Eyes PERRL and EOMs intact bilaterally Neck no lymphadenopathy and supple Lymph Lymphatic: no lymphadenopathy noted and no lymphedema noted Resp normal respiratory effort, normal air movement and clear to auscultation bilaterally Cardio regular rate, regular rhythm, S1 normal heart sound, S2 normal heart sound and no murmurs GI normal to inspection, nondistended, normoactive bowel sounds, soft to palpation, non-tender and non-distended Extremity normal to inspection, full ROM, normal capillary refill, no clubbing, cyanosis or edema and no calf tenderness Skin no rashes or lesions noted General Skin Exam: no breakdown Neuro oriented x3, CN's II-XII intact bilaterally, moves all extremities, no focal motor deficits, no sensory deficits noted and deep tendon reflexes 2+ bilaterally Sensorium / Orientation: awake and alert Motor Exam: strength 5/5 throughout Psych thought process normal, cooperative and affect normal Appearance: appropriate Weight / BMI Weight Weight: 187 lb 2.759 oz Body Mass Index (BMI) 26.8 ABG / Lab / Microbiology Data 12/18/22 07:26 12/18/22 07:26 Laboratory: Laboratory Results - last 24 hr 12/17/22 11:35: WBC 8.4, RBC 5.53, Hgb 17.4 H, Hct 51.2, MCV 92.6, MCH 31.5, MCHC 34.0, RDW Std Deviation 46.5 H, RDW Coeff of Garett 13.6, Plt Count 199, MPV 9.4, Immature Gran % (Auto) 0.700, Neut % (Auto) 55.8, Lymph % (Auto) 31.7, [place] % (Auto) 9.4, Eos % (Auto) 1.4, Baso % (Auto) 1.0, Absolute Neuts (auto) 4.7, Absolute Lymphs (auto) 2.65, Nucleated RBC % 0, Sodium 134 L, Potassium 4.6, Chloride 104, Carbon Dioxide 22.0, Anion Gap 8, BUN 24 H, Creatinine 1.09, Est GFR (MDRD) Af Amer 83, Est GFR (MDRD) Non-Af 69, BUN/Creatinine Ratio 22.0 H, Glucose 98, Calcium 9.2, Troponin I High Sens 25, B-Natriuretic Peptide 98.6 12/17/22 13:50: Troponin I High Sens 25 12/17/22 17:57: Troponin I High Sens 27 12/18/22 07:26: WBC 7.4, RBC 5.20, Hgb 16.7 H, Hct 48.1, MCV 92.5, MCH 32.1 H, MCHC 34.7, RDW Std Deviation 46.9 H, RDW Coeff of Garett 13.9, Plt Count 174, MPV 9.2, Immature Gran % (Auto) 0.400, Neut % (Auto) 59.5, Lymph % (Auto) 28.9, [place] % (Auto) 8.6, Eos % (Auto) 1.8, Baso % (Auto) 0.8, Absolute Neuts (auto) 4.4, Absolute Lymphs (auto) 2.14, Nucleated RBC % 0, Sodium 135 L, Potassium 4.9, Chloride 104, Carbon Dioxide 28.0, Anion Gap 3 L, BUN 26 H, Creatinine 1.24, Estim Creat Clear Calc 48.24, Est GFR (MDRD) Af Amer 72, Est GFR (MDRD) Non-Af 59 L, BUN/Creatinine Ratio 21.0 H, Glucose 113 H, Calcium 9.0 Radiography Diagnostic Testing: Radiology Impression Chest X-Ray 12/17/22 12:48 IMPRESSION: Stable examination. No acute abnormality is seen. Electronically Signed: Caleb Earl MD at 13:16 EDT Reading Location ID and State: [address] [place] [address] , Service support , D/C Instructions Discharge Diet: Low fat / Low cholesterol Discharge Activity: Return to Normal Activity Weight Bearing Status: Weight bearing as tolerated Call your doctor if you observe: Fever of 101 or Higher, Shortness of breath, Dizziness, Swelling in the ankles and Chest pain Meaningful Use Info Meaningful Use Diagnoses (Choose all that apply): None applicable Discharge Plan Admission Admit Date/Time: 12/17/22 15:33 Primary Reason for Your Visit: chest pain Attending Provider: Laverne Ayoub Primary Care Provider: Crystal Wise Instructions Patient Instructions: ED Chest Pain, Noncardiac Discharge Orders/Prescriptions Prescriptions: Continued omega-3 acid ethyl esters 1 gram capsule 2 cap PO BID levothyroxine 50 mcg capsule 50 mcg PO DAILY Entresto 49-51 mg tablet 0.5 tab PO BID cholecalciferol (vitamin D3) 2,000 UNIT capsule 4,000 unit PO DAILY nitroglycerin 0.4 MG tablet 0.4 mg SUBLINGUAL Q5M PRN (Reason: Cardiac/Chest Pain) Qty: 1 0RF aspirin 81 mg tablet,chewable 81 mg PO DAILY ascorbic acid (vitamin C) 1,000 mg tablet,chewable 1 g PO DAILY Digestive Advantage Prob Gummy 250 million cell tablet,chewable 2 cell PO DAILY vitamin B complex [B Complex-Vitamin B12] Tablet 2 tab PO Q24H citalopram 10 mg tablet 10 mg PO DAILY clopidogrel 75 mg tablet 75 mg PO DAILY Qty: 90 3RF Referrals / Follow Up: Crystal Wise MD [Primary Care Provider] - Within 2 Weeks Disposition Disposition (needs filled in before D/C Order can be placed): Home, Self Care Charges/Coding Visit Charges Inpatient E&M: 60931 Disch Hosp >30min
--- NOTE | 2022-12-18 13:14 | NURSING ---
Report given to Emily SIMEON, will assume care at this time
== END 2022-12-18 12:10 | disposition home or self-care (01) ==
LOC: ED 12:39 → PCU 16:05
PROVIDERS: Admitting Provider Student in an Organized Health Care Education/Training Program; Emergency Provider Emergency Medicine; PCP Internal Medicine; Visit Provider Student in an Organized Health Care Education/Training Program
DX: R07.89 Other chest pain (principal); I50.20 Unspecified systolic (congestive) heart failure; I48.0 Paroxysmal atrial fibrillation; Z79.82 Long term (current) use of aspirin; E03.9 Hypothyroidism, unspecified; I25.5 Ischemic cardiomyopathy; Z87.891 Personal history of nicotine dependence; R11.0 Nausea; I25.10 Atherosclerotic heart disease of native coronary artery without angina pectoris; Z79.899 Other long term (current) drug therapy; Z79.890 Hormone replacement therapy; G47.33 Obstructive sleep apnea (adult) (pediatric); Z95.1 Presence of aortocoronary bypass graft; Z95.810 Presence of automatic (implantable) cardiac defibrillator
CPT/HCPCS: 36415; 71045; 78452; 80048; 83880; 84484; 85025; 93005; 93017; 93306; 96372; 96374; 99221; 99285; 99406; A9500; Q9957; A4216; C8929; G0378; J2405; J2785

== ENCOUNTER → 2023-10-24 | Outpatient (CLI) | payer OTHER, SELFPAY ==
[2022-12-16 08:49] VITALS: BMI 31.0
== END | disposition home or self-care (01) ==
LOC: SL 19:30
PROVIDERS: PCP Internal Medicine
DX: G47.33 Obstructive sleep apnea (adult) (pediatric) (principal)
CPT/HCPCS: 95810

== ENCOUNTER → 2023-11-08 | Outpatient (CLI) | payer MEDICARE, SELFPAY ==
[2022-12-16 08:49] VITALS: BMI 31.0
[2023-11-08 12:36] LABS: Absolute Lymphocyte Count 1.99 X10^3/uL (0.83-4.51); Absolute Neutrophil Count 3.6 X10^3/uL (2.0-7.7); Basophil# 0.07 X10^3/uL; Basophil% 1.1 % (0-1); Eosinophil# 0.23 X10^3/uL; Eosinophils% 3.6 % (0-5); Hematocrit 43.9 % (40-54); Hemoglobin 14.8 g/dL (13.0-16.5); Lymphocyte # 1.99 X10^3/ul (0.83-4.51); Lymphocyte % 31.5 % (19-41); Mean Corp Hgb Conc 33.7 g/dL (32-36); Mean Corpuscular Hgb 31.2 pg (27.0-32.0); Mean Corpuscular Volume 92.6 fL (80-94); Mean Platelet Vol. 9.8 fl (6.2-12.0); Monocyte# 0.44 X10^3/uL; NRBC Flagged by Analyzer 0 % (0-5); Neutrophil # 3.55 X10^3/uL (2.7-7.7); Neutrophil % 56.2 % (47-70); Platelet Count 196 K/mm3 (150-450); RBC Distribution Width CV 13.1 % (11.6-14.6); Red Blood Count 4.74 M/mm3 (4.6-6.2); White Blood Count 6.3 K/mm3 (4.4-11.0)
[2023-11-08 13:09] LABS: BNP,B-Type NATRIURETIC PEPTIDE 239.9 pg/mL (0-100)
[2023-11-08 13:17] LABS: Anion Gap 7 (5-15); BUN 26 mg/dL (7-18); Calcium,Total 9.5 mg/dL (8.5-10.1); Chloride 107 mmol/L (98-107); Creatinine, Serum 1.18 mg/dL (0.70-1.30); EST Glomerular Filtration Rate 63 mL/min (>60); Est Glom Filt Rate - Afr Amer 76 mL/min (>60); Glucose 139 mg/dL (74-106); Magnesium 1.9 mg/dL (1.6-2.6); Potassium 4.7 mmol/L (3.5-5.1); Sodium Level 138 mmol/L (136-145); T4 Total, Thyroxin 8.5 ug/dL (4.5-12.1); Thyroid Stim Hormone (TSH) 2.95 uIU/mL (0.358-3.74)
== END | disposition home or self-care (01) ==
LOC: LAB 11:46
PROVIDERS: PCP Internal Medicine; Referring Provider Internal Medicine Cardiovascular Disease; Visit Provider Internal Medicine Cardiovascular Disease
DX: R53.83 Other fatigue (principal); I50.22 Chronic systolic (congestive) heart failure; I48.91 Unspecified atrial fibrillation; I48.92 Unspecified atrial flutter; I49.3 Ventricular premature depolarization; I25.5 Ischemic cardiomyopathy; R06.02 Shortness of breath
CPT/HCPCS: 36415; 80048; 83735; 83880; 84436; 84443; 85025

== ENCOUNTER 2023-11-14 06:05 | Emergency (ER) | payer OTHER, SELFPAY ==
[2022-12-16 08:49] VITALS: BMI 31.0
[2023-11-14 06:06] VITALS: BP 134/81; PULSE 94; RESP 16; TEMP 36.1; O2SAT 94; BMI 30.3
--- NOTE | 2023-11-14 06:24 | CT_ITS ---
EXAM: CT Abdomen And Pelvis W/O Contrast Injection HISTORY: right flank pain TECHNIQUE: Routine protocol CT abdomen and pelvis. IV Contrast: None.. Oral contrast: None. RADIATION DOSAGE (If Supplied By Facility): CTDIvol = ( 12.46 ) mGy, DLP = ( 663.05 ) mGycm Individualized dose optimization techniques were used for this CT. COMPARISON: None. LIMITATIONS: None. FINDINGS: LOWER CHEST: Ill-defined clustered nodular opacities in the left lower lobe. 4 mm nodule in the right lower lobe Pacemaker leads. Metallic prosthesis. Sternal wires. LIVER: Grossly unremarkable. GALLBLADDER AND BILIARY TREE: Grossly unremarkable. PANCREAS: Grossly unremarkable. SPLEEN: Grossly unremarkable. ADRENAL GLANDS: Grossly unremarkable. KIDNEYS AND URETERS: No calculi demonstrated. No hydronephrosis. Small cyst in the right kidney. PERITONEUM: No free air. No free fluid. BOWEL: Diverticula throughout the colon. Small left inguinal hernia contains a very short segment of the sigmoid colon. No bowel obstruction. APPENDIX: Not identified. VESSELS: Infrarenal aorta 2.9 cm maximal transverse diameter. Right common iliac artery, 2.7 cm transverse. Atherosclerotic calcifications. No retroperitoneal hematoma. REPRODUCTIVE ORGANS: Prostate mildly enlarged with radiation seeds. URINARY BLADDER: Mildly distended. ABDOMINAL WALL: Unremarkable. BONES: No acute abnormalities. Degenerative changes in lumbar spine CT/Abdomen/Pelvis without Cont IMPRESSION: Infrarenal aortic aneurysm 2.9 cm. 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 No retroperitoneal hematoma. Colonic diverticulosis without evidence of acute diverticulitis. Small left inguinal hernia contains a very short segment of the sigmoid colon without evidence of complication. Ill-defined nodular opacities in the left lower lobe may be acute inflammatory pneumonitis, or chronic. More well-defined 4 mm nodule in the right lower lobe. CT chest imaging follow-up recommended in 3-6 months to assess for resolution. Electronically Signed: Valerie Guerrero MD at 7:50 EDT ,
[2023-11-14 06:40] LABS: Absolute Neutrophil Count 2.8 X10^3/uL (2.0-7.7); Basophil# 0.07 X10^3/uL; Eosinophil# 0.24 X10^3/uL; Eosinophils% 3.5 % (0-5); Hemoglobin 15.7 g/dL (13.0-16.5); Lymphocyte % 44.9 % (19-41); Mean Corp Hgb Conc 34.1 g/dL (32-36); Mean Corpuscular Hgb 31.2 pg (27.0-32.0); Mean Corpuscular Volume 91.5 fL (80-94); Mean Platelet Vol. 9.8 fl (6.2-12.0); Monocyte# 0.64 X10^3/uL; Monocyte% 9.3 % (0-10); NRBC Flagged by Analyzer 0 % (0-5); Neutrophil # 2.82 X10^3/uL (2.7-7.7); Neutrophil % 40.9 % (47-70); Platelet Count 201 K/mm3 (150-450); RBC Distribution Width CV 13.2 % (11.6-14.6); RBC Distribution Width SD 43.5 fl (35.1-43.9); Red Blood Count 5.03 M/mm3 (4.6-6.2); White Blood Count 6.9 K/mm3 (4.4-11.0)
[2023-11-14 06:57] LABS: AST(SGOT) 19 U/L (15-37); Alanine Aminotransfer ALT/SGPT 21 U/L (16-61); Alkaline Phosphatase 71 U/L (45-117); Anion Gap 6 (5-15); BUN 32 mg/dL (7-18); BUN/Creat Ratio 24.1 RATIO (10-20); Bilirubin, Direct 0.16 mg/dL (0.00-0.30); Calcium,Total 9.5 mg/dL (8.5-10.1); Chloride 105 mmol/L (98-107); Creatinine, Serum 1.33 mg/dL (0.70-1.30); EST Glomerular Filtration Rate 55 mL/min (>60); Est Glom Filt Rate - Afr Amer 66 mL/min (>60); Estimated Creatinine Clearance 48.61 ml/min; Globulin 3.3 g/dL (2.2-4.2); Glucose 132 mg/dL (74-106); Lipase 36 U/L (13-75); Potassium 4.2 mmol/L (3.5-5.1); Protein, Total 7.3 g/dL (6.4-8.2); Sodium Level 137 mmol/L (136-145)
[2023-11-14 07:13] LABS: Bacteria 0 SEEN /hpf (None Seen); Mucous, Urine 0 SEEN /hpf (<or=2+); Red Blood Cells-Urine 0 SEEN /hpf (0-5); White Blood Cells 0 SEEN /hpf (0-5)
--- NOTE | 2023-11-14 07:13 | EDS_ITS ---
HPI History of Present Illness Chief Complaint: Abd Pain Informant: patient and spouse/S.O. Narrative Narrative: Patient is an 83-year-old male with past medical history of hypertension hyperlipidemia and persistent A-fib/a flutter with ICD in place. He states that he saw his behavioral health counselor recently and was started on Lasix secondary to fluid on the lungs. He states after being on the medication for a few days he noticed intermittent pain in his right flank region. He states it was more sharp in nature and would cause nausea without vomiting. He reports that there was no trauma or excessive activity prior to the pain beginning. He states that he typically cannot find a comfortable position when the pain was present. He denies any dysuria or hematuria and states he is not on a blood thinner other than Plavix and aspirin. He states that he has no pain at this time but the pain recurred last night into this morning and would not resolve with time or biqi-mzh-jonfioj medications and therefore he presents for evaluation [facility] Medical History Ischemic cardiomyopathy ICD (implantable cardioverter-defibrillator) in place Atrial fibrillation and flutter Osteomyelitis Hx of recurrent urinary tract infection Bilateral primary osteoarthritis of knee Chronic neck pain Encounter to establish care Thyroid disease High triglycerides Heart failure Heart disease Hearing problem Migraines UTI (urinary tract infection) Arthritis History of left heart catheterization (LHC) (~04/21/22) Essential hypertension HTN (hypertension) Hx of coronary artery disease Unstable angina Abnormal stress test Chest pain Ventricular tachycardia Atrial fibrillation/flutter HLD (hyperlipidemia) CAD (coronary artery disease) Systolic congestive heart failure ICD (implantable cardioverter-defibrillator) in place (~01/08/21) Sleep apnea Former smoker Irregular heart beat Atrial fibrillation FH: mitral valve repair Paroxysmal atrial flutter Ischemic cardiomyopathy Ventricular ectopy Tachy-drew syndrome Presence of stent in coronary artery (~09/23/16) Atherosclerotic heart disease of [place] coronary artery without angina pectoris Essential hypertension Tachycardia HERMAN (obstructive sleep apnea) Enlarged prostate Hypertriglyceridemia Hypothyroidism CAD (coronary artery disease) Bradycardia Near syncope Home Medications ?Medication ?Instructions ?Recorded ?Last Taken ?Type cholecalciferol (vitamin D3) 50 4,000 unit PO DAILY supplement 09/20/16 12/03/20 History mcg (2,000 unit) capsule omega-3 acid ethyl esters 1 gram 2 cap PO BID 12/23/21 Unknown History capsule Bacillus coagulans 250 million 2 cell PO DAILY immune health 02/24/22 Unknown History cell chewable tablet (Digestive Advantage Probiotic Gummy) ascorbic acid (vitamin C) 1,000 mg 1 g PO DAILY supplement 02/24/22 Unknown History chewable tablet levothyroxine 50 mcg capsule 50 mcg PO DAILY 02/24/22 Unknown History clopidogrel 75 mg tablet 75 mg PO DAILY #90 tabs 05/31/22 Unknown Rx sacubitril 49 mg-valsartan 51 mg 0.5 tab PO BID 10/21/22 Unknown History tablet (Entresto) aspirin 81 mg chewable tablet 81 mg PO DAILY heart health 11/17/22 Unknown History vitamin B complex (B 2 tab PO Q24H 12/17/22 Unknown History Complex-Vitamin B12 tablet) nitroglycerin 0.4 mg sublingual 0.4 mg sublingual Q5M PRN 01/06/23 Unknown Rx tablet Cardiac/Chest Pain #1 BOTTLE guaifenesin 600 mg tablet, 600 mg PO BID PRN cough #30 tabs 10/05/23 Unknown Rx extended release 12 hr (Mucinex) citalopram 10 mg tablet 10 mg PO DAILY 10/27/23 Unknown History furosemide 40 mg tablet 40 mg PO DAILY #30 tabs 11/09/23 Unknown Rx Allergy/AdvReac Type Severity Reaction Status Date / Time amiodarone Allergy Severe Other Verified 11/14/23 06:12 Opioids - Morphine Analogues Allergy Other Verified 11/14/23 06:12 Penicillins Allergy Rash Verified 11/14/23 06:12 Bjrwrby-PCZ-YgB Reductase AdvReac Intermediate Pain in Verified 11/14/23 06:12 Inhibitor joints empagliflozin (From AdvReac Unknown UTI Verified 11/14/23 06:12 Jardiance) carvedilol AdvReac Foggy Verified 11/14/23 06:12 Head, Dizziness Family History Mother Dyslipidemia Hypertension Father Myelofibrosis Surgical History Pacemaker H/O mitral valve repair S/P PTCA (percutaneous transluminal coronary angioplasty) Hx of CABG S/P left atrial appendage ligation History of coronary artery stent placement History of mitral valve repair Hx of CABG S/P CABG x 4 Presence of coronary angioplasty implant and graft (~09/23/16) History of rotator cuff surgery History of ankle surgery History of appendectomy left leg surgery Hx of appendectomy Post PTCA Social History Smoking Status: Former smoker alcohol intake: never substance use type: does not use caffeine: No what type of physical activity do you participate in: none and walking ROS ROS ED Constitutional Constitutional ED: Denies chills or fever(s) Eyes Eyes: Denies change in vision ENT ENT ED: Denies sore throat Cardiovascular Cardiovascular: Denies chest pain Respiratory/Chest Respiratory/Chest: Denies cough or dyspnea Gastrointestinal Gastrointestinal: Reports abdominal pain and nausea; Denies diarrhea or vomiting Genitourinary Genitourinary ED: Denies dysuria, hematuria or urinary frequency Musculoskeletal Musculoskeletal: Reports back pain; Denies myalgias Integumentary Denies rash Neurologic Neurologic: Denies headache(s) Hematologic/Lymphatic Hematologic/Lymphatic: Reports easy bleeding and easy bruising EXAM Physical Exam Const Vital Signs: 11/14/23 06:06 Temperature 97.0 F L Temperature Source Temporal Pulse Rate 94 Respiratory Rate 16 Blood Pressure 134/81 H Blood Pressure Mean 98 Pulse Ox 94 Oxygen Delivery Method Room Air Positive well nourished and well developed General Appearance ED: well developed HEENT Reports dry mucous membranes HEENT Narrative: No tongue or lip swelling no oral lesions no airway edema or compromise No secondary findings in the posterior pharynx to suggest infection Mouth ED: Yes dry mucous membranes Mouth: dry mucous membranes Eyes PERRL and EOMs intact bilaterally General Eye ED: Negative for scleral icterus Neck supple Resp normal respiratory effort Resp Narrative: Breath sounds are diminished throughout with faint crackles noted in the bilateral lower lobes No nasal flaring retractions tachypnea or accessory muscle use Cardio regular rate and regular rhythm Rate: other Other Details: Heart is regular rate and rhythm with frequent ectopy noted GI normal to inspection, nondistended, normoactive bowel sounds, non-tender, non- distended and no masses GI Narrative: Abdomen is soft nontender and nondistended with normal active bowel sounds No pain with palpation over McBurney's point and negative Lora sign No voluntary guarding or rigidity or pulsatile mass No fluid wave noted Auscultation: normoactive bowel sounds Palpation: soft Back/Spine Back/Spine Narrative: Mild right CVA pain present Extremity normal to inspection Neuro oriented x3, CN's II-XII intact bilaterally and no sensory deficits noted Sensorium / Orientation: alert Motor Exam: strength 5/5 throughout Psych mental status grossly normal Skin no rashes or lesions noted and No no wounds Skin Narrative: Skin turgor is increased Capillary refills less than 3 seconds No overlying soft tissue changes to suggest trauma or infection General Skin Exam: Negative for jaundice MDM MDM MDM Narrative Medical decision making narrative: Patient arrived to the ER with stable vitals and reported spontaneous resolution of his pain once region in the ER. He stated the pain had been intermittent and more sharp and located along the left lateral abdomen/flank. Differential diagnosis is biliary colic versus acute cholecystitis versus atypical pancreatitis versus kidney stone versus UTI versus pyelonephritis versus cellulitis abscess or shingles. His skin does not have any erythema or warmth or masses going against a soft tissue infection. Urine sample showed no blood or bacteria going against potential kidney stone UTI or pyelonephritis. Lipase was normal going against pancreatitis and his liver enzymes are also normal going against potential biliary colic or acute cholecystitis. The patient has remained pain and nausea free since arrival in the ER. I do not feel his nausea is secondary to his new Lasix medication as it only occurs with his pain. At this time official read of CT scan is still pending and therefore patient will be signed out to the day physician Dr. Nixon for further evaluation History & Record Review Discussion w/independent historian: Patient and Significant other Lab Data Attestation: I reviewed the patient's lab results. Labs: Laboratory Results - last 24 hr 11/14/23 11/14/23 06:10 07:09 WBC 6.9 RBC 5.03 Hgb 15.7 Hct 46.0 MCV 91.5 MCH 31.2 MCHC 34.1 RDW Std Deviation 43.5 RDW Coeff of Garett 13.2 Plt Count 201 MPV 9.8 Immature Gran % (Auto) 0.400 Neut % (Auto) 40.9 L Lymph % (Auto) 44.9 H [place] % (Auto) 9.3 Eos % (Auto) 3.5 Baso % (Auto) 1.0 Absolute Neuts (auto) 2.8 Absolute Lymphs (auto) 3.10 Nucleated RBC % 0 Sodium 137 Potassium 4.2 Chloride 105 Carbon Dioxide 26.0 Anion Gap 6 BUN 32 H Creatinine 1.33 H Estim Creat Clear Calc 48.61 Est GFR (MDRD) Af Amer 66 Est GFR (MDRD) Non-Af 55 L BUN/Creatinine Ratio 24.1 H Glucose 132 H Calcium 9.5 Total Bilirubin 0.60 Direct Bilirubin 0.16 AST 19 ALT 21 Alkaline Phosphatase 71 Total Protein 7.3 Albumin 4.0 Globulin 3.3 Lipase 36 Urine Color Yellow Urine Clarity Clear Urine pH 6.0 Ur Specific [place] 1.015 Urine Protein Negative Urine Glucose (UA) Normal Urine Ketones Negative Urine Occult Blood Negative Urine Nitrite Negative Urine Bilirubin Negative Urine Urobilinogen Normal Ur Leukocyte Esterase Negative Urine RBC 0 SEEN Urine WBC 0 SEEN Ur Squamous Epith Cells 0-5 SEEN Urine Bacteria 0 SEEN Urine Mucus 0 SEEN Discharge Plan Triage Chief Complaint: Abd Pain ED Provider: Curt Au Dx/Rx/DC Orders Prescriptions: No Action omega-3 acid ethyl esters 1 gram capsule 2 cap PO BID levothyroxine 50 mcg capsule 50 mcg PO DAILY Entresto 49-51 mg tablet 0.5 tab PO BID guaifenesin [Mucinex] 600 mg tablet extended release 12hr 600 mg PO BID PRN (Reason: cough) Qty: 30 0RF citalopram 10 mg tablet 10 mg PO DAILY cholecalciferol (vitamin D3) 2,000 UNIT capsule 4,000 unit PO DAILY aspirin 81 mg tablet,chewable 81 mg PO DAILY ascorbic acid (vitamin C) 1,000 mg tablet,chewable 1 g PO DAILY Digestive Advantage Prob Gummy 250 million cell tablet,chewable 2 cell PO DAILY vitamin B complex [B Complex-Vitamin B12] Tablet 2 tab PO Q24H clopidogrel 75 mg tablet 75 mg PO DAILY Qty: 90 3RF nitroglycerin 0.4 mg tablet, sublingual 0.4 mg SUBLINGUAL Q5M PRN (Reason: Cardiac/Chest Pain) Qty: 1 0RF furosemide 40 mg tablet 40 mg PO DAILY Qty: 30 11RF Primary Care Provider: Crystal Wise Referrals: Crystal Wise MD [Primary Care Provider] - Print Language: Welsh
[2023-11-14 07:16] LABS: Color, Urine Yellow (Yellow); Glucose, Dipstick Normal (Normal); Ketone-Dipstick Negative (Negative); Leukocyte Esterase-Dipstick Negative /ul (Negative); Nitrite-Dipstick Negative (Negative); Occult Blood-Urine Negative /ul (Negative); Protein-Dipstick Negative (Negative); Specific Gravity, Urine 1.015 (1.002-1.030); Urine Bilirubin Dipstick Negative (Negative); Urine Clarity Clear (Clear); Urine Urobilinogen Normal (Normal)
[2023-11-14 07:23] LABS: Squamous Epithelial Cells - UA 0-5 SEEN /hpf (0-5)
[2023-11-14 08:05] VITALS: BP 130/68; PULSE 82; RESP 18; O2SAT 98
[2023-11-14 08:24] VITALS: BP 130/68; PULSE 81; RESP 18; TEMP 36.6; O2SAT 98
== END 2023-11-14 08:28 | disposition home or self-care (01) ==
PROVIDERS: Emergency Provider Emergency Medicine; PCP Internal Medicine; Visit Provider Emergency Medicine
DX: R10.9 Unspecified abdominal pain (principal); I25.10 Atherosclerotic heart disease of native coronary artery without angina pectoris; G47.33 Obstructive sleep apnea (adult) (pediatric); Z87.891 Personal history of nicotine dependence; Z95.810 Presence of automatic (implantable) cardiac defibrillator; Z95.5 Presence of coronary angioplasty implant and graft; Z95.1 Presence of aortocoronary bypass graft
CPT/HCPCS: 74176; 80048; 80076; 81001; 83690; 85025; 99283; A4216

== ENCOUNTER → 2023-11-15 | Outpatient (CLI) | payer MEDICARE, SELFPAY ==
[2022-12-16 08:49] VITALS: BMI 31.0
== END | disposition home or self-care (01) ==
LOC: PSN 10:07
PROVIDERS: PCP Internal Medicine; Referring Provider Nurse Practitioner Family; Visit Provider Nurse Practitioner Family
DX: I48.0 Paroxysmal atrial fibrillation (principal); I48.92 Unspecified atrial flutter; I49.3 Ventricular premature depolarization
CPT/HCPCS: 93225; 93226

== ENCOUNTER → 2023-11-21 | Outpatient (CLI) | payer MEDICARE, SELFPAY ==
[2022-12-16 08:49] VITALS: BMI 31.0
[2023-11-21 16:02] LABS: Anion Gap 7 (5-15); BUN 33 mg/dL (7-18); BUN/Creat Ratio 20.4 RATIO (10-20); Calcium,Total 9.1 mg/dL (8.5-10.1); Chloride 106 mmol/L (98-107); Creatinine, Serum 1.62 mg/dL (0.70-1.30); EST Glomerular Filtration Rate 44 mL/min (>60); Est Glom Filt Rate - Afr Amer 53 mL/min (>60); Glucose 129 mg/dL (74-106); Potassium 4.5 mmol/L (3.5-5.1); Sodium Level 139 mmol/L (136-145)
== END | disposition home or self-care (01) ==
LOC: LAB 14:10
PROVIDERS: PCP Internal Medicine; Referring Provider Internal Medicine Cardiovascular Disease; Visit Provider Internal Medicine Cardiovascular Disease
DX: I49.3 Ventricular premature depolarization (principal); R06.02 Shortness of breath
CPT/HCPCS: 36415; 80048

== ENCOUNTER 2023-12-01 03:47 | Emergency (ER) | payer OTHER, SELFPAY ==
[2022-12-16 08:49] VITALS: BMI 31.0
[2023-12-01 03:49] VITALS: BP 156/103; PULSE 76; RESP 18; TEMP 36.2; O2SAT 98; BMI 30.8
--- NOTE | 2023-12-01 04:53 | EKG12_ITS ---
Test Reason : GEN ILLNESS Blood Pressure : / mmHG Vent. Rate : 077 BPM Atrial Rate : 042 BPM P-R Int : 332 ms QRS Dur : 124 ms QT Int : 408 ms P-R-T Axes : 049 031 030 degrees QTc Int : 461 ms AV dual-paced rhythm with prolonged AV conduction with occasional ventricular-paced complexes and wit h frequent Premature ventricular complexes Abnormal ECG Confirmed by DANTE OLIVO, PRITI ([id number]), film and video editor GAYATHRI LOPEZ ([id number]) on 12/07/2023 10:36:25 A M Referred By: JULIOCESAR Confirmed By:ABDIRAHMAN HOWELL MD
--- NOTE | 2023-12-01 04:53 | RAD_ITS ---
STUDY: X-RAY CHEST REASON FOR EXAM: Male, 83 years old patient with weakness. TECHNIQUE: PA and lateral views of the chest. COMPARISON: December 17, 2022. FINDINGS: Patient has a left-sided intracardiac pacemaker and defibrillator. Patient has had sternotomy. There is a cardiac valvular prosthesis. Atrial clip is present. Cardiac monitoring leads are present. Lungs are expanded with prominence of the bronchovascular markings. There is no demonstrated pleural abnormality. There is borderline cardiomegaly. Normal mediastinum and preet. Normal visualized pulmonary arteries. There is atherosclerotic calcification of the aortic arch with tortuosity. There are diffuse degenerative changes of the visualized thoracic spine. There are degenerative changes of the left shoulder. There is no demonstrated abnormality of the visualized soft tissue structures of the upper abdomen. RAD/Chest PA and Lateral IMPRESSION: Borderline cardiomegaly and pulmonary vascular congestion. Electronically Signed: Jessica Saenz MD at 6:03 EDT ,
[2023-12-01 05:07] LABS: Bacteria 0 SEEN /hpf (None Seen); Mucous, Urine 0 SEEN /hpf (<or=2+); Red Blood Cells-Urine 0 SEEN /hpf (0-5); Squamous Epithelial Cells - UA 0 SEEN /hpf (0-5); White Blood Cells 0 SEEN /hpf (0-5)
[2023-12-01 05:11] LABS: Absolute Lymphocyte Count 2.15 X10^3/uL (0.83-4.51); Basophil# 0.06 X10^3/uL; Eosinophil# 0.27 X10^3/uL; Eosinophils% 4.4 % (0-5); Hematocrit 44.3 % (40-54); Hemoglobin 15.3 g/dL (13.0-16.5); Lymphocyte # 2.15 X10^3/ul (0.83-4.51); Mean Corp Hgb Conc 34.5 g/dL (32-36); Mean Corpuscular Hgb 31.5 pg (27.0-32.0); Mean Corpuscular Volume 91.2 fL (80-94); Mean Platelet Vol. 9.3 fl (6.2-12.0); Monocyte# 0.66 X10^3/uL; Monocyte% 10.7 % (0-10); NRBC Flagged by Analyzer 0 % (0-5); Neutrophil # 2.99 X10^3/uL (2.7-7.7); Neutrophil % 48.6 % (47-70); Platelet Count 167 K/mm3 (150-450); RBC Distribution Width CV 12.8 % (11.6-14.6); RBC Distribution Width SD 42.9 fl (35.1-43.9); Red Blood Count 4.86 M/mm3 (4.6-6.2); White Blood Count 6.2 K/mm3 (4.4-11.0)
[2023-12-01 05:11] LABS: Color, Urine Yellow (Yellow); Glucose, Dipstick Normal (Normal); Ketone-Dipstick Negative (Negative); Leukocyte Esterase-Dipstick Negative /ul (Negative); Nitrite-Dipstick Negative (Negative); Occult Blood-Urine Negative /ul (Negative); Protein-Dipstick Negative (Negative); Specific Gravity, Urine 1.015 (1.002-1.030); Urine Bilirubin Dipstick Negative (Negative); Urine Clarity Clear (Clear); Urine Urobilinogen Normal (Normal)
--- NOTE | 2023-12-01 05:12 | EDS_ITS ---
HPI History of Present Illness Chief Complaint: General Illness Informant: patient and spouse/S.O. Narrative Narrative: Patient is an 83-year-old male with extensive cardiac history including atrial fibrillation, ICD placement, ischemic cardiomyopathy, multifocal and frequent PVCs, coronary artery disease status post CABG as well as sepsis presenting for persistent confusion. Patient had increased confusion since he was on a fishing trip 2 days ago. Did put a scopolamine patch on which she has been using for years. notes that tonight he has been hallucinating and seeing people in the room that are not there, thinking he is in [place] and grabbing at things in the air he is complain of dizziness which she describes more as a lightheadedness that is worse when he stands up. He had a similar episode about a month ago after a fishing trip as well and they attributed to dehydration. After about his week his symptoms had resolved. No report of any chest pain, shortness of breath, fever or chills. Was recently put on Lasix by cardiology, Dr. Sesay and this week his Celexa was increased from 10 to 20 mg. Has chronic frequency of urination which he attributes to the Lasix but denies any dysuria or incomplete emptying. is particularly concerned because he also has a history of delirium associate with sepsis and she is afraid that he might be septic again. [facility] Medical History Ischemic cardiomyopathy ICD (implantable cardioverter-defibrillator) in place Atrial fibrillation and flutter Osteomyelitis Hx of recurrent urinary tract infection Bilateral primary osteoarthritis of knee Chronic neck pain Encounter to establish care Thyroid disease High triglycerides Heart failure Heart disease Hearing problem Migraines UTI (urinary tract infection) Arthritis History of left heart catheterization (LHC) (~04/21/22) Essential hypertension HTN (hypertension) Hx of coronary artery disease Unstable angina Abnormal stress test Chest pain Ventricular tachycardia Atrial fibrillation/flutter HLD (hyperlipidemia) CAD (coronary artery disease) Systolic congestive heart failure ICD (implantable cardioverter-defibrillator) in place (~01/08/21) Sleep apnea Former smoker Irregular heart beat Atrial fibrillation FH: mitral valve repair Paroxysmal atrial flutter Ischemic cardiomyopathy Ventricular ectopy Tachy-drew syndrome Presence of stent in coronary artery (~09/23/16) Atherosclerotic heart disease of rampart coronary artery without angina pectoris Essential hypertension Tachycardia HERMAN (obstructive sleep apnea) Enlarged prostate Hypertriglyceridemia Hypothyroidism CAD (coronary artery disease) Bradycardia Near syncope Home Medications ?Medication ?Instructions ?Recorded ?Last Taken ?Type cholecalciferol (vitamin D3) 50 4,000 unit PO DAILY supplement 09/20/16 12/03/20 History mcg (2,000 unit) capsule omega-3 acid ethyl esters 1 gram 2 cap PO BID 12/23/21 Unknown History capsule Bacillus coagulans 250 million 2 cell PO DAILY immune health 02/24/22 Unknown History cell chewable tablet (Digestive Advantage Probiotic Gummy) ascorbic acid (vitamin C) 1,000 mg 1 g PO DAILY supplement 02/24/22 Unknown History chewable tablet levothyroxine 50 mcg capsule 50 mcg PO DAILY 02/24/22 Unknown History clopidogrel 75 mg tablet 75 mg PO DAILY #90 tabs 05/31/22 Unknown Rx sacubitril 49 mg-valsartan 51 mg 0.5 tab PO BID 10/21/22 Unknown History tablet (Entresto) aspirin 81 mg chewable tablet 81 mg PO DAILY heart health 11/17/22 Unknown History nitroglycerin 0.4 mg sublingual 0.4 mg sublingual Q5M PRN 01/06/23 Unknown Rx tablet Cardiac/Chest Pain #1 BOTTLE guaifenesin 600 mg tablet, 600 mg PO BID PRN cough #30 tabs 10/05/23 Unknown Rx extended release 12 hr (Mucinex) citalopram 10 mg tablet 20 mg PO DAILY 10/27/23 Unknown History furosemide 40 mg tablet 40 mg PO DAILY #30 tabs 11/09/23 Unknown Rx trazodone 50 mg tablet See Rx Instructions PO QHS PRN 11/28/23 Unknown Rx sleep #20 tabs Allergy/AdvReac Type Severity Reaction Status Date / Time amiodarone Allergy Severe Other Verified 12/01/23 03:51 Opioids - Morphine Analogues Allergy Other Verified 12/01/23 03:51 Penicillins Allergy Rash Verified 12/01/23 03:51 [id number]-VuV Reductase AdvReac Intermediate Pain in Verified 12/01/23 03:51 Inhibitor joints empagliflozin (From AdvReac Unknown UTI Verified 12/01/23 03:51 Jardiance) carvedilol AdvReac Foggy Verified 12/01/23 03:51 Head, Dizziness Family History Mother Dyslipidemia Hypertension Father Myelofibrosis Other Atherosclerotic heart disease of rampart coronary artery without angina pectoris Atrial fibrillation and flutter Ischemic cardiomyopathy Surgical History Pacemaker H/O mitral valve repair S/P PTCA (percutaneous transluminal coronary angioplasty) Hx of CABG S/P left atrial appendage ligation History of coronary artery stent placement History of mitral valve repair Hx of CABG S/P CABG x 4 Presence of coronary angioplasty implant and graft (~09/23/16) History of rotator cuff surgery History of ankle surgery History of appendectomy left leg surgery Hx of appendectomy Post PTCA Social History Smoking Status: Former smoker alcohol intake: never substance use type: does not use caffeine: No what type of physical activity do you participate in: none and walking ROS ROS ED Constitutional Constitutional ED: Reports other Details: Confusion, intermittent delirium ; Denies chills or fever(s) Eyes Eyes: Denies change in vision Cardiovascular Cardiovascular: Denies chest pain Respiratory/Chest Respiratory/Chest: Denies cough or dyspnea Gastrointestinal Gastrointestinal: Denies abdominal pain, nausea or vomiting Genitourinary Genitourinary ED: Reports urinary frequency; Denies dysuria or hematuria Musculoskeletal Musculoskeletal: Denies arthralgias or myalgias Integumentary Denies rash Neurologic Neurologic: Denies headache(s), paresthesias or weakness Psychiatric Psychiatric: Denies anxiety or depression Hematologic/Lymphatic Hematologic/Lymphatic: Denies easy bleeding or easy bruising EXAM Physical Exam Const Vital Signs: 12/01/23 03:49 12/01/23 03:49 12/01/23 06:00 Temperature 97.1 F L Temperature Source Temporal Pulse Rate 76 91 Pulse Rate [Lying] Pulse Rate [Sitting (for 1 minute prior to obtaining)] Pulse Rate [Standing (for 1 minute prior to obtaining)] Respiratory Rate 18 19 H Respiratory Effort Normal Non-Labored Respiratory Pattern Normal Blood Pressure 156/103 H 140/82 H Blood Pressure [Lying] Blood Pressure [Sitting (for 1 minute prior to obtaining)] Blood Pressure [Standing (for 1 minute prior to obtaining)] Blood Pressure Mean 120 101 Blood Pressure Mean [Lying] Blood Pressure Mean [Sitting (for 1 minute prior to obtaining)] Blood Pressure Mean [Standing (for 1 minute prior to obtaining)] Pulse Ox 98 99 Oxygen Delivery Method Room Air Room Air 12/01/23 06:50 Temperature Temperature Source Pulse Rate Pulse Rate [Lying] 80 Pulse Rate [Sitting (for 1 minute prior to obtaining)] 87 Pulse Rate [Standing (for 1 minute prior to obtaining)] 93 Respiratory Rate Respiratory Effort Respiratory Pattern Blood Pressure Blood Pressure [Lying] 134/100 H Blood Pressure [Sitting (for 1 minute prior to obtaining)] 130/74 H Blood Pressure [Standing (for 1 minute prior to obtaining)] 137/70 H Blood Pressure Mean Blood Pressure Mean [Lying] 111 Blood Pressure Mean [Sitting (for 1 minute prior to obtaining)] 92 Blood Pressure Mean [Standing (for 1 minute prior to obtaining)] 92 Pulse Ox Oxygen Delivery Method Positive well nourished and well developed General Appearance ED: well developed and NAD HEENT Reports moist mucous membranes Eyes PERRL and EOMs intact bilaterally Neck supple and no JVD Chest Wall inspection of chest normal and palpation of chest normal Resp normal respiratory effort and clear to auscultation bilaterally Cardio regular rate and regular rhythm GI normal to inspection, nondistended, normoactive bowel sounds and non-tender Extremity normal to inspection General Extremety ED: Negative for edema General Extremity: Negative for edema Neuro oriented x3, CN's II-XII intact bilaterally and no sensory deficits noted Neuro Narrative: Normal coordination Sensorium / Orientation: alert; Negative for orientation impaired Motor Exam: strength 5/5 throughout; Negative for general weakness Psych mental status grossly normal Skin no rashes or lesions noted MDM MDM MDM Narrative Medical decision making narrative: Patient is evaluated for what sound like intermittent episodes of delirium. Is given IV fluids in the emergency room as the last time this happened they thought it was either associate with scopolamine patch or dehydration. Patient has frequent PVCs on the monitor however his states that is normal and chronic for him. Overall well-appearing with no infectious symptoms at this time on physical exam or HPI. Workup largely unremarkable. No signs of acute infection or electrolyte abnormality that could contribute to encephalopathy/delirium. Patient is appropriate while in the room. Patient does have multiple PVCs which is shown on telemetry and his EKG however he has extensive history of this. He does not have any focal neurologic deficits. CT of the brain is obtained which does not show any acute process. Given that his workup is negative and he does not have any observed delirium I feel that he would be stable for outpatient follow-up. His is very uncomfortable with this and states that he had another episode of delirium and odd movement of his extremities well in the emergency room but no staff was in there. Patient is evaluated by Dr. Ahumada, hospitalist, who talks to the patient and his as well. Sound like some of this might be from sleep deprivation. Patient actually has a sleep study scheduled for next week. He assures the that this does not seem like any type of seizure activity and that he should be safe for going home. Did offer admission for further workup including potential CTA of the neck and EEG. They are comfortable with outpatient follow-up. I think this is appropriate. Patient discharged home in stable condition. Encouraged return the emergency room if he has recurrent or worsening symptoms. Lab Data Attestation: I reviewed the patient's lab results. Labs: Laboratory Results - last 24 hr 12/01/23 12/01/23 04:54 05:04 WBC 6.2 RBC 4.86 Hgb 15.3 Hct 44.3 MCV 91.2 MCH 31.5 MCHC 34.5 RDW Std Deviation 42.9 RDW Coeff of Garett 12.8 Plt Count 167 MPV 9.3 Immature Gran % (Auto) 0.300 Neut % (Auto) 48.6 Lymph % (Auto) 35.0 Freestone % (Auto) 10.7 H Eos % (Auto) 4.4 Baso % (Auto) 1.0 Absolute Neuts (auto) 3.0 Absolute Lymphs (auto) 2.15 Nucleated RBC % 0 Sodium 138 Potassium 4.3 Chloride 107 Carbon Dioxide 25.0 Anion Gap 6 BUN 24 H Creatinine 1.11 Estim Creat Clear Calc 58.28 Est GFR (MDRD) Af Amer 81 Est GFR (MDRD) Non-Af 67 BUN/Creatinine Ratio 21.6 H Glucose 133 H Lactic Acid 0.7 Calcium 9.2 Total Bilirubin 0.50 AST 23 ALT 18 Alkaline Phosphatase 79 Troponin I High Sens 32 Total Protein 6.9 Albumin 3.7 Globulin 3.2 Albumin/Globulin Ratio 1.2 Urine Color Yellow Urine Clarity Clear Urine pH 6.0 Ur Specific Star 1.015 Urine Protein Negative Urine Glucose (UA) Normal Urine Ketones Negative Urine Occult Blood Negative Urine Nitrite Negative Urine Bilirubin Negative Urine Urobilinogen Normal Ur Leukocyte Esterase Negative Urine RBC 0 SEEN Urine WBC 0 SEEN Ur Squamous Epith Cells 0 SEEN Urine Bacteria 0 SEEN Urine Mucus 0 SEEN Radiography Chest X-Ray - ED: 2 View, Read by ED Physician, Read by Radiologist and No Acute Disease Diagnostic Testing: Clinical Impression(s) from Imaging Studies Chest X-Ray 12/01/23 04:53 IMPRESSION: Borderline cardiomegaly and pulmonary vascular congestion. Electronically Signed: Jessica Saenz MD at 6:03 EDT , Brain CT 12/01/23 05:13 IMPRESSION: 1. Chronic involutional changes of the brain. 2. No CT evidence of acute intracranial hemorrhage. Electronically Signed: Jessica Saenz MD at 5:59 EDT , Rhythm Strip Rhythm Strip: Paced Rate: 76 Ectopy: PVC(s) EKG Initial EKG: Attestation: I personally reviewed and interpreted this EKG as follows: Interpretation: Paced Comments: AV paced rhythm with frequent PVCs at a rate of [address] segments Management Discussion w/another healthcare provider: Hospitalist Discharge Plan Triage Chief Complaint: General Illness ED Provider: Jennifer Vargas Dx/Rx/DC Orders Clinical Impression: Episode of transient neurologic symptoms, Frequent PVCs Instructions: ED ALOC Prescriptions: No Action omega-3 acid ethyl esters 1 gram capsule 2 cap PO BID levothyroxine 50 mcg capsule 50 mcg PO DAILY Entresto 49-51 mg tablet 0.5 tab PO BID guaifenesin [Mucinex] 600 mg tablet extended release 12hr 600 mg PO BID PRN (Reason: cough) Qty: 30 0RF citalopram 10 mg tablet 20 mg PO DAILY cholecalciferol (vitamin D3) 2,000 UNIT capsule 4,000 unit PO DAILY aspirin 81 mg tablet,chewable 81 mg PO DAILY ascorbic acid (vitamin C) 1,000 mg tablet,chewable 1 g PO DAILY Digestive Advantage Prob Gummy 250 million cell tablet,chewable 2 cell PO DAILY clopidogrel 75 mg tablet 75 mg PO DAILY Qty: 90 3RF nitroglycerin 0.4 mg tablet, sublingual 0.4 mg SUBLINGUAL Q5M PRN (Reason: Cardiac/Chest Pain) Qty: 1 0RF furosemide 40 mg tablet 40 mg PO DAILY Qty: 30 11RF trazodone 50 mg tablet See Rx Instructions PO QHS PRN (Reason: sleep) Qty: 20 0RF Rx Instructions: Take 1/2-1 tab 30 minutes before bed as needed orally at bedtime PRN; Primary Care Provider: Crystal Wise Referrals: Crystal Wise MD [Primary Care Provider] - Activity Restrictions/Additional Instructions: Your workup today including CT of the brain, EKG and lab work is all largely normal. The cause your symptoms is not clear but please make sure you are drinking plenty of fluids and try to get adequate sleep. Follow-up with your sleep study. This does not seem like any type of seizure activity. Please return to the emergency room if there is progression worsening of the symptoms. At this time there are no signs consistent with sepsis or infection. Print Language: Uzbek Disposition Disposition: Home, Self Care
--- NOTE | 2023-12-01 05:13 | CT_ITS ---
STUDY: CT BRAIN WITHOUT CONTRAST REASON FOR EXAM: Male, 83 years old patient with altered mental status ( AMS). RADIATION DOSAGE (If Supplied By Facility): CTDIvol = ( 44.99 ) mGy, DLP = ( 796.11 ) mGycm TECHNIQUE: Transaxial CT imaging of the brain was performed without administration of intravenous contrast material. Multiplanar reformations are submitted for interpretation. Individualized dose optimization techniques were used for this CT. COMPARISON: No relevant priors. FINDINGS: There is a small posterior left parietal scalp contusion and hematoma. Normal calvarium. There is mild cerebral atrophy with widening of the extra-axial spaces and ventricular dilatation. Normal white matter tracts of the cerebral hemispheres. Normal basal ganglia and thalami. Normal brainstem. Normal cerebellum. There is no intracranial hemorrhage. There is moderate atherosclerotic calcification of the intracranial arteries. There is a small left maxillary sinus mucous retention cyst. There is moderate deviation nasal septum towards the right with left-sided conchal bullosa. CT/Brain/Head without Contrast IMPRESSION: 1. Chronic involutional changes of the brain. 2. No CT evidence of acute intracranial hemorrhage. Electronically Signed: Jessica Saenz MD at 5:59 EDT ,
[2023-12-01] MEDS: 0.9% Normal Saline (500mL Bag) 500 ML 1000 ML IV (05:14)
[2023-12-01 05:38] LABS: ALB/GLOB Ratio 1.2 RATIO (0.9-2.4); AST(SGOT) 23 U/L (15-37); Alanine Aminotransfer ALT/SGPT 18 U/L (16-61); Albumin, Serum 3.7 g/dL (3.2-5.0); Alkaline Phosphatase 79 U/L (45-117); Anion Gap 6 (5-15); BUN 24 mg/dL (7-18); BUN/Creat Ratio 21.6 RATIO (10-20); Calcium,Total 9.2 mg/dL (8.5-10.1); Chloride 107 mmol/L (98-107); Creatinine, Serum 1.11 mg/dL (0.70-1.30); EST Glomerular Filtration Rate 67 mL/min (>60); Est Glom Filt Rate - Afr Amer 81 mL/min (>60); Estimated Creatinine Clearance 58.28 ml/min; Globulin 3.2 g/dL (2.2-4.2); Glucose 133 mg/dL (74-106); Potassium 4.3 mmol/L (3.5-5.1); Protein, Total 6.9 g/dL (6.4-8.2); Sodium Level 138 mmol/L (136-145); Troponin-I HS 32 pg/mL (3.0-78.0)
[2023-12-01 05:43] LABS: Lactic Acid 0.7 mmol/L (0.4-1.9)
[2023-12-01 06:00] VITALS: BP 140/82; PULSE 91; RESP 19; O2SAT 99
[2023-12-01 06:50] VITALS: BP 130/74; BP 134/100; BP 137/70; PULSE 80; PULSE 87; PULSE 93
[2023-12-01 08:03] VITALS: BP 145/77; PULSE 82; RESP 16; TEMP 36.6; O2SAT 95
--- NOTE | 2023-12-01 08:28 | CON.PCM.HO_ITS ---
Assessment & Plan Assessment/Plan (1) Confusion: PLAN: Plan Confusion and abnormal movements when he sleeps * Transient. I suspect is related with poor sleep hygiene. Patient has not been sleeping well but also has underlying untreated central sleep apnea. The movements he has when he sleeps go away when he is awake. He does not have bowel or bladder incontinence. * I do not feel this is seizure nor stroke. I did offer the patient and his to be brought into the hospital to be evaluated with a CTA of his head and neck, EEG. Though I feel that the likelihood of the AEDs being a stroke or seizure are extremely unlikely. Explained to them that I feel it is likely due to his poor sleep hygiene with not sleeping well. Patient has taken off the scopolamine patch which I am not sure if that was contributing to his symptoms or not but I did discourage use of diphenhydramine. Patient has noted having taken Tylenol PM in the past. Patient has been recently prescribed some trazodone to help him sleep particular for his upcoming sleep study. I did encourage them to try that. The is going to try half tablet tonight and then full tablet beginning tomorrow depending and see if he can tolerate that as he does have some noted sensitivities to medications. * They did not feel the need to be admitted and which I think is very agreeable as my suspicion for this being something very severe is extremely low. * Notified Dr. Vargas who will discharge patient from the emergency room. HPI Consult Data Date of Consult: 12/01/23 HPI Narrative Reason for Consultation: Because requested by Dr. Vargas for abnormal sleep movements and confusion. HPI Narrative: YOGI DIAZ, is a 83 M who presents with a 2-day history of abnormal sleep movements and confusion. Prior to this, patient had done a fishing trip on [facility] where he had a scopolamine patch. And he took the patch off on Tuesday but at night he has been having very drastic movements with his arms and legs. visualize this and she is present denies convulsions denies incontinence. When patient wakes up he comes to rather quickly but he can be confused sometimes for period of time but does eventually snap out of that. Overall feels that his sleep has not been doing very well. Patient had an episode prior that patient has similar event where he went fishing, had a scopolamine patch and did not take it off and was having some confusion and abnormal movements while he was sleeping. This does not happen while he is awake and is never had seizures before. 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 Patient is a process of being evaluated for central sleep apnea and is to have a CPAP titration this coming Tuesday. [facility] Medical History Ischemic cardiomyopathy ICD (implantable cardioverter-defibrillator) in place Atrial fibrillation and flutter Osteomyelitis Hx of recurrent urinary tract infection Bilateral primary osteoarthritis of knee Chronic neck pain Encounter to establish care Thyroid disease High triglycerides Heart failure Heart disease Hearing problem Migraines UTI (urinary tract infection) Arthritis History of left heart catheterization (LHC) (~04/21/22) Essential hypertension HTN (hypertension) Hx of coronary artery disease Unstable angina Abnormal stress test Chest pain Ventricular tachycardia Atrial fibrillation/flutter HLD (hyperlipidemia) CAD (coronary artery disease) Systolic congestive heart failure ICD (implantable cardioverter-defibrillator) in place (~01/08/21) Sleep apnea Former smoker Irregular heart beat Atrial fibrillation FH: mitral valve repair Paroxysmal atrial flutter Ischemic cardiomyopathy Ventricular ectopy Tachy-drew syndrome Presence of stent in coronary artery (~09/23/16) Atherosclerotic heart disease of [place] coronary artery without angina pectoris Essential hypertension Tachycardia HERMAN (obstructive sleep apnea) Enlarged prostate Hypertriglyceridemia Hypothyroidism CAD (coronary artery disease) Bradycardia Near syncope Home Medications ?Medication ?Instructions ?Recorded ?Last Taken ?Type cholecalciferol (vitamin D3) 50 4,000 unit PO DAILY supplement 09/20/16 12/03/20 History mcg (2,000 unit) capsule omega-3 acid ethyl esters 1 gram 2 cap PO BID 12/23/21 Unknown History capsule Bacillus coagulans 250 million 2 cell PO DAILY immune health 02/24/22 Unknown History cell chewable tablet (Digestive Advantage Probiotic Gummy) ascorbic acid (vitamin C) 1,000 mg 1 g PO DAILY supplement 02/24/22 Unknown History chewable tablet levothyroxine 50 mcg capsule 50 mcg PO DAILY 02/24/22 Unknown History clopidogrel 75 mg tablet 75 mg PO DAILY #90 tabs 05/31/22 Unknown Rx sacubitril 49 mg-valsartan 51 mg 0.5 tab PO BID 10/21/22 Unknown History tablet (Entresto) aspirin 81 mg chewable tablet 81 mg PO DAILY heart health 11/17/22 Unknown History nitroglycerin 0.4 mg sublingual 0.4 mg sublingual Q5M PRN 01/06/23 Unknown Rx tablet Cardiac/Chest Pain #1 BOTTLE guaifenesin 600 mg tablet, 600 mg PO BID PRN cough #30 tabs 10/05/23 Unknown Rx extended release 12 hr (Mucinex) citalopram 10 mg tablet 20 mg PO DAILY 10/27/23 Unknown History furosemide 40 mg tablet 40 mg PO DAILY #30 tabs 11/09/23 Unknown Rx trazodone 50 mg tablet See Rx Instructions PO QHS PRN 11/28/23 Unknown Rx sleep #20 tabs Allergy/AdvReac Type Severity Reaction Status Date / Time amiodarone Allergy Severe Other Verified 12/01/23 03:51 Opioids - Morphine Analogues Allergy Other Verified 12/01/23 03:51 Penicillins Allergy Rash Verified 12/01/23 03:51 [id number]-[id number] Reductase AdvReac Intermediate Pain in Verified 12/01/23 03:51 Inhibitor joints empagliflozin (From AdvReac Unknown UTI Verified 12/01/23 03:51 Jardiance) carvedilol AdvReac Foggy Verified 12/01/23 03:51 Head, Dizziness Family History Mother Dyslipidemia Hypertension Father Myelofibrosis Other Atherosclerotic heart disease of [place] coronary artery without angina pectoris Atrial fibrillation and flutter Ischemic cardiomyopathy Surgical History Pacemaker H/O mitral valve repair S/P PTCA (percutaneous transluminal coronary angioplasty) Hx of CABG S/P left atrial appendage ligation History of coronary artery stent placement History of mitral valve repair Hx of CABG S/P CABG x 4 Presence of coronary angioplasty implant and graft (~09/23/16) History of rotator cuff surgery History of ankle surgery History of appendectomy left leg surgery Hx of appendectomy Post PTCA Social History Smoking Status: Former smoker alcohol intake: never substance use type: does not use caffeine: No what type of physical activity do you participate in: none and walking ROS ROS Narrative All review of systems were negative except as mentioned above in the history of present illness and the other review of systems. Physical Exam Const alert and no apparent distress HEENT normocephalic and head/scalp atraumatic Resp normal respiratory effort, no retractions, no use of accessory muscles and clear to auscultation bilaterally Cardio regular rate, regular rhythm, S1 normal heart sound and S2 normal heart sound GI normal to inspection, nondistended, normoactive bowel sounds, soft to palpation, non-tender and non-distended Extremity normal to inspection and full ROM Neuro oriented x3, CN's II-XII intact bilaterally, moves all extremities and no focal motor deficits Sensorium / Orientation: awake and alert Coordination / Balance: [id number] test normal Motor Exam: strength 5/5 throughout Psych affect normal Lab / Micro Data Attestation: I reviewed the patient's lab results. 12/01/23 05:04 12/01/23 05:04 Labs: Laboratory Results - last 24 hr 12/01/23 04:54: Urine Color Yellow, Urine Clarity Clear, Urine pH 6.0, Ur Specific [place] 1.015, Urine Protein Negative, Urine Glucose (UA) Normal, Urine Ketones Negative, Urine Occult Blood Negative, Urine Nitrite Negative, Urine Bilirubin Negative, Urine Urobilinogen Normal, Ur Leukocyte Esterase Negative, Urine RBC 0 SEEN, Urine WBC 0 SEEN, Ur Squamous Epith Cells 0 SEEN, Urine Bacteria 0 SEEN, Urine Mucus 0 SEEN 12/01/23 05:04: WBC 6.2, RBC 4.86, Hgb 15.3, Hct 44.3, MCV 91.2, MCH 31.5, MCHC 34.5, RDW Std Deviation 42.9, RDW Coeff of Garett 12.8, Plt Count 167, MPV 9.3, Immature Gran % (Auto) 0.300, Neut % (Auto) 48.6, Lymph % (Auto) 35.0, [place] % (Auto) 10.7 H, Eos % (Auto) 4.4, Baso % (Auto) 1.0, Absolute Neuts (auto) 3.0, Absolute Lymphs (auto) 2.15, Nucleated RBC % 0, Sodium 138, Potassium 4.3, Chloride 107, Carbon Dioxide 25.0, Anion Gap 6, BUN 24 H, Creatinine 1.11, Estim Creat Clear Calc 58.28, Est GFR (MDRD) Af Amer 81, Est GFR (MDRD) Non-Af 67, B UN/Creatinine Ratio 21.6 H, Glucose 133 H, Lactic Acid 0.7, Calcium 9.2, Total Bilirubin 0.50, AST 23, ALT 18, Alkaline Phosphatase 79, Troponin I High Sens 32, Total Protein 6.9, Albumin 3.7, Globulin 3.2, Albumin/Globulin Ratio 1.2 Rhythm Strip Rhythm Strip: Paced Rate: 76 Ectopy: PVC(s) Imaging Radiology Impression Chest X-Ray 12/01/23 04:53 IMPRESSION: Borderline cardiomegaly and pulmonary vascular congestion. Electronically Signed: Jessica Saenz MD at 6:03 EDT , Brain CT 12/01/23 05:13 IMPRESSION: 1. Chronic involutional changes of the brain. 2. No CT evidence of acute intracranial hemorrhage. Electronically Signed: Jessica Saenz MD at 5:59 EDT , Charges/Coding Visit Charges Office Visits / Consults: [id number] OP Consult L4
== END 2023-12-01 08:04 | disposition home or self-care (01) ==
PROVIDERS: Emergency Provider Emergency Medicine; PCP Internal Medicine; Visit Provider Emergency Medicine
DX: R41.82 Altered mental status, unspecified (principal); I11.0 Hypertensive heart disease with heart failure; I50.22 Chronic systolic (congestive) heart failure; I49.3 Ventricular premature depolarization; I25.10 Atherosclerotic heart disease of native coronary artery without angina pectoris; I25.5 Ischemic cardiomyopathy; E78.5 Hyperlipidemia, unspecified; G47.33 Obstructive sleep apnea (adult) (pediatric); Z87.891 Personal history of nicotine dependence; Z79.899 Other long term (current) drug therapy; Z79.82 Long term (current) use of aspirin; Z79.01 Long term (current) use of anticoagulants; Z95.810 Presence of automatic (implantable) cardiac defibrillator; Z95.1 Presence of aortocoronary bypass graft
CPT/HCPCS: 70450; 71046; 80053; 81001; 83605; 84484; 85025; 93005; 96360; 96361; 99284; J7040; A4216

== ENCOUNTER → 2023-12-05 | Outpatient (CLI) | payer OTHER, SELFPAY ==
[2022-12-16 08:49] VITALS: BMI 31.0
== END | disposition home or self-care (01) ==
LOC: SL 20:08
PROVIDERS: PCP Internal Medicine
DX: G47.31 Primary central sleep apnea (principal)
CPT/HCPCS: 95811

== ENCOUNTER 2024-01-04 08:09 | Inpatient (IN) | payer OTHER, SELFPAY ==
[2022-12-16 08:49] VITALS: BMI 31.0
[2024-01-04] VITALS (10 sets, daily range): BP systolic 97–129; BP diastolic 58–76; PULSE 51–88; RESP 14–24; TEMP 36.2–37.6; O2SAT 94–98; BMI 30.3; BMI 30.6
[2024-01-04 08:38] LABS: Mucous, Urine 0 SEEN /hpf (<or=2+)
[2024-01-04 08:48] LABS: Color, Urine Yellow (Yellow); Glucose, Dipstick Normal (Normal); Ketone-Dipstick 5 mg/dl (Negative); Leukocyte Esterase-Dipstick 500 /ul (Negative); Nitrite-Dipstick Positive (Negative); Occult Blood-Urine 25 /ul (Negative); Protein-Dipstick 100 mg/dl (Negative); Specific Gravity, Urine 1.025 (1.002-1.030); Urine Clarity Sl. Cloudy (Clear); Urine Urobilinogen 1 mg/dl (Normal)
--- NOTE | 2024-01-04 08:50 | EX.ED.DYSGE1 ---
HPI History of Present Illness Chief Complaint: Complaint Informant: patient Onset/Context/Timing Onset: Days Context: Gradual Onset Timing: Continuous Current Severity: Mild Maximum Severity: Mild Narrative Narrative: 83-year-old male history of prostate extended secondary to large prostate prior CABG, pacemaker, cardiomyopathy on home O2 at night. Patient complained just not feeling well for the last week. Complains of dark urine. No blood. Denies any fever. This morning he had some nausea and vomiting he has not had a great appetite the last several days. Prior similar symptoms: Yes Recent Illness/Hospitalization: No PFSH PFSH Medical History Ischemic cardiomyopathy ICD (implantable cardioverter-defibrillator) in place Atrial fibrillation and flutter Osteomyelitis Hx of recurrent urinary tract infection Bilateral primary osteoarthritis of knee Chronic neck pain Encounter to establish care Thyroid disease High triglycerides Heart failure Heart disease Hearing problem Migraines UTI (urinary tract infection) Arthritis History of left heart catheterization (LHC) (~04/21/22) Essential hypertension HTN (hypertension) Hx of coronary artery disease Unstable angina Abnormal stress test Chest pain Ventricular tachycardia Atrial fibrillation/flutter HLD (hyperlipidemia) CAD (coronary artery disease) Systolic congestive heart failure ICD (implantable cardioverter-defibrillator) in place (~01/08/21) Sleep apnea Former smoker Irregular heart beat Atrial fibrillation FH: mitral valve repair Paroxysmal atrial flutter Ischemic cardiomyopathy Ventricular ectopy Tachy-drew syndrome Presence of stent in coronary artery (~09/23/16) Atherosclerotic heart disease of [place] coronary artery without angina pectoris Essential hypertension Tachycardia HERMAN (obstructive sleep apnea) Enlarged prostate Hypertriglyceridemia Hypothyroidism CAD (coronary artery disease) Bradycardia Near syncope Home Medications ?Medication ?Instructions ?Recorded ?Last Taken ?Type cholecalciferol (vitamin D3) 50 4,000 unit PO DAILY supplement 09/20/16 12/03/20 History mcg (2,000 unit) capsule omega-3 acid ethyl esters 1 gram 2 cap PO BID 12/23/21 Unknown History capsule Bacillus coagulans 250 million 2 cell PO DAILY immune health 02/24/22 Unknown History cell chewable tablet (Digestive Advantage Probiotic Gummy) ascorbic acid (vitamin C) 1,000 mg 1 g PO DAILY supplement 02/24/22 Unknown History chewable tablet levothyroxine 50 mcg capsule 50 mcg PO DAILY 02/24/22 Unknown History clopidogrel 75 mg tablet 75 mg PO DAILY #90 tabs 05/31/22 Unknown Rx sacubitril 49 mg-valsartan 51 mg 0.5 tab PO BID 10/21/22 Unknown History tablet (Entresto) aspirin 81 mg chewable tablet 81 mg PO DAILY heart health 11/17/22 Unknown History nitroglycerin 0.4 mg sublingual 0.4 mg sublingual Q5M PRN 01/06/23 Unknown Rx tablet Cardiac/Chest Pain #1 BOTTLE guaifenesin 600 mg tablet, 600 mg PO BID PRN cough #30 tabs 10/05/23 Unknown Rx extended release 12 hr (Mucinex) citalopram 10 mg tablet 20 mg PO DAILY 10/27/23 Unknown History furosemide 40 mg tablet 40 mg PO DAILY #30 tabs 11/09/23 Unknown Rx trazodone 50 mg tablet See Rx Instructions PO QHS PRN 11/28/23 Unknown Rx sleep #20 tabs Allergy/AdvReac Type Severity Reaction Status Date / Time amiodarone Allergy Severe Other Verified 01/04/24 08:36 Opioids - Morphine Analogues Allergy Other Verified 01/04/24 08:36 Penicillins Allergy Rash Verified 01/04/24 08:36 [id number]-[id number]-JbS Reductase AdvReac Intermediate Pain in Verified 01/04/24 08:36 Inhibitor joints empagliflozin (From AdvReac Unknown UTI Verified 01/04/24 08:36 Jardiance) carvedilol AdvReac Foggy Verified 01/04/24 08:36 Head, Dizziness Family History Mother Dyslipidemia Hypertension Father Myelofibrosis Other Atherosclerotic heart disease of [place] coronary artery without angina pectoris Atrial fibrillation and flutter Ischemic cardiomyopathy Surgical History Pacemaker H/O mitral valve repair S/P PTCA (percutaneous transluminal coronary angioplasty) Hx of CABG S/P left atrial appendage ligation History of coronary artery stent placement History of mitral valve repair Hx of CABG S/P CABG x 4 Presence of coronary angioplasty implant and graft (~09/23/16) History of rotator cuff surgery History of ankle surgery History of appendectomy left leg surgery Hx of appendectomy Post PTCA Social History Smoking Status: Former smoker alcohol intake: never substance use type: does not use caffeine: No what type of physical activity do you participate in: none and walking ROS ROS ED ROS Narrative Nausea and vomiting this morning. Decreased appetite. Dark urine. Constitutional Constitutional ED: Reports chills; Denies fever(s) Eyes Eyes: Denies blurry vision ENT ENT ED: Denies ear pain Cardiovascular Cardiovascular: Denies chest pain Respiratory/Chest Respiratory/Chest: Denies cough or dyspnea Gastrointestinal Gastrointestinal: Reports nausea and vomiting; Denies abdominal pain, constipation, diarrhea or melena Genitourinary Genitourinary ED: Denies dysuria or hematuria Musculoskeletal Musculoskeletal: Denies arthralgias Integumentary Denies abscess Neurologic Neurologic: Denies headache(s) Psychiatric Psychiatric: Denies anxiety Endocrine Endocrinology: Denies cold intolerance Hematologic/Lymphatic Hematologic/Lymphatic: Reports none Allergic/Immunologic Allergic/Immunologic ED: Denies mouth swelling, tongue swelling or urticaria EXAM Physical Exam Narrative Exam Narrative: 83-year-old male no acute distress vital signs stable afebrile. Sitting upright in bed. Family at bedside. H EENT exam unremarkable. Neck nontender. Lungs clear to auscultation bilaterally. Heart regular rhythm rate about 80 no murmur. Chest wall ribs nontender. Abdomen soft nontender. Moving all 4 extremities. Nontender no edema. Normal strength. Back nontender. Neurologically is awake and alert no focal motor deficits. Benign exam. Const Vital Signs: 01/04/24 08:10 01/04/24 08:11 01/04/24 09:28 Temperature 97.8 F 97.7 F L 98.0 F Temperature Source Temporal Temporal Temporal Pulse Rate 84 81 75 Respiratory Rate 18 14 18 Blood Pressure 126/72 H 129/76 H 107/58 L Blood Pressure Mean 90 93 74 Pulse Ox 95 98 98 Oxygen Delivery Method Room Air Room Air Room Air 01/04/24 09:48 Temperature 97.1 F L Temperature Source Oral Pulse Rate 51 L Respiratory Rate 24 H Blood Pressure 102/62 Blood Pressure Mean 75 Pulse Ox 94 Oxygen Delivery Method Room Air Positive well nourished and well developed; Negative for cachectic, contractures or unkempt General Appearance ED: well developed and NAD; Negative for unkempt, cachectic, contractures, cyanotic, diaphoretic or pallor Nutritional Appearance: Negative for cachectic HEENT Reports moist mucous membranes; Denies dry mucous membranes Negative for trauma or tenderness Mouth ED: No dry mucous membranes Mouth: No dry mucous membranes Eyes PERRL and EOMs intact bilaterally General Eye ED: Negative for pale conjunctiva or scleral icterus Neck no lymphadenopathy, supple and no JVD General: Negative for tenderness Lymph Lymphatic: Negative for other Chest Wall inspection of chest normal and palpation of chest normal Chest: Negative for other Resp normal respiratory effort and clear to auscultation bilaterally Effort and Inspection: Negative for retractions Auscultation: Negative for rales, rhonchi or wheezes Cardio regular rate, regular rhythm, S1 normal heart sound, S2 normal heart sound and no murmurs Palpation: Negative for palpable S3 or palpable S4 Rate: Negative for bradycardia or tachycardic Rhythm: Negative for abnormal rhythm GI normal to inspection, nondistended, normoactive bowel sounds, non-tender, non-distended and no masses Inspection: Negative for abdominal distention Auscultation: normoactive bowel sounds Palpation: soft; Negative for tender or guarding Back/Spine no CVA tenderness General Back: Negative for CVA tenderness Cervical Spine: Negative for cervical spine tenderness Thoracic Spine / Upper Back: Negative for thoracic spinal tenderness or paraspinal muscle tenderness Lumbar Spine / Lower Back: Negative for lumbar spinal tenderness Extremity normal to inspection General Extremety ED: Negative for edema or tenderness General Extremity: Negative for edema Neuro oriented x3 and CN's II-XII intact bilaterally Sensorium / Orientation: alert; Negative for orientation impaired, lethargic or stuporous Motor Exam: strength 5/5 throughout Psych mental status grossly normal Appearance: Negative for unkempt Attitude: No agitated Mood & Affect: Negative for depressed, anxious or tearful Skin no rashes or lesions noted, no wounds and skin turgor normal General Skin Exam: Negative for jaundice or pallor Lesions: No lesion noted Rashes: No rashes noted Trauma: Negative for abrasion Wounds: Negative for wounds noted MDM MDM MDM Narrative Medical decision making narrative: 83-year-old male states he has not been feeling well denies fever. They took his temperature at home there is no signs of fever with a thermometer. He did have chills has had some nausea and vomiting today. He has had a decreased appetite. His exam is benign. UA will be obtained and screening labs. Repeat exam at 10:05 AM unchanged. I do long discussion with patient and family. Their concern is his history of prior urosepsis. His elevated white count. Generalized weakness and not eating the last several days. Patient will be admitted. Be started on IV Rocephin. I did order a urine culture. Will be given a liter of fluid. Hospitalist is on page. History & Record Review Discussion w/independent historian: Patient and Family Additional record(s) reviewed:: Prior inpatient record, Prior outpatient record, Prior ED visit, Prior labs and No prior records Lab Data Attestation: I reviewed the patient's lab results. Lab results narrative: Urinalysis shows positive nitrates, 50-100 white cells and 4+ bacteria consistent with UTI. Culture will be sent. CBC shows no elevated white count of 21,600. H&H of 13 and 39. Platelets 143. Chemistry shows sodium 131. Gap of 10. BUN 27 creatinine 1.43. Liver enzymes are unremarkable. Labs: Laboratory Results - last 24 hr 01/04/24 01/04/24 08:30 09:10 WBC 21.6 H RBC 4.31 L Hgb 13.2 Hct 39.0 L MCV 90.5 MCH 30.6 MCHC 33.8 RDW Std Deviation 45.5 H RDW Coeff of [place] 13.6 Plt Count 143 L MPV 9.5 Neut % (Auto) Not Reportable Sodium 131 L Potassium 3.9 Chloride 99 Carbon Dioxide 22.0 Anion Gap 10 BUN 27 H Creatinine 1.43 H Estim Creat Clear Calc 45.19 Est GFR (MDRD) Af Amer 61 Est GFR (MDRD) Non-Af 50 L BUN/Creatinine Ratio 18.9 Glucose 132 H Calcium 8.6 Total Bilirubin 2.10 H AST 13 L ALT 14 L Alkaline Phosphatase 50 Total Protein 6.5 Albumin 3.2 Globulin 3.3 Albumin/Globulin Ratio 1.0 Urine Color Yellow Urine Clarity Sl. Cloudy Urine pH 5.0 Ur Specific [place] 1.025 Urine Protein 100 H Urine Glucose (UA) Normal Urine Ketones 5 H Urine Occult Blood 25 H Urine Nitrite Positive H Urine Bilirubin 1 H Urine Urobilinogen 1 H Ur Leukocyte Esterase 500 H Urine RBC 0-5 SEEN Urine WBC 50-100 SEEN Ur Squamous Epith Cells 0-5 SEEN Ur Transition Epith Cell 5-10 SEEN Ur Renal Epithelial Cell 5-10 SEEN Urine Bacteria 4+ Hyaline Casts 0-5 SEEN Urine Mucus 0 SEEN Discharge Plan Dx/Rx/DC Orders Clinical Impression: Acute UTI, Leukocytosis Disposition Disposition: Acute Care Hospital [facility]
[2024-01-04 08:51] LABS: Urine Bilirubin Dipstick 1 mg/dL (Negative)
[2024-01-04 09:09] LABS: Bacteria 4+ /hpf (None Seen); Squamous Epithelial Cells - UA 0-5 SEEN /hpf (0-5); White Blood Cells 50-100 SEEN /hpf (0-5)
[2024-01-04 09:10] LABS: Red Blood Cells-Urine 0-5 SEEN /hpf (0-5); Transitional Epithelial - Ur 5-10 SEEN /hpf (0-5)
[2024-01-04 09:11] LABS: Hyaline Cast 0-5 SEEN /lpf (0-5); Renal Epithelial Cells 5-10 SEEN /hpf (0-5)
[2024-01-04 09:15] LABS: Hemoglobin 13.2 g/dL (13.0-16.5); Mean Corp Hgb Conc 33.8 g/dL (32-36); Mean Corpuscular Hgb 30.6 pg (27.0-32.0); Mean Corpuscular Volume 90.5 fL (80-94); Mean Platelet Vol. 9.5 fl (6.2-12.0); POSITIVE COUNT YES; POSITIVE DIFFERENTIAL YES; POSITIVE MORPHOLOGY YES; Platelet Count 143 K/mm3 (150-450); RBC Distribution Width CV 13.6 % (11.6-14.6); RBC Distribution Width SD 45.5 fl (35.1-43.9); Red Blood Count 4.31 M/mm3 (4.6-6.2); White Blood Count 21.6 K/mm3 (4.4-11.0)
[2024-01-04 09:18] LABS: Differential Indicated MANUAL DIFF
[2024-01-04 09:35] LABS: AST(SGOT) 13 U/L (15-37); Alanine Aminotransfer ALT/SGPT 14 U/L (16-61); Albumin, Serum 3.2 g/dL (3.2-5.0); Alkaline Phosphatase 50 U/L (45-117); Anion Gap 10 (5-15); BUN 27 mg/dL (7-18); BUN/Creat Ratio 18.9 RATIO (10-20); Calcium,Total 8.6 mg/dL (8.5-10.1); Chloride 99 mmol/L (98-107); Creatinine, Serum 1.43 mg/dL (0.70-1.30); EST Glomerular Filtration Rate 50 mL/min (>60); Est Glom Filt Rate - Afr Amer 61 mL/min (>60); Estimated Creatinine Clearance 45.19 ml/min; Globulin 3.3 g/dL (2.2-4.2); Glucose 132 mg/dL (74-106); Potassium 3.9 mmol/L (3.5-5.1); Protein, Total 6.5 g/dL (6.4-8.2); Sodium Level 131 mmol/L (136-145)
[2024-01-04 10:22] LABS: Lymphocyte 1 % (19-41); Metamyelocyte 1 % (0-1); Monocyte 2 % (0-10); Myelocyte 2 % (0-0); Neutrophil-Segmented 94 % (47-70); Total Cells Counted 100 (MANUAL DIFF)
--- NOTE | 2024-01-04 10:24 | PCM.HP.STD ---
HPI - General General Date of Admission: 01/04/24 Date of Service: 01/04/24 Chief Complaint: Malaise, nausea/vomiting and dark urine output HPI Narrative YOGI DIAZ, is a 83 M who presented to [facility] ED on 01/04/2024 with malaise, nausea/vomiting and dark urine output. Patient reported not feeling well for the past week or so. Noted that his urine has become more dark in color; notably no blood noted in the urine. Denies any fevers or chills but has generally had more fatigue than his normal. He then developed nausea with vomiting this morning and came in for further evaluation. Patient is on Jardiance for heart failure and notably had a UTI with sepsis while in [place] last year. He and state that his symptoms recently feel similar to that episode last year. In the ED, noted to have low-grade fever to 99.6F but was otherwise hemodynamically stable on room air. UA markedly abnormal with 500 leukocyte esterase, positive nitrates, 50-100 WBCs and 4+ bacteria. He notably had a UA on 12/01/2023 that was completely normal. Labs notable for WBC count 21K, platelets 143, sodium 131, creatinine 1.43 and total bilirubin 2.10. Patient does have history of prostate stent placement several years ago but denies any difficulty with urination here recently. He notably did not have any urinary retention during last UTI episode last year and did not require Hendricks placement. Given patient's UTI with concern for sepsis, hospitalist was contacted for admission. I saw the patient at bedside on the floor shortly after arriving over from the ED, was present. Patient was mildly fatigued appearing but otherwise sitting up comfortably in bed, in no acute distress. He stated that he felt slightly better since arriving to the ED after receiving a liter of IV fluids. He notably does have history of HFrEF with last echo on 12/18/2022 that showed an EF of 20%, severe global hypokinesis of LV, stage I diastolic dysfunction and mildly dilated LV. Denies any shortness of breath after receiving IV fluids. Denies any heart failure exacerbations in the last year. No other acute concerns at this time. [facility] Medical History Ischemic cardiomyopathy ICD (implantable cardioverter-defibrillator) in place Atrial fibrillation and flutter Osteomyelitis Hx of recurrent urinary tract infection Bilateral primary osteoarthritis of knee Chronic neck pain Encounter to establish care Thyroid disease High triglycerides Heart failure Heart disease Hearing problem Migraines UTI (urinary tract infection) Arthritis History of left heart catheterization (LHC) (~04/21/22) Essential hypertension HTN (hypertension) Hx of coronary artery disease Unstable angina Abnormal stress test Chest pain Ventricular tachycardia Atrial fibrillation/flutter HLD (hyperlipidemia) CAD (coronary artery disease) Systolic congestive heart failure ICD (implantable cardioverter-defibrillator) in place (~01/08/21) Sleep apnea Former smoker Irregular heart beat Atrial fibrillation FH: mitral valve repair Paroxysmal atrial flutter Ischemic cardiomyopathy Ventricular ectopy Tachy-drew syndrome Presence of stent in coronary artery (~09/23/16) Atherosclerotic heart disease of [place] coronary artery without angina pectoris Essential hypertension Tachycardia HERMAN (obstructive sleep apnea) Enlarged prostate Hypertriglyceridemia Hypothyroidism CAD (coronary artery disease) Bradycardia Near syncope Home Medications ?Medication ?Instructions ?Recorded ?Last Taken ?Type cholecalciferol (vitamin D3) 50 4,000 unit PO DAILY supplement 09/20/16 12/03/20 History mcg (2,000 unit) capsule omega-3 acid ethyl esters 1 gram 2 cap PO BID supplement 12/23/21 Unknown History capsule Bacillus coagulans 250 million 2 cell PO DAILY immune health 02/24/22 Unknown History cell chewable tablet (Digestive Advantage Probiotic Gummy) ascorbic acid (vitamin C) 1,000 mg 1 g PO DAILY supplement 02/24/22 Unknown History chewable tablet levothyroxine 50 mcg capsule 50 mcg PO DAILY thyroid 02/24/22 Unknown History clopidogrel 75 mg tablet 75 mg PO DAILY blood thinner #90 05/31/22 Unknown Rx tabs sacubitril 49 mg-valsartan 51 mg 0.5 tab PO BID htn 10/21/22 Unknown History tablet (Entresto) aspirin 81 mg chewable tablet 81 mg PO DAILY heart health 11/17/22 Unknown History nitroglycerin 0.4 mg sublingual 0.4 mg sublingual Q5M PRN 01/06/23 Unknown Rx tablet Cardiac/Chest Pain #1 BOTTLE guaifenesin 600 mg tablet, 600 mg PO BID PRN cough #30 tabs 10/05/23 Unknown Rx extended release 12 hr (Mucinex) citalopram 10 mg tablet 20 mg PO DAILY mental health 10/27/23 Unknown History trazodone 50 mg tablet See Rx Instructions PO QHS PRN 11/28/23 Unknown Rx sleep #20 tabs Allergy/AdvReac Type Severity Reaction Status Date / Time amiodarone Allergy Severe Other Verified 01/04/24 08:36 Opioids - Morphine Analogues Allergy Other Verified 01/04/24 08:36 Penicillins Allergy Rash Verified 01/04/24 08:36 Ffcbtzj-SKY-GbB Reductase AdvReac Intermediate Pain in Verified 01/04/24 08:36 Inhibitor joints empagliflozin (From AdvReac Unknown UTI Verified 01/04/24 08:36 Jardiance) carvedilol AdvReac Foggy Verified 01/04/24 08:36 Head, Dizziness Family History Mother Dyslipidemia Hypertension Father Myelofibrosis Other Atherosclerotic heart disease of [place] coronary artery without angina pectoris Atrial fibrillation and flutter Ischemic cardiomyopathy Surgical History Pacemaker H/O mitral valve repair S/P PTCA (percutaneous transluminal coronary angioplasty) Hx of CABG S/P left atrial appendage ligation History of coronary artery stent placement History of mitral valve repair Hx of CABG S/P CABG x 4 Presence of coronary angioplasty implant and graft (~09/23/16) History of rotator cuff surgery History of ankle surgery History of appendectomy left leg surgery Hx of appendectomy Post PTCA Social History Smoking Status: Former smoker alcohol intake: never substance use type: does not use caffeine: No what type of physical activity do you participate in: none and walking ROS Constitutional Constitutional: Reports fatigue and malaise; Denies chills or fever(s) Eyes Eyes: Denies change in vision Cardiovascular Cardiovascular: Denies chest pain or dyspnea on exertion Respiratory/Chest Respiratory/Chest: Denies cough, shortness of breath at rest or wheezing Gastrointestinal Gastrointestinal: Denies abdominal pain Genitourinary Genitourinary: Reports dysuria; Denies burning urination, difficulty urinating, hematuria or urinary frequency Musculoskeletal Musculoskeletal: Denies arthralgias or myalgias Neurologic Neurologic: Denies dizziness, focal weakness or headache(s) Vital Signs Vital Signs Vital Signs: 01/04/24 08:10 01/04/24 08:11 01/04/24 09:28 Temperature 97.8 F 97.7 F L 98.0 F Temperature Source Temporal Temporal Temporal Pulse Rate 84 81 75 Respiratory Rate 18 14 18 Blood Pressure 126/72 H 129/76 H 107/58 L Blood Pressure Mean 90 93 74 Pulse Ox 95 98 98 Oxygen Delivery Method Room Air Room Air Room Air 01/04/24 09:48 Temperature 97.1 F L Temperature Source Oral Pulse Rate 51 L Respiratory Rate 24 H Blood Pressure 102/62 Blood Pressure Mean 75 Pulse Ox 94 Oxygen Delivery Method Room Air Weight Weight: 94.483 kg Body Mass Index (BMI) 30.3 Physical Exam Const alert, oriented x3 and no apparent distress Constitutional Narrative: Pleasant elderly male, obese, mildly fatigued appearing, otherwise sitting up comfortably in bed, conversing normally, in no acute distress. General Appearance: cooperative and comfortable HEENT normocephalic, head/scalp atraumatic, hearing grossly normal bilaterally and nasal mucous membranes and turbinates normal HEENT Narrative: Dry mucous membranes. Eyes PERRL, EOMs intact bilaterally and conjunctivae normal Neck full ROM Chest inspection of chest normal Resp normal respiratory effort, normal air movement, no use of accessory muscles and clear to auscultation bilaterally Cardio regular rate, regular rhythm, no murmurs and peripheral pulses 2+ throughout GI normal to inspection, nondistended, normoactive bowel sounds, soft to palpation, non-tender and non-distended Back/Spine normal ROM Extremity normal to inspection, full ROM and no pedal edema Skin no rashes or lesions noted Neuro moves all extremities and no focal motor deficits Speech: speech normal Psych mental status grossly normal Results Lab / Micro Data 01/04/24 09:10 01/04/24 09:10 Labs: Laboratory Results - last 24 hr 01/04/24 08:30: Urine Color Yellow, Urine Clarity Sl. Cloudy, Urine pH 5.0, Ur Specific [place] 1.025, Urine Protein 100 H, Urine Glucose (UA) Normal, Urine Ketones 5 H, Urine Occult Blood 25 H, Urine Nitrite Positive H, Urine Bilirubin 1 H, Urine Urobilinogen 1 H, Ur Leukocyte Esterase 500 H, Urine RBC 0-5 SEEN, Urine WBC 50-100 SEEN, Ur Squamous Epith Cells 0-5 SEEN, Ur Transition Epith Cell 5-10 SEEN, Ur Renal Epithelial Cell 5-10 SEEN, Urine Bacteria 4+, Hyaline Casts 0-5 SEEN, Urine Mucus 0 SEEN 01/04/24 09:10: WBC 21.6 H, RBC 4.31 L, Hgb 13.2, Hct 39.0 L, MCV 90.5, MCH 30.6, MCHC 33.8, RDW Std Deviation 45.5 H, RDW Coeff of Garett 13.6, Plt Count 143 L, MPV 9.5, Neut % (Auto) Not Reportable, Sodium 131 L, Potassium 3.9, Chloride 99, Carbon Dioxide 22.0, Anion Gap 10, BUN 27 H, Creatinine 1.43 H, Estim Creat Clear Calc 45.19, Est GFR (MDRD) Af Amer 61, Est GFR (MDRD) Non-Af 50 L, BUN/Creatinine Ratio 18.9, Glucose 132 H, Calcium 8.6, Total Bilirubin 2.10 H, AST 13 L, ALT 14 L, Alkaline Phosphatase 50, Total Protein 6.5, Albumin 3.2, Globulin 3.3, Albumin/Globulin Ratio 1.0 Assessment & Plan Assessment/Plan (1) Acute UTI: (2) Leukocytosis: PLAN: Plan Patient is an 83-year-old male who presented [facility] ED on 01/04/2024 with malaise, nausea/vomiting and dark-colored urine. 1. Complicated UTI ? Admit under inpatient status to PCU. Had leukocytosis and total bilirubin > 2 on admit but otherwise hemodynamically stable and no other significant endorgan dysfunction, did not meet sepsis criteria. UA markedly abnormal on admit. Urine culture ordered. Patient reports multiple UTIs in the past but no urine culture data available in our system. Notably, patient is on Jardiance and I suspect this is a strong contributor to this UTI. Will treat with IV cefepime for now. Given 1500 cc of fluid on arrival, hold on any further fluids given history of HFrEF as noted below. Monitor BP closely. Monitor daily labs. 2. Hyponatremia ? Sodium 131 on admit, baseline sodium is normal. Suspect due to poor p.o. intake in setting of UTI as noted above. Given IV fluid resuscitation on admit, follow-up a.m. sodium level. 3. Mild creatinine elevation in setting of CKD stage II ? Creatinine 1.43 on admit, baseline appears to be around 1.1-1.3. Suspect slight elevation due to UTI as noted above. IV fluids given on admit, follow-up a.m. BMP and monitor urine output. 4. History of HFrEF, history of CAD with CABG and stenting, history of mitral valve repair with left atrial appendage clipping, history of tachybradycardia syndrome and paroxysmal A-fib/flutter and ventricular ectopy with ICD placement, hypertension, hyperlipidemia ? Follows with [facility], last office visit in 10/2023. Mild hypovolemia on admit due to UTI, given IV fluids as noted above. No concern for heart failure exacerbation. Continue home aspirin and Plavix. Will hold home Entresto for now, restart as able. Holding home Jardiance and would recommend that this be discontinued on discharge. Chronic medical conditions: ? Obesity: BMI 30 on admit. Complicates hospital course, care and prognosis. ? Mood disorder: Stable. Continue home citalopram and trazodone at night. ? Hypothyroidism: Continue home Synthroid. DVT prophylaxis: Heparin subcu CODE STATUS: Full code, verified Expected disposition: Home, 2 to 3 days Total clinical time spent by myself addressing the patient's medical issues, reviewing all the data, and collaborating with patient's care team: 75 minutes. Charges/Coding Visit Charges Inpatient E&M: 27982 Init Hosp L3
[2024-01-04 10:26] LABS: Absolute Neutrophil Count 20.3 X10^3/uL (2.0-7.7)
[2024-01-04 10:27] LABS: Promyelocyte 2 % (0-0)
[2024-01-04 10:28] LABS: Absolute Lymphocyte Count 0.22 X10^3/uL (0.83-4.51)
--- NOTE | 2024-01-04 10:33 | US_ITS ---
INDICATION: UTI w/ HERMANN, h/o BPH w/ prost stent, r/o obstruction, elevated LFT EXAMINATION: Ultrasound US Abdomen RUQ (limited) TECHNIQUE: Iyv scale and color doppler imaging was performed of the gallbladder. COMPARISON: None. FINDINGS: LIVER: There is diffuse fatty infiltration liver. Liver measures approximately 16.1 cm in length. No focal hepatic lesion. No intrahepatic biliary ductal dilatation. There is no free fluid. Normal directional vascular flow is noted. GALLBLADDER AND BILIARY TREE: Gallbladder is mildly distended with maximal dimension of 9.6 cm. Trace pericholecystic fluid is noted. No evidence of calcifications however intraluminal sludge is present. The proximal common bile duct measures 2.6 mm, which is within normal limits for the patient''s age. SONOGRAPHIC LORA''S SIGN: Negative. PANCREAS: No focal abnormality is demonstrated in the pancreas. No pancreatic ductal dilatation. KIDNEYS GENERAL: There is no hydronephrosis. No shadowing calculus, focal lesion, or perinephric collection is demonstrated. There is an anechoic cyst in the kidney at 2.4 x 2.8 x 2.1 cm. RIGHT kidney: 11.1 x 6.1 x 6.2 cm. VESSELS: Submitted longitudinal images of the intra-abdominal aorta demonstrate no gross abnormalities and are unremarkable. The IVC is patent. IMPRESSION: 1. Hepatomegaly and diffuse hepatic steatosis. No hepatic masses. No ductal dilatation. 2. Distention of the gallbladder, intraluminal sludge without stones noted. No ductal dilatation. Trace pericholecystic fluid. No sonographic Lora sign. 3. RIGHT renal cysts consistent with Bosniak type I cyst measuring 2.4 x 2.8 x 2.1 cm, follow up not necessary. No obstructive uropathy. Reference guidance and recommendations: Bosniak class I and II cysts are considered benign, and require no additional imaging follow-up based on consensus guidelines (JACR 2010; 7:753-773). Electronically Signed: Gordo Blackwell MD at 18:57 EDT , INDICATION: UTI w/ HERMANN, h/o BPH w/ prost stent, r/o obstruction, elevated LFT EXAMINATION: Ultrasound US Kidney(s) complete (eg, kidneys and bladder) TECHNIQUE: Ivy scale and color doppler images were obtained of the kidneys. COMPARISON: None. FINDINGS: RIGHT KIDNEY: 11.1 x 6.1 x 6.2 cm. There is no hydronephrosis. No shadowing calculus, focal lesion or perinephric collection is demonstrated. Cortex measures 1.2 cm. There is a anechoic cyst in the midpole measuring approximately 2.4 x 2.8 x 2 x 1 cm. LEFT KIDNEY: 12.2 x 6.5 x 6.2 cm.. There is no hydronephrosis. No shadowing calculus, focal lesion or perinephric collection is demonstrated. Renal cortex measures 1.5 cm. URINARY BLADDER: Bladder is distended, measuring 128.6 mL volume. Wall measures approximately 5.9 mm. Ureteral jets are not visualized. Prostate: There is marked prominence of the prostate, measuring 6.5 x 7.2 x 5.3 cm. US/Abdomen Limited IMPRESSION: 1. No evidence of renal masses or obstructive uropathy. 2. Anechoic benign-appearing Bosniak type I RIGHT renal cyst, no follow-up necessary. 3. Prominence of the prostate consistent with BPH, however mass is an additional consideration. Maximal dimension is 6.5 x 7.2 x 5.3 cm. Reference guidance and recommendations: Bosniak class I and II cysts are considered benign, and require no additional imaging follow-up based on consensus guidelines (JACR 2010; 7:753-773). Electronically Signed: Gordo Blackwell MD at 19:08 EDT ,
[2024-01-04] MEDS: Ceftriaxone 1 GM/50 ML BAG IV (10:46)
[2024-01-04] MEDS: 0.9% Normal Saline (1000mL) 1,000 ML 999 ML IV (10:46)
[2024-01-04] MEDS: Lactated Ringers 1,000 ML 100 ML IV (11:35)
[2024-01-04] MEDS: Ondansetron 4 MG/2 ML Vial IV (11:36)
[2024-01-04] MEDS: Cefepime HCl 2 GM in 0.9% Normal Saline (100mL MB+) 100 ML IV ×2 (14:16→23:00)
[2024-01-04] MEDS: Ensure Plus High Protein 120 ML LIQUID PO ×2 (16:58→23:00)
[2024-01-04] MEDS: Heparin Injection (Vial) 5,000 UNIT/ML VIAL 5000 UNIT SC (23:00)
[2024-01-04] MEDS: 0.9% Saline Lock 10 ML Syringe IV (23:00)
[2024-01-05] MEDS: Levothyroxine 50 MCG Tablet PO (04:56)
[2024-01-05 05:00] VITALS: BP 90/64; PULSE 62; RESP 18; TEMP 36.3; O2SAT 94
[2024-01-05 06:11] LABS: Hematocrit 36.1 % (40-54); Hemoglobin 12.3 g/dL (13.0-16.5); Mean Corp Hgb Conc 34.1 g/dL (32-36); Mean Corpuscular Hgb 31.1 pg (27.0-32.0); Mean Corpuscular Volume 91.2 fL (80-94); Mean Platelet Vol. 10.2 fl (6.2-12.0); Platelet Count 143 K/mm3 (150-450); RBC Distribution Width CV 13.5 % (11.6-14.6); Red Blood Count 3.96 M/mm3 (4.6-6.2)
[2024-01-05 06:45] VITALS: BP 132/70; PULSE 76; RESP 18; TEMP 36.4; O2SAT 94
[2024-01-05 07:30] LABS: Anion Gap 9 (5-15); BUN 29 mg/dL (7-18); BUN/Creat Ratio 22.8 RATIO (10-20); Calcium,Total 8.3 mg/dL (8.5-10.1); Chloride 99 mmol/L (98-107); Creatinine, Serum 1.27 mg/dL (0.70-1.30); EST Glomerular Filtration Rate 58 mL/min (>60); Est Glom Filt Rate - Afr Amer 70 mL/min (>60); Estimated Creatinine Clearance 50.78 ml/min; Glucose 121 mg/dL (74-106); Potassium 3.8 mmol/L (3.5-5.1); Sodium Level 131 mmol/L (136-145)
[2024-01-05 07:32] LABS: Magnesium 1.8 mg/dL (1.6-2.6)
[2024-01-05] MEDS: Cefepime HCl 2 GM in 0.9% Normal Saline (100mL MB+) 100 ML IV ×2 (08:48→21:47)
[2024-01-05] MEDS: Ascorbic Acid 500 MG Tablet 1000 MG PO (08:48)
[2024-01-05] MEDS: Ensure Plus High Protein 120 ML LIQUID PO ×2 (08:48→18:40)
[2024-01-05] MEDS: 0.9% Saline Lock 10 ML Syringe IV (08:49)
[2024-01-05] MEDS: Aspirin 81 MG TAB.CHEW PO (08:49)
[2024-01-05] MEDS: Heparin Injection (Vial) 5,000 UNIT/ML VIAL 5000 UNIT SC (08:49)
[2024-01-05] MEDS: Cholecalciferol (VIT D3) 25 MCG TABLET (1,000 UNITS) 50 MCG PO (08:49)
[2024-01-05] MEDS: Clopidogrel Bisulfate 75 MG Tablet PO (08:49)
[2024-01-05] MEDS: Citalopram 20 MG Tablet PO (08:49)
--- NOTE | 2024-01-05 10:37 | NURSING ---
pt with 7beat run vtach. dr. wade aware.
--- NOTE | 2024-01-05 10:40 | CASEMGMT ---
CAILIN CASANOVA Assessment Face to Face with patient for initial transition planning/care coordination assessment. CAILIN CASANOVA introduced self and role at [facility], pt voices understanding. Pt is A&Ox4 and is resting comfortably in bed and is calm. Pt at bedside. Care providers, pharmacy, and demographics verified. Admitting dx: UTI PCP: Crystal Wise Specialists: KEITH Preferred Pharmacy: [facility] Insurance: [place], [facility] MCR ADV Prescription Benefit: Yes LNOK: Denise Jasso (W) Living Arrangements: Pt lives with his in a single story home with a flat entrance. Pt reports that he also lives in [place] half of the year and will be returning Mar 21 ADLs/IADLs: Ind Transportation: Self, . Denies concerns DME: BP Monitor. Pt was recently set up with home oxygen through the [facility]. Pt current order verified by Michelle at the [facility]. Pt current Rx is 3L @ HS only via [facility]. Pt has a concentrator. Pt does not have portability. Pt does not have a pulse ox but was educated on purchasing options. Moving forward, Michelle says that she will be off work and that we will need to call [phone] for potential needs. HHC/SNF: Hx of HHC in [place]. Denies SNF Pt?s goal: Home Plan: Home no needs with pt . CM to follow for increased oxygen demands. Pt denies the need for HHC, OP Tx, or SNF needs. Pt states that he feels safe with this plan and denies further questions or concerns. Valentina Saenz RN, CM
[2024-01-05 10:48] LABS: Pathologist Review Reviewed
[2024-01-05 11:44] VITALS: BP 115/63; PULSE 84; RESP 16; TEMP 36.9; O2SAT 100
--- NOTE | 2024-01-05 17:25 | PCM.PN.HOSP ---
Reason for Visit Reason for Visit: Diagnoses Elevated white blood cell count, unspecified (01/04/24) Urinary tract infection, site not specified (01/04/24) Subjective Subjective Patient was seen and examined today, his was in the room at the time of my examination. His urine culture was positive for E. coli-sensitivities are not back yet. Patient remains on IV cefepime at this time. Patient's white cell count today was improved as compared with yesterday's. Objective Data Objective Data Vital Signs: Vital Signs Temp Pulse Resp BP Pulse Ox O2 Del Method 98.4 F 84 16 115/63 100 Room Air 01/05/24 11:44 01/05/24 11:44 01/05/24 11:44 01/05/24 11:44 01/05/24 11:44 01/05/24 14:00 Oxygen Delivery Method Room Air Weight: 94.1 kg Body Mass Index (BMI) 30.6 Intake & Output: Intake and Output for Last 24 Hours 01/03/24 01/04/24 01/05/24 23:59 23:59 23:59 Intake Total 1750 / 2050 600 / 600 Balance 1750 / 2050 600 / 600 Lab / Micro Data 01/05/24 05:45 01/05/24 05:45 Labs: Laboratory Results - last 24 hr 01/04/24 09:10: [place] % (Auto) FITNESS SUPERVISOR, Diff Path Review Reviewed 01/05/24 05:45: WBC 17.0 H, RBC 3.96 L, Hgb 12.3 L, Hct 36.1 L, MCV 91.2, MCH 31.1, MCHC 34.1, RDW Std Deviation 46.0 H, RDW Coeff of Garett 13.5, Plt Count 143 L, MPV 10.2, Sodium 131 L, Potassium 3.8, Chloride 99, Carbon Dioxide 23.0, Anion Gap 9, BUN 29 H, Creatinine 1.27, Estim Creat Clear Calc 50.78, Est GFR (MDRD) Af Amer 70, Est GFR (MDRD) Non-Af 58 L, BUN/Creatinine Ratio 22.8 H, Glucose 121 H, Calcium 8.3 L, Magnesium 1.8 Micro: Microbiology 01/05/24 01:00 Stool Enteric Bacteriology - Final 01/04/24 08:30 Urine, Random Urine Culture - Preliminary Presumptive E. coli Radiography Diagnostic Testing: Radiology Impression Abdomen Ultrasound 01/04/24 10:33 IMPRESSION: 1. No evidence of renal masses or obstructive uropathy. 2. Anechoic benign-appearing Bosniak type I RIGHT renal cyst, no follow-up necessary. 3. Prominence of the prostate consistent with BPH, however mass is an additional consideration. Maximal dimension is 6.5 x 7.2 x 5.3 cm. Reference guidance and recommendations: Bosniak class I and II cysts are considered benign, and require no additional imaging follow-up based on consensus guidelines (JACR 2010; [id number]). Electronically Signed: Gordo Blackwell MD at 19:08 EDT , Physical Exam Const alert, oriented x3, no apparent distress and average body habitus General Appearance: cooperative, well kempt and well developed Orientation / Consciousness: awake, oriented to person, oriented to place and oriented to time HEENT normocephalic, head/scalp atraumatic and moist oral mucous membranes Eyes PERRL, EOMs intact bilaterally and conjunctivae normal Neck supple, no JVD, thyroid normal and no carotid bruits General: trachea midline Resp normal respiratory effort, no retractions, no use of accessory muscles and clear to auscultation bilaterally Auscultation: Negative for rales, rhonchi or wheezes Cardio regular rate, regular rhythm, S1 normal heart sound, S2 normal heart sound, no murmurs, no rub and no gallops GI normal to inspection, nondistended, normoactive bowel sounds, soft to palpation, non-tender and non-distended Extremity no clubbing, cyanosis or edema Skin no rashes or lesions noted General Skin Exam: no breakdown Neuro oriented x3, CN's II-XII intact bilaterally, no focal motor deficits and no sensory deficits noted Sensorium / Orientation: awake and alert Speech: speech normal Psych affect normal Assessment & Plan Assessment/Plan (1) Acute UTI: PLAN: Plan 1. Acute cystitis-continue cefepime, patient's ultrasound of his kidneys and bladder showed right renal cysts, no evidence of any stones were noted, patient had enlargement of his prostate consistent with BPH and 128 mL of urine in the bladder. Patient states he has had a history of BPH and has a UroLift in place. #2 cardiac arrhythmias-mainly PVCs, patient has a history of PVCs on his medical record, recent Holter monitor showed approximately 50,000 PVCs in a day out of approximately 115,000 beats. I have elected to take the patient off telemetry at this time, he is asymptomatic with the PVCs and he has an ICD in place. #3 atherosclerotic heart disease-complicates care, management, recovery, and prognosis #4 ischemic cardiomyopathy-complicates care, management, recovery, and prognosis, continue present home medications #5 chronic depression-patient is on citalopram #6 hypothyroidism-patient is on Synthroid Total clinical time spent by myself addressing the patient's medical issues, reviewing all of his data, and collaborating with patient's care team: 35 minutes Charges/Coding Visit Charges Inpatient E&M: 95874 Subs Hosp L2
[2024-01-05 17:58] VITALS: BP 119/80; PULSE 100; RESP 18; TEMP 36.6; O2SAT 97
[2024-01-05] MEDS: Tamsulosin HCl 0.4 MG Capsule 0.8 MG PO (18:38)
[2024-01-05 21:51] VITALS: BP 128/78; PULSE 81; RESP 16; TEMP 37.1; O2SAT 98
[2024-01-05] MEDS: Acetaminophen 325 MG Tablet 650 MG PO (22:17)
[2024-01-06 03:18] VITALS: BP 115/79; PULSE 81; RESP 16; TEMP 36.8; O2SAT 97
[2024-01-06] MEDS: Levothyroxine 50 MCG Tablet PO (05:19)
[2024-01-06 08:40] VITALS: BP 96/85; PULSE 59; RESP 18; TEMP 36.2; O2SAT 98
[2024-01-06] MEDS: Cholecalciferol (VIT D3) 25 MCG TABLET (1,000 UNITS) 50 MCG PO (08:46)
[2024-01-06] MEDS: Clopidogrel Bisulfate 75 MG Tablet PO (08:46)
[2024-01-06] MEDS: Aspirin 81 MG TAB.CHEW PO (08:46)
[2024-01-06] MEDS: Citalopram 20 MG Tablet PO (08:46)
[2024-01-06] MEDS: Ascorbic Acid 500 MG Tablet 1000 MG PO (08:46)
[2024-01-06] MEDS: Cefepime HCl 2 GM in 0.9% Normal Saline (100mL MB+) 100 ML IV (09:42)
[2024-01-06] MEDS: 0.9% Saline Lock 10 ML Syringe IV (09:43)
[2024-01-06 11:11] LABS: Absolute Lymphocyte Count 0.47 X10^3/uL (0.83-4.51); Absolute Neutrophil Count 6.4 X10^3/uL (2.0-7.7); Basophil# 0.05 X10^3/uL; Basophil% 0.7 % (0-1); Eosinophil# 0.03 X10^3/uL; Eosinophils% 0.4 % (0-5); Hematocrit 38.4 % (40-54); Hemoglobin 13.1 g/dL (13.0-16.5); Lymphocyte # 0.47 X10^3/ul (0.83-4.51); Lymphocyte % 6.3 % (19-41); Mean Corp Hgb Conc 34.1 g/dL (32-36); Mean Platelet Vol. 9.7 fl (6.2-12.0); Monocyte# 0.47 X10^3/uL; Monocyte% 6.3 % (0-10); NRBC Flagged by Analyzer 0 % (0-5); Neutrophil # 6.38 X10^3/uL (2.7-7.7); Neutrophil % 85.4 % (47-70); POSITIVE DIFFERENTIAL YES; Platelet Count 159 K/mm3 (150-450); RBC Distribution Width CV 13.5 % (11.6-14.6); RBC Distribution Width SD 45.7 fl (35.1-43.9); Red Blood Count 4.22 M/mm3 (4.6-6.2); White Blood Count 7.5 K/mm3 (4.4-11.0)
--- NOTE | 2024-01-06 11:24 | PCM.DC ---
Discharge Instructions Diet Discharge Diet: No restrictions Activity Discharge Activity: Return to Normal Activity Weight Bearing Status: Full weight bearing Follow Up Care Test Results: Test results from this visit will be discussed in further detail at your follow-up appointment, if applicable. Discharge Plan Admission Admit Date/Time: 01/04/24 10:28 Primary Reason for Your Visit: cystitis Attending Provider: Fortunato Singletary Primary Care Provider: Crystal Wise Consulting Providers: Johny Villalpando Discharge Orders/Prescriptions Prescriptions: New tamsulosin 0.4 mg Capsule 0.8 mg PO DAILY@1730 Qty: 60 2RF cephalexin 500 mg capsule 500 mg PO TID Qty: 23 0RF Rx Instructions: start at dinner today Continued omega-3 acid ethyl esters 1 gram capsule 2 cap PO BID levothyroxine 50 mcg capsule 50 mcg PO DAILY Entresto 49-51 mg tablet 0.5 tab PO BID guaifenesin [Mucinex] 600 mg tablet extended release 12hr 600 mg PO BID PRN (Reason: cough) Qty: 30 0RF citalopram 10 mg tablet 20 mg PO DAILY cholecalciferol (vitamin D3) 2,000 UNIT capsule 4,000 unit PO DAILY aspirin 81 mg tablet,chewable 81 mg PO DAILY ascorbic acid (vitamin C) 1,000 mg tablet,chewable 1 g PO DAILY Digestive Advantage Prob Gummy 250 million cell tablet,chewable 2 cell PO DAILY clopidogrel 75 mg tablet 75 mg PO DAILY Qty: 90 3RF nitroglycerin 0.4 mg tablet, sublingual 0.4 mg SUBLINGUAL Q5M PRN (Reason: Cardiac/Chest Pain) Qty: 1 0RF trazodone 50 mg tablet See Rx Instructions PO QHS PRN (Reason: sleep) Qty: 20 0RF Rx Instructions: Take 1/2-1 tab 30 minutes before bed as needed orally at bedtime PRN; Referrals / Follow Up: Crystal Wise MD [Primary Care Provider] - See Referral Note (at next scheduled visit) Disposition Disposition (needs filled in before D/C Order can be placed): Home, Self Care
--- NOTE | 2024-01-06 11:37 | PCM.DC.SUM ---
Providers Date of Admission: 01/04/24 Date of Discharge: 01/06/24 Primary Care Physician: Dr. Crystal Wise MD Reason For Visit: COMPLICATED UTI Diagnosis Discharge Diagnosis (1) Acute UTI: Status: Acute Code(s): N39.0 - Urinary tract infection, site not specified Plan 1. 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 Patient states he has had a history of BPH and has a UroLift in place. #2 cardiac arrhythmias-mainly PVCs, patient has a history of PVCs on his medical record, recent Holter monitor showed approximately 50,000 PVCs in a day out of approximately 115,000 beats. I have elected to take the patient off telemetry at this time, he is asymptomatic with the PVCs and he has an ICD in place. #3 atherosclerotic heart disease-complicates care, management, recovery, and prognosis #4 ischemic cardiomyopathy-complicates care, management, recovery, and prognosis, continue present home medications #5 chronic depression-patient is on citalopram #6 hypothyroidism-patient is on Synthroid #7 acute urinary retention secondary to BPH #8 chronic kidney disease stage IIIa Total clinical time spent by myself addressing the patient's medical issues, reviewing all of his data, and collaborating with patient's care team: 35 minutes Medications at Discharge Home Medications cholecalciferol (vitamin D3) 50 mcg (2,000 unit) capsule 4,000 unit PO DAILY supplement 09/20/16 omega-3 acid ethyl esters 1 gram capsule 2 cap PO BID supplement 12/23/21 Bacillus coagulans 250 million cell chewable tablet (Digestive Advantage Probiotic Gummy) 2 cell PO DAILY immune health 02/24/22 ascorbic acid (vitamin C) 1,000 mg chewable tablet 1 g PO DAILY supplement 02/24/22 levothyroxine 50 mcg capsule 50 mcg PO DAILY thyroid 02/24/22 clopidogrel 75 mg tablet 75 mg PO DAILY blood thinner #90 tabs 05/31/22 sacubitril 49 mg-valsartan 51 mg tablet (Entresto) 0.5 tab PO BID htn 10/21/22 aspirin 81 mg chewable tablet 81 mg PO DAILY heart health 11/17/22 nitroglycerin 0.4 mg sublingual tablet 0.4 mg sublingual Q5M PRN Cardiac/Chest Pain #1 BOTTLE 01/06/23 guaifenesin 600 mg tablet, extended release 12 hr (Mucinex) 600 mg PO BID PRN cough #30 tabs 10/05/23 citalopram 10 mg tablet 20 mg PO DAILY mental health 10/27/23 trazodone 50 mg tablet See Rx Instructions PO QHS PRN sleep #20 tabs 11/28/23 cephalexin 500 mg capsule 500 mg PO TID #23 caps 01/06/24 tamsulosin 0.4 mg capsule 0.8 mg (2 x 0.4 mg) PO DAILY@1730 #60 caps 01/06/24 Hospital Course Operations None Procedures None Summary of Care Provided Minutes Spent on Discharge: 31 Hospital Course: This 83-year-old white male was seen in the emergency room at [facility] with complaints of feeling unwell over the last several days, he also complained of chills. Workup in the emergency room revealed a white blood cell count of 21.6, creatinine was elevated at 1.43 and BUN was 27. Urinalysis showed plus for bacteria, 50-100 WBCs, and 0-5 RBCs. Patient was admitted to PCU for sepsis secondary to acute cystitis, he was placed on IV antibiotics and monitored. Patient had urinary retention during his hospital stay and had to be placed on Flomax. Urine culture resulted and showing E. coli which was sensitive to a wide variety of antibiotics. On 01/06/2024, patient was seen and examined: On examination he appeared in good health and spirits. Vital signs as documented. Skin warm and dry and without overt rashes. Neck without JVD, neck was supple, trachea midline, thyroid was normal. Lungs clear bilaterally, normal air movement was noted. Heart exam notable for regular rhythm, normal sounds and absence of murmurs, rubs or gallops. Abdomen unremarkable and without evidence of organomegaly, masses, or abdominal aortic enlargement. Bowel sounds are present, abdomen is not distended. Extremities nonedematous, no cyanosis was noted, no clubbing was noted. Neuro: Cranial nerves II through XII are grossly intact, no focal motor deficits were noted, sensation to light touch and pinprick intact, motor exam 5/5 throughout. Psych: Patient is alert and oriented x3, he does not appear anxious or depressed, he does not appear agitated. Patient was discharged home in stable condition on 01/06/2024. Weight / BMI Weight Weight: 94.1 kg Body Mass Index (BMI) 30.6 ABG / Lab / Microbiology Data 01/06/24 10:50 01/05/24 05:45 Microbiology: Microbiology 01/04/24 08:30 Urine, Random Urine Culture - Final Presumptive E. coli 01/05/24 01:00 Stool Enteric Bacteriology - Final D/C Instructions Discharge Diet: No restrictions Weight Bearing Status: Full weight bearing Meaningful Use Info Meaningful Use Meaningful Use Diagnoses (Choose all that apply): None applicable Ischemic Stroke Statin Dosing Therapy Reference: STATIN DOSE THERAPY REFERENCE: * Patients > 75 years receive moderate or high dose statin therapy. * Patients 75 years or YOUNGER should receive HIGH intensity statin dose unless contraindicated. You will be required to document reason for non-treatment if statin daily dose does not meet guidelines. HIGH DOSE STATIN THERAPY DAILY Atorvastatin > than or = to 40 mg Rosuvastatin > than or = to 20 mg Amlodipine + Atorvastatin > than or = to 2.5/40 mg Ezetimibe + Simvastatin 10/80 mg Simvastatin 80mg Discharge Plan Admission Admit Date/Time: 01/04/24 10:28 Primary Reason for Your Visit: cystitis Attending Provider: Fortunato Singletary Primary Care Provider: Crystal Wise Consulting Providers: Johny Villalpando Discharge Orders/Prescriptions Prescriptions: New tamsulosin 0.4 mg Capsule 0.8 mg PO DAILY@1730 Qty: 60 2RF cephalexin 500 mg capsule 500 mg PO TID Qty: 23 0RF Rx Instructions: start at dinner today Continued omega-3 acid ethyl esters 1 gram capsule 2 cap PO BID levothyroxine 50 mcg capsule 50 mcg PO DAILY Entresto 49-51 mg tablet 0.5 tab PO BID guaifenesin [Mucinex] 600 mg tablet extended release 12hr 600 mg PO BID PRN (Reason: cough) Qty: 30 0RF citalopram 10 mg tablet 20 mg PO DAILY cholecalciferol (vitamin D3) 2,000 UNIT capsule 4,000 unit PO DAILY aspirin 81 mg tablet,chewable 81 mg PO DAILY ascorbic acid (vitamin C) 1,000 mg tablet,chewable 1 g PO DAILY Digestive Advantage Prob Gummy 250 million cell tablet,chewable 2 cell PO DAILY clopidogrel 75 mg tablet 75 mg PO DAILY Qty: 90 3RF nitroglycerin 0.4 mg tablet, sublingual 0.4 mg SUBLINGUAL Q5M PRN (Reason: Cardiac/Chest Pain) Qty: 1 0RF trazodone 50 mg tablet See Rx Instructions PO QHS PRN (Reason: sleep) Qty: 20 0RF Rx Instructions: Take 1/2-1 tab 30 minutes before bed as needed orally at bedtime PRN; Referrals / Follow Up: Crystal Wise MD [Primary Care Provider] - See Referral Note (at next scheduled visit) Disposition Disposition (needs filled in before D/C Order can be placed): Home, Self Care Charges/Coding Visit Charges Inpatient E&M: 98752 Disch Hosp >30min
--- NOTE | 2024-01-06 12:05 | CASEMGMT ---
Patient has order for discharge. RN CM in to discuss needs at discharge, at bedside. Patient and deny needs or help at discharge. Patient and had no further questions.
[2024-01-06 12:10] VITALS: BP 115/88; PULSE 89; RESP 18; TEMP 36.4; O2SAT 97
== END 2024-01-06 12:27 | disposition home or self-care (01) | DRG 690 ==
LOC: ED 10:06 → PCU 15:04
PROVIDERS: Internal Medicine; Admitting Provider Hospitalist; Emergency Provider Emergency Medicine; PCP Internal Medicine; Visit Provider Internal Medicine
DX: N30.00 Acute cystitis without hematuria (principal); I13.0 Hypertensive heart and chronic kidney disease with heart failure and stage 1 through stage 4 chronic kidney disease, or unspecified chronic kidney disease; E87.1 Hypo-osmolality and hyponatremia; I50.22 Chronic systolic (congestive) heart failure; N18.31 Chronic kidney disease, stage 3a; E03.9 Hypothyroidism, unspecified; F32.A Depression, unspecified; E66.9 Obesity, unspecified; E07.9 Disorder of thyroid, unspecified; I25.5 Ischemic cardiomyopathy; E78.5 Hyperlipidemia, unspecified; I25.10 Atherosclerotic heart disease of native coronary artery without angina pectoris; B96.20 Unspecified Escherichia coli [E. coli] as the cause of diseases classified elsewhere; Z95.1 Presence of aortocoronary bypass graft; I49.3 Ventricular premature depolarization; N40.1 Benign prostatic hyperplasia with lower urinary tract symptoms; R33.8 Other retention of urine; Z95.5 Presence of coronary angioplasty implant and graft; Z95.810 Presence of automatic (implantable) cardiac defibrillator; Z68.30 Body mass index [BMI] 30.0-30.9, adult; Z79.02 Long term (current) use of antithrombotics/antiplatelets; Z79.82 Long term (current) use of aspirin; Z79.890 Hormone replacement therapy; Z79.899 Other long term (current) drug therapy; Z87.891 Personal history of nicotine dependence
CPT/HCPCS: 36415; 76705; 76770; 80048; 80053; 81001; 83735; 85025; 85027; 87086; 87088; 87186; 87506; 94668; 97802; 99284; J7030; J7120; A4216; J2405

== ENCOUNTER 2024-03-05 03:40 | Emergency (ER) | payer OTHER, SELFPAY ==
[2022-12-16 08:49] VITALS: BMI 31.0
[2024-03-05 03:40] VITALS: BP 134/85; PULSE 102; RESP 18; TEMP 36.4; O2SAT 99; BMI 29.3
--- NOTE | 2024-03-05 04:07 | RAD_ITS ---
INDICATION: atraumatic pain C/O LT FOOT PAIN X 3 WEEKS STATES THERE IS A SMALL RED AREA ON PLANTAR SURFACE OF LT HEEL THAT HAS BEEN HURTING PATIENT HAS MULTIPLE SCABS ON LT ANKLE EXAMINATION/TECHNIQUE: X-RAY - LEFT XR Foot Min 3 Views 3 VIEWS COMPARISON: No relevant prior comparison study available FINDINGS: BONES: No fracture demonstrated. Degenerative changes. Calcaneal spurs at the plantar and posterior Achilles insertion sites. JOINTS: No dislocation. SOFT TISSUES: Unremarkable. Calcifications posteriorly likely at the Achilles tendon. RAD/Foot min 3 Views IMPRESSION: No evidence of fracture. Degenerative changes. Electronically Signed: Valerie Guerrero MD at 4:51 EDT ,
--- NOTE | 2024-03-05 04:08 | ED.VIS.LOWEX ---
HPI History of Present Illness HPI Narrative: 84-year-old male history of intermittent pain in his left lower leg and foot. No fall injury or trauma. No redness or fever. No swelling. Pain comes and goes. He says been going on for 1 to 2 weeks. Chief Complaint: Lower Extremity Injury Informant: patient and family Onset/Context/Timing Onset: Weeks Context: Gradual Onset Timing: Intermittent Quality of Pain: Sharp Current Severity: Gone Maximum Severity: Mild Associated Symptoms Associated Symptoms: Negative for Parasthesia, Weakness or Loss of Funtion Narrative Narrative: 84-year-old male atraumatic left lower leg pain. Prior similar symptoms: No Recent Illness/Hospitalization: No PFSH PFSH Medical History Sleep apnea CHF (congestive heart failure) Pacemaker Social History Smoking Status: Former smoker ROS ROS ED ROS Narrative Denies recent illness. Constitutional Constitutional ED: Denies chills or fever(s) Eyes Eyes: Denies blurry vision ENT ENT ED: Denies ear pain Cardiovascular Cardiovascular: Denies chest pain Respiratory/Chest Respiratory/Chest: Denies cough or dyspnea Gastrointestinal Gastrointestinal: Denies abdominal pain Genitourinary Genitourinary ED: Denies dysuria Musculoskeletal Musculoskeletal: Denies arthralgias Integumentary Denies abscess Neurologic Neurologic: Denies headache(s) Psychiatric Psychiatric: Denies anxiety Endocrine Endocrinology: Denies polydipsia Hematologic/Lymphatic Hematologic/Lymphatic: Denies easy bleeding Allergic/Immunologic Allergic/Immunologic ED: Denies mouth swelling EXAM Physical Exam Narrative Exam Narrative: Older male no acute distress vital signs stable afebrile. Family at bedside. H EENT exam unremarkable. Lungs clear. Heart regular rhythm rate about 100 no murmur. Chest wall ribs nontender. Abdomen soft nontender. Moving all 4 extremities. Calves are nontender without edema or cords. The left lower leg on the posterior calf heel and foot some of the skin is excoriated from him scratching it. There is no infection. No cellulitis. There is no calf soft tissue tenderness. Or reproducible pain. He has normal dorsi and plantarflexion in both feet. Normal DP pulses. Both feet have nails that are infected with tinea. Otherwise the lower legs and feet are normal in appearance. There is no swelling or bruising. No bony deformity. Normal range of motion. There is no streaking. There is no inguinal lymphadenopathy. Currently symptom-free. Without pain. Const Vital Signs: 03/05/24 03:40 Temperature 97.5 F L Temperature Source Oral Pulse Rate 102 H Respiratory Rate 18 Blood Pressure 134/85 H Blood Pressure Mean 101 Pulse Ox 99 Oxygen Delivery Method Room Air Positive well nourished and well developed; Negative for obese, cachectic, contractures or unkempt General Appearance ED: well developed and NAD; Negative for unkempt, cachectic or contractures Nutritional Appearance: Negative for cachectic or obese HEENT Reports moist mucous membranes normocephalic and atraumatic; Negative for trauma or tenderness Eyes PERRL Neck full ROM and supple Thyroid: Negative for tender Chest Wall inspection of chest normal and palpation of chest normal Resp normal respiratory effort, no retractions and clear to auscultation bilaterally Auscultation: Negative for rales, rhonchi, wheezes or diminished lung sounds Cardio regular rate, regular rhythm, S1 normal heart sound, S2 normal heart sound and no murmurs Rate: Negative for bradycardia or tachycardic Rhythm: Negative for abnormal rhythm GI non-tender, non-distended and no masses Inspection: Negative for abdominal distention Auscultation: normoactive bowel sounds Palpation: soft; Negative for tender, guarding or rebound tenderness present Back/Spine no CVA tenderness General Back: Negative for CVA tenderness Cervical Spine: Negative for cervical spine tenderness Thoracic Spine / Upper Back: Negative for thoracic spinal tenderness Lumbar Spine / Lower Back: Negative for lumbar spinal tenderness Extremity normal to inspection and full ROM Extremity Narrative: Calves nontender. Normal dorsi plantarflexion. Normal DP pulse. Able to wiggle his toes. Normal sensation. No swelling. No bruising. No edema. There are some breakdown of the skin left lower posterior leg heel and foot from him scratching it. But there is no secondary cellulitis. No inguinal lymphadenopathy. Currently symptom-free. He is not having the pain. General Extremety ED: Negative for cyanosis, edema or weight-bearing difficulty General Extremity: Negative for cyanosis, edema or weight-bearing difficulty Neuro oriented x3 and CN's II-XII intact bilaterally Sensorium / Orientation: alert, oriented to person, oriented to place and oriented to time Motor Exam: strength 5/5 throughout Psych mental status grossly normal Appearance: Negative for unkempt Skin no wounds Lesions: no lesions Rashes: no rashes Trauma: Negative for abrasion or laceration MDM MDM MDM Narrative Medical decision making narrative: 84-year-old male with intermittent left lower leg pain for 2 weeks. Exam is benign other than some breakdown of the skin where he scratched it. There is no infection. This does not look like a blood clot he had no calf pain or swelling. Currently does not have the pain. Left foot is neurovascularly intact. History & Record Review Discussion w/independent historian: Patient and Family Additional record(s) reviewed:: No prior records Radiography Diagnostic Testing: Left foot x-ray, 3 views, interpreted by myself Discharge Plan Triage Chief Complaint: Lower Extremity Injury ED Provider: Ralph Frances Dx/Rx/DC Orders Print Language: French
== END 2024-03-05 04:27 | disposition home or self-care (01) ==
PROVIDERS: Emergency Provider Emergency Medicine; PCP Internal Medicine; Visit Provider Emergency Medicine
DX: S90.812A Abrasion, left foot, initial encounter (principal); S80.812A Abrasion, left lower leg, initial encounter; X58.XXXA Exposure to other specified factors, initial encounter; B35.1 Tinea unguium; Z87.891 Personal history of nicotine dependence
CPT/HCPCS: 73630; 99282